=== PATIENT | female | born 1965 | race Caucasian/White ===

== ENCOUNTER → 2019-09-23 | Outpatient (CLI) | payer MEDICAID, SELFPAY | PROVIDERS: Family Provider Nurse Practitioner; Visit Provider Social Worker Clinical | DX: F43.12 Post-traumatic stress disorder, chronic (principal) | CPT/HCPCS: 90834 ==

== ENCOUNTER → 2019-10-16 10:06 | Outpatient (BNVA) | payer MEDICAID, SELFPAY | PROVIDERS: Family Provider Nurse Practitioner; PCP Nurse Practitioner; Visit Provider Social Worker Clinical | DX: F43.12 Post-traumatic stress disorder, chronic (principal); F25.9 Schizoaffective disorder, unspecified | CPT/HCPCS: 90834 ==

== ENCOUNTER → 2019-10-24 09:12 | Outpatient (BNVA) | payer MEDICAID, SELFPAY | PROVIDERS: Family Provider Nurse Practitioner; PCP Nurse Practitioner; Visit Provider Nurse Practitioner Psychiatric/Mental Health | DX: F25.1 Schizoaffective disorder, depressive type (principal); F43.12 Post-traumatic stress disorder, chronic; F41.1 Generalized anxiety disorder; F12.20 Cannabis dependence, uncomplicated; F17.210 Nicotine dependence, cigarettes, uncomplicated; F60.3 Borderline personality disorder | CPT/HCPCS: 99213 ==

== ENCOUNTER → 2019-10-30 10:23 | Outpatient (BNVA) | payer MEDICAID, SELFPAY | PROVIDERS: Family Provider Nurse Practitioner; PCP Nurse Practitioner; Visit Provider Social Worker Clinical | DX: F25.1 Schizoaffective disorder, depressive type (principal); F43.12 Post-traumatic stress disorder, chronic | CPT/HCPCS: 90834 ==

== ENCOUNTER → 2019-11-05 09:22 | Outpatient (BNVA) | payer MEDICAID, SELFPAY | PROVIDERS: Family Provider Nurse Practitioner; Visit Provider Social Worker Clinical | DX: F25.1 Schizoaffective disorder, depressive type (principal); F43.12 Post-traumatic stress disorder, chronic | CPT/HCPCS: 90834 ==

== ENCOUNTER → 2019-11-13 09:22 | Outpatient (BNVA) | payer MEDICAID, SELFPAY | PROVIDERS: Family Provider Nurse Practitioner; Visit Provider Social Worker Clinical | DX: F25.1 Schizoaffective disorder, depressive type (principal); F43.12 Post-traumatic stress disorder, chronic | CPT/HCPCS: 90834 ==

== ENCOUNTER 2019-11-18 12:45 | Outpatient (CLI) | payer MEDICAID, SELFPAY ==
--- NOTE | 2019-11-18 12:51 | XR_ITS ---
WS: [id number] Right foot, 3 views, 11/18/2019 Clinical Data: right heel pain Comparison: None. Findings: No fractures or dislocations are seen. No bone destruction or erosion is noted. The joint spaces and soft tissues are normal. There is a small plantar spur. XR/XR foot RT min 3V* [id number] Impression: Negative right foot.
--- NOTE | 2019-11-18 12:51 | XR_ITS ---
WS: [id number] Left foot, 3 views, 11/18/2019 Clinical Data: left heel pain Comparison: None. Findings: No fractures or dislocations are seen. No bone destruction or erosion is noted. The joint spaces and soft tissues are normal. There is a small plantar spur. XR/XR foot LT min 3V* [id number] Impression: Negative left foot.
== END 2019-11-18 12:46 | disposition home or self-care (01) ==
LOC: RAD 12:48
PROVIDERS: Family Provider Nurse Practitioner; PCP Family Medicine; Visit Provider Family Medicine
DX: M79.671 Pain in right foot (principal); M79.672 Pain in left foot; E55.9 Vitamin D deficiency, unspecified; E78.5 Hyperlipidemia, unspecified; E03.9 Hypothyroidism, unspecified
CPT/HCPCS: 73630; 80053; 80061; 82306; 84443

== ENCOUNTER → 2019-11-20 12:47 | Outpatient (BNVA) | payer MEDICAID, SELFPAY | PROVIDERS: Family Provider Nurse Practitioner; PCP Family Medicine; Visit Provider Nurse Practitioner Psychiatric/Mental Health | DX: F25.1 Schizoaffective disorder, depressive type (principal); F43.12 Post-traumatic stress disorder, chronic; F41.1 Generalized anxiety disorder; F12.20 Cannabis dependence, uncomplicated; F17.210 Nicotine dependence, cigarettes, uncomplicated; F60.3 Borderline personality disorder | CPT/HCPCS: 99214 ==

== ENCOUNTER → 2019-12-01 13:19 | Outpatient (BNVA) | payer MEDICAID, SELFPAY | PROVIDERS: Family Provider Nurse Practitioner; PCP Family Medicine; Visit Provider Social Worker Clinical | DX: F41.1 Generalized anxiety disorder (principal); F43.12 Post-traumatic stress disorder, chronic; F25.1 Schizoaffective disorder, depressive type; F60.3 Borderline personality disorder | CPT/HCPCS: 90834 ==

== ENCOUNTER → 2019-12-11 10:45 | Outpatient (BNVA) | payer MEDICAID, SELFPAY | PROVIDERS: Family Provider Nurse Practitioner; PCP Family Medicine; Visit Provider Social Worker Clinical | DX: F60.3 Borderline personality disorder (principal); F25.1 Schizoaffective disorder, depressive type; F43.12 Post-traumatic stress disorder, chronic; F41.1 Generalized anxiety disorder | CPT/HCPCS: 90834 ==

== ENCOUNTER → 2019-12-12 09:36 | Outpatient (BNVA) | payer MEDICAID, SELFPAY | PROVIDERS: Family Provider Nurse Practitioner; PCP Family Medicine; Visit Provider Otolaryngology | DX: J34.2 Deviated nasal septum (principal); J34.3 Hypertrophy of nasal turbinates; R09.82 Postnasal drip; J30.9 Allergic rhinitis, unspecified; J32.9 Chronic sinusitis, unspecified; H69.83 Other specified disorders of Eustachian tube, bilateral; F17.210 Nicotine dependence, cigarettes, uncomplicated | CPT/HCPCS: 99203; 99214 ==

== ENCOUNTER 2019-12-14 17:35 | Emergency (ER) | payer MEDICAID, SELFPAY ==
[2019-12-14 17:36] VITALS: BP 146/89; PULSE 93; RESP 16; TEMP 36.6; O2SAT 99; BMI 24.1
--- NOTE | 2019-12-14 17:50 | ED_ITS ---
HPI - Neck Pain/Injury General: Chief Complaint: Neck Pain/Injury Stated Complaint: NECK PAIN/POSSIBLE INFECTION Time Seen by Provider: 12/14/19 17:50 Source: patient Mode of arrival: ambulatory Limitations: no limitations History of Present Illness: HPI Narrative: Patient comes in for persistent pain and discomfort to the right paraspinal muscles of the cervical spine. Patient had nerve ablation done on the 12th of this month and is concerned there may be an infection. Patient denies any fever. Patient appears well. Patient has a history of chronic neck pain. MD complaint: neck pain Review of Systems General: Reports: 10 or more systems reviewed and unremarkable except in HPI and below Musc: Reports: neck pain PFSH ED PFSH: Medical History (Updated 12/14/19 @ 18:39 by TARAN Holly) Allergic rhinitis Borderline personality disorder Cannabis dependence, episodic use Chronic back pain Chronic eustachian tube dysfunction Chronic post-traumatic stress disorder Chronic sinusitis COPD (chronic obstructive pulmonary disease) Fatty liver Fibromyalgia Generalized anxiety disorder Hyperlipidemia Hypothyroid Nasal septal deformity Nasal turbinate hypertrophy Nicotine dependence, cigarettes, with unspecified nicotine-induced disorders Osteoporosis Postnasal drip Schizoaffective disorder, depressive type Severe sleep apnea Vitamin D deficiency Surgical History H/O section History of appendectomy History of cholecystectomy Status post gastric surgery Social History Smoking and tobacco status: current every day smoker cigarettes Alcohol intake: former Physical Exam Const: COMMON NORMALS: no apparent distress and oriented x3 GENERAL APPEARANCE: cooperative HENMT: COMMON NORMALS: normocephalic, external ears normal, EAC's normal, TM's normal bilaterally and external nose normal HEAD & SCALP: normal to inspection and normocephalic FACE & SINUS: normal facial exam NOSE: external nose normal GENERAL EAR: hearing not grossly impaired EXTERNAL EAR: Yes external ears normal EXTERNAL AUDITORY CANAL: EAC's normal T YMPANIC MEMBRANE: TM's normal bilaterally MOUTH: oral and palatal mucosa normal THROAT: posterior oropharynx normal Eye: COMMON NORMALS: PERRL and EOMs intact bilaterally PUPIL: Yes PERRL Neck/C-Spine: COMMON NORMALS: no lymphadenopathy CERVICAL SPINE: Yes cervical ROM abnormal rotation to the right decreased, Yes pain with cervical ROM, Yes paracervical muscle tenderness right and Yes paracervical muscle spasm right Lymph: LYMPHATIC: no lymphedema noted Chest: COMMONS NORMALS: inspection of chest normal and palpation of chest normal Resp: COMMON NORMALS: normal respiratory effort and clear to auscultation bilaterally AUSCULTATION: clear to auscultation bilaterally Cardio: COMMON NORMALS: regular rate and regular rhythm RATE: regular rate RHYTHM: regular rhythm GI: COMMON NORMALS: normal to inspection, nondistended, normoactive bowel sounds and non-tender : COMMON NORMALS: Yes no CVA tenderness BLADDER/KIDNEY EXAM: Yes no CVA tenderness Back/Pelvis: COMMON NORMALS: no CVA tenderness and thoracic and lumbar spine normal to inspection Extremity: COMMON NORMALS: normal to inspection GENERAL: No edema Neuro: COMMON NORMALS: oriented x3, moves all extremities and no focal motor deficits Psych: COMMON NORMALS: mental status grossly normal and cooperative Skin: COMMON NORMALS: no rashes or lesions noted GENERAL SKIN EXAM: no rashes or lesions noted Course Vital Signs: Vital signs: Vital Signs Temperature 97.8 F 12/14/19 17:36 Pulse Rate 93 12/14/19 17:36 Respiratory Rate 16 12/14/19 17:36 Blood Pressure 146/89 12/14/19 17:36 Pulse Oximetry 99 12/14/19 17:36 MDM - Neck Pain/Injury MDM Narrative: Medical decision making narrative: Patient comes in today with right-sided neck pain. On exam we note very tender paraspinous muscles of the right cervical area. Patient has guarded range of motion to the right. Good pulses and sensations distally to the upper extremities. Respirations are even lungs are clear to auscultation. Skin is pink warm and dry without any signs of redness or purulent drainage. Vital signs are normal. Differential diagnosis includes cervical radiculopathy, cellulitis, abscess, muscle spasm, cervical strain. CT scan was performed noting no sign of abscess or pathologic process that could be contributing to the pain. Patient does have some degenerative disc disease. Reviewed with patient reassured her that there is no sign of infection. Patient was given medication for her discomfort including 30 mg Toradol, 60 mg orphenadrine, morphine 4 mg and 4 mg of ondansetron for nausea. Patient should follow-up with primary care or specialist for further treatment. Patient reports understanding. Discharge Plan Discharge Patient Disposition: Home, Self-Care Clinical Impression: Cervical paraspinal muscle spasm Condition: Stable Prescriptions: No Action ergocalciferol (vitamin D2) 1,250 mcg (50,000 unit) capsule 1,250 mcg PO .COMPLEX RF: 0 levothyroxine 25 mcg capsule 25 mcg PO QDAY RF: 0 duloxetine [Cymbalta] 60 mg capsule,delayed release(DR/EC) 60 mg PO .morning Qty: 30 RF: 4 ziprasidone HCl [Geodon] 20 mg capsule 20 mg PO .evening Qty: 30 RF: 4 Chantix 1 mg tablet 1 mg PO BID Qty: 56 RF: 1 duloxetine [Cymbalta] 30 mg capsule,delayed release(DR/EC) 30 mg PO .morning Qty: 30 RF: 2 loperamide [Anti-Diarrheal (loperamide)] 2 mg tablet 2 mg PO DAILY PRNRF: 0 acetaminophen [Tylenol] 325 mg tablet 650 mg PO Q6H PRN (Reason: pain) Qty: 100 RF: 0 albuterol sulfate [ProAir HFA] 90 mcg/actuation HFA aerosol inhaler 2 puff INHALATION Q6H PRN (Reason: shortness of breath or wheezing) Qty: 18 RF: 0 baclofen 10 mg tablet 10 mg PO TID Qty: 90 RF: 0 cetirizine 10 mg tablet 10 mg PO DAILY Qty: 30 RF: 0 montelukast [Singulair] 10 mg tablet 10 mg PO QDAY Qty: 30 RF: 0 simvastatin 20 mg tablet 20 mg PO QDAY Qty: 30 RF: 0 zonisamide 100 mg capsule 100 mg PO BID Qty: 60 RF: 0 Spiriva with HandiHaler 18 mcg capsule, w/inhalation device 1 cap INHALATION QDAY Qty: 90 RF: 0 topiramate [Topamax] 100 mg tablet 100 mg PO BID Qty: 60 RF: 0 Discharge Orders: Discharge Order (Routine); Ordered 12/14/19 Ordered By: Umesh Contreras Referrals: Cira Galeano, [employer]ICIAN-C [Family Provider] - Mireille Villasenor DO [Primary Care Provider] - Discharge Diet: Usual diet Patient Instructions: Muscle Spasm (ED) Activity Restrictions/Additional Instructions: Activity as tolerated Gentle stretching and range of motion of the neck Ice or heat to the area Menthol muscle rub to the area Drink plenty of fluids Follow-up with primary care for further treatment. Coding Level of Care Code ED Community Midwife for Sariah Fwd Exam Comprehensive
--- NOTE | 2019-12-14 17:55 | CTR_ITS ---
PROCEDURE INFORMATION: Exam: CT Cervical Spine Without Contrast Exam date and time: 12/14/2019 6:08 PM Age: 53 years old Clinical indication: Neck pain; Prior surgery; Surgery date: <1 month; Surgery type: Nerve procedure done 12/04/19; Additional info: Pain, recent procedure TECHNIQUE: Imaging protocol: Computed tomography images of the cervical spine without contrast. Total DLP: 473.61 mGy-cm Radiation optimization: All CT scans at this facility use at least one of these dose optimization techniques: automated exposure control; mA and/or kV adjustment per patient size (includes targeted exams where dose is matched to clinical indication); or iterative reconstruction. COMPARISON: CT Cervical Spine wo* [id number] 07/08/2015 5:12 PM FINDINGS: Vertebrae: Mild straightening of the normal cervical lordosis most likely positional nature. No visible fracture, subluxation, or dislocation. Discs/Spinal canal/Neural foramina: No visible significant posterior disc bulge or herniated nucleus pulposis that would result in central canal stenosis. Soft tissues: Unremarkable. Trachea: Moderately advanced degenerative disease and degenerative disc disease C5/C6 with spondylosis deformans. Vacuum disc phenomenon. Bilateral neural foraminal narrowing C5/C6 secondary to posterior osteophytes and facet arthrosis. No central canal stenosis. Lungs: Lung apices clear. Mediastinum: Evidence of antecedent granulomatous disease. CT/CT cervical spin wo con* [id number] IMPRESSION: 1. No visible evidence of active or acute pathologic process. 2. Moderately advanced degenerative disease and degenerative disc disease C5/C6. 3. Bilateral neural foraminal narrowing C5/C6. 4. Evidence of antecedent granulomatous disease. Radiation Dose CTDIVOL = (mGy): DLP = 473.61 (mGy-cm)
[2019-12-14] MEDS: orphenadrine 30 mg/mL Inj 2 mL 60 MG IM (18:02)
[2019-12-14] MEDS: ketorolac 30 mg/mL INJ IM (18:02)
[2019-12-14] MEDS: ondansetron 4 MG Tablet PO (18:33)
[2019-12-14 18:42] VITALS: RESP 16; O2SAT 98
[2019-12-14] MEDS: morphine 4 mg/mL SDV 1 mL IM (18:42)
[2019-12-14 19:23] VITALS: BP 152/94; PULSE 89; RESP 16; TEMP 36.9; O2SAT 97
== END 2019-12-14 19:30 | disposition home or self-care (01) ==
PROVIDERS: Emergency Provider Nurse Practitioner Family; Family Provider Nurse Practitioner; PCP Family Medicine
DX: M62.838 Other muscle spasm (principal); J44.9 Chronic obstructive pulmonary disease, unspecified; E78.5 Hyperlipidemia, unspecified; E03.9 Hypothyroidism, unspecified; F17.210 Nicotine dependence, cigarettes, uncomplicated
CPT/HCPCS: 12345; 72125; 96372; 99281; 99283; J1885; J2270; J2360; Q0162

== ENCOUNTER → 2019-12-15 12:19 | Outpatient (BNVA) | payer MEDICAID, SELFPAY | PROVIDERS: Family Provider Nurse Practitioner; PCP Family Medicine; Visit Provider Nurse Practitioner Psychiatric/Mental Health | DX: F25.1 Schizoaffective disorder, depressive type (principal); F43.12 Post-traumatic stress disorder, chronic; F41.1 Generalized anxiety disorder; F12.20 Cannabis dependence, uncomplicated; F17.210 Nicotine dependence, cigarettes, uncomplicated; Z79.899 Other long term (current) drug therapy; F60.3 Borderline personality disorder | CPT/HCPCS: 99214 ==

== ENCOUNTER → 2019-12-18 11:40 | Outpatient (BNVA) | payer MEDICAID, SELFPAY | PROVIDERS: Family Provider Nurse Practitioner; PCP Family Medicine; Visit Provider Social Worker Clinical | DX: F60.3 Borderline personality disorder (principal); F41.1 Generalized anxiety disorder; F43.12 Post-traumatic stress disorder, chronic; F25.1 Schizoaffective disorder, depressive type | CPT/HCPCS: 90834 ==

== ENCOUNTER → 2019-12-25 10:04 | Outpatient (BNVA) | payer MEDICAID, SELFPAY | PROVIDERS: Family Provider Nurse Practitioner; PCP Family Medicine; Visit Provider Social Worker Clinical | DX: F25.1 Schizoaffective disorder, depressive type (principal); F41.1 Generalized anxiety disorder; F43.12 Post-traumatic stress disorder, chronic | CPT/HCPCS: 90834 ==

== ENCOUNTER 2019-12-26 10:22 | Outpatient (CLI) | payer MEDICAID, SELFPAY ==
--- NOTE | 2019-12-26 10:32 | CT_ITS ---
WS: [id number] CT SINUSES TECHNIQUE: Noncontrast CT of the paranasal sinuses with coronal and sagittal reformatted images. CLINICAL INFORMATION: Ear complaints COMPARISON: None. DLP: 392.[address] scans at [facility] use at least one of these dose optimization techniques: automat ed exposure control; mA and/or kV adjustment per patient size (includes targeted exams where dose is matched to clinical indication); or iterative reconstruction. FINDINGS: Mild left to right nasal septal deviation measuring 5 mm. Rightward directed spur. Mild narrowing of the ostiomeatal units bilaterally which remain patent. Frontal sinuses are well aerated. Mild mucosal thickening in the ethmoid air cells. Sphenoid sinuses are well aerated. Normal sphenoid sinus ostia. Maxillary sinuses are well aerated. Mastoid air cells are well aerated. Encephalomalacia partially visualized in the inferior frontal lob es bilaterally likely due to prior trauma. Normal parapharyngeal fat. Posterior nasopharynx appears n ormal. CT/CT sinus wo con* [id number] IMPRESSION: 1. Mild left to right nasal septal deviation measuring 5 mm. 2. Paranasal sinuses are well aerated. Mild narrowing of the ostiomeatal units which remain patent. 3. Mild mucosal thickening ethmoid air cells. 4. Mastoid air cells well aerated. Normal posterior nasopharynx.
== END 2019-12-26 10:23 | disposition home or self-care (01) ==
LOC: RADWPI 10:32
PROVIDERS: Family Provider Nurse Practitioner; PCP Family Medicine; Visit Provider Otolaryngology
DX: H93.90 Unspecified disorder of ear, unspecified ear (principal); J34.2 Deviated nasal septum
CPT/HCPCS: 70486

== ENCOUNTER → 2020-01-01 09:59 | Outpatient (BNVA) | payer MEDICAID, SELFPAY | PROVIDERS: Family Provider Nurse Practitioner; PCP Family Medicine; Visit Provider Social Worker Clinical | DX: F25.1 Schizoaffective disorder, depressive type (principal); F43.12 Post-traumatic stress disorder, chronic; F41.1 Generalized anxiety disorder; F60.3 Borderline personality disorder | CPT/HCPCS: 90834 ==

== ENCOUNTER → 2020-01-13 08:07 | Outpatient (BNVA) | payer MEDICAID, SELFPAY | PROVIDERS: Family Provider Nurse Practitioner; PCP Family Medicine; Visit Provider Nurse Practitioner Psychiatric/Mental Health | DX: F25.1 Schizoaffective disorder, depressive type (principal); F43.12 Post-traumatic stress disorder, chronic; F41.1 Generalized anxiety disorder; F12.20 Cannabis dependence, uncomplicated; F17.210 Nicotine dependence, cigarettes, uncomplicated; F60.3 Borderline personality disorder | CPT/HCPCS: 99214 ==

== ENCOUNTER → 2020-01-15 08:12 | Outpatient (BNVA) | payer MEDICAID, SELFPAY | PROVIDERS: Family Provider Nurse Practitioner; PCP Family Medicine; Visit Provider Social Worker Clinical | DX: F60.3 Borderline personality disorder (principal); F41.1 Generalized anxiety disorder; F43.12 Post-traumatic stress disorder, chronic; F25.1 Schizoaffective disorder, depressive type | CPT/HCPCS: 90834 ==

== ENCOUNTER → 2020-01-19 08:15 | Outpatient (BNVA) | payer MEDICAID, SELFPAY | PROVIDERS: Family Provider Nurse Practitioner; PCP Family Medicine; Visit Provider Social Worker Clinical | DX: F25.1 Schizoaffective disorder, depressive type (principal); F43.12 Post-traumatic stress disorder, chronic; F41.1 Generalized anxiety disorder; F60.3 Borderline personality disorder | CPT/HCPCS: 90834 ==

== ENCOUNTER → 2020-02-09 08:23 | Outpatient (BNVA) | payer MEDICAID, SELFPAY | PROVIDERS: Family Provider Nurse Practitioner; PCP Family Medicine; Visit Provider Social Worker Clinical | DX: F25.1 Schizoaffective disorder, depressive type (principal); F43.12 Post-traumatic stress disorder, chronic; F41.1 Generalized anxiety disorder; F60.3 Borderline personality disorder | CPT/HCPCS: 90832 ==

== ENCOUNTER → 2020-02-18 07:34 | Outpatient (BNVA) | payer MEDICAID, SELFPAY | PROVIDERS: Family Provider Nurse Practitioner; PCP Family Medicine; Visit Provider Nurse Practitioner Psychiatric/Mental Health | DX: F25.1 Schizoaffective disorder, depressive type (principal); F43.12 Post-traumatic stress disorder, chronic; F41.1 Generalized anxiety disorder; F17.210 Nicotine dependence, cigarettes, uncomplicated; F12.20 Cannabis dependence, uncomplicated; Z79.899 Other long term (current) drug therapy; F60.3 Borderline personality disorder | CPT/HCPCS: 80053; 83036; 85025; 99214 ==

== ENCOUNTER → 2020-02-25 08:58 | Outpatient (BNVA) | payer MEDICAID, SELFPAY | PROVIDERS: Family Provider Nurse Practitioner; PCP Family Medicine; Visit Provider Social Worker Clinical | DX: F25.1 Schizoaffective disorder, depressive type (principal) | CPT/HCPCS: 90834 ==

== ENCOUNTER → 2020-03-11 08:05 | Outpatient (BNVA) | payer MEDICAID, SELFPAY | PROVIDERS: Family Provider Nurse Practitioner; PCP Family Medicine; Visit Provider Social Worker Clinical | DX: F25.1 Schizoaffective disorder, depressive type (principal); F43.12 Post-traumatic stress disorder, chronic; F41.1 Generalized anxiety disorder; F60.3 Borderline personality disorder | CPT/HCPCS: 90834 ==

== ENCOUNTER → 2020-03-17 07:31 | Outpatient (BNVA) | payer MEDICAID, SELFPAY | PROVIDERS: Family Provider Nurse Practitioner; PCP Family Medicine; Visit Provider Nurse Practitioner Psychiatric/Mental Health | DX: F25.1 Schizoaffective disorder, depressive type (principal); F43.12 Post-traumatic stress disorder, chronic; F41.1 Generalized anxiety disorder; F12.20 Cannabis dependence, uncomplicated; F17.210 Nicotine dependence, cigarettes, uncomplicated; F60.3 Borderline personality disorder | CPT/HCPCS: 95909; 99214 ==

== ENCOUNTER → 2020-03-29 08:10 | Outpatient (BNVA) | payer MEDICAID, SELFPAY | PROVIDERS: Family Provider Nurse Practitioner; PCP Family Medicine; Visit Provider Social Worker Clinical | DX: F60.3 Borderline personality disorder (principal); F41.1 Generalized anxiety disorder; F25.1 Schizoaffective disorder, depressive type; F43.12 Post-traumatic stress disorder, chronic | CPT/HCPCS: 90832 ==

== ENCOUNTER → 2020-04-06 12:02 | Outpatient (BNVA) | payer OTHER, SELFPAY | PROVIDERS: Family Provider Nurse Practitioner; PCP Family Medicine; Visit Provider Psychiatry & Neurology Neurology | DX: Z79.899 Other long term (current) drug therapy (principal) | CPT/HCPCS: 80061 ==

== ENCOUNTER → 2020-04-14 07:36 | Outpatient (BNVA) | payer MEDICAID, SELFPAY ==
[2020-04-07 09:08] VITALS: BP 109/70; BMI 25.5
== END ==
PROVIDERS: Family Provider Nurse Practitioner; PCP Family Medicine; Visit Provider Nurse Practitioner Psychiatric/Mental Health
DX: F25.1 Schizoaffective disorder, depressive type (principal); F43.12 Post-traumatic stress disorder, chronic; F41.1 Generalized anxiety disorder; F12.20 Cannabis dependence, uncomplicated; F17.210 Nicotine dependence, cigarettes, uncomplicated; F60.3 Borderline personality disorder
CPT/HCPCS: 99214

== ENCOUNTER → 2020-04-15 07:50 | Outpatient (BNVA) | payer MEDICAID, SELFPAY ==
[2020-04-07 09:08] VITALS: BP 109/70; BMI 25.5
== END ==
PROVIDERS: Family Provider Nurse Practitioner; PCP Family Medicine; Visit Provider Social Worker Clinical
DX: F25.1 Schizoaffective disorder, depressive type (principal); F60.3 Borderline personality disorder; F41.1 Generalized anxiety disorder; F43.12 Post-traumatic stress disorder, chronic
CPT/HCPCS: 90834

== ENCOUNTER 2020-04-19 16:42 | Outpatient (CLI) | payer MEDICAID, SELFPAY ==
[2020-04-07 09:08] VITALS: BP 109/70; BMI 25.5
[2020-04-19 17:23] LABS: Alanine Aminotransferase 18 U/L (0-33); Albumin Level 4.7 g/dL (3.5-5.2); Alkaline Phosphatase 75 IU/L (35-105); Aspartate Amino Transferase 18 U/L (0-32); Blood Urea Nitrogen 13 mg/dL (6-20); Calcium 9.6 mg/dL (8.5-10.5); Carbon Dioxide 25 mmol/L (22-29); Chloride 103 mmol/L (98-107); Globulin 2.3 g/dL (1.3-4.6); Glomerular Filtration Rate 75.3 mL/min (90-130); Glucose 91 mg/dL (65-115); Osmolality Calculated 282 mOsm/kg (285-295); Sodium 138 mmol/L (136-145); Total Bilirubin 0.2 mg/dL (0.15-1.2)
[2020-04-19 17:39] LABS: Basophils # 0.1 10^3/uL (0.0-0.1); Basophils % 0.6 %; Eosinophils # 0.2 10^3/uL (0.0-0.8); Hematocrit 38.2 % (37.0-47.0); Hemoglobin 12.1 g/dL (11.5-15.3); Lymphocytes # 3.1 10^3/uL (0.8-4.8); Lymphocytes % 37.2 %; Mean Corpuscular HGB Conc 31.7 g/dL (30.0-36.0); Mean Corpuscular Hemoglobin 31.3 pg (28.0-34.0); Mean Corpuscular Volume 98.7 fL (81-99); Mean Platelet Volume 11.1 fL (7.4-10.4); Monocytes # 0.6 10^3/uL (0.2-0.9); Monocytes % 6.9 %; Neutrophils # 4.44 10^3/uL (1.8-7.7); Neutrophils % 53.1 %; Nucleated Red Blood Cells % 0 %; Platelet Count 264 10^3/cmm (130-400); Red Blood Count 3.87 10^6/uL (4.1-5.3); Red Cell Distribution Width 12.8 % (12.1-15.1); White Blood Count 8.4 10^3/uL (4.0-10.0)
== END 2020-04-19 16:43 | disposition home or self-care (01) ==
LOC: LAB 16:47
PROVIDERS: PCP Nurse Practitioner Family; Visit Provider Internal Medicine Pulmonary Disease
DX: F17.210 Nicotine dependence, cigarettes, uncomplicated (principal); J44.9 Chronic obstructive pulmonary disease, unspecified; R91.8 Other nonspecific abnormal finding of lung field
CPT/HCPCS: 80053; 85025

== ENCOUNTER 2020-05-03 11:34 | Outpatient (CLI) | payer MEDICAID, SELFPAY ==
[2020-04-07 09:08] VITALS: BP 109/70; BMI 25.5
--- NOTE | 2020-05-03 11:48 | ECG_ITS ---
[facility] Test Date: 2020-05-03 Pat Name: Ani Mejia Department: Room: Gender: Female [employer]: : 1965 Requested By: Salty Izquierdo Order Number: [id number] Annette MD: Rachel Locke M.D. Measurements Intervals [place] Rate: 76 P: 71 VA: 158 QRS: 60 QRSD: 83 T: 54 QT: 380 QTc: 428 Interpretive Statements SINUS RHYTHM Compared to ECG 07/31/2017 21:30:37 No significant changes Electronically Signed On 05-03-2020 15:45:57 CDT by Rachel Locke M.D. [email or web address]
[2020-05-03 12:14] LABS: Basophils # 0.1 10^3/uL (0.0-0.1); Eosinophils # 0.2 10^3/uL (0.0-0.8); Eosinophils % 2.9 %; Hematocrit 37.2 % (37.0-47.0); Hemoglobin 11.9 g/dL (11.5-15.3); Lymphocytes % 37.9 %; Mean Corpuscular Hemoglobin 32.1 pg (28.0-34.0); Mean Corpuscular Volume 100.3 fL (81-99); Mean Platelet Volume 10.9 fL (7.4-10.4); Monocytes # 0.5 10^3/uL (0.2-0.9); Monocytes % 9.2 %; Neutrophils # 2.54 10^3/uL (1.8-7.7); Neutrophils % 48.6 %; Nucleated Red Blood Cells % 0 %; Platelet Count 247 10^3/cmm (130-400); Red Blood Count 3.71 10^6/uL (4.1-5.3); Red Cell Distribution Width 12.9 % (12.1-15.1); White Blood Count 5.2 10^3/uL (4.0-10.0)
[2020-05-03 12:30] LABS: Anion Gap 11.6 (5-19); Blood Urea Nitrogen 12 mg/dL (6-20); Carbon Dioxide 25 mmol/L (22-29); Chloride 106 mmol/L (98-107); Glomerular Filtration Rate 75.3 mL/min (90-130); Glucose 101 mg/dL (65-115); Osmolality Calculated 282 mOsm/kg (285-295); Potassium 4.6 mmol/L (3.5-5.1); Sodium 138 mmol/L (136-145)
== END 2020-05-03 11:35 | disposition home or self-care (01) ==
LOC: RT 11:37
PROVIDERS: PCP Nurse Practitioner Family; Visit Provider Specialist
DX: Z01.810 Encounter for preprocedural cardiovascular examination (principal); R91.8 Other nonspecific abnormal finding of lung field; F17.210 Nicotine dependence, cigarettes, uncomplicated; J44.9 Chronic obstructive pulmonary disease, unspecified
CPT/HCPCS: 80048; 85025; 93005

== ENCOUNTER → 2020-05-04 09:33 | Outpatient (BNVA) | payer MEDICAID, SELFPAY ==
[2020-04-07 09:08] VITALS: BP 109/70; BMI 25.5
== END ==
PROVIDERS: Family Provider Nurse Practitioner; PCP Family Medicine; Visit Provider Social Worker Clinical
DX: F60.3 Borderline personality disorder (principal); F12.20 Cannabis dependence, uncomplicated; F41.1 Generalized anxiety disorder; F43.12 Post-traumatic stress disorder, chronic; F25.1 Schizoaffective disorder, depressive type
CPT/HCPCS: 90834

== ENCOUNTER 2020-05-17 13:30 | Outpatient (CLI) | payer MEDICAID, SELFPAY ==
[2020-04-07 09:08] VITALS: BP 109/70; BMI 25.5
--- NOTE | 2020-05-17 14:00 | CT_ITS ---
WS: [id number] CT CHEST WITHOUT INTRAVENOUS CONTRAST HISTORY: lung nodules TECHNIQUE: Contiguous 5 mm axial imaging performed on the thorax. Coronal and sagittal reformats are submitted. All CT scans at [facility] use at least one of these dose optimization techniq ues: automated exposure control; mA and/or kV adjustment per patient size (includes targeted exams wh ere dose is matched to clinical indication); or iterative reconstruction. CONTRAST: None DLP: 651.05 mGycm COMPARISON: 11/20/2018 and 02/11/2018 Lungs and central airway: Hyperexpanded lungs. Subpleural 3 mm nodule at the RIGHT apex. Again noted is a noncalcified 5 mm nodules in the RIGHT lower lobe which are unchanged. There is an additional ar ea of bronchiectasis with calcification and bronchial thickening in the RIGHT lower lobe. Very slight increase in size of the increased soft tissue adjacent to the calcification. No new nodules. Pleura: Normal. No pleural effusion. Heart and pericardium: Normal size heart. No pericardial effusion. Mediastinum and kimberly: Calcified mediastinal and hilar lymph nodes. No new lymph nodes appreciated on this unenhanced study. Vessels: Normal size aortic and pulmonary artery. No coronary artery calcifications. Chest wall and lower neck: No soft tissue masses. Upper abdomen: Prior cholecystectomy. No adrenal mass. Hepatic granulomata. Several splenic granuloma ta. Osseous structures: Mild thoracic spondylosis. CT/CT chest wo con [id number] IMPRESSION: 1. Long-term stability of 5 mm nodules in the RIGHT lower lobe. 2. Calcification associated bronchiectasis RIGHT lower lobe. Very slight incre ase in soft tissue component. Recommend one-year CT follow-up. 3. Chronic emphysema. 4. Prior cholecystectomy.
== END 2020-05-17 13:31 | disposition home or self-care (01) ==
LOC: RADWPI 13:33
PROVIDERS: Family Provider Nurse Practitioner Family; PCP Nurse Practitioner Family; Visit Provider Internal Medicine Pulmonary Disease
DX: F25.1 Schizoaffective disorder, depressive type (principal); F43.12 Post-traumatic stress disorder, chronic; F41.1 Generalized anxiety disorder; F60.3 Borderline personality disorder
CPT/HCPCS: 90834; 71250

== ENCOUNTER → 2020-05-18 09:33 | Outpatient (BNVA) | payer MEDICAID, SELFPAY ==
[2020-04-07 09:08] VITALS: BP 109/70; BMI 25.5
== END ==
PROVIDERS: Family Provider Nurse Practitioner Family; PCP Nurse Practitioner Family; Visit Provider Nurse Practitioner Psychiatric/Mental Health
DX: F25.1 Schizoaffective disorder, depressive type (principal); F43.12 Post-traumatic stress disorder, chronic; F41.1 Generalized anxiety disorder; F17.210 Nicotine dependence, cigarettes, uncomplicated; F12.20 Cannabis dependence, uncomplicated; F60.3 Borderline personality disorder
CPT/HCPCS: 99214

== ENCOUNTER → 2020-05-28 08:38 | Outpatient (BNVA) | payer MEDICAID, SELFPAY ==
[2020-04-07 09:08] VITALS: BP 109/70; BMI 25.5
== END ==
PROVIDERS: Family Provider Nurse Practitioner Family; PCP Nurse Practitioner Family; Visit Provider Internal Medicine
DX: Z11.59 Encounter for screening for other viral diseases (principal); J44.9 Chronic obstructive pulmonary disease, unspecified
CPT/HCPCS: 87635

== ENCOUNTER → 2020-06-03 08:22 | Outpatient (BNVA) | payer MEDICAID, SELFPAY ==
[2020-04-07 09:08] VITALS: BP 109/70; BMI 25.5
== END ==
PROVIDERS: Family Provider Nurse Practitioner; PCP Family Medicine; Visit Provider Social Worker Clinical
DX: F60.3 Borderline personality disorder (principal); F41.1 Generalized anxiety disorder; F43.12 Post-traumatic stress disorder, chronic; F25.1 Schizoaffective disorder, depressive type
CPT/HCPCS: 90834

== ENCOUNTER 2020-06-10 09:45 | Outpatient (CLI) | payer MEDICAID, SELFPAY ==
[2020-04-07 09:08] VITALS: BP 109/70; BMI 25.5
--- NOTE | 2020-06-10 14:12 | PFTS_ITS ---
Date of Study:06/10/20 Date of Dictation: MECHANICS: Forced vital capacity (FVC) is normal. Forced expiratory volume in one second (FEV1) is normal. FEV1/FVC is normal. FLOW VOLUME LOOP: Normal,. LUNG VOLUMES: Total lung capacity (TLC) is normal. Residual volume (RV) is normal. DIFFUSING CAPACITY FOR CARBON MONOXIDE: Normal. INTERPRETATION: The pulmonary function tests are normal. There is no significant postbronchodilator response. Lung volumes are normal. Gas exchange (DLCO) is normal. MTDD
== END 2020-06-10 09:46 | disposition home or self-care (01) ==
PROVIDERS: PCP Nurse Practitioner Family; Visit Provider Internal Medicine Pulmonary Disease
DX: R91.8 Other nonspecific abnormal finding of lung field (principal); F17.210 Nicotine dependence, cigarettes, uncomplicated; J44.9 Chronic obstructive pulmonary disease, unspecified
CPT/HCPCS: 94060; 94726; 94729; J7611

== ENCOUNTER → 2020-06-17 07:42 | Outpatient (BNVA) | payer MEDICAID, SELFPAY ==
[2020-04-07 09:08] VITALS: BP 109/70; BMI 25.5
== END ==
PROVIDERS: Family Provider Nurse Practitioner Family; PCP Nurse Practitioner Family; Visit Provider Nurse Practitioner Psychiatric/Mental Health
DX: F25.1 Schizoaffective disorder, depressive type (principal); F43.12 Post-traumatic stress disorder, chronic; F41.1 Generalized anxiety disorder; F17.210 Nicotine dependence, cigarettes, uncomplicated; F12.20 Cannabis dependence, uncomplicated; F60.3 Borderline personality disorder
CPT/HCPCS: 99214

== ENCOUNTER → 2020-06-21 08:26 | Outpatient (BNVA) | payer MEDICAID, SELFPAY ==
[2020-04-07 09:08] VITALS: BP 109/70; BMI 25.5
== END ==
PROVIDERS: Family Provider Nurse Practitioner; PCP Family Medicine; Visit Provider Social Worker Clinical
DX: F41.1 Generalized anxiety disorder (principal); F43.12 Post-traumatic stress disorder, chronic; F25.1 Schizoaffective disorder, depressive type; F60.3 Borderline personality disorder
CPT/HCPCS: 90832; 95910

== ENCOUNTER → 2020-07-01 07:46 | Outpatient (BNVA) | payer MEDICAID, SELFPAY ==
[2020-04-07 09:08] VITALS: BP 109/70; BMI 25.5
== END ==
PROVIDERS: Family Provider Nurse Practitioner; PCP Family Medicine; Visit Provider Social Worker Clinical
DX: F25.1 Schizoaffective disorder, depressive type (principal); F43.12 Post-traumatic stress disorder, chronic; F41.1 Generalized anxiety disorder; F60.3 Borderline personality disorder
CPT/HCPCS: 90834

== ENCOUNTER → 2020-07-15 08:16 | Outpatient (BNVA) | payer MEDICAID, SELFPAY ==
[2020-04-07 09:08] VITALS: BP 109/70; BMI 25.5
== END ==
PROVIDERS: Family Provider Nurse Practitioner; PCP Family Medicine; Visit Provider Social Worker Clinical
DX: F43.12 Post-traumatic stress disorder, chronic (principal); F25.1 Schizoaffective disorder, depressive type; F41.1 Generalized anxiety disorder; F60.3 Borderline personality disorder
CPT/HCPCS: 90832

== ENCOUNTER → 2020-07-22 08:06 | Outpatient (BNVA) | payer MEDICAID, SELFPAY ==
[2020-04-07 09:08] VITALS: BP 109/70; BMI 25.5
== END ==
PROVIDERS: Family Provider Nurse Practitioner Family; PCP Nurse Practitioner Family; Visit Provider Nurse Practitioner Psychiatric/Mental Health
DX: F25.1 Schizoaffective disorder, depressive type (principal); F43.12 Post-traumatic stress disorder, chronic; F41.1 Generalized anxiety disorder; F17.210 Nicotine dependence, cigarettes, uncomplicated; F12.20 Cannabis dependence, uncomplicated; F60.3 Borderline personality disorder
CPT/HCPCS: 99214

== ENCOUNTER → 2020-07-29 07:46 | Outpatient (BNVA) | payer MEDICAID, SELFPAY ==
[2020-04-07 09:08] VITALS: BP 109/70; BMI 25.5
== END ==
PROVIDERS: Family Provider Nurse Practitioner Family; PCP Nurse Practitioner Family; Visit Provider Social Worker Clinical
DX: F60.3 Borderline personality disorder (principal); F41.1 Generalized anxiety disorder; F43.12 Post-traumatic stress disorder, chronic; F25.1 Schizoaffective disorder, depressive type
CPT/HCPCS: 90834

== ENCOUNTER → 2020-08-10 08:36 | Outpatient (BNVA) | payer MEDICAID, SELFPAY ==
[2020-04-07 09:08] VITALS: BP 109/70; BMI 25.5
== END ==
PROVIDERS: Family Provider Nurse Practitioner Family; PCP Nurse Practitioner Family; Visit Provider Social Worker Clinical
DX: F60.3 Borderline personality disorder (principal); F41.1 Generalized anxiety disorder; F43.12 Post-traumatic stress disorder, chronic; F25.1 Schizoaffective disorder, depressive type
CPT/HCPCS: 90834

== ENCOUNTER → 2020-08-18 07:28 | Outpatient (BNVA) | payer MEDICAID, SELFPAY ==
[2020-04-07 09:08] VITALS: BP 109/70; BMI 25.5
== END ==
PROVIDERS: Family Provider Nurse Practitioner Family; PCP Nurse Practitioner Family; Visit Provider Nurse Practitioner Psychiatric/Mental Health
DX: F25.1 Schizoaffective disorder, depressive type (principal); F43.12 Post-traumatic stress disorder, chronic; F41.1 Generalized anxiety disorder; F17.210 Nicotine dependence, cigarettes, uncomplicated; F12.20 Cannabis dependence, uncomplicated
CPT/HCPCS: 99213

== ENCOUNTER → 2020-09-07 08:26 | Outpatient (BNVA) | payer MEDICAID, SELFPAY ==
[2020-04-07 09:08] VITALS: BP 109/70; BMI 25.5
== END ==
PROVIDERS: Family Provider Nurse Practitioner Family; PCP Nurse Practitioner Family; Visit Provider Social Worker Clinical
DX: F41.1 Generalized anxiety disorder (principal); F43.12 Post-traumatic stress disorder, chronic; F25.1 Schizoaffective disorder, depressive type; F60.3 Borderline personality disorder
CPT/HCPCS: 90834

== ENCOUNTER → 2020-09-13 08:19 | Outpatient (BNVA) | payer MEDICAID, SELFPAY ==
[2020-04-07 09:08] VITALS: BP 109/70; BMI 25.5
== END ==
PROVIDERS: Family Provider Nurse Practitioner Family; PCP Nurse Practitioner Family; Visit Provider Nurse Practitioner Psychiatric/Mental Health
DX: F25.1 Schizoaffective disorder, depressive type (principal); F43.12 Post-traumatic stress disorder, chronic; F41.1 Generalized anxiety disorder; F17.210 Nicotine dependence, cigarettes, uncomplicated; F12.20 Cannabis dependence, uncomplicated; F60.3 Borderline personality disorder
CPT/HCPCS: 99213

== ENCOUNTER → 2020-09-29 09:14 | Outpatient (BNVA) | payer MEDICAID, SELFPAY ==
[2020-04-07 09:08] VITALS: BP 109/70; BMI 25.5
== END ==
PROVIDERS: Family Provider Nurse Practitioner Family; PCP Nurse Practitioner Family; Visit Provider Social Worker Clinical
DX: F60.3 Borderline personality disorder (principal); F41.1 Generalized anxiety disorder; F43.12 Post-traumatic stress disorder, chronic; F25.1 Schizoaffective disorder, depressive type
CPT/HCPCS: 90834

== ENCOUNTER → 2020-10-14 09:54 | Outpatient (BNVA) | payer MEDICAID, SELFPAY ==
[2020-04-07 09:08] VITALS: BP 109/70; BMI 25.5
== END ==
PROVIDERS: Family Provider Nurse Practitioner Family; PCP Nurse Practitioner Family; Visit Provider Social Worker Clinical
DX: F60.3 Borderline personality disorder (principal); F41.1 Generalized anxiety disorder
CPT/HCPCS: 90834

== ENCOUNTER → 2020-10-25 08:48 | Outpatient (BNVA) | payer MEDICAID, SELFPAY ==
[2020-04-07 09:08] VITALS: BP 109/70; BMI 25.5
== END ==
PROVIDERS: Family Provider Nurse Practitioner Family; PCP Nurse Practitioner Family; Visit Provider Social Worker Clinical
DX: F25.1 Schizoaffective disorder, depressive type (principal); F43.12 Post-traumatic stress disorder, chronic; F41.1 Generalized anxiety disorder; F60.3 Borderline personality disorder
CPT/HCPCS: 90834

== ENCOUNTER → 2020-11-02 08:12 | Outpatient (BNVA) | payer MEDICAID, SELFPAY ==
[2020-04-07 09:08] VITALS: BP 109/70; BMI 25.5
== END ==
PROVIDERS: Family Provider Nurse Practitioner Family; PCP Nurse Practitioner Family; Visit Provider Nurse Practitioner Psychiatric/Mental Health
DX: F25.1 Schizoaffective disorder, depressive type (principal); F43.12 Post-traumatic stress disorder, chronic; F41.1 Generalized anxiety disorder; F17.210 Nicotine dependence, cigarettes, uncomplicated; F12.20 Cannabis dependence, uncomplicated; F60.3 Borderline personality disorder
CPT/HCPCS: 99214

== ENCOUNTER → 2020-11-10 08:53 | Outpatient (BNVA) | payer MEDICAID, SELFPAY ==
[2020-04-07 09:08] VITALS: BP 109/70; BMI 25.5
== END ==
PROVIDERS: Family Provider Nurse Practitioner Family; PCP Nurse Practitioner Family; Visit Provider Social Worker Clinical
DX: F60.3 Borderline personality disorder (principal); F41.1 Generalized anxiety disorder; F43.12 Post-traumatic stress disorder, chronic; F25.1 Schizoaffective disorder, depressive type
CPT/HCPCS: 90832

== ENCOUNTER → 2020-11-24 08:19 | Outpatient (BNVA) | payer MEDICAID, SELFPAY ==
[2020-04-07 09:08] VITALS: BP 109/70; BMI 25.5
== END ==
PROVIDERS: Family Provider Nurse Practitioner Family; PCP Nurse Practitioner Family; Visit Provider Social Worker Clinical
DX: F60.3 Borderline personality disorder (principal); F25.1 Schizoaffective disorder, depressive type
CPT/HCPCS: 90834

== ENCOUNTER → 2020-12-15 14:56 | Outpatient (BNVA) | payer MEDICAID, SELFPAY ==
[2020-04-07 09:08] VITALS: BP 109/70; BMI 25.5
== END ==
PROVIDERS: Family Provider Nurse Practitioner Family; PCP Nurse Practitioner Family; Visit Provider Social Worker Clinical
DX: F60.3 Borderline personality disorder (principal); F43.12 Post-traumatic stress disorder, chronic; F25.1 Schizoaffective disorder, depressive type; F41.1 Generalized anxiety disorder
CPT/HCPCS: 90834

== ENCOUNTER → 2020-12-23 08:26 | Outpatient (BNVA) | payer MEDICAID, SELFPAY ==
[2020-04-07 09:08] VITALS: BP 109/70; BMI 25.5
== END ==
PROVIDERS: Family Provider Nurse Practitioner Family; PCP Nurse Practitioner Family; Visit Provider Nurse Practitioner Psychiatric/Mental Health
DX: F25.1 Schizoaffective disorder, depressive type (principal); F43.12 Post-traumatic stress disorder, chronic; F41.1 Generalized anxiety disorder; F12.20 Cannabis dependence, uncomplicated; F17.210 Nicotine dependence, cigarettes, uncomplicated; F60.3 Borderline personality disorder
CPT/HCPCS: 99214

== ENCOUNTER 2021-01-07 15:43 | Emergency (ER) | payer MEDICAID, SELFPAY ==
[2020-04-07 09:08] VITALS: BP 109/70; BMI 25.5
[2021-01-07 15:53] VITALS: BP 128/84; PULSE 88; RESP 16; TEMP 36.6; O2SAT 99; BMI 25.4
--- NOTE | 2021-01-07 17:34 | CTR_ITS ---
PROCEDURE INFORMATION: Exam: CT Abdomen And Pelvis With Contrast Exam date and time: 01/07/2021 5:42 PM Age: 55 years old Clinical indication: Abdominal pain; Localized; Prior surgery; Surgery type: Appy, gb, gastric; Patient HX: Right side pain after leaning over a bin; Additional info: Fall. Right belly pain. TECHNIQUE: Imaging protocol: Computed tomography of the abdomen and pelvis with contrast. Total images: 215 Radiation optimization: All CT scans at this facility use at least one of these dose optimization techniques: automated exposure control; mA and/or kV adjustment per patient size (includes targeted exams where dose is matched to clinical indication); or iterative reconstruction. Contrast material: OMNI 300; Contrast volume: 95 ml; Contrast route: INTRAVENOUS (IV); COMPARISON: No relevant prior studies available. RADIATION DOSE METRICS: Total DLP (mGy-cm): 997.2 FINDINGS: Lungs: Limited assessment of the lung bases fails to reveal evidence for active cardiopulmonary process. Calcified granulomas of antecedent disease. Liver: No visible hepatic mass or cystic structure. Scattered hepatic calcifications of antecedent granulomatous disease. Gallbladder and bile ducts: Status post cholecystectomy. Pancreas: Pancreas unremarkable. No visible pancreatic ductal ectasia. Spleen: Splenic calcifications of antecedent granulomatous disease. Adrenal glands: Adrenal glands unremarkable. Kidneys and ureters: No hydronephrosis or perinephric fluid. No visible nephrolithiasis. Rare very tiny simple appearing renal cortical cysts. No follow-up recommended. Stomach and bowel: Mild diverticulosis coli without visible evidence for acute diverticulitis. Constipation. Nonobstructive bowel pattern. No visible significant adynamic or reactive ileus. Appendix: Status post appendectomy. Intraperitoneal space: No visible pneumoperitoneum or intraperitoneal ascites. Vasculature: Portal vein patent. The abdominal aorta is nonaneurysmal. Mild arteriosclerosis. Lymph nodes: Unremarkable. No enlarged lymph nodes. Urinary bladder: Urinary bladder unremarkable. Reproductive: Status post hysterectomy. Bones/joints: No visible active or acute osseous pathology. Soft tissues: No visible soft tissue contusion, hematoma, or seroma. CT/CT abdomen pelvis w con* [id number] IMPRESSION: Currently no visible evidence of acute abdominal or pelvic pathologic process. COMMENTS: Consistent with the [employer]'s Incidental Findings Committee white paper (J Am Christoph Radiol 2018): Any incidental renal lesion less than 1 cm or classified as too small to characterize, or any incidental cystic renal lesion characterized as simple-appearing, is likely benign. No follow-up imaging is recommended for these lesions per consensus recommendations based on imaging criteria. Radiation Dose CTDIVOL = (mGy): DLP = 997.2 (mGy-cm)
--- NOTE | 2021-01-07 17:34 | XRR_ITS ---
PROCEDURE INFORMATION: Exam: XR Right Ribs with PA Chest Exam date and time: 01/07/2021 6:12 PM Age: 55 years old Clinical indication: Pain and injury or trauma; Fall; Rib area; Blunt trauma (contusions or hematomas); Chest wall pain; Right; Injury date: 1 month ago; Additional info: Fall. Right rib pain TECHNIQUE: Imaging protocol: XR Right ribs with PA chest. Views: 3 views Total images: 4 COMPARISON: CT chest con [id number] 05/17/2020 1:50 PM FINDINGS: Lungs: No visible active interstitial or alveolar airspace disease. Calcified granulomas of antecedent disease. COPD/chronic bronchitis. Pleural spaces: Unremarkable. No pleural effusion. No pneumothorax. Heart/Mediastinum: Unremarkable. No cardiomegaly. Bones/joints: Unremarkable. No visible rib fracture. XR/XR ribs RT mn 3V w CXR1V [id number] IMPRESSION: Nonacute.
[2021-01-07 18:00] LABS: Add Urine Microscopic? NO; Charge for UA Resulting for Rev
[2021-01-07 18:01] LABS: Basophils # 0.1 10^3/uL (0.0-0.1); Basophils % 0.6 %; Eosinophils # 0.1 10^3/uL (0.0-0.8); Eosinophils % 1.2 %; Hematocrit 40.4 % (37.0-47.0); Hemoglobin 13.1 g/dL (11.5-15.3); Lymphocytes # 2.7 10^3/uL (0.8-4.8); Mean Corpuscular HGB Conc 32.4 g/dL (30.0-36.0); Mean Corpuscular Hemoglobin 31.9 pg (28.0-34.0); Mean Corpuscular Volume 98.3 fL (81-99); Mean Platelet Volume 10.9 fL (7.4-10.4); Monocytes # 0.4 10^3/uL (0.2-0.9); Monocytes % 4.8 %; Neutrophils # 4.75 10^3/uL (1.8-7.7); Neutrophils % 59.2 %; Nucleated Red Blood Cells % 0 %; Platelet Count 341 10^3/cmm (130-400); Red Blood Count 4.11 10^6/uL (4.1-5.3); Red Cell Distribution Width 12.5 % (12.1-15.1); White Blood Count 8.1 10^3/uL (4.0-10.0)
[2021-01-07 18:03] LABS: Bilirubin Urine Neg (Negative); Blood Urine Neg (Negative); Glucose Urine UA Norm (Normal); Ketones Urine Negative (Negative); Leukocyte Esterase Urine Negative (Negative); Nitrate Urine Negative (Negative); Protein Urine Neg (Negative); Specific Gravity, Urine 1.005 (1.005-1.030); Urine Appearance Clear (CLEAR); Urine Color Yellow (Yellow); Urobilinogen Urine Norm (Negative); pH Urine 7 (5-7)
[2021-01-07] MEDS: iohexol 300 mg/mL 100 mL Btl IV (18:09)
[2021-01-07 18:26] LABS: Alanine Aminotransferase 14 U/L (0-33); Albumin Level 5.1 g/dL (3.5-5.2); Alkaline Phosphatase 107 IU/L (35-105); Aspartate Amino Transferase 15 U/L (0-32); Blood Urea Nitrogen 5 mg/dL (6-20); Calcium 9.5 mg/dL (8.5-10.5); Carbon Dioxide 25 mmol/L (22-29); Chloride 102 mmol/L (98-107); Globulin 2.6 g/dL (1.3-4.6); Glomerular Filtration Rate 65.5 mL/min (90-130); Glucose 88 mg/dL (65-115); Lipase 51 U/L (13-60); Osmolality Calculated 285 mOsm/kg (285-295); Sodium 139 mmol/L (136-145); Total Bilirubin 0.2 mg/dL (0.15-1.2); Total Protein 7.7 g/dL (6.6-8.7)
[2021-01-07 18:28] LABS: Anion Gap 15.6 (5-19); Potassium 3.6 mmol/L (3.5-5.1)
[2021-01-07 18:33] VITALS: BP 148/74; PULSE 87; RESP 18; O2SAT 98
--- NOTE | 2021-01-07 18:47 | W.ED.GENADLT ---
HPI - General Adult General: Chief complaint: General Medical Stated complaint: SIDE/PAIN PAIN/INJURY Time Seen by Provider: 01/07/21 17:11 History of Present Illness: HPI narrative: Is a 55-year-old female who comes to the ER complaining of 1 week of right lower rib and right belly pain. She says she was bending over a large bin that impaled her in between her hip and her ribs and she heard cracking noises. She has continued to have pain at home in that area and it is worsened. It hurts with deep breaths and it hurts with any movement. She has no bruising to the area. She also says she has chronic mid to upper abdominal pain which her doctor was about to order a CT of her belly for. Onset (ago): day(s) (5) Location: chest and abdomen Severity: severe Quality: sharp Pain Consistency: constant Relieving factors: none Exacerbating factors: movement Associated symptoms: Reports no associated symptoms; Deny chest pain, confusion, dyspnea, headache(s), rash or palpitations Review of Systems General: Reports: 10 or more systems reviewed and unremarkable except in HPI and below Const: Denies: fatigue Eyes: Denies: change in vision, blurry vision or eye redness ENMT: Denies: throat pain, swelling of lips/tongue, ear or mastoid pain or nasal congestion Card: Denies: chest pain, palpitations, irregular heart rhythm, edema, dyspnea on exertion or orthopnea Resp: Denies: dyspnea, productive cough or non-productive cough GI: Reports: abdominal pain; Denies: diarrhea or GI cramping : Denies: flank pain, difficulty voiding, urinary frequency or urinary urgency Musc: Denies: neck pain, back pain, extremity pain, joint pain, joint redness, limited range of motion or muscle weakness Skin/Breast: Denies: rash, pruritus, erythema, skin pain or skin tenderness Neuro: Denies: headache(s), numbness in extremities, weakness in extremities, sensory changes, difficulty walking, dizziness, confusion or Slurred speech present Psych: Denies: anxiety or depression Endo: Denies: polyuria All/Imm: Denies: urticaria, throat swelling or tongue swelling PFS ED PFSH: Medical History (Updated 01/07/21 @ 19:49 by Gamal Pandya MD) Allergic rhinitis Borderline personality disorder Cannabis dependence, episodic use Daily use, has medical marijuana card. Chronic back pain Chronic eustachian tube dysfunction Chronic post-traumatic stress disorder Chronic sinusitis COPD (chronic obstructive pulmonary disease) Fatty liver Fibromyalgia Generalized anxiety disorder Hyperlipidemia Hypothyroid Migraine headache Nasal septal deformity Nasal turbinate hypertrophy Nicotine dependence, cigarettes, with unspecified nicotine-induced disorders Osteoporosis Postnasal drip Schizoaffective disorder, depressive type Severe sleep apnea Vitamin D deficiency Surgical History (Updated 01/06/21 @ 11:06 by Anastasia Shipley) H/O section History of appendectomy History of cholecystectomy Status post gastric surgery Family History Other Diabetes Glaucoma Hypertension Thyroid disorder Social History Smoking and tobacco status: former smoker Quit status (tobacco): has quit using tobacco Year quit tobacco: nov 2020 [id number] Second hand smoke exposure: Yes Smoking risk assessment/counseling performed?: Yes Alcohol intake: former Desire information about substance/drug rehabilitation?: No Adopted: No Caregiver/support person: No Lives independently: Yes Household members: other Details: [facility] Housing: Apartment Marital status: Life Partner Number of children: 4 Number of grandchildren: 2 Highest education level completed: GED or Equivalent service: No Current occupational status: unemployed Pets and animals: No History of recent travel: No Current gender identity: Female Esperanza/Quaker: Yazdanism Special esperanza needs: No Agree to transfusion: Yes Financial difficulty paying for basics: Somewhat Hard Female Reproductive History: Para: 4 Spontaneous abortions: No Physical Exam Const: COMMON NORMALS: no acute distress, average body habitus, patient oriented x3, no limitations, healthy appearing, alert and well nourished GENERAL APPEARANCE: cooperative, comfortable, well kempt and well developed ORIENTATION/CONSCIOUSNESS: Yes awake, Yes oriented to person, Yes oriented to place and Yes oriented to time HENMT: COMMON NORMALS: normocephalic, external ears normal and Normal external nose present HEAD & SCALP: normal to inspection and normocephalic NOSE: Normal external nose present EXTERNAL EAR: Yes external ears normal MOUTH: Normal oral and palatal mucosa present THROAT: posterior oropharynx normal Eye: COMMON NORMALS: Equal, round and reactive pupils present and EOMs intact bilaterally GENERAL EYE: appearance normal, both eyes and all related structures PUPIL: Yes Equal, round and reactive pupils present Neck/C-Spine: COMMON NORMALS: full ROM, no lymphadenopathy, no meningeal signs and no JVD GENERAL: Yes normal visual inspection Lymph: LYMPHATIC: no lymphadenopathy noted Chest: COMMONS NORMALS: normal inspection of the chest and normal palpation of entire chest wall Resp: COMMON NORMALS: normal respiratory effort, No retractions, No use of accessory muscles, clear to auscultation bilaterally and percussion normal EFFORT & INSPECTION: Yes able to speak in complete sentences AUSCULTATION: clear to auscultation bilaterally PERCUSSION: percussion normal Cardio: COMMON NORMALS: no JVD, regular rate, regular rhythm, S1 normal heart sound present, S2 normal heart sound present and Peripheral pulses 2+ throughout RATE: regular rate RHYTHM: regular rhythm HEART SOUNDS: S1 normal heart sound present and S2 normal heart sound present PERIPHERAL PULSES: Peripheral pulses 2+ throughout GI: COMMON NORMALS: Normal to inspection, nondistended, normoactive bowel sounds present, Soft to palpation and no masses INSPECTION: Yes normal to inspection PALPATION: Yes Soft to palpation GI image (female): 1. Tenderness to this area. No bruising. No rebound tenderness : COMMON NORMALS: Yes no CVA tenderness BLADDER/KIDNEY EXAM: Yes no CVA tenderness Back/Pelvis: COMMON NORMALS: no CVA tenderness, thoracic and lumbar spine normal to inspection, no thoracic nor lumbar tenderness and thoraco-lumbar ROM normal Extremity: COMMON NORMALS: normal to inspection, full ROM, capillary refill normal, no joint enlargement and no pedal edema GENERAL: Yes normal exam except as noted Neuro: COMMON NORMALS: patient oriented x3, CN's II-XII intact bilaterally, moves all extremities, no focal motor deficits, no sensory deficits noted and gait normal SENSORIUM/ORIENTATION: Yes alert, Yes oriented to person, Yes oriented to place and Yes oriented to time MENINGEAL SIGNS: Yes no meningeal signs Psych: COMMON NORMALS: mental status grossly normal, Normal thought process present, cooperative, normal affect and speech normal APPEARANCE: Yes well kempt ATTITUDE: Yes calm SPEECH: Yes normal speech THOUGHT PROCESS: Normal thought process present Skin: COMMON NORMALS: no rashes or lesions noted GENERAL SKIN EXAM: no rashes or lesions noted Course Vital Signs: Vital signs: Vital Signs Temperature 97.9 F 01/07/21 15:53 Pulse Rate 87 01/07/21 18:33 Respiratory Rate 18 01/07/21 18:33 Blood Pressure 148/74 01/07/21 18:33 Pulse Oximetry 98 01/07/21 18:33 MDM - General Adult MDM Narrative: Medical decision making narrative: The patient has had symptoms of right lower rib and right abdominal pain for the past week since bending over and hurting herself on a been. CT and x-rays are negative. Recommended following up with primary care physician physician in a couple days and returning to the ER with worsening symptoms. Lab Data: Labs: Lab Results 01/07/21 01/07/21 01/07/21 Range/Units 17:29 17:44 17:44 WBC 8.1 (4.0-10.0) 10^3/ uL RBC 4.11 (4.1-5.3) 10^6/u L Hgb 13.1 (11.5-15.3) g/dL Hct 40.4 (37.0-47.0) % MCV 98.3 (81-99) fL MCH 31.9 (28.0-34.0) pg MCHC 32.4 (30.0-36.0) g/dL RDW 12.5 (12.1-15.1) % Plt Count 341 (130-400) 10^3/c mm MPV 10.9 H (7.4-10.4) fL Neut % (Auto) 59.2 % Lymph % (Auto) 34.0 % [place] % (Auto) 4.8 % Eos % (Auto) 1.2 % Baso % (Auto) 0.6 % Neut # (Auto) 4.75 (1.8-7.7) 10^3/u L Lymph # (Auto) 2.7 (0.8-4.8) 10^3/u L [place] # (Auto) 0.4 (0.2-0.9) 10^3/u L Eos # (Auto) 0.1 (0.0-0.8) 10^3/u L Baso # (Auto) 0.1 (0.0-0.1) 10^3/u L Nucleated RBC % (a uto) 0 % Nucleated RBCs # 0.0 /100WBC Sodium 139 (136-145) mmol/L Potassium 3.6 (3.5-5.1) mmol/L Chloride 102 (98-107) mmol/L Carbon Dioxide 25 (22-29) mmol/L Anion Gap 15.6 (5-19) BUN 5 L (6-20) mg/dL Creatinine 0.9 (0.5-0.9) mg/dL GFR Calculation 65.5 L (90-130) mL/min Glucose 88 (65-115) mg/dL Calculated Osmolal ity 285 (285-295) mOsm/k g Calcium 9.5 (8.5-10.5) mg/dL Total Bilirubin 0.2 (0.15-1.2) mg/dL AST 15 (0-32) U/L ALT 14 (0-33) U/L Alkaline Phosphata se 107 H (35-105) IU/L Total Protein 7.7 (6.6-8.7) g/dL Albumin 5.1 (3.5-5.2) g/dL Globulin 2.6 (1.3-4.6) g/dL Lipase 51 (13-60) U/L Urine Color Yellow (Yellow) Urine Appearance Clear (CLEAR) Urine pH 7 (5-7) Ur Specific Gravit y 1.005 (1.005-1.030) Urine Protein Neg (Negative) Urine Glucose (UA) Norm (Normal) Urine Ketones Negative (Negative) Urine Blood Neg (Negative) Urine Nitrate Negative (Negative) Urine Bilirubin Neg (Negative) Urine Urobilinogen Norm (Negative) mg/dL Ur Leukocyte Geno ase Negative (Negative) Discharge Plan Discharge Patient Disposition: Home Clinical Impression: Contusion Condition: Stable Prescriptions: No Action diclofenac sodium [Voltaren] 1 % gel 2 g topical QID RF: 0 omeprazole 40 mg capsule,delayed release(DR/EC) 40 mg PO DAILY@1400 RF: 0 dicyclomine 20 mg tablet 20 mg PO QID@09,14,18,21 RF: 0 cholecalciferol (vitamin D3) 1,250 mcg (50,000 unit) capsule 1,250 mcg PO .once weekly Qty: 12 RF: 0 acetaminophen [Tylenol] 325 mg tablet 650 mg PO Q6H PRN (Reason: pain) Qty: 100 RF: 0 ondansetron HCl [Zofran] 4 mg tablet 4 mg PO TID@09,, RF: 0 polyethylene glycol 3350 [Miralax] 17 gram powder in packet 17 g PO DAILY PRN (Reason: constipation) RF: 0 albuterol sulfate [ProAir HFA] 90 mcg/actuation HFA aerosol inhaler 2 puff INHALATION Q6H PRN (Reason: shortness of breath or wheezing) Qty: 18 RF: 0 azelastine 137 mcg (0.1 %) aerosol,spray 2 spray INTRANASAL BID@00,2099 RF: 0 Flovent HFA 110 mcg/actuation HFA aerosol inhaler 2 puff INHALATION BID@899,2099 RF: 0 Zyprexa 5 mg tablet 5 mg PO BEDTIME@2099 RF: 0 baclofen 20 mg tablet 20 mg PO TID@0900,1400,2100 RF: 0 zonisamide 100 mg capsule 200 mg PO BID@0900,2100 RF: 0 simvastatin 20 mg tablet 20 mg PO DAILY@1800 RF: 0 trazodone 150 mg tablet 150 mg PO BEDTIME@2100 PRN (Reason: Insomnia) RF: 0 buspirone 10 mg tablet 20 mg PO BID@0900,2099 RF: 0 Singulair 10 mg tablet 10 mg PO DAILY@0900 RF: 0 Cymbalta 30 mg capsule,delayed release(DR/EC) 30 mg PO DAILY@0900 RF: 0 Cymbalta 60 mg capsule,delayed release(DR/EC) 60 mg PO DAILY@0900 RF: 0 Chantix 1 mg tablet 1 mg PO BID@0900,2100 RF: 0 levothyroxine 25 mcg capsule 25 mcg PO DAILY@0900 RF: 0 Stiolto Respimat 2.5-2.5 mcg/actuation mist 2 puff INHALATION DAILY@0900 RF: 0 Discharge Orders: Discharge ED (Routine); Ordered 01/07/21 Ordered By: Gamal Pandya Discharge Diet: Advance as tolerated Discharge Activity: Resume usual activity Patient Instructions: Contusion in Adults (ED), Opioid Safety Activity Restrictions/Additional Instructions: The CAT scan of your belly is normal and the x-ray of your right ribs are normal. Most likely you have a deep bruise called a contusion. Please follow-up with your primary care physician in a few days to monitor improvement of this and return to the ER with worsening symptoms. Coding Level of Care Code ED District Sales Representative for Chg Fwd Exam Comprehensive
[2021-01-07 20:03] VITALS: PULSE 102; O2SAT 98
[2021-01-07 20:05] VITALS: PULSE 100; O2SAT 98
== END 2021-01-07 20:06 | disposition home or self-care (01) ==
PROVIDERS: Emergency Provider Family Medicine
DX: S30.1XXA Contusion of abdominal wall, initial encounter (principal); W22.8XXA Striking against or struck by other objects, initial encounter; J44.9 Chronic obstructive pulmonary disease, unspecified; E78.5 Hyperlipidemia, unspecified; Z87.891 Personal history of nicotine dependence
CPT/HCPCS: 71100; 71101; 74177; 80053; 81003; 83690; 85025; 99283; Q9967

== ENCOUNTER → 2021-01-11 11:31 | Outpatient (BNVA) | payer MEDICAID, SELFPAY ==
[2020-04-07 09:08] VITALS: BP 109/70; BMI 25.5
== END ==
PROVIDERS: Visit Provider Social Worker Clinical
DX: F60.3 Borderline personality disorder (principal); F41.1 Generalized anxiety disorder; F43.12 Post-traumatic stress disorder, chronic; F25.1 Schizoaffective disorder, depressive type
CPT/HCPCS: 90834

== ENCOUNTER → 2021-01-25 13:58 | Outpatient (BNVA) | payer MEDICAID, SELFPAY ==
[2020-04-07 09:08] VITALS: BP 109/70; BMI 25.5
== END ==
PROVIDERS: Visit Provider Specialist
DX: G62.9 Polyneuropathy, unspecified (principal); G43.019 Migraine without aura, intractable, without status migrainosus; Z87.891 Personal history of nicotine dependence
CPT/HCPCS: 99204

== ENCOUNTER 2021-01-25 16:04 | Outpatient (CLI) | payer MEDICAID, SELFPAY ==
[2020-04-07 09:08] VITALS: BP 109/70; BMI 25.5
[2021-01-25 17:28] LABS: Erythrocyte Sedimentation Rate 12 mm/hr (0-15)
[2021-01-25 17:48] LABS: Thyroid Stimulating Hormone 0.93 uIU/mL (0.27-4.20); Vitamin B12 378 pg/mL (232-1245)
[2021-01-25 21:32] LABS: Estmated Average Glucose 100; Hemoglobin A1C 5.1 % (4.0-6.0)
[2021-01-27 13:47] LABS: Anti-Nuclear Antibody Screen NEGATIVE (NEGATIVE)
[2021-02-01 14:53] LABS: Methylmalonic Acid 237 nmol/L (87-318)
== END 2021-01-25 16:05 | disposition home or self-care (01) ==
LOC: LAB 16:12
PROVIDERS: Visit Provider Specialist
DX: R20.0 Anesthesia of skin (principal); R20.2 Paresthesia of skin; G62.9 Polyneuropathy, unspecified
CPT/HCPCS: 36415; 82607; 82746; 83036; 83520; 83921; 84260; 84443; 85651; 86038; 86140; 86431

== ENCOUNTER → 2021-01-27 08:12 | Outpatient (BNVA) | payer MEDICAID, SELFPAY ==
[2020-04-07 09:08] VITALS: BP 109/70; BMI 25.5
== END ==
PROVIDERS: Visit Provider Nurse Practitioner Psychiatric/Mental Health
DX: F25.1 Schizoaffective disorder, depressive type (principal); F43.12 Post-traumatic stress disorder, chronic; F41.1 Generalized anxiety disorder; F12.20 Cannabis dependence, uncomplicated; F17.210 Nicotine dependence, cigarettes, uncomplicated; F60.3 Borderline personality disorder
CPT/HCPCS: 99214

== ENCOUNTER 2021-02-10 16:11 | Outpatient (CLI) | payer MEDICAID, SELFPAY ==
[2020-04-07 09:08] VITALS: BP 109/70; BMI 25.5
--- NOTE | 2021-02-10 16:30 | USCV_ITS ---
Ani Mejia Age: 55 Gender: F : 1965 Exam Date: 02/10/2021 16:25 Ordering Phys: Casper Davis DPM Technologist: ISAAC Exam Location: [facility] [place] Indication: calf pain HISTORY: Left lower extremity pain. PROCEDURES: Comparison: none available. Venous duplex imaging was performed in only the left lower extremity. The following venous structures were evaluated: common femoral vein, profunda vein, proximal portion of the greater saphenous vein, superficial femoral vein, and the popliteal vein. In addition, the posterior tibial and peroneal trunk were evaluated. Serial compression, augmentation maneuvers, and spectral Doppler flow evaluation were performed. FINDINGS: No evidence of DVT seen in any vessel visualized at this time. CONCLUSIONS No evidence of left lower extremity DVT. Milton Wayne MD (Electronically Signed) Final Date: 10 Feb 2021 16:57 S
[2021-02-10 17:09] LABS: D Dimer <= 0.27 ug/mIFEU (0-0.59)
== END 2021-02-10 16:12 | disposition home or self-care (01) ==
LOC: RAD 16:14
PROVIDERS: PCP Nurse Practitioner Family; Visit Provider Podiatrist Foot & Ankle Surgery
DX: M79.662 Pain in left lower leg (principal)
CPT/HCPCS: 36415; 85378; 93971

== ENCOUNTER → 2021-02-14 09:50 | Outpatient (BNVA) | payer MEDICAID, SELFPAY ==
[2021-02-14 08:58] VITALS: BP 109/70; BMI 25.5
== END ==
PROVIDERS: PCP Nurse Practitioner Family; Visit Provider Surgery
DX: Z01.812 Encounter for preprocedural laboratory examination (principal); Z20.822 Contact with and (suspected) exposure to COVID-19
CPT/HCPCS: 87635

== ENCOUNTER 2021-02-16 07:14 | Day surgery (SDC) | payer MEDICAID, SELFPAY ==
[2020-04-07 09:08] VITALS: BP 109/70; BMI 25.5
[2021-02-14 08:58] VITALS: BP 109/70; BMI 25.5
[2021-02-14 13:34] VITALS: BMI 24.7
--- NOTE | 2021-02-16 07:48 | ANES.PREANE2 ---
Pre-Anesthetic Assessment Pre-Anesthetic Assessment: Height/Weight: Height 1.57 m Weight 61.235 kg Preop Diagnosis: abdominal pain Proposed Procedure: Operation Date: 02/16/21 08:15 Proposed Procedures p EGD/colon [id number] R10.9(Not Applicable) - Arnold Tucker MD s Colonoscopy(Not Applicable) - Arnold Tucker MD Familial anesthetic complications: None Was Beta Landon taken within 24 hours: N/A Was Clonidine taken within 24 hours: N/A Last intake: > 8 hrs Social: Social History: No alcohol and No tobacco Comment: Marijuana last night Exam: Pre-Anes Outpt Exam: alert, oriented x 3, clear to auscultation bilaterally and regular rate & rhythm Airway: Cervical ROM: WNL MP: 2 Dentition: Loose (2 bottom back teeth) and Other Pulmonary: Pulmonary: Asthma, COPD (chronic emphysema) and Sleep apnea Comments: former smoker Hepatic: Comments: fatty liver GI: GI: GERD (occassional) Metabolic: Metabolic: Thyroid Musc/skel: Musc/skel: Lower Back Pain Anesthetic Plan: ASA status: 3 Anesthesia: MAC Risk of > 500 ml blood loss (7ml/kg in children): No PFSH Anesthesia PFSH: Medical History Allergic rhinitis Borderline personality disorder Cannabis dependence, episodic use Daily use, has medical marijuana card. Chronic back pain Chronic eustachian tube dysfunction Chronic post-traumatic stress disorder Chronic sinusitis COPD (chronic obstructive pulmonary disease) Fatty liver Fibromyalgia Generalized anxiety disorder Hyperlipidemia Hypothyroid Migraine headache Nasal septal deformity Nasal turbinate hypertrophy Nicotine dependence, cigarettes, with unspecified nicotine-induced disorders Osteoporosis Postnasal drip Schizoaffective disorder, depressive type Severe sleep apnea Vitamin D deficiency Surgical History H/O section History of appendectomy History of cholecystectomy Status post gastric surgery Family History Other Diabetes Glaucoma Hypertension Thyroid disorder Social History Smoking and tobacco status: former smoker Quit status (tobacco): has quit using tobacco Year quit tobacco: nov 2020 [id number] Second hand smoke exposure: Yes Smoking risk assessment/counseling performed?: Yes Alcohol intake: former Desire information about substance/drug rehabilitation?: No Adopted: No Caregiver/support person: No Lives independently: Yes Household members: other Details: [facility] Housing: Apartment Marital status: Life Partner Number of children: 4 Number of grandchildren: 2 Highest education level completed: GED or Equivalent service: No Current occupational status: unemployed Pets and animals: No History of recent travel: No Current gender identity: Female Esperanza/Hinduism: Latter Day Special esperanza needs: No Agree to transfusion: Yes Financial difficulty paying for basics: Somewhat Hard Female Reproductive History: Para: 4 Spontaneous abortions: No Data Anesthesia Cardiac Studies: No Data to Display
[2021-02-16 08:15] VITALS: BP 130/88; PULSE 89; RESP 18; TEMP 36.7; O2SAT 98
--- NOTE | 2021-02-16 08:25 | PC.NURSE ---
\pt states she has chronic pain from neuropathy. states pain is all over and rates it at an 8. laying down is the only relief and brings it down to a 6.5
[2021-02-16] MEDS: sodium chloride 0.9% 1,000 ML 30 ML IV (08:30)
--- NOTE | 2021-02-16 08:50 | P.HP_ITS ---
Same Day Surgery H&P Indication for Procedure/HPI DATE OF PROCEDURE: February 16, 2021 CHIEF COMPLAINT/INDICATIONFOR SURGICAL PROCEDURE: Abdominal pain PREOP DIAGNOSIS: Abdominal pain PLANNED PROCEDRUE: Operation Date: 02/16/21 08:15 Proposed Procedures p EGD/colon [id number] R10.9(Not Applicable) - Arnold Tucker MD s Colonoscopy(Not Applicable) - Arnold Tucker MD This is a pleasant 35-year old female patient with history of worsening acid reflux in spite of PPI therapy that was started about 2 months or so. Patient reports sharp abdominal pain in the upper abdomen and being bloated most of the time. Patient is unaware of how she gets better but it is worsening with activities. Associated with nausea and vomiting but no bleeding per orifice ease and not being referred. She reports that she has been having this issues for the past 3 to 4 weeks. History of previous EGD many years ago but she does not remember the findings and she had a colonoscopy about 5 to 6 years ago and she was found to have diverticulosis per her description. Patient is doubling over and she is hurting and she said that this pain is not getting better yet there are no other specific constitutional symptoms in the form of fevers, chills or change in bowel habits. Interim History 02/16/2021 Patient comes today for diagnostic EGD and colonoscopy ROS All systems have been reviewed negative except as per the above or per problem list Medications/Allergies* Home Medications Medication Instructions Recorded Confirmed Type ondansetron HCl 4 mg tablet 4 mg PO TID@,, PRN 11/01/20 02/14/21 History polyethylene glycol 3350 17 gram 17 g PO DAILY PRN 11/24/20 02/16/21 History oral powder packet dicyclomine 20 mg tablet 20 mg PO QID@09,14,18,21 12/22/20 02/14/21 History omeprazole 40 mg capsule,delayed 40 mg PO DAILY@1400 12/22/20 02/14/21 History release baclofen 20 mg PO TID@0900,1400,209901/07/21 02/14/21 History fluticasone propionate [Flovent 2 puff INHALATION BID@0900,2100 01/07/21 02/14/21 History HFA] levothyroxine 25 mcg PO DAILY@0900 01/07/21 02/14/21 History montelukast [Singulair] 10 mg PO DAILY@0900 01/07/21 02/14/21 History simvastatin 20 mg PO DAILY@1800 01/07/21 02/14/21 History tiotropium-olodaterol [Stiolto 2 puff INHALATION DAILY@0900 01/07/21 02/14/21 History Respimat] acetaminophen 650 mg PO Q6H PRN 02/14/21 02/14/21 History albuterol sulfate 5 mg INHALATION Q6H PRN 02/14/21 02/14/21 History ipratropium bromide 2 spray INTRANASAL TID 02/14/21 02/14/21 History zonisamide 200 mg PO BID 02/14/21 02/14/21 History Allergies/Adverse Reactions Allergy/AdvReac Type Severity Reaction Status Date / Time budesonide [From Symbicort] Allergy Severe Swelling Verified 02/14/21 13:22 and nausea fluticasone [From Flonase] Allergy Severe ADR-Swelling Verified 02/14/21 13:22 of the Eye propranolol Allergy Severe ADR-Swelling Verified 02/14/21 13:22 of the Eye triamcinolone [From Nasacort] Allergy Severe Nausea Verified 02/14/21 13:22 naproxen Allergy Intermediate throw up Verified 02/14/21 13:22 topiramate [From Trokendi XR] Allergy Intermediate hands and Verified 02/14/21 13:22 face swell asenapine [From Saphris] Allergy Unknown Unknown Verified 02/14/21 13:22 aspirin Allergy Unknown Unknown Verified 02/14/21 13:22 codeine Allergy Unknown Unknown Verified 02/14/21 13:22 diphenhydramine Allergy Unknown Unknown Verified 02/14/21 13:22 [From Benadryl] ibuprofen Allergy Unknown Unknown Verified 02/14/21 13:22 lidocaine [From Lidoderm] Allergy Unknown Unknown Verified 02/14/21 13:22 meloxicam Allergy Unknown Unknown Verified 02/14/21 13:22 pregabalin [From Lyrica] Allergy Unknown Unknown Verified 02/14/21 13:22 Sulfa (Sulfonamide Allergy Unknown Unknown Verified 02/14/21 13:22 Antibiotics) tramadol [From Ultram] Allergy Unknown Unknown Verified 02/14/21 13:22 celecoxib [From Celebrex] Allergy Unknown Verified 02/14/21 13:22 chlorzoxazone Allergy unknown Verified 02/14/21 13:22 [From Parafon Forte] formoterol [From Symbicort] Allergy Unknown Verified 02/14/21 13:22 hydrocodone Allergy vomiting Verified 02/14/21 13:22 salmeterol Allergy ADR-Swelling Verified 02/14/21 13:22 [From Advair Diskus] of the Eye benztropine [From Cogentin] AdvReac Intermediate edema to Verified 02/14/21 13:22 face diazepam [From Valium] AdvReac Mild vomiting Verified 02/14/21 13:22 diclofenac [From Voltaren] AdvReac Mild vomiting Verified 02/14/21 13:22 ziprasidone [From Geodon] AdvReac Mild sores in Verified 02/14/21 13:22 mouth Current Medications: Generic Name Dose Route Start Last Admin Trade Name Freq PRN Reason Stop Dose Admin Sodium Chloride 1,000 mls @ 30 mls/hr 02/16/21 08:00 02/16/21 08:30 Sodium Chloride 0.9% IV 02/17/21 07:59 30 mls/hr .Q24H TANIYA Administration Pertinent History/Comorbid Conditions* Medical History (Updated 02/10/21 @ 16:06 by Casper Davis DPM) Allergic rhinitis Borderline personality disorder Cannabis dependence, episodic use Daily use, has medical marijuana card. Chronic back pain Chronic eustachian tube dysfunction Chronic post-traumatic stress disorder Chronic sinusitis COPD (chronic obstructive pulmonary disease) Fatty liver Fibromyalgia Generalized anxiety disorder Hyperlipidemia Hypothyroid Migraine headache Nasal septal deformity Nasal turbinate hypertrophy Nicotine dependence, cigarettes, with unspecified nicotine-induced disorders Osteoporosis Postnasal drip Schizoaffective disorder, depressive type Severe sleep apnea Vitamin D deficiency Surgical History (Updated 11/18/19 @ 10:49 by Mireille Villasenor DO) H/O section History of appendectomy History of cholecystectomy Status post gastric surgery Family History (Updated 04/06/20 @ 13:07 by Shakira Barajas RN) Diabetes Glaucoma Hypertension Thyroid disorder Social History Smoking and tobacco status: former smoker Quit status (tobacco): has quit using tobacco Year quit tobacco: nov 2020 [id number] Second hand smoke exposure: Yes Smoking risk assessment/counseling performed?: Yes Alcohol intake: former Desire information about substance/drug rehabilitation?: No Adopted: No Caregiver/support person: No Lives independently: Yes Household members: other Details: [facility] Housing: Apartment Marital status: Life Partner Number of children: 4 Number of grandchildren: 2 Highest education level completed: GED or Equivalent service: No Current occupational status: unemployed Pets and animals: No History of recent travel: No Current gender identity: Female Esperanza/Anabaptism: Mormonism Special esperanza needs: No Agree to transfusion: Yes Financial difficulty paying for basics: Somewhat Hard Pertinent Exam Findings alert, oriented x 3, clear to auscultation bilaterally, regular rate & rhythm and procedure specific exam findings (Abdominal examination mild tenderness soft otherwise no) Recommendations Surgery/Procedure today (EGD and colonoscopy) Other Plans: Plan of care; After thorough history and physical examination and reviewing the chart, plan to perform a diagnostic esophagogastroduodenoscopy and diagnostic colonoscopy with possible biopsy and possible polypectomy. I discussed with the patient in detail the risks,benefits,alternatives and indications.The risk of aspiration, bleeding, soft tissue injury, perforation of the stomach/esophagus/colon and other potential concomitant complications were explained to the patient in details also the potential need for Thoracotomy and or Laproscoy/Laparotomy to repair any related complications including but not limited to colectomy and or Closotomy. The patient understood this well and did agree to proceed. Rationale was carefully and clearly discussed with the patient.Appropriate informed consent have been reviewed and signed Verbal and written Instructions were given to the patient for colonoscopy prep Coding Level of Care Code Acute Security And Privacy Consultant for Sariah Fox
[2021-02-16 09:23] VITALS: BP 110/79; PULSE 91; RESP 16; TEMP 36.4; O2SAT 97
--- NOTE | 2021-02-16 09:25 | ANE.PACU2 ---
Inpatient post-anesthesia follow up: Airway intact: Yes Vital signs: Temperature 98.1 F Pulse Rate 89 Respiratory Rate 18 Blood Pressure 130/88 Pulse Oximetry 98 Oxygen Delivery Me thod Room Air Oxygen Flow Rate Fraction of Inspir ed Oxygen Hydration adequate: Yes Nausea and vomiting: No Pain level: 1 Mental status: Baseline
[2021-02-16 09:33] VITALS: BP 119/81; PULSE 89; RESP 18; O2SAT 97
[2021-02-17 06:31] LABS: H. Pylori / CLO Test Negative
== END 2021-02-16 09:59 | disposition home or self-care (01) ==
PROVIDERS: PCP Nurse Practitioner Family; Visit Provider Surgery
PROC: 0DJD8ZZ Inspection of Lower Intestinal Tract, Via Natural or Artificial Opening Endoscopic (ICD-10-PCS; CPT 45378; 2021-02-16 08:15)
PROC: 0DJ08ZZ Inspection of Upper Intestinal Tract, Via Natural or Artificial Opening Endoscopic (ICD-10-PCS; CPT 43235; 2021-02-16 08:15)
DX: R10.9 Unspecified abdominal pain (principal); K57.30 Diverticulosis of large intestine without perforation or abscess without bleeding; K21.00 Gastro-esophageal reflux disease with esophagitis, without bleeding; K31.89 Other diseases of stomach and duodenum; K29.70 Gastritis, unspecified, without bleeding; J44.9 Chronic obstructive pulmonary disease, unspecified; M79.7 Fibromyalgia; M81.0 Age-related osteoporosis without current pathological fracture; E78.5 Hyperlipidemia, unspecified; E03.9 Hypothyroidism, unspecified; G47.30 Sleep apnea, unspecified; E55.9 Vitamin D deficiency, unspecified; Z87.891 Personal history of nicotine dependence
CPT/HCPCS: 43239; 45378; 87077; 96360; J2704; J7030

== ENCOUNTER → 2021-02-24 08:14 | Outpatient (BNVA) | payer MEDICAID, SELFPAY ==
[2021-02-14 08:58] VITALS: BP 109/70; BMI 25.5
== END ==
PROVIDERS: PCP Nurse Practitioner Family; Visit Provider Social Worker Clinical
DX: F25.1 Schizoaffective disorder, depressive type (principal); F43.12 Post-traumatic stress disorder, chronic; F41.1 Generalized anxiety disorder; F60.3 Borderline personality disorder
CPT/HCPCS: 90834

== ENCOUNTER → 2021-03-02 07:35 | Outpatient (BNVA) | payer MEDICAID, SELFPAY ==
[2021-02-14 08:58] VITALS: BP 109/70; BMI 25.5
== END ==
PROVIDERS: PCP Nurse Practitioner Family; Visit Provider Nurse Practitioner Psychiatric/Mental Health
DX: F25.1 Schizoaffective disorder, depressive type (principal); F43.12 Post-traumatic stress disorder, chronic; F41.1 Generalized anxiety disorder; F12.20 Cannabis dependence, uncomplicated; F17.210 Nicotine dependence, cigarettes, uncomplicated; F60.3 Borderline personality disorder
CPT/HCPCS: 99214

== ENCOUNTER 2021-03-11 07:37 | Outpatient (CLI) | payer MEDICAID, SELFPAY ==
[2021-02-14 08:58] VITALS: BP 109/70; BMI 25.5
--- NOTE | 2021-03-11 08:00 | NM_ITS ---
WS: [id number] NUCLEAR MEDICINE GASTRIC STUDY CLINICAL INFORMATION: K29.70 - Gastritis, unspecified, without bleeding TECHNIQUE: Following oral ingestion of cooked egg mixed with 1.1 mCi technetium 99m sulfur colloid, a nterior images of the stomach were obtained over the course of 90 minutes. Activity curve was perform ed over the course of 90 minutes with linear regression analysis. COMPARISON: None. FINDINGS: Ingestion of cooked egg mixture labeled sulfur colloid. T1/2 241 minutes. 19% emptying at 62 minutes. [place] [id number] IMPRESSION: Delayed gastric emptying with T1/2 241 minutes *Normal median T1 half is 90 minutes for solid egg meal (45-110 minutes). Delayed gastric retention is defined as 90% retained at 1 hour, 60% at 2 hour s, 30% at 3 hours, and 10% at 4 hours (normal percent gastric retention is 37-9 0% at 1 hour, 30-60% at 2 hours, and 0-10% at 4 hours).
== END 2021-03-11 07:38 | disposition home or self-care (01) ==
LOC: RAD 07:42
PROVIDERS: PCP Nurse Practitioner Family; Visit Provider Surgery
DX: K29.70 Gastritis, unspecified, without bleeding (principal)
CPT/HCPCS: 78264; A9541

== ENCOUNTER → 2021-04-04 07:22 | Outpatient (BNVA) | payer MEDICAID, SELFPAY ==
[2021-02-14 08:58] VITALS: BP 109/70; BMI 25.5
== END ==
PROVIDERS: PCP Nurse Practitioner Family; Visit Provider Nurse Practitioner Psychiatric/Mental Health
DX: F25.1 Schizoaffective disorder, depressive type (principal); F43.12 Post-traumatic stress disorder, chronic; F41.1 Generalized anxiety disorder; F17.210 Nicotine dependence, cigarettes, uncomplicated; F12.20 Cannabis dependence, uncomplicated; F60.3 Borderline personality disorder
CPT/HCPCS: 99214

== ENCOUNTER → 2021-04-06 07:20 | Outpatient (BNVA) | payer MEDICAID, SELFPAY ==
[2021-02-14 08:58] VITALS: BP 109/70; BMI 25.5
== END ==
PROVIDERS: PCP Nurse Practitioner Family; Visit Provider Social Worker Clinical
DX: F25.1 Schizoaffective disorder, depressive type (principal); F43.12 Post-traumatic stress disorder, chronic; F41.1 Generalized anxiety disorder; F60.3 Borderline personality disorder
CPT/HCPCS: 90832

== ENCOUNTER 2021-04-17 16:03 | Emergency (ER) | payer MEDICAID, SELFPAY ==
[2021-02-14 08:58] VITALS: BP 109/70; BMI 25.5
[2021-04-17] VITALS (9 sets, daily range): BP systolic 111–126; BP diastolic 77–84; PULSE 77–99; RESP 16–18; TEMP 36.9; O2SAT 95–99; BMI 23.6
--- NOTE | 2021-04-17 16:42 | XRR_ITS ---
PROCEDURE INFORMATION: Exam: XR Chest Exam date and time: 04/17/2021 4:42 PM Age: 55 years old Clinical indication: Shortness of breath; Additional info: SOB TECHNIQUE: Imaging protocol: XR of the chest. Views: 1 view. COMPARISON: CR XR ribs RT mn 3V w CXR1V [id number] 01/07/2021 6:14 PM FINDINGS: Lungs: There are pulmonary parenchymal calcifications consistent with remote granulomatous organism exposure. There is scarring and/or atelectasis at the lung bases. Pleural spaces: Unremarkable. No pleural effusion. No pneumothorax. Heart/Mediastinum: Unremarkable. No cardiomegaly. Bones/joints: Unremarkable. XR/XR chest 1V portable [id number] IMPRESSION: No evidence for acute cardiopulmonary disease.
[2021-04-17 17:29] LABS: Basophils % 0.5 %; Eosinophils % 0.5 %; Hemoglobin 12.5 g/dL (11.5-15.3); Lymphocytes # 1.7 10^3/uL (0.8-4.8); Lymphocytes % 40.5 %; Mean Corpuscular HGB Conc 33.8 g/dL (30.0-36.0); Mean Corpuscular Hemoglobin 31.1 pg (28.0-34.0); Mean Platelet Volume 10.7 fL (7.4-10.4); Monocytes # 0.4 10^3/uL (0.2-0.9); Monocytes % 9.8 %; Neutrophils # 2.01 10^3/uL (1.8-7.7); Neutrophils % 48.2 %; Nucleated Red Blood Cells % 0 %; Platelet Count 275 10^3/cmm (130-400); Red Blood Count 4.02 10^6/uL (4.1-5.3); Red Cell Distribution Width 12.7 % (12.1-15.1); White Blood Count 4.2 10^3/uL (4.0-10.0)
--- NOTE | 2021-04-17 17:33 | ED_ITS ---
HPI - COVID General: Chief Complaint: COVID symptoms Stated Complaint: VERDUGO/ DIARRHEA/ NAUSEA/ BACK PAIN Time Seen by Provider: 04/17/21 16:06 Source: patient, RN notes reviewed and old records reviewed Mode of arrival: ambulatory Limitations: no limitations Triage information: Has fever, cough or shortness of breath . No known COVID + exposure last 14 days History of Present Illness: HPI Narrative: This is a 55 year old female who presents to the ED with a 10-day history of cough, myalgias, headache, diarrhea, generalized weakness. She has occasional fever. She is here to be evaluated. MD complaint: has COVID symptoms Prior covid testing: no COVID 19 common symptoms: positive fever(s), chills, cough, productive cough, dyspnea, fatigue, body aches, headache(s), throat pain, nasal congestion and nausea; negative loss of sense of smell and/or taste, vomiting or diarrhea COVID 19 other sytmptoms: positive lethargy; negative chest pressure, chest pain, pleuritic pain, requiring oxygen, requiring more oxygen, respiratory distress, cyanosis, confusion or new neurological complaints Onset (ago): day(s) (10) Severity: moderate Treatment prior to arrival: none COVID Results: SARS-CoV-2 Antigen (Rapid) Negative (Negative) 04/17/21 17:18 04/17/21 SARS-CoV-2 RNA (RT-PCR) Not detected (NOT DETECTED) 02/14/21 09:50 02/14/21 Nasal/Oral Coronavirus 2019 PCR Negative 05/28/20 08:38 05/28/20 Review of Systems General: Reports: 10 or more systems reviewed and unremarkable except in HPI and below Const: Reports: fever(s), chills, body aches and fatigue ENMT: Reports: throat pain and nasal congestion Card: Denies: chest pain Resp: Reports: dyspnea and productive cough GI: Reports: nausea; Denies: vomiting or diarrhea Neuro: Reports: headache(s); Denies: confusion PFSH ED PFSH: Medical History Allergic rhinitis Borderline personality disorder Cannabis dependence, episodic use Daily use, has medical marijuana card. Chronic back pain Chronic eustachian tube dysfunction Chronic post-traumatic stress disorder Chronic sinusitis COPD (chronic obstructive pulmonary disease) Diverticulosis Fatty liver Fibromyalgia Generalized anxiety disorder Hyperlipidemia Hypothyroid Migraine headache Nasal septal deformity Nasal turbinate hypertrophy Nicotine dependence, cigarettes, with unspecified nicotine-induced disorders Osteoporosis Postnasal drip Schizoaffective disorder, depressive type Severe sleep apnea Vitamin D deficiency Surgical History H/O section History of appendectomy History of cholecystectomy Status post gastric surgery Family History Other Diabetes Glaucoma Hypertension Thyroid disorder Social History Smoking and tobacco status: never smoked Quit status (tobacco): has quit using tobacco Year quit tobacco: nov 2020 [id number] Second hand smoke exposure: Yes Smoking risk assessment/counseling performed?: Yes Alcohol intake: former Desire information about substance/drug rehabilitation?: No Adopted: No Caregiver/support person: No Lives independently: Yes Household members: other Details: [facility] Housing: Apartment Marital status: Life Partner Number of children: 4 Number of grandchildren: 2 Highest education level completed: GED or Equivalent service: No Current occupational status: unemployed Pets and animals: No History of recent travel: No Current gender identity: Female Esperanza/Mandaen: [employer]ism Special esperanza needs: No Agree to transfusion: Yes Financial difficulty paying for basics: Somewhat Hard Female Reproductive History: Para: 4 Spontaneous abortions: No Physical Exam Const: COMMON NORMALS: no acute distress, average body habitus, patient oriented x3, no limitations, healthy appearing, alert and well nourished HENMT: COMMON NORMALS: normocephalic, atraumatic and moist oral mucous membranes HEAD & SCALP: normocephalic and atraumatic Eye: COMMON NORMALS: Equal, round and reactive pupils present, EOMs intact bilaterally, conjunctivae normal and no scleral icterus CONJUNCTIVA: Yes conjunctivae normal PUPIL: Yes Equal, round and reactive pupils present Neck/C-Spine: COMMON NORMALS: no meningeal signs and no JVD Resp: COMMON NORMALS: normal respiratory effort, No retractions, No use of acc essory muscles, clear to auscultation bilaterally and percussion normal AUSCULTATION: clear to auscultation bilaterally PERCUSSION: percussion normal Cardio: COMMON NORMALS: no JVD, regular rate, regular rhythm, S1 normal heart sound present, S2 normal heart sound present, No gallops present (Cardio), No clicks present (Cardio), No murmurs present (Cardio), No rub (Cardio) and Peripheral pulses 2+ throughout RATE: regular rate RHYTHM: regular rhythm HEART SOUNDS: S1 normal heart sound present and S2 normal heart sound present PERIPHERAL PULSES: Peripheral pulses 2+ throughout GI: COMMON NORMALS: Normal to inspection, nondistended, normoactive bowel sounds present, Soft to palpation, non-tender, No hepatosplenomegaly present, no masses and no bruits PALPATION: Yes Soft to palpation and Yes No hepatosplenomegaly present Extremity: COMMON NORMALS: normal to inspection, full ROM, capillary refill normal, no calf tenderness and no pedal edema Neuro: COMMON NORMALS: patient oriented x3 SENSORIUM/ORIENTATION: Yes alert MENINGEAL SIGNS: Yes no meningeal signs Skin: COMMON NORMALS: no rashes or lesions noted, no wounds, turgor normal, no jaundice, no petechiae and no mottling GENERAL SKIN EXAM: no rashes or lesions noted and turgor normal Course Reevaluation(s): Reevaluation #1: Discussed her lab and imaging findings with her. Negative for acute findings. We will discharge her home with no new orders. Covid PCR testing still pending. She voiced understanding and is in agreement with the plan. Time: 20:02 Vital Signs: Vital signs: Vital Signs Temperature 98.4 F 04/17/21 20:23 Pulse Rate 93 04/17/21 20:23 Respiratory Rate 16 04/17/21 20:23 Blood Pressure 123/77 04/17/21 20:23 Pulse Oximetry 96 04/17/21 20:23 MDM - COVID MDM Narrative: Medical decision making narrative: 55 year old female presents to the ED for nausea, diarrhea, generalized body pains. Evaluation in the ED is unremarkable she tested negative for COVID-19. She is discharged home with no new orders. COVID-19 PCR test is still pending. She will follow up with her primary care provider. Medical Records: Attestation: I reviewed the patient's medical records. Lab Data: Attestation: I reviewed the patient's lab results. Labs: Lab Results 04/17/21 04/17/21 04/17/21 Range/Units 17:08 17:18 17:18 WBC 4.2 (4.0-10.0) 10^3/ uL RBC 4.02 L (4.1-5.3) 10^6/u L Hgb 12.5 (11.5-15.3) g/dL Hct 37.0 (37.0-47.0) % MCV 92.0 (81-99) fL MCH 31.1 (28.0-34.0) pg MCHC 33.8 (30.0-36.0) g/dL RDW 12.7 (12.1-15.1) % Plt Count 275 (130-400) 10^3/c mm MPV 10.7 H (7.4-10.4) fL Neut % (Auto) 48.2 % Lymph % (Auto) 40.5 % Noble % (Auto) 9.8 % Eos % (Auto) 0.5 % Baso % (Auto) 0.5 % Neut # (Auto) 2.01 (1.8-7.7) 10^3/u L Lymph # (Auto) 1.7 (0.8-4.8) 10^3/u L Noble # (Auto) 0.4 (0.2-0.9) 10^3/u L Eos # (Auto) 0.0 (0.0-0.8) 10^3/u L Baso # (Auto) 0.0 (0.0-0.1) 10^3/u L Nucleated RBC % (a uto) 0 % Nucleated RBCs # 0.0 /100WBC Fibrinogen (174-498) mg/dL D-Dimer (0-0.59) ug/mIFE U Sodium 135 L (136-145) mmol/L Potassium 3.3 L (3.5-5.1) mmol/L Chloride 100 (98-107) mmol/L Carbon Dioxide 22 (22-29) mmol/L Anion Gap 16.3 (5-19) BUN 9 (6-20) mg/dL Creatinine 0.7 (0.5-0.9) mg/dL GFR Calculation 87.5 L (90-130) mL/min Glucose 84 (65-115) mg/dL Calculated Osmolal ity 278 L (285-295) mOsm/k g Lactic Acid 0.7 (0.5-2.2) mmol/L Calcium 9.0 (8.5-10.5) mg/dL Ferritin 174 H (15-150) ng/mL Total Bilirubin 0.2 (0.15-1.2) mg/dL AST 15 (0-32) U/L ALT 16 (0-33) U/L Alkaline Phosphata se 104 (35-105) IU/L Creatine Kinase 91 (26-192) U/L C-Reactive Protein 20.0 H (0.0-4.9) mg/L NT-Pro-B Natriuret Pep 16 (0-125) pg/mL Total Protein 7.0 (6.6-8.7) g/dL Albumin 4.3 (3.5-5.2) g/dL Globulin 2.7 (1.3-4.6) g/dL Procalcitonin 0.05 (0-0.5) ng/mL Urine Color (Yellow) Urine Appearance (CLEAR) Urine pH (5-7) Ur Specific Gravit y (1.005-1.030) Urine Protein (Negative) Urine Glucose (UA) (Normal) Urine Ketones (Negative) Urine Blood (Negative) Urine Nitrate (Negative) Urine Bilirubin (Negative) Urine Urobilinogen (Negative) mg/dL Ur Leukocyte Geno ase (Negative) SARS-CoV-2 Ag (Rap id) (Negative) 04/17/21 04/17/21 04/17/21 Range/Units 17:18 17:46 18:31 WBC (4.0-10.0) 10^3/ uL RBC (4.1-5.3) 10^6/u L Hgb (11.5-15.3) g/dL Hct (37.0-47.0) % MCV (81-99) fL MCH (28.0-34.0) pg MCHC (30.0-36.0) g/dL RDW (12.1-15.1) % Plt Count (130-400) 10^3/c mm MPV (7.4-10.4) fL Neut % (Auto) % Lymph % (Auto) % Noble % (Auto) % Eos % (Auto) % Baso % (Auto) % Neut # (Auto) (1.8-7.7) 10^3/u L Lymph # (Auto) (0.8-4.8) 10^3/u L Noble # (Auto) (0.2-0.9) 10^3/u L Eos # (Auto) (0.0-0.8) 10^3/u L Baso # (Auto) (0.0-0.1) 10^3/u L Nucleated RBC % (a uto) % Nucleated RBCs # /100WBC Fibrinogen 469 (174-498) mg/dL D-Dimer 0.36 (0-0.59) ug/mIFE U Sodium (136-145) mmol/L Potassium (3.5-5.1) mmol/L Chloride (98-107) mmol/L Carbon Dioxide (22-29) mmol/L Anion Gap (5-19) BUN (6-20) mg/dL Creatinine (0.5-0.9) mg/dL GFR Calculation (90-130) mL/min Glucose (65-115) mg/dL Calculated Osmolal ity (285-295) mOsm/k g Lactic Acid (0.5-2.2) mmol/L Calcium (8.5-10.5) mg/dL Ferritin (15-150) ng/mL Total Bilirubin (0.15-1.2) mg/dL AST (0-32) U/L ALT (0-33) U/L Alkaline Phosphata se (35-105) IU/L Creatine Kinase (26-192) U/L C-Reactive Protein (0.0-4.9) mg/L NT-Pro-B Natriuret Pep (0-125) pg/mL Total Protein (6.6-8.7) g/dL Albumin (3.5-5.2) g/dL Globulin (1.3-4.6) g/dL Procalcitonin (0-0.5) ng/mL Urine Color Yellow (Yellow) Urine Appearance Clear (CLEAR) Urine pH 6 (5-7) Ur Specific Gravit y 1.005 (1.005-1.030) Urine Protein Neg (Negative) Urine Glucose (UA) Norm (Normal) Urine Ketones Negative (Negative) Urine Blood Neg (Negative) Urine Nitrate Negative (Negative) Urine Bilirubin Neg (Negative) Urine Urobilinogen Norm (Negative) mg/dL Ur Leukocyte Geno ase Negative (Negative) SARS-CoV-2 Ag (Rap id) Negative (Negative) Imaging Data: CXR: Attestation: I personally reviewed and interpreted this imaging study as follows: Radiologist's impression: [address] [id number] ReportSigned Patient: Ani Mejia #: [id number]: 1965Acct#:[id number]/Sex: 55 / FADM Date: 04/17/21Loc: ERRoom/Bed:Attending Dr: Ordering Provider/Ordering MD: Luz Jaimes MD, [facility] [place] Date of Service: 04/17/21 Procedure(s): XR chest 1V portable [id number] Accession Number(s): [id number] Report Number: [id number] PROCEDURE INFORMATION: Exam: XR Chest Exam date and time: 04/17/2021 4:42 PM Age: 55 years old Clinical indication: Shortness of breath; Additional info: SOB TECHNIQUE: Imaging protocol: XR of the chest. Views: 1 view. COMPARISON: CR XR ribs RT mn 3V w CXR1V [id number] 01/07/2021 6:14 PM FINDINGS: Lungs: There are pulmonary parenchymal calcifications consistent with remote granulomatous organism exposure. There is scarring and/or atelectasis at the lung bases. Pleural spaces: Unremarkable. No pleural effusion. No pneumothorax. Heart/Mediastinum: Unremarkable. No cardiomegaly. Bones/joints: Unremarkable. XR/XR chest 1V portable [id number] IMPRESSION: No evidence for acute cardiopulmonary disease. Dictated By:Karina Erickson MDSigned By:Karina Erickson MDSigned Date/Time:04/17/215DD/ 33 COVID Results: SARS-CoV-2 Antigen (Rapid) Negative (Negative) 04/17/21 17:18 04/17/21 SARS-CoV-2 RNA (RT-PCR) Not detected (NOT DETECTED) 02/14/21 09:50 02/14/21 Nasal/Oral Coronavirus 2019 PCR Negative 05/28/20 08:38 05/28/20 Discharge Plan Discharge Patient Disposition: Home Clinical Impression: Acute viral syndrome Condition: Stable Prescriptions: Continued omeprazole 40 mg capsule,delayed release(DR/EC) 40 mg PO DAILY@1400 RF: 0 dicyclomine 20 mg tablet 20 mg PO QID@,14,18,21 RF: 0 buspirone 10 mg tablet 20 mg PO BID Qty: 120 RF: 3 ondansetron HCl [Zofran] 4 mg tablet 4 mg PO TID@,,21 PRN (Reason: Nausea) RF: 0 polyethylene glycol 3350 [Miralax] 17 gram powder in packet 17 g PO DAILY PRN (Reason: constipation) RF: 0 albuterol sulfate [ProAir HFA] 90 mcg/actuation HFA aerosol inhaler 2 puff INHALATION Q6H PRN (Reason: shortness of breath or wheezing) Qty: 18 RF: 3 acetaminophen 650 mg Tablet 650 mg PO Q6H PRN (Reason: Dyspnea) RF: 0 ipratropium bromide 42 mcg (0.06 %) [place],Non-Aerosol 2 spray INTRANASAL TID RF: 0 albuterol sulfate 5 mg/mL Solution For Nebulization 5 mg INHALATION Q6H PRN (Reason: Shortness Of Breath) RF: 0 zonisamide 100 mg capsule 200 mg PO BID RF: 0 Flovent HFA 110 mcg/actuation HFA aerosol inhaler 2 puff INHALATION BID@0900,2100 RF: 0 baclofen 20 mg tablet 20 mg PO TID@0900,1400,2100 RF: 0 simvastatin 20 mg tablet 20 mg PO DAILY@1800 RF: 0 montelukast [Singulair] 10 mg tablet 10 mg PO DAILY@0900 RF: 0 levothyroxine 25 mcg capsule 25 mcg PO DAILY@0900 RF: 0 Zyprexa 5 mg tablet 5 mg PO BEDTIME RF: 0 trazodone 150 mg tablet 150 mg PO BEDTIME PRN (Reason: insomnia) RF: 0 duloxetine [Cymbalta] 30 mg capsule,delayed release(DR/EC) 30 mg PO DAILY RF: 0 duloxetine [Cymbalta] 60 mg capsule,delayed release(DR/EC) 60 mg PO DAILY RF: 0 cholecalciferol (vitamin D3) 1,250 mcg (50,000 unit) capsule 1,250 mcg PO Q7D RF: 0 Stiolto Respimat 2.5-2.5 mcg/actuation mist 2 puff inhalation DAILY RF: 0 Discharge Orders: Discharge ED (Routine); Ordered 04/17/21 Ordered By: Luz Jaimes Referrals: Brandie Tyler FNP [Primary Care Provider] - 1-3 days Discharge Diet: Usual diet Discharge Activity: Increase activity as tolerated Patient Instructions: Viral Syndrome (ED) Activity Restrictions/Additional Instructions: Return for any new or worsening symptoms. Drink plenty of fluids to keep well-hydrated. Follow-up with your primary care provider within 3 days. Continue your home medications. Coding Level of Care Code ED [facility] Judge for Chg Fwd Exam Comprehensive
[2021-04-17 17:50] LABS: SARS Covid-2 Antigen Negative (Negative)
[2021-04-17 17:56] LABS: Lactic Sepsis W/Reflex 0.7 mmol/L (0.5-2.2)
[2021-04-17 18:09] LABS: NT Pro B Type Natriuretic Pept 16 pg/mL (0-125); Procalcitonin 0.05 ng/mL (0-0.5)
[2021-04-17 18:20] LABS: Alanine Aminotransferase 16 U/L (0-33); Albumin Level 4.3 g/dL (3.5-5.2); Alkaline Phosphatase 104 IU/L (35-105); Anion Gap 16.3 (5-19); Aspartate Amino Transferase 15 U/L (0-32); Blood Urea Nitrogen 9 mg/dL (6-20); Carbon Dioxide 22 mmol/L (22-29); Chloride 100 mmol/L (98-107); Creatine Phosphokinase 91 U/L (26-192); Globulin 2.7 g/dL (1.3-4.6); Glomerular Filtration Rate 87.5 mL/min (90-130); Glucose 84 mg/dL (65-115); Osmolality Calculated 278 mOsm/kg (285-295); Potassium 3.3 mmol/L (3.5-5.1); Sodium 135 mmol/L (136-145); Total Bilirubin 0.2 mg/dL (0.15-1.2)
[2021-04-17 18:28] LABS: Fibrinogen 469 mg/dL (174-498)
[2021-04-17 18:31] LABS: D Dimer 0.36 ug/mIFEU (0-0.59)
[2021-04-17 18:38] LABS: Ferritin 174 ng/mL (15-150)
[2021-04-17 18:47] LABS: Add Urine Microscopic? NO; Charge for UA Resulting for Rev
[2021-04-17 19:19] LABS: Bilirubin Urine Neg (Negative); Blood Urine Neg (Negative); Glucose Urine UA Norm (Normal); Ketones Urine Negative (Negative); Leukocyte Esterase Urine Negative (Negative); Nitrate Urine Negative (Negative); Protein Urine Neg (Negative); Specific Gravity, Urine 1.005 (1.005-1.030); Urine Appearance Clear (CLEAR); Urine Color Yellow (Yellow); Urobilinogen Urine Norm (Negative); pH Urine 6 (5-7)
[2021-04-17] MEDS: sodium chloride 0.9% 1,000 ML 999 ML IV (19:21)
[2021-04-18 14:01] LABS: Coronavirus Test Green County Detected
== END 2021-04-17 20:25 | disposition home or self-care (01) ==
PROVIDERS: Emergency Provider Family Medicine; PCP Nurse Practitioner Family
DX: B34.9 Viral infection, unspecified (principal); J44.9 Chronic obstructive pulmonary disease, unspecified; E78.5 Hyperlipidemia, unspecified; E03.9 Hypothyroidism, unspecified; Z87.891 Personal history of nicotine dependence
CPT/HCPCS: 71045; 80053; 81003; 82550; 82728; 83605; 83880; 84145; 85025; 85378; 85384; 86140; 87426; 87635; 96360; 99284; J7030

== ENCOUNTER → 2021-04-22 07:28 | Outpatient (BNVA) | payer MEDICAID, SELFPAY ==
[2021-02-14 08:58] VITALS: BP 109/70; BMI 25.5
== END ==
PROVIDERS: PCP Nurse Practitioner Family; Visit Provider Social Worker Clinical
DX: F25.1 Schizoaffective disorder, depressive type (principal); F43.12 Post-traumatic stress disorder, chronic; F41.1 Generalized anxiety disorder; F60.3 Borderline personality disorder
CPT/HCPCS: 90834; 90832

== ENCOUNTER → 2021-05-03 16:26 | Outpatient (BNVA) | payer MEDICAID, SELFPAY ==
[2021-02-14 08:58] VITALS: BP 109/70; BMI 25.5
== END ==
PROVIDERS: PCP Nurse Practitioner Family; Visit Provider Nurse Practitioner Family
DX: U07.1 COVID-19 (principal); J06.9 Acute upper respiratory infection, unspecified
CPT/HCPCS: 87635

== ENCOUNTER → 2021-05-09 07:50 | Outpatient (BNVA) | payer MEDICAID, SELFPAY ==
[2021-02-14 08:58] VITALS: BP 109/70; BMI 25.5
== END ==
PROVIDERS: PCP Nurse Practitioner Family; Visit Provider Nurse Practitioner Psychiatric/Mental Health
DX: F25.1 Schizoaffective disorder, depressive type (principal); F43.12 Post-traumatic stress disorder, chronic; F41.1 Generalized anxiety disorder; F12.20 Cannabis dependence, uncomplicated; F60.3 Borderline personality disorder
CPT/HCPCS: 99214

== ENCOUNTER → 2021-05-23 08:05 | Outpatient (BNVA) | payer MEDICAID, SELFPAY ==
[2021-02-14 08:58] VITALS: BP 109/70; BMI 25.5
== END ==
PROVIDERS: PCP Nurse Practitioner Family; Visit Provider Social Worker Clinical
DX: F60.3 Borderline personality disorder (principal); F43.12 Post-traumatic stress disorder, chronic; F25.1 Schizoaffective disorder, depressive type
CPT/HCPCS: 90791

== ENCOUNTER → 2021-06-08 10:30 | Outpatient (BNVA) | payer MEDICAID, SELFPAY ==
[2021-02-14 08:58] VITALS: BP 109/70; BMI 25.5
== END ==
PROVIDERS: PCP Nurse Practitioner Family; Visit Provider Social Worker Clinical
DX: F25.1 Schizoaffective disorder, depressive type (principal); F43.12 Post-traumatic stress disorder, chronic; F41.1 Generalized anxiety disorder; F60.3 Borderline personality disorder
CPT/HCPCS: 90834

== ENCOUNTER → 2021-06-21 07:15 | Outpatient (BNVA) | payer MEDICAID, SELFPAY ==
[2021-02-14 08:58] VITALS: BP 109/70; BMI 25.5
== END ==
PROVIDERS: PCP Nurse Practitioner Family; Visit Provider Nurse Practitioner Psychiatric/Mental Health
DX: F25.1 Schizoaffective disorder, depressive type (principal); F43.12 Post-traumatic stress disorder, chronic; F41.1 Generalized anxiety disorder; F17.219 Nicotine dependence, cigarettes, with unspecified nicotine-induced disorders; F12.20 Cannabis dependence, uncomplicated; F60.3 Borderline personality disorder
CPT/HCPCS: 99214

== ENCOUNTER → 2021-06-22 08:23 | Outpatient (BNVA) | payer MEDICAID, SELFPAY ==
[2021-02-14 08:58] VITALS: BP 109/70; BMI 25.5
== END ==
PROVIDERS: PCP Nurse Practitioner Family; Visit Provider Social Worker Clinical
DX: F25.1 Schizoaffective disorder, depressive type (principal); F43.12 Post-traumatic stress disorder, chronic; F41.1 Generalized anxiety disorder; F60.3 Borderline personality disorder
CPT/HCPCS: 90834

== ENCOUNTER → 2021-07-06 07:18 | Outpatient (BNVA) | payer MEDICAID, SELFPAY ==
[2021-07-05 10:35] VITALS: BP 109/70; BMI 25.5
== END ==
PROVIDERS: PCP Nurse Practitioner Family; Visit Provider Social Worker Clinical
DX: F25.1 Schizoaffective disorder, depressive type (principal); F43.12 Post-traumatic stress disorder, chronic
CPT/HCPCS: 90834

== ENCOUNTER 2021-07-19 07:05 | Outpatient (CLI) | payer MEDICAID, SELFPAY ==
[2021-07-13 10:40] VITALS: BP 109/70; BMI 25.5
--- NOTE | 2021-07-19 07:14 | NM_ITS ---
WS: [id number] NUCLEAR MEDICINE GASTRIC EMPTYING EXAMINATION HISTORY: Reflux, gastroesophageal; EPIGASTRIC PAIN, ABDOMINAL PAIN COMPARISON: 03/11/2021 TECHNIQUE: The patient ingested a meal containing 1.07 mCi of Tc 99m sulfur colloid mixed with eggs. The patient was placed in supine position and imaging over the abdomen was performed for a total of 9 0 minutes. Computer acquisition with the region of interest placed over the stomach to evaluate gastr ic emptying half-time. There is mild delayed gastric emptying. At 120 minutes only 43% is emptied from the stomach. This carroll s represent a slight improvement since the prior study. NM/[place] [id number] IMPRESSION: Persistent mild delay in gastric emptying but slightly improved since 03/11/2021 .
== END 2021-07-19 07:06 | disposition home or self-care (01) ==
PROVIDERS: PCP Nurse Practitioner Family; Visit Provider Nurse Practitioner Family
DX: K21.9 Gastro-esophageal reflux disease without esophagitis (principal); R10.13 Epigastric pain; R10.9 Unspecified abdominal pain
CPT/HCPCS: 78264; A9541

== ENCOUNTER → 2021-07-20 08:29 | Outpatient (BNVA) | payer MEDICAID, SELFPAY ==
[2021-07-13 10:40] VITALS: BP 109/70; BMI 25.5
== END ==
PROVIDERS: PCP Nurse Practitioner Family; Visit Provider Social Worker Clinical
DX: F25.1 Schizoaffective disorder, depressive type (principal); F43.12 Post-traumatic stress disorder, chronic; F41.1 Generalized anxiety disorder; F60.3 Borderline personality disorder
CPT/HCPCS: 90834

== ENCOUNTER → 2021-08-01 14:37 | Outpatient (BNVA) | payer MEDICAID, SELFPAY ==
[2021-07-13 10:40] VITALS: BP 109/70; BMI 25.5
== END ==
PROVIDERS: PCP Nurse Practitioner Family; Visit Provider Specialist
DX: G62.9 Polyneuropathy, unspecified (principal); G43.019 Migraine without aura, intractable, without status migrainosus
CPT/HCPCS: 99213

== ENCOUNTER → 2021-08-02 08:20 | Outpatient (BNVA) | payer MEDICAID, SELFPAY ==
[2021-07-13 10:40] VITALS: BP 109/70; BMI 25.5
== END ==
PROVIDERS: PCP Nurse Practitioner Family; Visit Provider Nurse Practitioner Psychiatric/Mental Health
DX: F25.1 Schizoaffective disorder, depressive type (principal); F43.12 Post-traumatic stress disorder, chronic; F41.1 Generalized anxiety disorder; F17.219 Nicotine dependence, cigarettes, with unspecified nicotine-induced disorders; F60.3 Borderline personality disorder; F12.20 Cannabis dependence, uncomplicated
CPT/HCPCS: 99214

== ENCOUNTER → 2021-08-03 07:55 | Outpatient (BNVA) | payer MEDICAID, SELFPAY ==
[2021-07-13 10:40] VITALS: BP 109/70; BMI 25.5
== END ==
PROVIDERS: PCP Nurse Practitioner Family; Visit Provider Social Worker Clinical
DX: F25.1 Schizoaffective disorder, depressive type (principal); F43.12 Post-traumatic stress disorder, chronic; F41.1 Generalized anxiety disorder; F60.3 Borderline personality disorder
CPT/HCPCS: 90834

== ENCOUNTER 2021-08-10 15:49 | Emergency (ER) | payer MEDICAID, SELFPAY ==
[2021-07-13 10:40] VITALS: BP 109/70; BMI 25.5
[2021-08-10 15:57] VITALS: BP 123/74; PULSE 86; RESP 18; TEMP 36.5; O2SAT 98; BMI 25.6
--- NOTE | 2021-08-10 16:18 | ED_ITS ---
Documented by User: VIK Walker 08/10/21 16:27 HPI - Back Pain/Injury General: Chief Complaint: Extremity Problem,Nontraumatic Stated Complaint: LEG PAIN Time Seen by Provider: 08/10/21 16:05 Source: patient Mode of arrival: ambulatory Limitations: no limitations History of Present Illness: HPI Narrative: Patient is a 55-year-old female who presents to ED today with a complaint of left-sided back pain with radiation down into her left buttock and down the posterior aspect of her leg. Patient states pain began this morning. She has not had any known injury or trauma. She does not have any color or temperature changes to her extremity. She does not complain of saddle anesthesia. She has no complaints of urinary retention or bowel incontinence. She is not complaining of pain in the hip joint. Patient has an extensive medical history. MD elicited complaint: back pain Onset (ago): hour(s) Timing: constant Severity: severe Similar Symptoms Previously: No Location: left lower back Radiation: left upper leg Exacerbating factors: movement, coughing/sneezing and lifting Relieving factors: none Associated symptoms: Reports no associated symptoms and difficulty walking (secondary to pain); Deny abdominal pain, chills, dysuria, fatigue, fever(s), nausea or vomiting Work related injury: No Review of Systems Const: Denies: fever(s), chills, body aches, fatigue or malaise Card: Denies: chest pain Resp: Denies: dyspnea GI: Denies: abdominal pain, nausea or vomiting : Denies: flank pain or dysuria Musc: Reports: back pain; Denies: neck pain, extremity swelling, joint pain, joint swelling, joint redness, joint warmth or limited range of motion Neuro: Reports: difficulty walking (secondary to pain); Denies: headache(s), numbness in extremities or sensory changes PFS ED PFSH: Medical History Allergic rhinitis Borderline personality disorder Cannabis dependence, episodic use Daily use, has medical marijuana card for chronic pain Chronic back pain Chronic eustachian tube dysfunction Chronic post-traumatic stress disorder Chronic sinusitis COPD (chronic obstructive pulmonary disease) Diverticulosis Fatty liver Fibromyalgia Generalized anxiety disorder Hyperlipidemia Hypothyroid Migraine headache Nasal septal deformity Nasal turbinate hypertrophy Nicotine dependence, cigarettes, with unspecified nicotine-induced disorders Osteoporosis Postnasal drip Psychiatric care Schizoaffective disorder, depressive type Severe sleep apnea Vitamin D deficiency Surgical History H/O section History of appendectomy History of cholecystectomy Status post gastric surgery Family History Other Diabetes Glaucoma Hypertension Thyroid disorder Social History Smoking and tobacco status: current every day smoker (half a pack a day no filter) cigarettes [ Other cigarette details: [id number] ] Quit status (tobacco): has quit using tobacco Second hand smoke exposure: Yes Smoking risk assessment/counseling performed?: Yes Alcohol intake: former Desire information about substance/drug rehabilitation?: No Adopted: No Caregiver/support person: No Lives independently: Yes Household members: other Details: [facility] Housing: Apartment Marital status: Life Partner Number of children: 4 Number of grandchildren: 2 Highest education level completed: GED or Equivalent service: No Current occupational status: unemployed Pets and animals: No History of recent travel: No Current gender identity: Female Esperanza/Scientology: Confucianist Special esperanza needs: No Agree to transfusion: Yes Financial difficulty paying for basics: Somewhat Hard Female Reproductive History: Para: 4 Spontaneous abortions: No Physical Exam Const: COMMON NORMALS: no acute distress, average body habitus, patient oriented x3, no limitations, healthy appearing, alert and well nourished Neck/C-Spine: COMMON NORMALS: full ROM, no lymphadenopathy and no meningeal signs Back/Pelvis: LUMBAR SPINE/LOWER BACK: No lumbar spinal tenderness and No paraspinal muscle spasm PELVIS: Yes buttock abnormal Buttock abnormal laterality: left Left buttock abnormal details: tenderness and Yes sciatic notch tenderness SACROILIAC JOINTS: Yes SI joint(s) abnormal (L) SI joint details: tender to palpation Extremity: COMMON NORMALS: normal to inspection, full ROM, capillary refill normal, no joint enlargement, no clubbing, cyanosis or edema, no calf tenderness and no pedal edema Neuro: COMMON NORMALS: patient oriented x3, moves all extremities, no focal motor deficits and no sensory deficits noted SENSORIUM/ORIENTATION: Yes alert MENINGEAL SIGNS: Yes no meningeal signs Skin: COMMON NORMALS: no rashes or lesions noted GENERAL SKIN EXAM: no rashes or lesions noted TRAUMA: no lacerations or abrasions Course Vital Signs: Vital signs: Vital Signs Temperature 97.7 F 08/10/21 15:57 Pulse Rate 87 08/10/21 17:56 Respiratory Rate 16 08/10/21 17:56 Blood Pressure 156/96 08/10/21 17:56 Pulse Oximetry 97 08/10/21 17:56 Discharge Plan Discharge Patient Disposition: Home Clinical Impression: Lumbar radiculopathy Condition: Stable Prescriptions: New prednisone 20 mg tablet 20 mg PO BID 7 Days Qty: 14 RF: 0 Tylenol 8 Hour 650 mg tablet extended release 650 mg PO Q8H PRN (Reason: pain) Qty: 30 RF: 0 No Action omeprazole 40 mg capsule,delayed release(DR/EC) 40 mg PO DAILY@1400 RF: 0 dicyclomine 20 mg tablet 20 mg PO QID@,,18,21 RF: 0 Zyprexa 5 mg tablet 5 mg PO BEDTIME Qty: 90 RF: 2 duloxetine [Cymbalta] 60 mg capsule,delayed release(DR/EC) 60 mg PO .morning Qty: 90 RF: 2 duloxetine [Cymbalta] 30 mg capsule,delayed release(DR/EC) 30 mg PO .morning Qty: 90 RF: 2 trazodone 150 mg tablet 150 mg PO BEDTIME PRN (Reason: insomnia) Qty: 90 RF: 2 buspirone 10 mg tablet 20 mg PO BID Qty: 120 RF: 3 ondansetron HCl [Zofran] 4 mg tablet 4 mg PO TID@,, PRN (Reason: Nausea) RF: 0 polyethylene glycol 3350 [Miralax] 17 gram powder in packet 17 g PO DAILY PRN (Reason: constipation) RF: 0 albuterol sulfate [ProAir HFA] 90 mcg/actuation HFA aerosol inhaler 2 puff INHALATION Q6H PRN (Reason: shortness of breath or wheezing) Qty: 18 RF: 3 montelukast [Singulair] 10 mg tablet 10 mg PO DAILY@0900 Qty: 30 RF: 3 Stiolto Respimat 2.5-2.5 mcg/actuation mist 2 puff inhalation DAILY Qty: 4 RF: 3 Flovent HFA 110 mcg/actuation HFA aerosol inhaler 2 puff inhalation BID Qty: 12 RF: 3 acetaminophen 650 mg Tablet 650 mg PO Q6H PRN (Reason: Dyspnea) RF: 0 ipratropium bromide 42 mcg (0.06 %) [place],Non-Aerosol 2 spray INTRANASAL TID RF: 0 albuterol sulfate 5 mg/mL Solution For Nebulization 5 mg INHALATION Q6H PRN (Reason: Shortness Of Breath) RF: 0 zonisamide 100 mg capsule 200 mg PO BID RF: 0 baclofen 20 mg tablet 20 mg PO TID@0900,1400,2100 RF: 0 simvastatin 20 mg tablet 20 mg PO DAILY@1800 RF: 0 levothyroxine 25 mcg capsule 25 mcg PO DAILY@0900 RF: 0 cholecalciferol (vitamin D3) 1,250 mcg (50,000 unit) capsule 1,250 mcg PO Q7D RF: 0 Discharge Orders: Discharge ED (Routine); Ordered 08/10/21 Ordered By: Sabino Aranda Referrals: Brandie Tyler FNP [Primary Care Provider] - Discharge Diet: Regular Discharge Activity: Increase activity as tolerated Patient Instructions: Lumbar Radiculopathy (ED) Activity Restrictions/Additional Instructions: Follow-up with medical provider as directed in 7 to 10 days for reevaluation. Apply cold pack or heat on lower back to help with symptoms. Perform lower back stretches daily. Take medications as prescribed. Return to the ER or your medical provider if condition worsens. Please read and understand discharge instructions. Thank you for choosing [facility] for your healthcare needs today. Please realize this is an emergency room and that we are providing you with a medical screening exam and this may not be complete and all inclusive of all the testing and or work up that you may need to determine your ailment or severity of your illness. It is very important that you follow up as instructed or that you return to the Emergency Department should you have concerns or if your condition changes or worsens in any way. Sign Out Sign Out Data: Patient Sign Out occurred on 08/10/21 at 17:08. Patient's care was discussed, and care was transferred from to VIK Wilkes. Coding Level of Care Code ED Church Supervisor for Chg Fwd Exam Detailed Documented by User: VIK Wilkes 08/11/21 01:36 HPI - Back Pain/Injury General: Chief Complaint: Extremity Problem,Nontraumatic Stated Complaint: LEG PAIN Time Seen by Provider: 08/10/21 16:05 PFSH ED PFSH: Medical History Allergic rhinitis Borderline personality disorder Cannabis dependence, episodic use Daily use, has medical marijuana card for chronic pain Chronic back pain Chronic eustachian tube dysfunction Chronic post-traumatic stress disorder Chronic sinusitis COPD (chronic obstructive pulmonary disease) Diverticulosis Fatty liver Fibromyalgia Generalized anxiety disorder Hyperlipidemia Hypothyroid Migraine headache Nasal septal deformity Nasal turbinate hypertrophy Nicotine dependence, cigarettes, with unspecified nicotine-induced disorders Osteoporosis Postnasal drip Psychiatric care Schizoaffective disorder, depressive type Severe sleep apnea Vitamin D deficiency Surgical History H/O section History of appendectomy History of cholecystectomy Status post gastric surgery Family History Other Diabetes Glaucoma Hypertension Thyroid disorder Social History Smoking and tobacco status: current every day smoker (half a pack a day no filter) cigarettes [ Other cigarette details: [id number] ] Quit status (tobacco): has quit using tobacco Second hand smoke exposure: Yes Smoking risk assessment/counseling performed?: Yes Alcohol intake: former Desire information about substance/drug rehabilitation?: No Adopted: No Caregiver/support person: No Lives independently: Yes Household members: other Details: [facility] Housing: Apartment Marital status: Life Partner Number of children: 4 Number of grandchildren: 2 Highest education level completed: GED or Equivalent service: No Current occupational status: unemployed Pets and animals: No History of recent travel: No Current gender identity: Female Esperanza/Scientology: Confucianist Special esperanza needs: No Agree to transfusion: Yes Financial difficulty paying for basics: Somewhat Hard Course Vital Signs: Vital signs: Vital Signs Temperature 97.7 F 08/10/21 15:57 Pulse Rate 87 08/10/21 17:56 Respiratory Rate 16 08/10/21 17:56 Blood Pressure 156/96 08/10/21 17:56 Pulse Oximetry 97 08/10/21 17:56 MDM - Back Pain/Injury MDM Narrative: Medical decision making narrative: Patient is a 55-year-old female comes to the ED with pain that starts in her left lower back and radiates down into her left leg. Denies any injury or trauma to cause pain. Denies any cauda equina symptoms. Vitals stable. Exam of patient shows some left buttock tenderness and sciatic notch tenderness. Patient was given dose of Norflex, Decadron and morphine and her pain is mildly improved. She was then given a dose of subcutaneous Dilaudid and her pain improved greatly. Patient was discharged home with a prescription for prednisone and Tylenol. She has a prescription for baclofen as a muscle relaxer I told her to take that as well to help with symptoms. Follow-up with PCP in 5 to 7 days for reevaluation. Return to ED precautions given. Patient understood and agree with plan. Discharge Plan Discharge Patient Disposition: Home Clinical Impression: Lumbar radiculopathy Condition: Stable Prescriptions: New prednisone 20 mg tablet 20 mg PO BID 7 Days Qty: 14 RF: 0 Tylenol 8 Hour 650 mg tablet extended release 650 mg PO Q8H PRN (Reason: pain) Qty: 30 RF: 0 No Action omeprazole 40 mg capsule,delayed release(DR/EC) 40 mg PO DAILY@1400 RF: 0 dicyclomine 20 mg tablet 20 mg PO QID@,,18,21 RF: 0 Zyprexa 5 mg tablet 5 mg PO BEDTIME Qty: 90 RF: 2 duloxetine [Cymbalta] 60 mg capsule,delayed release(DR/EC) 60 mg PO .morning Qty: 90 RF: 2 duloxetine [Cymbalta] 30 mg capsule,delayed release(DR/EC) 30 mg PO .morning Qty: 90 RF: 2 trazodone 150 mg tablet 150 mg PO BEDTIME PRN (Reason: insomnia) Qty: 90 RF: 2 buspirone 10 mg tablet 20 mg PO BID Qty: 120 RF: 3 ondansetron HCl [Zofran] 4 mg tablet 4 mg PO TID@,14,21 PRN (Reason: Nausea) RF: 0 polyethylene glycol 3350 [Miralax] 17 gram powder in packet 17 g PO DAILY PRN (Reason: constipation) RF: 0 albuterol sulfate [ProAir HFA] 90 mcg/actuation HFA aerosol inhaler 2 puff INHALATION Q6H PRN (Reason: shortness of breath or wheezing) Qty: 18 RF: 3 montelukast [Singulair] 10 mg tablet 10 mg PO DAILY@0900 Qty: 30 RF: 3 Stiolto Respimat 2.5-2.5 mcg/actuation mist 2 puff inhalation DAILY Qty: 4 RF: 3 Flovent HFA 110 mcg/actuation HFA aerosol inhaler 2 puff inhalation BID Qty: 12 RF: 3 acetaminophen 650 mg Tablet 650 mg PO Q6H PRN (Reason: Dyspnea) RF: 0 ipratropium bromide 42 mcg (0.06 %) [place],Non-Aerosol 2 spray INTRANASAL TID RF: 0 albuterol sulfate 5 mg/mL Solution For Nebulization 5 mg INHALATION Q6H PRN (Reason: Shortness Of Breath) RF: 0 zonisamide 100 mg capsule 200 mg PO BID RF: 0 baclofen 20 mg tablet 20 mg PO TID@0900,1400,2100 RF: 0 simvastatin 20 mg tablet 20 mg PO DAILY@1800 RF: 0 levothyroxine 25 mcg capsule 25 mcg PO DAILY@0900 RF: 0 cholecalciferol (vitamin D3) 1,250 mcg (50,000 unit) capsule 1,250 mcg PO Q7D RF: 0 Discharge Orders: Discharge ED (Routine); Ordered 08/10/21 Ordered By: Sabino Aranda Referrals: Brandie Tyler FNP [Primary Care Provider] - Discharge Diet: Regular Discharge Activity: Increase activity as tolerated Patient Instructions: Lumbar Radiculopathy (ED) Activity Restrictions/Additional Instructions: Follow-up with medical provider as directed in 7 to 10 days for reevaluation. Apply cold pack or heat on lower back to help with symptoms. Perform lower back stretches daily. Take medications as prescribed. Return to the ER or your medical provider if condition worsens. Please read and understand discharge instructions. Thank you for choosing [facility] for your healthcare needs today. Please realize this is an emergency room and that we are providing you with a medical screening exam and this may not be complete and all inclusive of all the testing and or work up that you may need to determine your ailment or severity of your illness. It is very important that you follow up as instructed or that you return to the Emergency Department should you have concerns or if your condition changes or worsens in any way. Sign Out Sign Out Data: Patient Sign Out occurred on 08/10/21 at 17:08. Patient's care was discussed, and care was transferred from to VIK Wilkes. Coding Level of Care Code ED Church Supervisor for Sariah Fwmadelyn Exam Detailed
[2021-08-10 16:28] VITALS: RESP 18
[2021-08-10] MEDS: morphine 4 mg/mL SDV 1 mL IM (16:28)
[2021-08-10] MEDS: dexamethasone 10 mg/mL INJ 8 MG IM (16:28)
[2021-08-10] MEDS: orphenadrine 30 mg/mL Inj 2 mL 60 MG IM (16:29)
[2021-08-10 16:30] VITALS: PULSE 88
[2021-08-10 17:01] VITALS: BP 161/85; PULSE 89; RESP 20; O2SAT 97
[2021-08-10 17:30] VITALS: RESP 18; O2SAT 98
[2021-08-10] MEDS: HYDROmorphone 1 mg/mL INJ 1 mL 0.5 MG SUBCUT (17:30)
[2021-08-10 17:56] VITALS: BP 156/96; PULSE 87; RESP 16; O2SAT 97
== END 2021-08-10 17:57 | disposition home or self-care (01) ==
PROVIDERS: Emergency Provider Physician Assistant; PCP Nurse Practitioner Family
DX: M54.16 Radiculopathy, lumbar region (principal); J44.9 Chronic obstructive pulmonary disease, unspecified; E78.5 Hyperlipidemia, unspecified; F17.210 Nicotine dependence, cigarettes, uncomplicated
CPT/HCPCS: 96372; 99283; J1100; J1170; J2270; J2360

== ENCOUNTER 2021-08-17 12:47 | Outpatient (CLI) | payer MEDICAID, SELFPAY ==
[2021-07-13 10:40] VITALS: BP 109/70; BMI 25.5
--- NOTE | 2021-08-17 13:01 | MM_ITS ---
WS: [id number] BILATERAL SCREENING DIGITAL MAMMOGRAM WITH CAD HISTORY: SCREENING COMPARISON: 10/10/2017 and 01/04/2012 Bilateral CC and MLO views submitted. Computer aided detection analyzed. Breast composition: There are scattered areas of fibroglandular density. No suspicious masses, microc alcifications or architectural distortion. MM/[place] [id number] IMPRESSION: BI-RADS: 1-Negative FOLLOW UP: 1 Year Follow-up
== END 2021-08-17 12:48 | disposition home or self-care (01) ==
LOC: RADSHAW 12:50
PROVIDERS: PCP Nurse Practitioner Family; Visit Provider Nurse Practitioner Family
DX: Z12.31 Encounter for screening mammogram for malignant neoplasm of breast (principal)
CPT/HCPCS: 77067; 90834

== ENCOUNTER 2021-08-22 22:31 | Emergency (ER) | payer MEDICAID, SELFPAY ==
[2021-07-13 10:40] VITALS: BP 109/70; BMI 25.5
[2021-08-22 22:35] VITALS: BP 114/78; PULSE 98; RESP 18; TEMP 36.6; O2SAT 95; BMI 25.6
--- NOTE | 2021-08-22 22:38 | ED_ITS ---
HPI - Dental/Oral General: Chief complaint: Dental/Oral Stated complaint: toothache Time Seen by Provider: 08/22/21 22:38 History of Present Illness: HPI Narrative: 55-year-old female comes in today with complaints of left lower jaw pain with some surrounding tissue swelling. Patient reports for the last 4 days she has had increasing pain and discomfort to the tooth. Patient reports that the molar is loose but she is concerned due to increased pain and swelling. Patient is able to swallow and manage secretions well. Patient denies any high fever. Patient looks well. Patient looks in moderate pain. Review of Systems General: Reports: 10 or more systems reviewed and unremarkable except in HPI and below ENMT: Reports: dental pain PFSH ED PFSH: Medical History Allergic rhinitis Borderline personality disorder Cannabis dependence, episodic use Daily use, has medical marijuana card for chronic pain Chronic back pain Chronic eustachian tube dysfunction Chronic post-traumatic stress disorder Chronic sinusitis COPD (chronic obstructive pulmonary disease) Diverticulosis Fatty liver Fibromyalgia Generalized anxiety disorder Hyperlipidemia Hypothyroid Migraine headache Nasal septal deformity Nasal turbinate hypertrophy Nicotine dependence, cigarettes, with unspecified nicotine-induced disorders Osteoporosis Postnasal drip Psychiatric care Schizoaffective disorder, depressive type Severe sleep apnea Vitamin D deficiency Surgical History H/O section History of appendectomy History of cholecystectomy Status post gastric surgery Family History Other Diabetes Glaucoma Hypertension Thyroid disorder Social History Smoking and tobacco status: current every day smoker (half a pack a day no filter) cigarettes [ Other cigarette details: [id number] ] Quit status (tobacco): has quit using tobacco Second hand smoke exposure: Yes Smoking risk assessment/counseling performed?: Yes Alcohol intake: former Desire information about substance/drug rehabilitation?: No Adopted: No Caregiver/support person: No Lives independently: Yes Household members: other Details: [facility] Housing: Apartment Marital status: Life Partner Number of children: 4 Number of grandchildren: 2 Highest education level completed: GED or Equivalent service: No Current occupational status: unemployed Pets and animals: No History of recent travel: No Current gender identity: Female Esperanza/Taoism: Restoration Special esperanza needs: No Agree to transfusion: Yes Financial difficulty paying for basics: Somewhat Hard Female Reproductive History: Para: 4 Spontaneous abortions: No Physical Exam Const: COMMON NORMALS: no acute distress and patient oriented x3 GENERAL APPEARANCE: cooperative HENMT: COMMON NORMALS: TM's normal bilaterally and Normal external nose present HEAD & SCALP: normal to inspection NOSE: Normal external nose present TYMPANIC MEMBRANE: TM's normal bilaterally MOUTH: other (#31 tooth is loose, surrounding tissue swelling and redness.) THROAT: posterior oropharynx normal Eye: GENERAL EYE: appearance normal, both eyes and all related structures Neck/C-Spine: COMMON NORMALS: full ROM Chest: COMMONS NORMALS: normal inspection of the chest Resp: COMMON NORMALS: normal respiratory effort EFFORT & INSPECTION: Yes able to speak in complete sentences Cardio: COMMON NORMALS: regular rate and regular rhythm RATE: regular rate RHYTHM: regular rhythm GI: COMMON NORMALS: non-tender Extremity: COMMON NORMALS: normal to inspection Neuro: COMMON NORMALS: patient oriented x3 and moves all extremities Psych: COMMON NORMALS: mental status grossly normal and cooperative Skin: COMMON NORMALS: no rashes or lesions noted GENERAL SKIN EXAM: no rashes or lesions noted Course Vital Signs: Vital signs: Vital Signs Temperature 97.9 F 08/22/21 22:35 Pulse Rate 98 08/22/21 22:35 Respiratory Rate 18 08/22/21 22:35 Blood Pressure 114/78 08/22/21 22:35 Pulse Oximetry 95 08/22/21 22:35 MDM - Dental/Oral MDM Narrative: Medical decision making narrative: Patient comes in for evaluation of dental pain. On exam we note a loose rear molar on the right lower side. Posterior pharynx is pink and moist and symmetrical without any significant swelling. Patient does have some submandibular swelling in the right lower jaw. Respirations are even lungs are clear to auscultation. Patient manages secretions well. Vital signs are normal. Differential diagnosis includes periapical abscess, dental pain, lymphadenitis. We will treat patient with Augmentin 875 twice a day for 7 days. Patient was given a short course of hydrocodone No. 7 tablets for her pain. Patient is able to take the hydrocodone although she does get nauseous with it patient has Zofran which she can use for it. No prior or recent narcotic prescriptions were noted in the record. Patient reports understanding of care plan and need for follow-up with dentist for definitive care. Discharge Plan Discharge Patient Disposition: Home Clinical Impression: Odontalgia Condition: Stable Prescriptions: New hydrocodone-acetaminophen 5-325 mg tablet 1 tab PO TID PRN (Reason: pain) Qty: 7 RF: 0 Augmentin 875-125 mg tablet 1 tab PO BID Qty: 14 RF: 0 No Action omeprazole 40 mg capsule,delayed release(DR/EC) 40 mg PO DAILY@1400 RF: 0 dicyclomine 20 mg tablet 20 mg PO QID@09,14,18,21 RF: 0 Zyprexa 5 mg tablet 5 mg PO BEDTIME Qty: 90 RF: 2 duloxetine [Cymbalta] 60 mg capsule,delayed release(DR/EC) 60 mg PO .morning Qty: 90 RF: 2 duloxetine [Cymbalta] 30 mg capsule,delayed release(DR/EC) 30 mg PO .morning Qty: 90 RF: 2 trazodone 150 mg tablet 150 mg PO BEDTIME PRN (Reason: insomnia) Qty: 90 RF: 2 buspirone 10 mg tablet 20 mg PO BID Qty: 120 RF: 3 ondansetron HCl [Zofran] 4 mg tablet 4 mg PO TID@09,14,21 PRN (Reason: Nausea) RF: 0 polyethylene glycol 3350 [Miralax] 17 gram powder in packet 17 g PO DAILY PRN (Reason: constipation) RF: 0 albuterol sulfate [ProAir HFA] 90 mcg/actuation HFA aerosol inhaler 2 puff INHALATION Q6H PRN (Reason: shortness of breath or wheezing) Qty: 18 RF: 3 montelukast [Singulair] 10 mg tablet 10 mg PO DAILY@0900 Qty: 30 RF: 3 Stiolto Respimat 2.5-2.5 mcg/actuation mist 2 puff inhalation DAILY Qty: 4 RF: 3 Flovent HFA 110 mcg/actuation HFA aerosol inhaler 2 puff inhalation BID Qty: 12 RF: 3 acetaminophen 650 mg Tablet 650 mg PO Q6H PRN (Reason: Dyspnea) RF: 0 ipratropium bromide 42 mcg (0.06 %) [place],Non-Aerosol 2 spray INTRANASAL TID RF: 0 albuterol sulfate 5 mg/mL Solution For Nebulization 5 mg INHALATION Q6H PRN (Reason: Shortness Of Breath) RF: 0 zonisamide 100 mg capsule 200 mg PO BID RF: 0 baclofen 20 mg tablet 20 mg PO TID@0900,1400,2100 RF: 0 simvastatin 20 mg tablet 20 mg PO DAILY@1800 RF: 0 levothyroxine 25 mcg capsule 25 mcg PO DAILY@0900 RF: 0 cholecalciferol (vitamin D3) 1,250 mcg (50,000 unit) capsule 1,250 mcg PO Q7D RF: 0 Tylenol 8 Hour 650 mg tablet extended release 650 mg PO Q8H PRN (Reason: pain) Qty: 30 RF: 0 Discharge Orders: Discharge ED (Routine); Ordered 08/22/21 Ordered By: Umesh Contreras Referrals: Brandie Tyler FNP [Primary Care Provider] - Discharge Diet: Usual diet Discharge Activity: Increase activity as tolerated Patient Instructions: Toothache (ED), Opioid Safety Activity Restrictions/Additional Instructions: Use medication as directed. Take antibiotics twice a day for the next 7 days. Follow-up with dentist for definitive care. Return to the ER for new concerns. Coding Level of Care Code ED Edger Technician for Sariah Fox
[2021-08-22] MEDS: amoxicillin-clav 875-125 mg Tablet 1 TAB PO (23:07)
[2021-08-22] MEDS: HYDROcodone-acetaminophen 5-325 mg Tablet 1 TAB PO (23:07)
[2021-08-22] MEDS: ondansetron 4 MG Tablet PO (23:08)
== END 2021-08-22 23:10 | disposition home or self-care (01) ==
PROVIDERS: Emergency Provider Nurse Practitioner Family; PCP Nurse Practitioner Family
DX: K08.89 Other specified disorders of teeth and supporting structures (principal); F17.210 Nicotine dependence, cigarettes, uncomplicated; F41.1 Generalized anxiety disorder
CPT/HCPCS: 99283; Q0162

== ENCOUNTER 2021-08-29 07:48 | Outpatient (CLI) | payer MEDICAID, SELFPAY ==
[2021-07-13 10:40] VITALS: BP 109/70; BMI 25.5
--- NOTE | 2021-08-29 07:56 | NM_ITS ---
WS: [id number] NUCLEAR MEDICINE GASTRIC EMPTYING EXAMINATION HISTORY: GASTROESOPHAGEAL REFLUX/EPIGASTRIC PAIN COMPARISON: 07/19/2021 TECHNIQUE: The patient ingested a meal containing 1.07 mCi of Tc 99m sulfur colloid mixed with eggs. The patient was placed in supine position and imaging over the abdomen was performed for a total of 2 40 minutes. Computer acquisition with the region of interest placed over the stomach to evaluate chanelle pam emptying half-time. Half-time to emptying is greater than 240 minutes. At 240 minutes only 36% has emptied from the stoma ch. Gastroparesis does appear to progress since the prior examination. NM/[place] [id number] IMPRESSION: Significant gastroparesis with marked delayed emptying from the stomach.
== END 2021-08-29 07:49 | disposition home or self-care (01) ==
LOC: NM 07:49
PROVIDERS: PCP Nurse Practitioner Family; Visit Provider Nurse Practitioner Family
DX: K21.9 Gastro-esophageal reflux disease without esophagitis (principal); R10.13 Epigastric pain; K31.84 Gastroparesis
CPT/HCPCS: 78264; A9541

== ENCOUNTER → 2021-08-30 08:21 | Outpatient (BNVA) | payer MEDICAID, SELFPAY ==
[2021-07-13 10:40] VITALS: BP 109/70; BMI 25.5
== END ==
PROVIDERS: PCP Nurse Practitioner Family; Visit Provider Nurse Practitioner Psychiatric/Mental Health
DX: F25.1 Schizoaffective disorder, depressive type (principal); F43.12 Post-traumatic stress disorder, chronic; F17.219 Nicotine dependence, cigarettes, with unspecified nicotine-induced disorders; F41.1 Generalized anxiety disorder; F12.20 Cannabis dependence, uncomplicated; F60.3 Borderline personality disorder
CPT/HCPCS: 99214

== ENCOUNTER → 2021-09-01 10:20 | Outpatient (BNVA) | payer MEDICAID, SELFPAY ==
[2021-07-13 10:40] VITALS: BP 109/70; BMI 25.5
== END ==
PROVIDERS: PCP Nurse Practitioner Family; Visit Provider Social Worker Clinical
DX: F25.1 Schizoaffective disorder, depressive type (principal); F43.12 Post-traumatic stress disorder, chronic; F41.1 Generalized anxiety disorder; F60.3 Borderline personality disorder
CPT/HCPCS: 90832

== ENCOUNTER → 2021-09-02 12:44 | Outpatient (BNVA) | payer MEDICAID, SELFPAY ==
[2021-07-13 10:40] VITALS: BP 109/70; BMI 25.5
== END ==
PROVIDERS: PCP Nurse Practitioner Family; Visit Provider Internal Medicine Pulmonary Disease
DX: Z01.812 Encounter for preprocedural laboratory examination (principal); Z20.822 Contact with and (suspected) exposure to COVID-19
CPT/HCPCS: 87635

== ENCOUNTER 2021-09-07 08:10 | Outpatient (CLI) | payer MEDICAID, SELFPAY ==
[2021-07-13 10:40] VITALS: BP 109/70; BMI 25.5
--- NOTE | 2021-09-07 12:11 | PFTS_ITS ---
Date of Study:09/07/21 Date of Dictation: 09/09/21 MECHANICS: Pre-bronchodilator forced vital capacity (FVC) is normal. Pre-bronchodilator forced expiratory volume in one second (FEV1) is normal. FEV1/FVC is normal. There is no postbronchodilator study. FLOW VOLUME LOOP: Normal. LUNG VOLUMES: Total lung capacity (TLC) is normal. Residual volume (RV) is normal. DIFFUSING CAPACITY FOR CARBON MONOXIDE: Normal . INTERPRETATION: The PFTs are normal. MTDD
== END 2021-09-07 08:11 | disposition home or self-care (01) ==
LOC: RT 08:11
PROVIDERS: PCP Nurse Practitioner Family; Visit Provider Internal Medicine Pulmonary Disease
DX: R06.02 Shortness of breath (principal)
CPT/HCPCS: 94010; 94618; 94726; 94729

== ENCOUNTER → 2021-10-03 07:51 | Outpatient (BNVA) | payer MEDICAID, SELFPAY ==
[2021-07-13 10:40] VITALS: BP 109/70; BMI 25.5
== END ==
PROVIDERS: PCP Nurse Practitioner Family; Visit Provider Social Worker Clinical
DX: F25.1 Schizoaffective disorder, depressive type (principal); F43.12 Post-traumatic stress disorder, chronic; F41.1 Generalized anxiety disorder; F60.3 Borderline personality disorder
CPT/HCPCS: 90834

== ENCOUNTER → 2021-10-11 07:36 | Outpatient (BNVA) | payer MEDICAID, SELFPAY ==
[2021-07-13 10:40] VITALS: BP 109/70; BMI 25.5
== END ==
PROVIDERS: PCP Nurse Practitioner Family; Visit Provider Nurse Practitioner Psychiatric/Mental Health
DX: F25.1 Schizoaffective disorder, depressive type (principal); F43.12 Post-traumatic stress disorder, chronic; F60.3 Borderline personality disorder; F17.210 Nicotine dependence, cigarettes, uncomplicated; F41.1 Generalized anxiety disorder; F12.20 Cannabis dependence, uncomplicated
CPT/HCPCS: 99214

== ENCOUNTER → 2021-10-17 10:50 | Outpatient (BNVA) | payer MEDICAID, SELFPAY ==
[2021-07-13 10:40] VITALS: BP 109/70; BMI 25.5
== END ==
PROVIDERS: PCP Nurse Practitioner Family; Visit Provider Social Worker Clinical
DX: F25.1 Schizoaffective disorder, depressive type (principal); F43.12 Post-traumatic stress disorder, chronic; F41.1 Generalized anxiety disorder; F60.3 Borderline personality disorder
CPT/HCPCS: 90834

== ENCOUNTER → 2021-10-31 07:38 | Outpatient (BNVA) | payer MEDICAID, SELFPAY ==
[2021-07-13 10:40] VITALS: BP 109/70; BMI 25.5
== END ==
PROVIDERS: PCP Nurse Practitioner Family; Visit Provider Social Worker Clinical
DX: F25.1 Schizoaffective disorder, depressive type (principal); F43.12 Post-traumatic stress disorder, chronic; F41.1 Generalized anxiety disorder; F60.3 Borderline personality disorder
CPT/HCPCS: 90832

== ENCOUNTER → 2021-11-23 07:46 | Outpatient (BNVA) | payer MEDICAID, SELFPAY ==
[2021-07-13 10:40] VITALS: BP 109/70; BMI 25.5
== END ==
PROVIDERS: PCP Nurse Practitioner Family; Visit Provider Social Worker Clinical
DX: F25.1 Schizoaffective disorder, depressive type (principal); F43.12 Post-traumatic stress disorder, chronic; F41.1 Generalized anxiety disorder; F60.3 Borderline personality disorder
CPT/HCPCS: 90834

== ENCOUNTER → 2021-11-29 07:35 | Outpatient (BNVA) | payer MEDICAID, SELFPAY ==
[2021-07-13 10:40] VITALS: BP 109/70; BMI 25.5
== END ==
PROVIDERS: PCP Nurse Practitioner Family; Visit Provider Nurse Practitioner Psychiatric/Mental Health
DX: F25.1 Schizoaffective disorder, depressive type (principal); F43.12 Post-traumatic stress disorder, chronic; F41.1 Generalized anxiety disorder; F60.3 Borderline personality disorder; F12.20 Cannabis dependence, uncomplicated; F17.219 Nicotine dependence, cigarettes, with unspecified nicotine-induced disorders
CPT/HCPCS: 99214

== ENCOUNTER → 2021-12-06 10:33 | Outpatient (BNVA) | payer MEDICAID, SELFPAY ==
[2021-07-13 10:40] VITALS: BP 109/70; BMI 25.5
== END ==
PROVIDERS: PCP Nurse Practitioner Family; Visit Provider Nurse Practitioner Psychiatric/Mental Health
DX: F25.1 Schizoaffective disorder, depressive type (principal); F43.12 Post-traumatic stress disorder, chronic; F41.1 Generalized anxiety disorder; F60.3 Borderline personality disorder
CPT/HCPCS: 90834; 80053; 80061; 82306; 82607; 83036; 83735

== ENCOUNTER → 2021-12-27 07:48 | Outpatient (BNVA) | payer MEDICAID, SELFPAY ==
[2021-07-13 10:40] VITALS: BP 109/70; BMI 25.5
== END ==
PROVIDERS: PCP Nurse Practitioner Family; Visit Provider Nurse Practitioner Psychiatric/Mental Health
DX: F25.1 Schizoaffective disorder, depressive type (principal); F41.1 Generalized anxiety disorder; F43.12 Post-traumatic stress disorder, chronic; F17.219 Nicotine dependence, cigarettes, with unspecified nicotine-induced disorders; F60.3 Borderline personality disorder; F12.20 Cannabis dependence, uncomplicated; Z79.899 Other long term (current) drug therapy; Z03.89 Encounter for observation for other suspected diseases and conditions ruled out
CPT/HCPCS: 99214

== ENCOUNTER → 2022-01-04 12:42 | Outpatient (BNVA) | payer MEDICAID, SELFPAY ==
[2021-07-13 10:40] VITALS: BP 109/70; BMI 25.5
== END ==
PROVIDERS: PCP Nurse Practitioner Family; Visit Provider Social Worker Clinical
DX: F25.1 Schizoaffective disorder, depressive type (principal); F43.12 Post-traumatic stress disorder, chronic; F41.1 Generalized anxiety disorder; F60.3 Borderline personality disorder
CPT/HCPCS: 90834

== ENCOUNTER → 2022-01-24 11:56 | Outpatient (BNVA) | payer MEDICAID, SELFPAY ==
[2021-07-13 10:40] VITALS: BP 109/70; BMI 25.5
== END ==
PROVIDERS: PCP Nurse Practitioner Family; Visit Provider Social Worker Clinical
DX: F25.1 Schizoaffective disorder, depressive type (principal); F43.12 Post-traumatic stress disorder, chronic; F41.1 Generalized anxiety disorder; F60.3 Borderline personality disorder
CPT/HCPCS: 90834

== ENCOUNTER → 2022-02-08 10:49 | Outpatient (BNVA) | payer MEDICAID, SELFPAY ==
[2021-07-13 10:40] VITALS: BP 109/70; BMI 25.5
== END ==
PROVIDERS: PCP Nurse Practitioner Family; Visit Provider Nurse Practitioner Psychiatric/Mental Health
DX: F43.12 Post-traumatic stress disorder, chronic (principal); F60.3 Borderline personality disorder; F25.1 Schizoaffective disorder, depressive type; F17.219 Nicotine dependence, cigarettes, with unspecified nicotine-induced disorders; F41.1 Generalized anxiety disorder; F12.20 Cannabis dependence, uncomplicated; Z03.89 Encounter for observation for other suspected diseases and conditions ruled out
CPT/HCPCS: 99214

== ENCOUNTER → 2022-02-15 11:41 | Outpatient (BNVA) | payer MEDICAID, SELFPAY ==
[2021-07-13 10:40] VITALS: BP 109/70; BMI 25.5
== END ==
PROVIDERS: PCP Nurse Practitioner Family; Visit Provider Social Worker Clinical
DX: F25.1 Schizoaffective disorder, depressive type (principal); F43.12 Post-traumatic stress disorder, chronic; F41.1 Generalized anxiety disorder; F60.3 Borderline personality disorder
CPT/HCPCS: 90832

== ENCOUNTER → 2022-03-06 10:38 | Outpatient (BNVA) | payer MEDICAID, SELFPAY ==
[2021-07-13 10:40] VITALS: BP 109/70; BMI 25.5
== END ==
PROVIDERS: PCP Nurse Practitioner Family; Visit Provider Social Worker Clinical
DX: F25.1 Schizoaffective disorder, depressive type (principal); F43.12 Post-traumatic stress disorder, chronic; F41.1 Generalized anxiety disorder; F60.3 Borderline personality disorder
CPT/HCPCS: 90834

== ENCOUNTER → 2022-03-20 13:58 | Outpatient (BNVA) | payer MEDICAID, SELFPAY ==
[2021-07-13 10:40] VITALS: BP 109/70; BMI 25.5
== END ==
PROVIDERS: PCP Nurse Practitioner Family; Visit Provider Social Worker Clinical
DX: F25.1 Schizoaffective disorder, depressive type (principal); F43.12 Post-traumatic stress disorder, chronic; F41.1 Generalized anxiety disorder; F60.3 Borderline personality disorder
CPT/HCPCS: 90834

== ENCOUNTER → 2022-04-04 13:08 | Outpatient (BNVA) | payer MEDICAID, SELFPAY ==
[2021-07-13 10:40] VITALS: BP 109/70; BMI 25.5
== END ==
PROVIDERS: PCP Nurse Practitioner Family; Visit Provider Internal Medicine Pulmonary Disease
DX: J42 Unspecified chronic bronchitis (principal); F12.90 Cannabis use, unspecified, uncomplicated; F17.210 Nicotine dependence, cigarettes, uncomplicated; M79.89 Other specified soft tissue disorders; R06.00 Dyspnea, unspecified
CPT/HCPCS: 99214

== ENCOUNTER 2022-05-01 14:23 | Outpatient (CLI) | payer MEDICAID, SELFPAY ==
[2021-07-13 10:40] VITALS: BP 109/70; BMI 25.5
--- NOTE | 2022-05-01 14:28 | CT_ITS ---
WS: [id number] LDCT LUNG CANCER SCREENING HISTORY: lung screening TECHNIQUE: Axial imaging performed from the apices to 1 cm below the costophrenic angles. Coronal and sagittal reformats are submitted with axial MIP series. All CT scans at [facility] use at least one of these dose optimization techniques: automated exposure control; mA and/or kV adjustment per patient size (includes targeted exams where dose is matched to clinical indication); or iterativ e reconstruction. DLP: 76.89 mGy.cm DIvol: Mean CTDIvol: 1.60 (mGy) COMPARISON: 05/17/2020 Diagnostic quality: Satisfactory Lung Nodules: 2 noncalcified nodules at the RIGHT apex. Stable since at least 11/20/2018. New 4 mm nod ule at the RIGHT apex, image 42 series 5. Additional RIGHT calcified LEFT noncalcified upper lobe nod ules anteriorly. Partially calcified 6 mm nodule RIGHT lower lobe. Pleural-based 6 mm nodule LEFT low er lobe, image 146 of series 5. Additional 7 mm pleural-based nodule RIGHT lower lobe, image 155 of s eries 5. Calcifications in the RIGHT lower lobe with increasing associated soft tissue mass. The enti re complex measures 18 x 8 mm. The soft tissue component measures 12 x 5 mm. Soft tissue extends in a tubular manner and this may be an intrabronchial lesion. Additional scarring at the lung bases. Heart: Normal size heart. Small amount of pericardial thickening anteriorly. Other findings: Coarse echotexture throughout the liver with granulomatous. Prior cholecystectomy. Mi ld LEFT adrenal hyperplasia. CT/CT lung screening [id number] IMPRESSION: LUNG-RADS: 4A-Probably Suspicious FOLLOW UP: See Report OTHER FINDINGS (S MODIFIER): None. Recommend follow-up low-dose chest CT in 3 months versus a PET/CT at this time to evaluate the solid component of the RIGHT lower lobe mass which also contain s calcification.
== END 2022-05-01 14:24 | disposition home or self-care (01) ==
LOC: RAD 14:24
PROVIDERS: PCP Nurse Practitioner Family; Visit Provider Internal Medicine Pulmonary Disease
DX: Z12.2 Encounter for screening for malignant neoplasm of respiratory organs (principal); Z87.891 Personal history of nicotine dependence
CPT/HCPCS: 71271

== ENCOUNTER 2022-05-09 07:02 | Outpatient (CLI) | payer MEDICAID, SELFPAY ==
[2021-07-13 10:40] VITALS: BP 109/70; BMI 25.5
--- NOTE | 2022-05-09 | ECG_ITS ---
[facility] Test Date: 2022-05-09 Pat Name: Ani Mejia Department: Room: Gender: Female Academic Advisor: Rabia Villarreal : 1965 Requested By: Eduar Traylorr Ralph Order Number: [id number] Annette MD: Julio Neil M.D. Interpretive Statements NAME OF STUDY: LEXISCAN SESTAMIBI STRESS TEST INDICATION: [Shortness of Breath] Procedure: At the baseline, the blood pressure was 112/67 mmHg with a heart rate of 66 bpm. The electrocardiogram showed normal sinus rhythm, leftl axis deviation with normal ST and T's. The Lexiscan was infused over a period of 20 seconds. A total of 0.4 mg of Lexiscan was infused. The stress phase was continued for a total of 5 minutes. Heart rate was at the end of stress phase was 109 bpm and a blood pressure of 144/88 mmHg. The EKG at the peak infusion revealed since normal sinus rhythm with no significant ST-T wave changes. Sestamibi was injected 20 seconds after the Lexiscan infusion. Blood pressure at the end of recovery phase was 94/58mmHg with a heart rate of 89 bpm. Conclusion: 1. Normal EKG response to Lexiscan infusion 2. No Lexiscan induced chest pain or cardiac arrhythmia. 3. Normal blood pressure and heart rate response. 4. Sestamibi/sestamibi perfusion scan pending; see separate report. Electronically Signed On 05-15-2022 0:16:02 CDT by Julio Neil M.D. [email or web address]
[2022-05-09 07:30] VITALS: BMI 24.1
--- NOTE | 2022-05-09 07:36 | NMCV_ITS ---
NM aylin perf SPECT r/s* [id number] Ani Mejia Age: 56 Gender: F : 1965 Exam Date: 05/09/2022 08:28 Ordering Phys: Eduar Murray MD Technologist: RODERICK Crain Exam Location: [facility] Indications: CHEST PAIN STRESS TEST [facility] IMAGE PROTOCOL Rest/Stress 1 Lexiscan Day Radiopharmaceutical Dose (mCi) Administration Site Administered by Rest: Tc-99m 10.9 IV RODERICK Tariq Sestamibi Stress:Tc-99m 32.4 IV RODERICK Tariq Sestamibi Rest: 09-May-2022 60 Discovery 630 Stress: 09-May-2022 30 Discovery 630 0.4mg Lexiscan. Images obtained in supine and prone position. SPECT RESULTS Technical Quality: Excellent Raw Data Analysis: Normal Image Corrections: No attenuation or motion correction applied Summed Stress Score: 1 Summed Rest Score: 9 Summed Difference Score: 0 PERFUSION FINDINGS There is reduced radiotracer uptake in the inferior wall that improves on stress images. This is consistent with attenuation artifact. No evidence of ischemia. FUNCTIONAL RESULTS (calculated via Gated SPECT) Stress Image LV EF (%): 78 Stress EDV (mL):67 TID: 0.66 Stress ESV (mL):15 FUNCTIONAL FINDINGS: There is normal left ventricular systolic function. IMPRESSIONS 1. Normal myocardial perfusion imaging with no evidence of ischemia. 2. LV systolic function is normal. Julio Neil MD (Electronically Signed) Final Date: 09 May 2022 12:12 S
[2022-05-09] MEDS: regadenoson 0.4 Mg/5 ml Syringe IVP (09:10)
[2022-05-09] MEDS: ondansetron 2 mg/ML SDV 2 mL 4 MG IVP (09:19)
[2022-05-09 09:23] VITALS: BP 94/58; PULSE 81
== END 2022-05-09 07:03 | disposition home or self-care (01) ==
LOC: CDL 07:03
PROVIDERS: PCP Nurse Practitioner Family; Visit Provider Internal Medicine Pulmonary Disease
DX: R06.09 Other forms of dyspnea (principal); F17.210 Nicotine dependence, cigarettes, uncomplicated; R07.9 Chest pain, unspecified; R06.02 Shortness of breath
CPT/HCPCS: 78452; 93017; A9500; J2405; J2785

== ENCOUNTER → 2022-05-17 08:43 | Outpatient (BNVA) | payer MEDICAID, SELFPAY ==
[2021-07-13 10:40] VITALS: BP 109/70; BMI 25.5
== END ==
PROVIDERS: PCP Nurse Practitioner Family; Visit Provider Internal Medicine Pulmonary Disease
DX: R06.02 Shortness of breath (principal); F17.210 Nicotine dependence, cigarettes, uncomplicated; F12.90 Cannabis use, unspecified, uncomplicated; R91.8 Other nonspecific abnormal finding of lung field; J43.8 Other emphysema
CPT/HCPCS: 99214

== ENCOUNTER 2022-06-20 12:19 | Outpatient (CLI) | payer MEDICAID, SELFPAY ==
[2022-06-05 07:32] VITALS: BP 109/70; BMI 25.5
--- NOTE | 2022-06-20 12:34 | CT_ITS ---
WS: [id number] CT ABDOMEN AND PELVIS NONCONTRAST HISTORY: PELVIC PAIN/ RLQ ABDOMINAL PAIN TECHNIQUE: Imaging performed through the abdomen and pelvis. Coronal and sagittal reformats are submi tted. All CT scans at [facility] use at least one of these dose optimization techniques: auto mated exposure control; mA and/or kV adjustment per patient size (includes targeted exams where dose is matched to clinical indication); or iterative reconstruction. DLP: 841.89 mGy.cm COMPARISON: 06/03/2022, 01/07/2021 Lower thorax: Focal scar and granuloma RIGHT lung base. Normal size heart. Small hiatal hernia. Liver: Numerous granulomata. Gallbladder: Prior cholecystectomy. No bile duct dilatation. Pancreas: Normal size and attenuation. Normal pancreatic duct. No pancreatitis or mass. Spleen: Granulomata. Normal size. Adrenal glands: Normal. No mass. Right kidney: Exophytic 9 mm cyst from the mid kidney unchanged. No hydronephrosis. Left kidney: Normal size kidney with no mass or hydronephrosis. Aorta: Mild atherosclerosis abdominal aorta with no aneurysm. No free fluid, intraperitoneal air or significant lymphadenopathy. GI tract: Normally distended stomach. There is mild antrum and duodenal wall thickening. No obstructi on. Small bowel loops are mildly prominent. Mild diffuse constipation. Abdominal wall: There is enlargement and heterogeneity within the inferior RIGHT rectus abdominal mus marissa. Heterogeneity contiguous through the posterior aspect of the rectus sheath muscle with developme nt of a large soft tissue mass in the RIGHT pelvis displacing the urinary bladder. This mass measures 10.7 x 8.4 cm and extends over length of 9.9 cm. There is increased density within this mass and the mass extends into the RIGHT adnexa. This was also present on the prior PET/CT from 06/03/2022 but is not improving in size. Pelvis: RIGHT adnexal mildly heterogeneous hyperdense mass was described in the above . Urinary bladder is being displaced to the LEFT by this mass. No definite free fluid. Osseous structures: Unremarkable. CT/CT abdomen pelvis wo con [id number] IMPRESSION: 1. Large heterogeneous mass of increased density measuring 10.7 x 8.4 cm exten ding over a length of 9.9 cm in the RIGHT pelvis and adnexa. This mass is adam guous anteriorly with a RIGHT rectus muscle sheath hematoma. Rectus sheath velasquez rashad is contiguous with the subcutaneous soft tissue tract which may be related to a recent laparoscopic surgery. 2. Hepatic and splenic granulomata. Notified TARAN Macdonald at 06/20/2022 3:49 PM.
[2022-06-20] MEDS: iohexol 350 mg/mL 100 mL Btl PO (13:31)
== END 2022-06-20 12:20 | disposition home or self-care (01) ==
LOC: RAD 12:22
PROVIDERS: PCP Nurse Practitioner Family; Visit Provider Nurse Practitioner Family
DX: R10.2 Pelvic and perineal pain (principal); R10.31 Right lower quadrant pain; K75.3 Granulomatous hepatitis, not elsewhere classified
CPT/HCPCS: 74176

== ENCOUNTER 2022-07-10 06:52 | Outpatient (CLI) | payer MEDICAID, SELFPAY ==
[2022-06-05 07:32] VITALS: BP 109/70; BMI 25.5
--- NOTE | 2022-07-10 07:22 | MR_ITS ---
WS: [id number] MRI PELVIS with and without CONTRAST. COMPARISON: Prior CT 01/07/2021, 06/20/2022, PET/CT 06/03/2022 Multiplanar, multisequence imaging is performed with and without contrast. Large RIGHT adnexal mass with variable signal is identified measuring 8.6 x 7.4 cm. Moderate increase d signal on all sequences. No significant loss of signal on the T2 fat-saturated sequences. There is still mass effect upon the urinary bladder. There is a tract extending from this RIGHT adnexal mass i nto the inferior RIGHT rectus muscle. The rectus muscle measures 1.1 cm in diameter. This represents an improvement since the CT of 06/20/2022. There is only been a slight decrease in size of the mass. N o enhancement. Patient is status post hysterectomy. The uterus is not identified. Neither ovary is identified with c ertainty. No free fluid. Inguinal or pelvic adenopathy. Urinary bladder is being compressed to the LE FT but heterogeneous mass in the RIGHT adnexa. There is mild mass effect upon the adjacent small blanca l loops.. MR/MR pelvis wo/w con [id number] IMPRESSION: 1. Nonenhancing heterogeneous mass in the RIGHT adnexa measures 8.6 x 7.4 cm. This mass was described on 06/20/[address] Mass has decreased in size very sli ghtly since the CT, measured 10.7 x 8.4 cm on the prior study. Again noted is a tract extending from the adnexal mass into the RIGHT rectus muscle. 2. Soft tissue thickening and hematoma in the RIGHT rectus muscle has improved but not resolved. 3. Favor hematoma as the most likely etiology. Ovarian serous cystadenoma may appear similar but this mass contains hemorrhage and extends into the abdominal wall musculature. Prior hysterectomy. Ovaries may have been removed. Favor thi s is a hematoma related to the prior surgery. Correlate with prior history of e ndometriosis. Please note PET/CT was negative on 06/03/2022 concerning this mass .
== END 2022-07-10 06:53 | disposition home or self-care (01) ==
LOC: RAD 06:53
PROVIDERS: PCP Nurse Practitioner Family; Visit Provider Nurse Practitioner Family
DX: R19.09 Other intra-abdominal and pelvic swelling, mass and lump (principal)
CPT/HCPCS: 72197; 76830; 76857; A9577

== ENCOUNTER → 2022-07-25 13:40 | Outpatient (BNVA) | payer OTHER, SELFPAY ==
[2022-06-05 07:32] VITALS: BP 109/70; BMI 25.5
== END ==
PROVIDERS: PCP Nurse Practitioner Family; Visit Provider Nurse Practitioner Psychiatric/Mental Health
DX: F60.3 Borderline personality disorder (principal); Z79.899 Other long term (current) drug therapy
CPT/HCPCS: 80061; 83036

== ENCOUNTER 2022-07-28 08:37 | Outpatient (CLI) | payer MEDICAID, SELFPAY ==
[2022-06-05 07:32] VITALS: BP 109/70; BMI 25.5
--- NOTE | 2022-07-28 09:00 | CT_ITS ---
WS: [email or web address] Exam: CT chest wo con [id number] Date/Time of Exam: 07/28/2022 9:20 AM Reason For Exam: 3 month f/u lung nodules DLP: 545.[address] scans at [facility] use at least one of these dose optimization techniques: automated e xposure control; mA and/or kV adjustment per patient size (includes targeted exams where dose is matc hed to clinical indication); or iterative reconstruction. Compared to lung screening exam performed 05/01/[address] scan of the chest performed 04/25. The chest is evaluated in the axial plane with coronal and sagittal reformatted images. There are stable appearing subcentimeter nodular densities in the right lung. There is also a stable lesion with coarse calcification in the right lower lobe. There are no discrete suspicious nodules in the left lung. There are no infiltrates. The lungs are fully expanded. The airway is patent. No sign ificant mediastinal or hilar lymphadenopathy. The thoracic aorta is normal in caliber. No pericardial or pleural effusion. No destructive bone lesions seen. CT images of the upper abdomen demonstrate a 7.8 mm nodule in the right adrenal gland most likely a small adenoma. CT/CT chest wo con [id number] IMPRESSION: 1. Stable appearing subcentimeter nodules in the right lung. Stable appearing l esion in the right lower lobe with coarse calcification. 2. No significant lymphadenopathy in the chest. 3. Emphysematous change as previously noted
== END 2022-07-28 08:38 | disposition home or self-care (01) ==
LOC: RAD 08:38
PROVIDERS: PCP Nurse Practitioner Family; Visit Provider Internal Medicine Pulmonary Disease
DX: R91.8 Other nonspecific abnormal finding of lung field (principal)
CPT/HCPCS: 71250

== ENCOUNTER 2022-07-31 07:00 | Outpatient (CLI) | payer MEDICAID, SELFPAY ==
[2022-06-05 07:32] VITALS: BP 109/70; BMI 25.5
--- NOTE | 2022-07-31 07:23 | US_ITS ---
WS: [email or web address] ULTRASOUND ABDOMEN CLINICAL INFORMATION: PELVIC PAIN/RLQ ABD PAIN COMPARISON: CT June 20, 2022 FINDINGS: Liver Size: Normal. Craniocaudal length: 14.6 cm. Echogenicity: Normal. Surface nodularity: None. Mass (size and location): None. Bile ducts Intrahepatic ducts: Normal. Common bile duct diameter: 0.3 cm. Gallbladder Removed. Pancreas Normal as visualized. Spleen Tiny incidental cyst. Splenomegaly: None. Craniocaudal length: 9.6 cm. Right kidney: Normal. Hydronephrosis: None. Size: 10.7 cm x 4.9 cm x 4.4 cm Left kidney: Normal. Hydronephrosis: None. Size: 10.5 cm x 5.1 cm x 5.7 cm. Abdominal aorta and IVC Visualized portions are normal. Ascites: None. US/US abdomen complete* [id number] IMPRESSION: 1. Cholecystectomy. Normal common bile duct. 2. Normal liver. 3. No hydronephrosis in either kidney. 4. Normal spleen. 5. No abnormalities today in the abdominal wall area of pain
== END 2022-07-31 07:01 | disposition home or self-care (01) ==
LOC: RAD 07:01
PROVIDERS: PCP Nurse Practitioner Family; Visit Provider Nurse Practitioner Family
DX: R10.2 Pelvic and perineal pain (principal); R10.31 Right lower quadrant pain; Z90.49 Acquired absence of other specified parts of digestive tract; G62.9 Polyneuropathy, unspecified; G43.709 Chronic migraine without aura, not intractable, without status migrainosus; F17.200 Nicotine dependence, unspecified, uncomplicated
CPT/HCPCS: 76700; 99213

== ENCOUNTER → 2022-08-03 11:15 | Outpatient (BNVA) | payer MEDICAID, SELFPAY ==
[2022-08-01 13:30] VITALS: BP 129/80; BMI 23.0
== END ==
PROVIDERS: PCP Nurse Practitioner Family; Visit Provider Internal Medicine Pulmonary Disease
DX: J42 Unspecified chronic bronchitis (principal); F17.210 Nicotine dependence, cigarettes, uncomplicated; R06.02 Shortness of breath; F12.90 Cannabis use, unspecified, uncomplicated; R91.8 Other nonspecific abnormal finding of lung field; M79.89 Other specified soft tissue disorders; J43.9 Emphysema, unspecified; J45.909 Unspecified asthma, uncomplicated; F41.9 Anxiety disorder, unspecified; F32.A Depression, unspecified
CPT/HCPCS: 99214

== ENCOUNTER 2022-10-16 07:34 | Outpatient (CLI) | payer MEDICAID, SELFPAY ==
[2022-08-01 13:30] VITALS: BP 129/80; BMI 23.0
--- NOTE | 2022-10-16 08:00 | CT_ITS ---
WS: [email or web address] CT CHEST WITHOUT INTRAVENOUS CONTRAST HISTORY: 6 month f/u TECHNIQUE: Contiguous 5 mm axial imaging performed on the thorax. Coronal and sagittal reformats are submitted. All CT scans at [facility] use at least one of these dose optimization techniques: automated exposure control; mA and/or kV adjustment per patient size (includes targeted exams where dose is matched to clinical indication); or iterative reconstruction. CONTRAST: None DLP: 292.71 mGy.cm COMPARISON: 07/28/2022, 05/01/2022 and 05/17/2020 Lungs and central airway: Mild pulmonary hyperinflation. There are multiple subcentimeter nodules whi ch are noncalcified in the RIGHT lung. These are not increasing in size over multiple prior years. Tu bular soft tissue in the RIGHT lower lobe with the proximal calcification. Due to the tubular structu re this is probably a broncholith with post obstruction bronchus and mucous retention. Very similar t o prior studies. No new mass. LEFT lung is clear. Pleura: Normal. No pleural effusion. Heart and pericardium: Normal size heart with no pericardial effusion. Mediastinum and kimberly: No mediastinum or hilar adenopathy. Vessels: Normal size aortic and pulmonary artery. No coronary artery calcifications. Chest wall and lower neck: No soft tissue masses. Upper abdomen: Hepatic granulomata. Splenic granulomata. Prior cholecystectomy. No adrenal mass. Osseous structures: No destructive process. CT/CT chest wo con [id number] IMPRESSION: 1. No significant change in the noncalcified pulmonary nodules. No new or susp icious nodules. 2. Tubular soft tissue RIGHT lower lobe is probably a bronchus filled with sec retions and obstructed by a broncholith. No interval change. Similar since 04/15
== END 2022-10-16 07:35 | disposition home or self-care (01) ==
LOC: RAD 07:39
PROVIDERS: PCP Nurse Practitioner Family; Visit Provider Internal Medicine Pulmonary Disease
DX: R91.8 Other nonspecific abnormal finding of lung field (principal)
CPT/HCPCS: 71250

== ENCOUNTER 2022-11-03 10:16 | Outpatient (CLI) | payer MEDICAID, SELFPAY ==
[2022-10-27 07:55] VITALS: BP 129/80; BMI 23.0
--- NOTE | 2022-11-03 10:33 | MM_ITS ---
WS: [email or web address] SCREENING DIGITAL TOMOSYNTHESIS MAMMOGRAM WITH CAD HISTORY: SCREENING COMPARISON: 08/17/2021 and 10/10/2017 Bilateral CC and MLO with tomosynthesis views submitted. Synthetic mammography reviewed. Computer aid ed detection analyzed. Breast composition: There are scattered areas of fibroglandular density. No suspicious masses, microc alcifications or architectural distortion. MM/[place] [id number] IMPRESSION: BI-RADS: 1-Negative FOLLOW UP: 1 Year Follow-up
== END 2022-11-03 10:17 | disposition home or self-care (01) ==
LOC: RAD 10:17
PROVIDERS: PCP Nurse Practitioner Family; Visit Provider Nurse Practitioner Family
DX: Z12.31 Encounter for screening mammogram for malignant neoplasm of breast (principal)
CPT/HCPCS: 77063; 77067

== ENCOUNTER 2022-11-24 14:13 | Outpatient (CLI) | payer MEDICAID, SELFPAY ==
[2022-10-27 07:55] VITALS: BP 129/80; BMI 23.0
--- NOTE | 2022-11-24 14:35 | XR_ITS ---
WS: [email or web address] XR thoracic spine 2V [id number] REASON FOR EXAM: LOW BACK PAIN, THORACIC BACK PAIN FINDINGS: Mild scoliosis of the thoracic spine convex right. No significant vertebral body abnormality. Mild narrowing of the disc spaces with small anterior osteophytes in the mid and lower thoracic spine . XR/XR thoracic spine 2V [id number] IMPRESSION: Mild to moderate degenerative spondylosis.
--- NOTE | 2022-11-24 14:35 | XR_ITS ---
WS: [email or web address] XR lumbar spine f/e only [id number] REASON FOR EXAM: LOW BACK PAIN, THORACIC BACK PAIN FINDINGS: Normal lordosis of the lumbar spine. No significant lumbar vertebral body abnormality. Minimal anterior osteophyte formation L2-L5. Intervertebral disc spaces are relatively well-preserved. No significant neutral listhesis. No instability demonstrated with flexion and extension. XR/XR lumbar spine f/e only [id number] IMPRESSION: Minimal change of degenerative spondylosis as above.
== END 2022-11-24 14:14 | disposition home or self-care (01) ==
LOC: RAD 14:15
PROVIDERS: PCP Nurse Practitioner Family; Visit Provider Nurse Practitioner Family
DX: M47.896 Other spondylosis, lumbar region (principal); M47.894 Other spondylosis, thoracic region
CPT/HCPCS: 72070; 72120

== ENCOUNTER 2022-12-01 12:21 | Outpatient (CLI) | payer MEDICAID, SELFPAY ==
[2022-10-27 07:55] VITALS: BP 129/80; BMI 23.0
--- NOTE | 2022-12-01 12:35 | XR_ITS ---
WS: [email or web address] Cervical spine, AP, odontoid, lateral views in flexion, extension and neutral position, 12/01/2022 Clinical Data: CHRONIC NECK PAIN Comparison: Cervical spine, 10/07/2025 Findings: No compression fractures are seen. There is disc space narrowing at C5-C6 with osteophyte f ormation. There is no prevertebral soft tissue swelling. The odontoid is unremarkable. The soft tissu es of the neck and the lung apices are normal. On flexion and extension there is no limitation of mot ion or subluxation. XR/XR cervical spine 4-5V [id number] Impression: 1. Degenerative disc narrowing at C5-C6 with osteophytes. 2. On flexion and extension there is no limitation of motion or subluxation.
== END 2022-12-01 12:22 | disposition home or self-care (01) ==
LOC: RAD 12:27
PROVIDERS: PCP Nurse Practitioner Family; Visit Provider Family Medicine
DX: G89.29 Other chronic pain; M48.02 Spinal stenosis, cervical region; M25.78 Osteophyte, vertebrae
CPT/HCPCS: 72050

== ENCOUNTER → 2023-02-01 10:21 | Outpatient (BNVA) | payer MEDICAID, SELFPAY ==
[2022-10-27 07:55] VITALS: BP 129/80; BMI 23.0
== END ==
PROVIDERS: PCP Nurse Practitioner Family; Visit Provider Internal Medicine Pulmonary Disease
DX: J42 Unspecified chronic bronchitis (principal); F17.210 Nicotine dependence, cigarettes, uncomplicated; F12.90 Cannabis use, unspecified, uncomplicated; R91.8 Other nonspecific abnormal finding of lung field; J43.9 Emphysema, unspecified; J45.909 Unspecified asthma, uncomplicated; F41.9 Anxiety disorder, unspecified; F32.A Depression, unspecified; Z79.899 Other long term (current) drug therapy
CPT/HCPCS: 99214

== ENCOUNTER → 2023-02-20 09:29 | Outpatient (BNVA) | payer MEDICAID, SELFPAY ==
[2022-10-27 07:55] VITALS: BP 129/80; BMI 23.0
== END ==
PROVIDERS: PCP Nurse Practitioner Family; Referring Provider Family Medicine; Visit Provider Physician Assistant
DX: R20.0 Anesthesia of skin (principal); M54.2 Cervicalgia; R20.2 Paresthesia of skin; G89.29 Other chronic pain
CPT/HCPCS: 72050; 99203

== ENCOUNTER 2023-03-29 18:01 | Emergency (ER) | payer MEDICAID, SELFPAY ==
[2022-10-27 07:55] VITALS: BP 129/80; BMI 23.0
[2023-03-29 19:01] VITALS: BP 151/92; PULSE 87; RESP 14; TEMP 36.6; O2SAT 97
--- NOTE | 2023-03-29 19:33 | W.ED.EXTPRO ---
HPI - Extremity Problem General: Chief complaint: Extremity Injury, Lower Stated complaint: left foot pain Time Seen by Provider: 03/29/23 19:32 History of Present Illness: 57-year-old female comes in today for complaints of injury to the left foot. Patient reports injury occurred on 27 March. Patient was walking approximately uneven ground and twisted her foot. Patient reports some bruising and swelling to the dorsal left foot. No obvious deformity is noted. Minimal bruising or swelling is noted. Pulses are intact. Associated symptoms: Deny chest pain, fever(s) or rash Review of Systems General: Reports: 10 or more systems reviewed and unremarkable except in HPI and below Const: Denies: fever(s) Card: Denies: chest pain Resp: Denies: dyspnea Musc: Reports: extremity pain Skin/Breast: Denies: rash PFSH ED PFSH: Medical History Allergic rhinitis Borderline personality disorder Cannabis dependence, episodic use medical marijuana card for chronic pain, fibromyalgia Chronic back pain Chronic eustachian tube dysfunction Chronic post-traumatic stress disorder Chronic sinusitis COPD (chronic obstructive pulmonary disease) Diverticulosis Fatty liver Fibromyalgia Generalized anxiety disorder Hyperlipidemia Hypothyroid Migraine headache Nasal septal deformity Nasal turbinate hypertrophy Nicotine dependence, cigarettes, with unspecified nicotine-induced disorders Osteoporosis Postnasal drip Psychiatric care Schizoaffective disorder, depressive type Severe sleep apnea Vitamin D deficiency Surgical History H/O section History of appendectomy History of cholecystectomy Status post gastric surgery Family History Other Diabetes Glaucoma Hypertension Thyroid disorder Denies family history of Colon cancer Pancreatic cancer Ovarian cancer Thyroid cancer Heart disease Prostate cancer genetic susceptibility Uterine cancer Social History Smoking and tobacco status: current every day smoker cigarettes Packs smoked per day: 0.5 Years cigarettes smoked: 40 [ Other cigarette details: Started at age 16] Quit status (tobacco): considering quitting Second hand smoke exposure: Yes Smoking risk assessment/counseling performed?: Yes Alcohol intake: current Alcohol intake frequency: holidays/special occasions only Alcohol type: hard liquor Desire information about alcohol rehabilitation?: No Substance/Drug Use: current Substance/Drug use frequency: daily Other substance/drug use details: Medical card Desire information about substance/drug rehabilitation?: No Adopted: No Caregiver/support person: No Lives independently: Yes Household members: family and other Housing: Manufactured/Mobile home Marital status: Legally Marital status details: hasn't seen her for 7-8 years Number of children: 4 Number of grandchildren: 2 Highest education level completed: GED or Equivalent service: No Current occupational status: disabled Pets and animals: No Leisure activites: other Leisure activities details: watch movies Sexually active: No Do you think of yourself as: Straight/Heterosexual Current gender identity: Female Esperanza/Hindu: Episcopalian Special esperanza needs: No Agree to transfusion: Yes Financial difficulty paying for basics: Somewhat Hard Female Reproductive History: Para: 4 Spontaneous abortions: No Physical Exam Const: COMMON NORMALS: alert HENMT: COMMON NORMALS: normocephalic and atraumatic HEAD & SCALP: normocephalic and atraumatic Neck/C-Spine: COMMON NORMALS: full ROM Resp: COMMON NORMALS: normal respiratory effort Cardio: COMMON NORMALS: regular rate RATE: regular rate Back/Pelvis: COMMON NORMALS: thoracic and lumbar spine normal to inspection Extremity: LEFT LOWER EXTREMITY: Yes foot & digits (Mild swelling to the dorsal left foot with minimal ecchymosis. Pulses inta) Left foot and digits: Yes inspection, Yes palpation, Yes ROM and Yes neurovascular exam Neuro: SENSORIUM/ORIENTATION: Yes alert Skin: COMMON NORMALS: turgor normal GENERAL SKIN EXAM: turgor normal Course Vital Signs: Vital signs: Vital Signs Temperature 98.7 F 03/29/23 19:35 Pulse Rate 75 03/29/23 19:35 Respiratory Rate 16 03/29/23 19:35 Blood Pressure 146/91 03/29/23 19:35 Pulse Oximetry 99 03/29/23 19:35 Oxygen Delivery Me thod Room Air 03/29/23 19:35 MDM - Extremity (Nontraumatic) Medical Decision Making 57-year-old female comes in today for complaints of injury to the left foot. Patient reports that on the fourth she twisted her foot while walking across the grass. On exam patient has some dorsal swelling and bruising. Cap refill and sensation is intact. Pulses are intact. Differential diagnosis includes fracture, sprain, contusion. X-ray of the foot noted no signs of fracture or dislocation. Reviewed exam with patient with recommendations for treatment and follow-up. Patient reported understanding and agreed to plan. Discharge Plan Discharge Patient Disposition: Home Clinical Impression: Foot sprain Qualifiers: Encounter type: initial encounter Laterality: left Qualified Code(s): S93.602A - Unspecified sprain of left foot, initial encounter Condition: Stable Prescriptions: No Action omeprazole 40 mg capsule,delayed release(DR/EC) 40 mg PO DAILY@1400 dicyclomine 20 mg tablet 20 mg PO QID@09,14,18,21 ondansetron HCl [Zofran] 4 mg tablet 4 mg PO TID@,14,21 PRN (Reason: Nausea) polyethylene glycol 3350 [Miralax] 17 gram powder in packet 17 g PO DAILY PRN (Reason: constipation) prednisone 20 mg tablet 20 mg PO DAILY Qty: 15 0RF Rx Instructions: Take 60 mg daily for days 1, 2, 3 Take 40 mg daily for days 4, 5 Take 20 mg daily for days 6, 7 cholecalciferol (vitamin D3) 1,250 mcg (50,000 unit) capsule 1,250 mcg PO .weekly duloxetine [Cymbalta] 30 mg capsule,delayed release(DR/EC) 30 mg PO .morning Qty: 90 2RF Rx Instructions: TAKE WITH 60 MG TAB DAILY TO MAKE 90 MG DAILY duloxetine [Cymbalta] 60 mg capsule,delayed release(DR/EC) 60 mg PO .morning Qty: 90 2RF Rx Instructions: TAKE WITH 30 MG DAILY TO MAKE 90 MG DAILY buspirone 10 mg tablet 20 mg PO BID Qty: 360 2RF Rx Instructions: Take two tablets twice per day olanzapine [Zyprexa Zydis] 5 mg tablet,disintegrating 5 mg PO DAILY PRN (Reason: severe anxiety/agitation) Qty: 90 2RF Rx Instructions: May take one tab daily as needed for severe anxiety/agitation olanzapine [Zyprexa] 5 mg tablet 5 mg PO BEDTIME Qty: 90 2RF Rx Instructions: Take one tablet at bedtime trazodone 150 mg tablet 150 mg PO BEDTIME PRN (Reason: insomnia) Qty: 90 2RF Rx Instructions: Take one tablet at bedtime as needed for sleep montelukast [Singulair] 10 mg tablet 10 mg PO DAILY@0900 Qty: 30 3RF albuterol sulfate [ProAir HFA] 90 mcg/actuation HFA aerosol inhaler 2 puff INHALATION Q6H PRN (Reason: shortness of breath or wheezing) Qty: 18 5RF fluticasone propionate [Flovent HFA] 110 mcg/actuation HFA aerosol inhaler 2 puff inhalation BID Qty: 12 5RF Rx Instructions: has tried previously with no reactions noted zonisamide 100 mg capsule See Rx Instructions .ROUTE .COMPLEX Qty: 60 3RF Dose Instruction: TAKE 1 CAPSULE BY MOUTH TWICE A DAY Rx Instructions: TAKE 1 CAPSULE BY MOUTH TWICE A DAY Stiolto Respimat 2.5-2.5 mcg/actuation mist 2 puff inhalation DAILY Qty: 4 5RF Rx Instructions: has tried previously with no reactions noted ipratropium bromide 42 mcg (0.06 %) [place],Non-Aerosol 2 spray INTRANASAL TID baclofen 20 mg tablet 20 mg PO TID@0900,1400,2100 Rx Instructions: Must last 30 days simvastatin 20 mg tablet 20 mg PO DAILY@1800 levothyroxine 25 mcg capsule 25 mcg PO DAILY@0900 Tylenol 8 Hour 650 mg tablet extended release 650 mg PO Q8H PRN (Reason: pain) Qty: 30 0RF Discharge Orders: Discharge ED (Routine); Ordered 03/29/23 Ordered By: Umesh Contreras Referrals: Brandie Tyler FNP [Primary Care Provider] - Discharge Diet: Usual diet Discharge Activity: Increase activity as tolerated Patient Instructions: Foot Sprain (ED) Activity Restrictions/Additional Instructions: Activity as tolerated. Use acetaminophen or ibuprofen as needed for pain. Use ice packs for further pain relief. Wear an elastic bandage for comfort. Use crutches until he can bear weight comfortably. Follow-up with primary care for further instructions. Return to ED for new concerns. Coding Level of Care Code ED Peer Financial Counselor for Sariah Fox
[2023-03-29 19:35] VITALS: BP 146/91; PULSE 75; RESP 16; TEMP 37.1; O2SAT 99
--- NOTE | 2023-03-29 19:35 | XRR_ITS ---
PROCEDURE INFORMATION: Exam: XR Left Foot Exam date and time: 03/29/2023 8:33 PM Age: 57 years old Clinical indication: Pain; Foot; Left; Additional info: Injury, pain TECHNIQUE: Imaging protocol: Radiologic exam of the left foot. Views: 3 or more views. COMPARISON: CR (LOW EXM, ) 03/29/2023 8:31 PM FINDINGS: Bones/joints: Tiny calcaneal spur. Soft tissues: Normal. XR/XR foot LT min 3V* [id number] IMPRESSION: No acute findings.
--- NOTE | 2023-03-29 19:35 | XRR_ITS ---
PROCEDURE INFORMATION: Exam: XR Left Ankle Exam date and time: 03/29/2023 8:31 PM Age: 57 years old Clinical indication: Pain; Ankle; Left; Additional info: Injury, fall TECHNIQUE: Imaging protocol: Radiologic exam of the left ankle. Views: 3 or more views. COMPARISON: No relevant prior studies available. FINDINGS: Bones/joints: Normal. Soft tissues: Normal. XR/XR ankle LT min 3V* [id number] IMPRESSION: No acute findings.
[2023-03-29] MEDS: oxyCODONE-APAP 5-325 mg Tablet 1 TAB PO (20:43)
[2023-03-29 21:08] VITALS: BP 146/91; PULSE 75; RESP 16; TEMP 37.1; O2SAT 99
== END 2023-03-29 21:09 | disposition home or self-care (01) ==
PROVIDERS: Emergency Provider Nurse Practitioner Family; PCP Nurse Practitioner Family
DX: S93.602A Unspecified sprain of left foot, initial encounter (principal); F17.210 Nicotine dependence, cigarettes, uncomplicated; J44.9 Chronic obstructive pulmonary disease, unspecified; E78.5 Hyperlipidemia, unspecified; X50.1XXA Overexertion from prolonged static or awkward postures, initial encounter
CPT/HCPCS: 73610; 73630; 99283

== ENCOUNTER → 2023-04-03 08:39 | Outpatient (BNVA) | payer MEDICAID, SELFPAY ==
[2022-10-27 07:55] VITALS: BP 129/80; BMI 23.0
== END ==
PROVIDERS: PCP Nurse Practitioner Family; Visit Provider Physician Assistant
DX: M50.30 Other cervical disc degeneration, unspecified cervical region (principal); M47.22 Other spondylosis with radiculopathy, cervical region
CPT/HCPCS: 99213

== ENCOUNTER 2023-04-18 10:28 | Outpatient (CLI) | payer MEDICAID, SELFPAY ==
[2023-04-03 11:40] VITALS: BP 129/80; BMI 23.0
--- NOTE | 2023-04-18 11:00 | MR_ITS ---
WS: [id number] MRI CERVICAL SPINE NONCONTRAST HISTORY: neck pain COMPARISON: None available. Technique: Multiplanar, multisequence noncontrast imaging of the cervical spine. Mild curvature cervical spine. Moderate disc space narrowing and desiccation with osteophytosis at C5 -6. Signal within the cervical cord is normal. Visualized posterior fossa is unremarkable. Craniocervical junction, C1 and C2 relationship, odontoid process and soft tissues are normal. C2-C3: Normal. C3-C4: Very minimal disc bulging and tiny central protrusion. No stenosis. C4-C5: Very mild osteophytic ridging. No stenosis. C5-C6: Mild diffuse annular disc bulging with moderate osteophytic ridging. Osteophytes and disc encr oachment upon the ventral thecal sac. Osteophytosis extends into the foramina. Mild central with mode rate bilateral foraminal stenosis. Stenosis has progressed since the prior study. Greater contact on the ventral thecal sac. C6-C7: Mild asymmetric annular disc bulging and mild osteophytic ridging. Mild central and bilateral foraminal stenosis. C7-T1: Negative. Paraspinal soft tissue are normal. MR/MR cervical spin wo con* [id number] IMPRESSION: 1. Moderate degenerative changes at the C5-6 level. 2. Mild central with moderate bilateral foraminal stenosis at C5-6. Progressio n of stenosis since 2015. 3. Mild central and bilateral foraminal stenosis at C6-7.
== END 2023-04-18 10:29 | disposition home or self-care (01) ==
PROVIDERS: PCP Family Medicine; Visit Provider Physician Assistant
DX: M48.02 Spinal stenosis, cervical region (principal)
CPT/HCPCS: 72141

== ENCOUNTER 2023-04-27 14:25 | Outpatient (CLI) | payer MEDICAID, SELFPAY ==
[2023-04-03 11:40] VITALS: BP 129/80; BMI 23.0
--- NOTE | 2023-04-27 14:45 | CT_ITS ---
WS: [id number] LDCT LUNG CANCER SCREENING HISTORY: lung screening TECHNIQUE: Axial imaging performed from the apices to 1 cm below the costophrenic angles. Coronal and sagittal reformats are submitted with axial MIP series. All CT scans at [facility] use at least one of these dose optimization techniques: automated exposure control; mA and/or kV adjustment per patient size (includes targeted exams where dose is matched to clinical indication); or iterativ e reconstruction. DLP: 53.79 mGy.cm DIvol: Mean CTDIvol: 1.00 (mGy) COMPARISON: 10/16/2022 Diagnostic quality: Satisfactory Lungs: Mild pulmonary hyperinflation. There are several scattered subcentimeter pulmonary nodules whi ch are stable over multiple prior years. There is a larger mixed nodule with calcification and soft t issue in the RIGHT lower lobe which is probably a mucous filled bronchus. This is also stable. No new mass or nodule. No pneumonia. No endobronchial lesions. Heart: Normal size heart with no pericardial effusion.. Other findings: Benign calcified RIGHT hilar and subcarinal lymph nodes. No adenopathy. Hepatic and s plenic granulomata. Prior cholecystectomy. No adrenal mass. Mild central thoracic spondylosis. CT/CT lung screening [id number] IMPRESSION: LUNG-RADS: 2-Benign Appearance or Behavior FOLLOW UP: 12 Month: Continue annual screening with LDCT OTHER FINDINGS (S MODIFIER): None.
== END 2023-04-27 14:26 | disposition home or self-care (01) ==
PROVIDERS: PCP Family Medicine; Visit Provider Internal Medicine Pulmonary Disease
DX: F17.210 Nicotine dependence, cigarettes, uncomplicated (principal); Z12.2 Encounter for screening for malignant neoplasm of respiratory organs
CPT/HCPCS: 71271

== ENCOUNTER → 2023-05-03 10:13 | Outpatient (BNVA) | payer MEDICAID, SELFPAY ==
[2023-04-03 11:40] VITALS: BP 129/80; BMI 23.0
== END ==
PROVIDERS: PCP Family Medicine; Visit Provider Physician Assistant
DX: M50.323 Other cervical disc degeneration at C6-C7 level (principal); M48.02 Spinal stenosis, cervical region
CPT/HCPCS: 99213

== ENCOUNTER → 2023-05-31 09:17 | Outpatient (BNVA) | payer MEDICAID, SELFPAY ==
[2023-04-03 11:40] VITALS: BP 129/80; BMI 23.0
== END ==
PROVIDERS: PCP Family Medicine; Visit Provider Physician Assistant
DX: M47.816 Spondylosis without myelopathy or radiculopathy, lumbar region (principal); M47.818 Spondylosis without myelopathy or radiculopathy, sacral and sacrococcygeal region; M54.6 Pain in thoracic spine
CPT/HCPCS: 72070; 72110; 99203

== ENCOUNTER 2023-07-15 14:52 | Emergency (ER) | payer MEDICAID, SELFPAY ==
[2023-04-03 11:40] VITALS: BP 129/80; BMI 23.0
[2023-07-15 15:11] VITALS: BP 114/79; PULSE 107; RESP 16; TEMP 36.8; O2SAT 96; BMI 26.5
--- NOTE | 2023-07-15 18:12 | ED_ITS ---
HPI - Back Pain/Injury General: Chief Complaint: Back Pain/Injury Stated Complaint: lower back pain Time Seen by Provider: 07/15/23 17:54 History of Present Illness: Patient presents ER with complaints of aggravation of her low back pain. Patient is currently seeing the pain clinic and the Ortho doc. Patient has an appointment on July 19 to see the Ortho doc and probably get an MRI. Patient has no new injury to her back. Patient has known arthritis. Patient is allergic to multiple medications. Patient is currently on baclofen Prilosec and dicyclomine which she is taken all and she said that the going for her no relief. Patient's also took [id number] Tylenol duloxetine with no relief. Review of Systems General: Reports: 10 or more systems reviewed and unremarkable except in HPI and below PFSH ED PFSH: Medical History Allergic rhinitis Borderline personality disorder Cannabis dependence, episodic use medical marijuana card for chronic pain, fibromyalgia Chronic back pain Chronic eustachian tube dysfunction Chronic post-traumatic stress disorder Chronic sinusitis COPD (chronic obstructive pulmonary disease) Diverticulosis Fatty liver Fibromyalgia Generalized anxiety disorder Hyperlipidemia Hypothyroid Migraine headache Nasal septal deformity Nasal turbinate hypertrophy Nicotine dependence, cigarettes, with unspecified nicotine-induced disorders Osteoporosis Postnasal drip Psychiatric care Schizoaffective disorder, depressive type Severe sleep apnea Vitamin D deficiency Surgical History H/O section History of appendectomy History of cholecystectomy Status post gastric surgery Family History Other Diabetes Glaucoma Hypertension Thyroid disease Denies family history of Colon cancer Pancreatic cancer Ovarian cancer Thyroid cancer Heart disease Prostate cancer genetic susceptibility Uterine cancer Social History Smoking and tobacco/nicotine status: current every day tobacco/nicotine user cigarettes Packs smoked per day: 0.5 Years cigarettes smoked: 40 [ Other cigarette details: Started at age 16] Quit status (tobacco/nicotine): considering quitting Second hand smoke exposure: Yes Alcohol intake: current Alcohol intake frequency: holidays/special occasions only Alcohol type: hard liquor Substance/Drug Use: current Substance/Drug use frequency: daily Other substance/drug use details: Medical card Adopted: No Caregiver/support person: No Lives independently: Yes Household members: family and other Housing: Manufactured/Mobile home Marital status: Legally Marital status details: hasn't seen her for 7-8 years Number of children: 4 Number of grandchildren: 2 Highest education level completed: GED or Equivalent service: No Current occupational status: disabled Pets and animals: No Leisure activites: other Leisure activities details: watch movies Sexually active: No Do you think of yourself as: Straight/Heterosexual Current gender identity: Female Esperanza/Advent: Rastafarian Special esperanza needs: No Agree to transfusion: Yes Female Reproductive History: Para: 4 Spontaneous abortions: No Physical Exam Const: COMMON NORMALS: no acute distress, average body habitus, patient oriented x3, no limitations, healthy appearing, alert and well nourished HENMT: COMMON NORMALS: normocephalic, hearing grossly normal bilaterally, external ears normal, Normal external nose present, moist oral mucous membranes and oropharynx normal HEAD & SCALP: normocephalic NOSE: Normal external nose present EXTERNAL EAR: Yes external ears normal Neck/C-Spine: COMMON NORMALS: full ROM, no lymphadenopathy, supple, no meningeal signs, no JVD and Thyroid normal THYROID: Thyroid normal Chest: COMMONS NORMALS: normal inspection of the chest and normal palpation of entire chest wall Resp: COMMON NORMALS: normal respiratory effort, No retractions, No use of accessory muscles and clear to auscultation bilaterally AUSCULTATION: clear to auscultation bilaterally Cardio: COMMON NORMALS: no JVD, regular rate, regular rhythm, S1 normal heart sound present, S2 normal heart sound present, No gallops present (Cardio), No clicks present (Cardio), No murmurs present (Cardio) and No rub (Cardio) RATE: regular rate RHYTHM: regular rhythm HEART SOUNDS: S1 normal heart sound present and S2 normal heart sound present GI: COMMON NORMALS: Normal to inspection, nondistended, normoactive bowel sounds present, Soft to palpation, non-tender, No hepatosplenomegaly present and no masses PALPATION: Yes Soft to palpation and Yes No hepatosplenomegaly present : COMMON NORMALS: Yes no CVA tenderness BLADDER/KIDNEY EXAM: Yes no CVA tenderness Back/Pelvis: COMMON NORMALS: no CVA tenderness OTHER: Mild tenderness to palpation over right lower lumbar paraspinal musculature and right pelvis region. Neuro: COMMON NORMALS: patient oriented x3 SENSORIUM/ORIENTATION: Yes alert MENINGEAL SIGNS: Yes no meningeal signs Course Vital Signs: Vital signs: Vital Signs Temperature 98.2 F 07/15/23 15:11 Pulse Rate 107 H 07/15/23 15:11 Respiratory Rate 16 07/15/23 15:11 Blood Pressure 114/79 07/15/23 15:11 Pulse Oximetry 96 07/15/23 15:11 Oxygen Delivery Me thod Room Air 07/15/23 15:11 MDM - Back Pain/Injury Medical Decision Making Patient presents to the ER with a history of low back pain and has an acute on chronic flareup of her low back pain. Patient already sees a spine doctor and the pain clinic doctor. Patient has tried all her medicine she has at home now to no avail. Patient does not think she can make it till her appointment on July 19. Patient will be given 1 dose of oxycodone here and be sent home with a small prescription for them to make it to her appointment. Differential Diagnosis Unlikely lumbar radiculopathy, strain of lumbar region, renal colic, pyelonephritis, thoracic back pain, AAA or discitis Medical Records I reviewed the patient's medical records. Labs I reviewed the patient's lab results. No radiology studies performed this visit Discharge Plan Discharge Patient Disposition: Home Clinical Impression: Acute exacerbation of chronic low back pain Condition: Stable Prescriptions: New Percocet 5-325 mg tablet 1 tab PO Q8H PRN (Reason: pain, severe) Qty: 7 0RF No Action omeprazole 40 mg capsule,delayed release(DR/EC) 40 mg PO DAILY@1400 dicyclomine 20 mg tablet 20 mg PO QID@09,14,18,21 ondansetron HCl [Zofran] 4 mg tablet 4 mg PO TID@09,14,21 PRN (Reason: Nausea) polyethylene glycol 3350 [Miralax] 17 gram powder in packet 17 g PO DAILY PRN (Reason: constipation) prednisone 20 mg tablet 20 mg PO DAILY Qty: 15 0RF Rx Instructions: Take 60 mg daily for days 1, 2, 3 Take 40 mg daily for days 4, 5 Take 20 mg daily for days 6, 7 buspirone 10 mg tablet 20 mg PO BID Qty: 360 2RF Rx Instructions: Take two tablets twice per day duloxetine [Cymbalta] 30 mg capsule,delayed release(DR/EC) 30 mg PO .morning Qty: 90 2RF Rx Instructions: TAKE WITH 60 MG TAB DAILY TO MAKE 90 MG DAILY duloxetine [Cymbalta] 60 mg capsule,delayed release(DR/EC) 60 mg PO .morning Qty: 90 2RF Rx Instructions: TAKE WITH 30 MG DAILY TO MAKE 90 MG DAILY olanzapine [Zyprexa] 5 mg tablet 5 mg PO BEDTIME Qty: 90 2RF Rx Instructions: Take one tablet at bedtime trazodone 150 mg tablet 150 mg PO BEDTIME PRN (Reason: insomnia) Qty: 90 2RF Rx Instructions: Take one tablet at bedtime as needed for sleep cholecalciferol (vitamin D3) 1,250 mcg (50,000 unit) capsule 1,250 mcg PO .weekly olanzapine [Zyprexa Zydis] 5 mg tablet,disintegrating 5 mg PO DAILY PRN (Reason: severe anxiety/agitation) Qty: 90 2RF Rx Instructions: May take one tab daily as needed for severe anxiety/agitation montelukast [Singulair] 10 mg tablet 10 mg PO DAILY@0900 Qty: 30 3RF albuterol sulfate [ProAir HFA] 90 mcg/actuation HFA aerosol inhaler 2 puff INHALATION Q6H PRN (Reason: shortness of breath or wheezing) Qty: 18 5RF Stiolto Respimat 2.5-2.5 mcg/actuation mist 2 puff inhalation DAILY Qty: 4 5RF Rx Instructions: has tried previously with no reactions noted prednisone 20 mg tablet 20 mg PO DAILY Qty: 15 0RF Rx Instructions: 60mg X3 days 40mg X2 days 20mg X 2days zonisamide 100 mg capsule 100 mg PO BID 90 Days Qty: 180 0RF fluticasone propionate [Flovent HFA] 110 mcg/actuation HFA aerosol inhaler 2 puff inhalation BID Qty: 12 6RF Rx Instructions: has tried previously with no reactions noted ipratropium bromide 42 mcg (0.06 %) [place],Non-Aerosol 2 spray INTRANASAL TID baclofen 20 mg tablet 20 mg PO TID@0900,1400,2100 Rx Instructions: Must last 30 days simvastatin 20 mg tablet 20 mg PO DAILY@1800 levothyroxine 25 mcg capsule 25 mcg PO DAILY@0900 Tylenol 8 Hour 650 mg tablet extended release 650 mg PO Q8H PRN (Reason: pain) Qty: 30 0RF Discharge Orders: Discharge ED (Routine); Ordered 07/15/23 Ordered By: Jason Odom Referrals: Aliyah Benito DO [Primary Care Provider] - Patient Instructions: Opioid Safety, Pain Management Activity Restrictions/Additional Instructions: Please use this prescription of pain medicine for severe pain as directed. Please follow-up with your spine doctor and pain management doctor as previously set. Coding Level of Care Code ED Medical Lab Tech Instructor for Sariah Fox
[2023-07-15] MEDS: oxyCODONE-APAP 5-325 mg Tablet 1 TAB PO (18:28)
== END 2023-07-15 18:39 | disposition home or self-care (01) ==
PROVIDERS: Emergency Provider Emergency Medicine; PCP Family Medicine
DX: G89.29 Other chronic pain (principal); M54.50 Low back pain, unspecified; F17.210 Nicotine dependence, cigarettes, uncomplicated; E78.5 Hyperlipidemia, unspecified
CPT/HCPCS: 99283

== ENCOUNTER → 2023-07-19 08:57 | Outpatient (BNVA) | payer MEDICAID, SELFPAY ==
[2023-07-16 07:43] VITALS: BP 129/80; BMI 23.0
== END ==
PROVIDERS: PCP Family Medicine; Visit Provider Physician Assistant
DX: M47.818 Spondylosis without myelopathy or radiculopathy, sacral and sacrococcygeal region; M47.816 Spondylosis without myelopathy or radiculopathy, lumbar region
CPT/HCPCS: 99213

== ENCOUNTER → 2023-07-31 12:26 | Outpatient (BNVA) | payer MEDICAID, SELFPAY ==
[2023-07-16 07:43] VITALS: BP 129/80; BMI 23.0
== END ==
PROVIDERS: PCP Family Medicine; Visit Provider Specialist
DX: G62.9 Polyneuropathy, unspecified (principal); R20.0 Anesthesia of skin; R20.2 Paresthesia of skin; G43.009 Migraine without aura, not intractable, without status migrainosus; M54.2 Cervicalgia; G47.33 Obstructive sleep apnea (adult) (pediatric)
CPT/HCPCS: 99214

== ENCOUNTER → 2023-08-07 13:24 | Outpatient (BNVA) | payer OTHER, SELFPAY ==
[2023-07-16 07:43] VITALS: BP 129/80; BMI 23.0
== END ==
PROVIDERS: PCP Family Medicine; Visit Provider Psychiatry & Neurology Neurology
DX: F41.1 Generalized anxiety disorder (principal); Z79.899 Other long term (current) drug therapy; F33.42 Major depressive disorder, recurrent, in full remission
CPT/HCPCS: 80061; 83036

== ENCOUNTER → 2023-08-08 09:37 | Outpatient (BNVA) | payer MEDICAID, SELFPAY ==
[2023-07-16 07:43] VITALS: BP 129/80; BMI 23.0
== END ==
PROVIDERS: PCP Family Medicine; Visit Provider Anesthesiology Pain Medicine
DX: G89.29 Other chronic pain; M47.22 Other spondylosis with radiculopathy, cervical region; M50.30 Other cervical disc degeneration, unspecified cervical region; M48.02 Spinal stenosis, cervical region
CPT/HCPCS: 99204

== ENCOUNTER 2023-08-22 10:28 | Outpatient (CLI) | payer MEDICAID, SELFPAY ==
[2023-07-16 07:43] VITALS: BP 129/80; BMI 23.0
[2023-08-22 09:26] VITALS: BP 130/82; BMI 27.0
--- NOTE | 2023-08-22 11:00 | MR_ITS ---
WS: [id number] MRI LUMBAR SPINE NONCONTRAST HISTORY: back pain, pain radiating down RIGHT leg. COMPARISON: None available. TECHNIQUE: Sagittal and axial multisequence imaging is submitted. Very slight increase in the lumbar lordosis in the lower spine. Disc spaces and vertebral body heights are well-preserved. Conus terminates normally at L1-2 disc level. L1-L2: Normal. L2-L3: Mild ligamentum flavum hypertrophy and facet arthritis. Small amount of fluid in the facet aure nts. L3-L4: Asymmetric disc bulging to the LEFT. Very slight encroachment upon the LEFT lateral thecal sac . No high-grade stenosis. Mild LEFT foraminal stenosis. L4-L5: Annular disc bulging with a small central disc protrusion. Disc protrusion is contacting the t raversing L5 nerve roots, slightly greater on the LEFT than the RIGHT. Moderate ligamentum flavum and facet arthritis. Mild central, bilateral subarticular recess and foraminal stenosis. L5-S1: Mild disc bulging with no significant stenosis. Bilateral facet joint arthritis. Paravertebral soft tissues are negative. IMPRESSION: 1. No high-grade central or foraminal stenosis. 2. L3-4: Mild asymmetric disc bulging to the LEFT with mild LEFT foraminal stenosis. 3. L4-5: Shallow central disc protrusion contacts the traversing L5 nerve roots, slightly greater on the LEFT than the RIGHT. Mild central, bilateral subarticular recess and foraminal stenosis. 4. L5-S1: Mild facet joint arthritis
== END 2023-08-22 10:29 | disposition home or self-care (01) ==
LOC: RAD 10:29
PROVIDERS: PCP Family Medicine; Visit Provider Physician Assistant
DX: M51.26 Other intervertebral disc displacement, lumbar region (principal); G89.29 Other chronic pain; M79.604 Pain in right leg; M51.36 Other intervertebral disc degeneration, lumbar region; M48.061 Spinal stenosis, lumbar region without neurogenic claudication; M47.817 Spondylosis without myelopathy or radiculopathy, lumbosacral region
CPT/HCPCS: 72148

== ENCOUNTER → 2023-09-05 09:03 | Outpatient (BNVA) | payer MEDICAID, SELFPAY ==
[2023-08-22 09:26] VITALS: BP 130/82; BMI 27.0
== END ==
PROVIDERS: PCP Family Medicine; Visit Provider Physician Assistant
DX: M47.818 Spondylosis without myelopathy or radiculopathy, sacral and sacrococcygeal region (principal); M47.816 Spondylosis without myelopathy or radiculopathy, lumbar region; G89.29 Other chronic pain
CPT/HCPCS: 73502; 99214

== ENCOUNTER 2023-09-29 11:27 | Emergency (ER) | payer MEDICAID, SELFPAY ==
[2023-09-29 11:30] VITALS: BP 136/87; PULSE 89; RESP 12; TEMP 36.5; O2SAT 99; BMI 26.5
--- NOTE | 2023-09-29 12:26 | XRR_ITS ---
PROCEDURE INFORMATION: Exam: XR Left Shoulder Exam date and time: 09/29/2023 12:56 PM Age: 57 years old Clinical indication: Left; Patient HX: Intermittent/radiating lt shoulder pain; Numbness/tingling to lt fingers; No known injury TECHNIQUE: Imaging protocol: Radiologic exam of the left shoulder. Views: 2 or more views. COMPARISON: CT lung screening [id number] 04/27/2023 2:35 PM FINDINGS: Bones/joints: Unremarkable bones and joint spaces for age. No fracture or dislocation. Soft tissues: Normal. XR/XR shoulder LT min 2V* [id number] IMPRESSION: No significant pathology.
--- NOTE | 2023-09-29 12:45 | USR_ITS ---
PROCEDURE INFORMATION: Exam: US Duplex Left Upper Extremity Veins, Limited Exam date and time: 09/29/2023 1:26 PM Age: 57 years old Clinical indication: Pain; Arm, upper; Bilateral; Additional info: Arm pain TECHNIQUE: Imaging protocol: Real-time duplex ultrasound of the left extremity with 2-D dominguez scale, color Doppler flow and spectral waveform analysis including responses to compression and other maneuvers (when performed) with image documentation. Limited exam focused on the left upper extremity veins. COMPARISON: CR (CHEST, ) 09/29/2023 12:56 PM FINDINGS: Left deep veins: Unremarkable. Axillary and brachial veins are patent throughout without thrombus. Normal Doppler waveforms. Normal compressibility and/or augmentation response. Visualized internal jugular and subclavian veins are patent. Superficial veins: Unremarkable. Visualized cephalic and basilic veins are patent without thrombus. Left cephalic vein is small in size and difficult to image. Soft tissues: Unremarkable. US/[place] [id number] IMPRESSION: No evidence of deep vein thrombosis.
--- NOTE | 2023-09-29 12:56 | W.ED.EXTPRO ---
HPI - Extremity Problem General: Chief complaint: Extremity Injury, Upper Stated complaint: SHOULDER PAIN Time Seen by Provider: 09/29/23 12:36 Source: patient Mode of arrival: ambulatory Limitations: no limitations History of Present Illness: 57-year-old female states she been having left-sided shoulder and arm pain it has been going on for roughly 3 months. States she is seen pain clinic she is post to have an outpatient nerve conduction study but has not had it scheduled yet. States she has had some worsening pain going up her arm but states she has electrical shooting type pains that goes down her arm denies any neck pain states he had some numbness over her left pinky and ring finger. PFSH ED PFSH: Medical History Psychiatric care Diverticulosis Migraine headache Chronic sinusitis Chronic eustachian tube dysfunction Allergic rhinitis Postnasal drip Nasal turbinate hypertrophy Nasal septal deformity Nicotine dependence, cigarettes, with unspecified nicotine-induced disorders Vitamin D deficiency Hyperlipidemia Chronic back pain COPD (chronic obstructive pulmonary disease) Fibromyalgia Osteoporosis Fatty liver Severe sleep apnea Hypothyroid Borderline personality disorder Cannabis dependence, episodic use medical marijuana card for chronic pain, fibromyalgia Generalized anxiety disorder Chronic post-traumatic stress disorder Schizoaffective disorder, depressive type Surgical History History of appendectomy H/O section Status post gastric surgery History of cholecystectomy Family History Other Diabetes Glaucoma Hypertension Thyroid disease Denies family history of Colon cancer Pancreatic cancer Ovarian cancer Thyroid cancer Heart disease Prostate cancer genetic susceptibility Uterine cancer Social History Smoking and tobacco/nicotine status: current every day tobacco/nicotine user cigarettes Packs smoked per day: 0.5 Years cigarettes smoked: 41 [ Other cigarette details: Started at age 16] Quit status (tobacco/nicotine): considering quitting Second hand smoke exposure: Yes Alcohol intake: current Alcohol intake frequency: holidays/special occasions only Alcohol type: hard liquor Substance/Drug Use: current Substance/Drug use frequency: daily Adopted: No Caregiver/support person: No Lives independently: Yes Household members: family Housing: Manufactured/Mobile home Marital status: Legally Marital status details: hasn't seen her for 7-8 years Number of children: 4 Number of grandchildren: 2 Highest education level completed: GED or Equivalent service: No Current occupational status: disabled Pets and animals: Yes Pets & animals: cat(s) Pets & animal details: outside cats Leisure activites: other Leisure activities details: watch movies, rock kruse Sexually active: No Do you think of yourself as: Straight/Heterosexual Current gender identity: Female Esperanza/Mandaeism: Voodoo Special esperanza needs: No Agree to transfusion: Yes Female Reproductive History: Para: 4 Spontaneous abortions: No Physical Exam Const: COMMON NORMALS: no acute distress, patient oriented x3 and healthy appearing HENMT: COMMON NORMALS: normocephalic and atraumatic HEAD & SCALP: normocephalic and atraumatic Neck/C-Spine: COMMON NORMALS: full ROM and supple Chest: COMMONS NORMALS: normal inspection of the chest Resp: COMMON NORMALS: normal respiratory effort Cardio: COMMON NORMALS: regular rate, regular rhythm and No murmurs present (Cardio) RATE: regular rate RHYTHM: regular rhythm GI: COMMON NORMALS: Normal to inspection, nondistended, normoactive bowel sounds present, Soft to palpation, non-tender and no masses PALPATION: Yes Soft to palpation Extremity: COMMON NORMALS: normal to inspection and full ROM Neuro: COMMON NORMALS: patient oriented x3, moves all extremities and no focal motor deficits Psych: COMMON NORMALS: mental status grossly normal, Normal thought process present and cooperative THOUGHT PROCESS: Normal thought process present Skin: COMMON NORMALS: no rashes or lesions noted and no wounds GENERAL SKIN EXAM: no rashes or lesions noted Course Vital Signs: Vital signs: Vital Signs Temperature 97.7 F 09/29/23 11:30 Pulse Rate 74 09/29/23 13:30 Respiratory Rate 12 09/29/23 11:30 Blood Pressure 144/90 09/29/23 13:30 Pulse Oximetry 95 09/29/23 13:30 Oxygen Delivery Me thod Room Air 09/29/23 13:30 MDM - Extremity (Nontraumatic) Medical Decision Making Patient presents here with pain left shoulder going down arms been going on for months she is well-appearing here she has no signs of DVT she is to follow-up with her PCP she is to get the nerve conduction study as scheduled return if worsening she understands agrees to plan. Medical Records I reviewed the patient's medical records. XR interpretation done by ED provider, pending radiology final review Discharge Plan Discharge Patient Disposition: Home Clinical Impression: Arm pain, left Condition: Stable Prescriptions: No Action omeprazole 40 mg capsule,delayed release(DR/EC) 40 mg PO DAILY@1400 dicyclomine 20 mg tablet 20 mg PO QID@09,14,18,21 ondansetron HCl [Zofran] 4 mg tablet 4 mg PO TID@09,14,21 PRN (Reason: Nausea) polyethylene glycol 3350 [Miralax] 17 gram powder in packet 17 g PO DAILY PRN (Reason: constipation) buspirone 10 mg tablet 20 mg PO BID Qty: 360 2RF Rx Instructions: Take two tablets twice per day duloxetine [Cymbalta] 30 mg capsule,delayed release(DR/EC) 30 mg PO .morning Qty: 90 2RF Rx Instructions: TAKE WITH 60 MG TAB DAILY TO MAKE 90 MG DAILY duloxetine [Cymbalta] 60 mg capsule,delayed release(DR/EC) 60 mg PO .morning Qty: 90 2RF Rx Instructions: TAKE WITH 30 MG DAILY TO MAKE 90 MG DAILY olanzapine [Zyprexa] 5 mg tablet 5 mg PO BEDTIME Qty: 90 2RF Rx Instructions: Take one tablet at bedtime trazodone 150 mg tablet 150 mg PO BEDTIME PRN (Reason: insomnia) Qty: 90 2RF Rx Instructions: Take one tablet at bedtime as needed for sleep cholecalciferol (vitamin D3) 1,250 mcg (50,000 unit) capsule 1,250 mcg PO .weekly zonisamide 100 mg capsule 100 mg PO Q8H 30 Days Qty: 90 11RF olanzapine [Zyprexa Zydis] 5 mg tablet,disintegrating 5 mg PO DAILY PRN (Reason: severe anxiety/agitation) Qty: 90 2RF Rx Instructions: May take one tab daily as needed for severe anxiety/agitation acetaminophen [Tylenol 8 Hour] 650 mg tablet extended release 650 mg PO Q8H montelukast [Singulair] 10 mg tablet 10 mg PO DAILY@0900 Qty: 30 3RF albuterol sulfate [ProAir HFA] 90 mcg/actuation HFA aerosol inhaler 2 puff INHALATION Q6H PRN (Reason: shortness of breath or wheezing) Qty: 18 5RF Stiolto Respimat 2.5-2.5 mcg/actuation mist 2 puff inhalation DAILY Qty: 4 5RF Rx Instructions: has tried previously with no reactions noted fluticasone propionate [Flovent HFA] 110 mcg/actuation HFA aerosol inhaler 2 puff inhalation BID Qty: 12 6RF Rx Instructions: has tried previously with no reactions noted ipratropium bromide 42 mcg (0.06 %) [place],Non-Aerosol 2 spray INTRANASAL TID baclofen 20 mg tablet 20 mg PO TID@0900,1400,2100 Rx Instructions: Must last 30 days simvastatin 20 mg tablet 20 mg PO DAILY@1800 levothyroxine 25 mcg capsule 25 mcg PO DAILY@0900 Tylenol 8 Hour 650 mg tablet extended release 650 mg PO Q8H PRN (Reason: pain) Qty: 30 0RF Discharge Orders: Discharge ED (Routine); Ordered 09/29/23 Ordered By: Jerson Juárez Referrals: Aliyah Benito DO [Primary Care Provider] - Discharge Diet: Advance as tolerated Discharge Activity: Resume usual activity Patient Instructions: Arm Pain (ED) Coding Level of Care Code ED Master Chef for Sariah Fox
[2023-09-29 13:30] VITALS: BP 144/90; PULSE 74; O2SAT 95
[2023-09-29 13:58] VITALS: BP 139/93; PULSE 81; O2SAT 95
== END 2023-09-29 14:00 | disposition home or self-care (01) ==
PROVIDERS: Emergency Provider Emergency Medicine; PCP Family Medicine
DX: M79.602 Pain in left arm (principal); F17.210 Nicotine dependence, cigarettes, uncomplicated; E78.5 Hyperlipidemia, unspecified; J44.9 Chronic obstructive pulmonary disease, unspecified
CPT/HCPCS: 73030; 93971; 99284

== ENCOUNTER → 2023-11-02 14:11 | Outpatient (BNVA) | payer MEDICAID, SELFPAY | PROVIDERS: PCP Family Medicine; Visit Provider Specialist | DX: M47.22 Other spondylosis with radiculopathy, cervical region (principal); R20.0 Anesthesia of skin; R20.2 Paresthesia of skin; M79.602 Pain in left arm; M79.642 Pain in left hand | CPT/HCPCS: 95886; 95910; 95913 ==

== ENCOUNTER 2023-11-04 11:33 | Emergency (ER) | payer MEDICAID, SELFPAY ==
[2023-11-04 11:36] VITALS: BMI 26.5
[2023-11-04 11:44] VITALS: BP 141/85; PULSE 80; RESP 12; TEMP 36.6; O2SAT 98
--- NOTE | 2023-11-04 13:14 | ED_ITS ---
HPI - Fall General: Chief Complaint: Fall Stated Complaint: BACK PAIN S/P FALL Time Seen by Provider: 11/04/23 13:13 History of Present Illness: 57-year-old female comes in today with m id back pain. Patient reports tripping and falling 2 days ago. Patient believes she might of landed on a stone which struck her in the mid of her thoracic spine. Patient appears nontoxic. Patient is ambulatory. Patient is in no acute distress. Review of Systems General: Reports: 10 or more systems reviewed and unremarkable except in HPI and below Musc: Reports: back pain PFSH ED PFSH: Medical History Psychiatric care Diverticulosis Migraine headache Chronic sinusitis Chronic eustachian tube dysfunction Allergic rhinitis Postnasal drip Nasal turbinate hypertrophy Nasal septal deformity Nicotine dependence, cigarettes, with unspecified nicotine-induced disorders Vitamin D deficiency Hyperlipidemia Chronic back pain COPD (chronic obstructive pulmonary disease) Fibromyalgia Osteoporosis Fatty liver Severe sleep apnea Hypothyroid Borderline personality disorder Cannabis dependence, episodic use medical marijuana card for chronic pain, fibromyalgia Generalized anxiety disorder Chronic post-traumatic stress disorder Schizoaffective disorder, depressive type Surgical History History of appendectomy H/O section Status post gastric surgery History of cholecystectomy Family History Other Diabetes Glaucoma Hypertension Thyroid disease Denies family history of Colon cancer Pancreatic cancer Ovarian cancer Thyroid cancer Heart disease Prostate cancer genetic susceptibility Uterine cancer Social History Smoking and tobacco/nicotine status: current every day tobacco/nicotine user cigarettes Packs smoked per day: 0.5 Years cigarettes smoked: 41 [ Other cigarette details: Started at age 16] Quit status (tobacco/nicotine): considering quitting Second hand smoke exposure: Yes Alcohol intake: current Alcohol intake frequency: holidays/special occasions only Alcohol type: hard liquor Substance/Drug Use: current Substance/Drug use frequency: daily Adopted: No Caregiver/support person: No Lives independently: Yes Household members: family Housing: Manufactured/Mobile home Marital status: Legally Marital status details: hasn't seen her for 7-8 years Number of children: 4 Number of grandchildren: 2 Highest education level completed: GED or Equivalent service: No Current occupational status: disabled Pets and animals: Yes Pets & animals: cat(s) Pets & animal details: outside cats Leisure activites: other Leisure activities details: watch movies, rock kruse Sexually active: No Do you think of yourself as: Straight/Heterosexual Current gender identity: Female Esperanza/Baptist: Spiritism Special esperanza needs: No Agree to transfusion: Yes Female Reproductive History: Para: 4 Spontaneous abortions: No Physical Exam Const: COMMON NORMALS: alert HENMT: COMMON NORMALS: normocephalic HEAD & SCALP: normocephalic Neck/C-Spine: COMMON NORMALS: full ROM Chest: COMMONS NORMALS: normal palpation of entire chest wall Resp: COMMON NORMALS: normal respiratory effort Cardio: COMMON NORMALS: regular rate and regular rhythm RATE: regular rate RHYTHM: regular rhythm GI: COMMON NORMALS: non-tender Back/Pelvis: THORACIC SPINE/UPPER BACK: Yes thoracic spinal tenderness T-spine tenderness location: T8 and Yes paraspinal muscle tenderness Extremity: COMMON NORMALS: full ROM Neuro: SENSORIUM/ORIENTATION: Yes alert Skin: COMMON NORMALS: turgor normal GENERAL SKIN EXAM: turgor normal Course Vital Signs: Vital signs: Vital Signs Temperature 97.9 F 11/04/23 11:44 Pulse Rate 80 11/04/23 11:44 Respiratory Rate 16 11/04/23 13:26 Blood Pressure 141/85 11/04/23 11:44 Pulse Oximetry 98 11/04/23 11:44 Oxygen Delivery Me thod Room Air 11/04/23 11:44 MDM - Fall Medical Decision Making Patient comes in today with evaluation for injury to the back. Patient fell 2 days ago and complains of mid thoracic spine. Patient appears nontoxic. No significant bruising or injury pattern is noted to the mid back skin. Tenderness is noted to the mid thoracic. Patient is ambulatory. Patient appears nontoxic. Differential diagnosis includes not limited to contusion, fracture, malingering, intervertebral disc disease, facet arthropathy. Lab Data Radiology Impressions Thoracic Spine X-Ray 11/04/23 13:18 IMPRESSION: No acute findings. All radiology interpretation(s) finalized by discharge Discharge Plan Discharge Patient Disposition: Home Clinical Impression: Fall Qualifiers: Encounter type: initial encounter Qualified Code(s): W19.XXXA - Unspecified fall, initial encounter Back pain, thoracic Qualifiers: Chronicity: acute Back pain laterality: midline Qualified Code(s): M54.6 - Pain in thoracic spine Contusion Qualifiers: Encounter type: initial encounter Contusion area: thoracic wall Front or back of thoracic wall: back Thoracic wall location detail: middle Qualified Code(s): S20.224A - Contusion of middle back wall of thorax, initial encounter Condition: Stable Prescriptions: No Action omeprazole 40 mg capsule,delayed release(DR/EC) 40 mg PO DAILY@1400 dicyclomine 20 mg tablet 20 mg PO QID@09,14,18,21 ondansetron HCl [Zofran] 4 mg tablet 4 mg PO TID@09,14,21 PRN (Reason: Nausea) polyethylene glycol 3350 [Miralax] 17 gram powder in packet 17 g PO DAILY PRN (Reason: constipation) buspirone 10 mg tablet 20 mg PO BID Qty: 360 2RF Rx Instructions: Take two tablets twice per day duloxetine [Cymbalta] 30 mg capsule,delayed release(DR/EC) 30 mg PO .morning Qty: 90 2RF Rx Instructions: TAKE WITH 60 MG TAB DAILY TO MAKE 90 MG DAILY duloxetine [Cymbalta] 60 mg capsule,delayed release(DR/EC) 60 mg PO .morning Qty: 90 2RF Rx Instructions: TAKE WITH 30 MG DAILY TO MAKE 90 MG DAILY olanzapine [Zyprexa] 5 mg tablet 5 mg PO BEDTIME Qty: 90 2RF Rx Instructions: Take one tablet at bedtime trazodone 150 mg tablet 150 mg PO BEDTIME PRN (Reason: insomnia) Qty: 90 2RF Rx Instructions: Take one tablet at bedtime as needed for sleep cholecalciferol (vitamin D3) 1,250 mcg (50,000 unit) capsule 1,250 mcg PO .weekly zonisamide 100 mg capsule 100 mg PO Q8H 30 Days Qty: 90 11RF olanzapine [Zyprexa Zydis] 5 mg tablet,disintegrating 5 mg PO DAILY PRN (Reason: severe anxiety/agitation) Qty: 90 2RF Rx Instructions: May take one tab daily as needed for severe anxiety/agitation acetaminophen [Tylenol 8 Hour] 650 mg tablet extended release 650 mg PO Q8H montelukast [Singulair] 10 mg tablet 10 mg PO DAILY@0900 Qty: 30 3RF albuterol sulfate [ProAir HFA] 90 mcg/actuation HFA aerosol inhaler 2 puff INHALATION Q6H PRN (Reason: shortness of breath or wheezing) Qty: 18 5RF fluticasone propionate [Flovent HFA] 110 mcg/actuation HFA aerosol inhaler 2 puff inhalation BID Qty: 12 6RF Rx Instructions: has tried previously with no reactions noted Stiolto Respimat 2.5-2.5 mcg/actuation mist 2 puff inhalation DAILY Qty: 4 5RF Rx Instructions: has tried previously with no reactions noted ipratropium bromide 42 mcg (0.06 %) [place],Non-Aerosol 2 spray INTRANASAL TID baclofen 20 mg tablet 20 mg PO TID@0900,1400,2100 Rx Instructions: Must last 30 days simvastatin 20 mg tablet 20 mg PO DAILY@1800 levothyroxine 25 mcg capsule 25 mcg PO DAILY@0900 Tylenol 8 Hour 650 mg tablet extended release 650 mg PO Q8H PRN (Reason: pain) Qty: 30 0RF Discharge Orders: Discharge ED (Routine); Ordered 11/04/23 Ordered By: Umesh Contreras Referrals: Aliyah Benito DO [Primary Care Provider] - Discharge Diet: Usual diet Discharge Activity: Increase activity as tolerated Patient Instructions: Back Pain (ED) Activity Restrictions/Additional Instructions: Continue with Tylenol as needed for pain. Use ice packs or heat packs for further pain and discomfort. Drink plenty of water and fluids. Follow-up with primary care for further instructions. Return to ED for new concerns. Coding Level of Care Code ED Newspaper Copy Editor for Sariah Fox
--- NOTE | 2023-11-04 13:18 | XRR_ITS ---
PROCEDURE INFORMATION: Exam: XR Thoracic Spine Exam date and time: 11/04/2023 1:33 PM Age: 57 years old Clinical indication: Injury or trauma; Fall; Blunt trauma (contusions or hematomas); Additional info: Fall injury TECHNIQUE: Imaging protocol: Radiologic exam of the thoracic spine. Views: 3 views. COMPARISON: CT lung screening [id number] 04/27/2023 2:35 PM FINDINGS: Bones/joints: Normal. No acute fracture. Normal alignment. Soft tissues: Unremarkable. XR/XR thoracic spine 3V* [id number] IMPRESSION: No acute findings.
[2023-11-04 13:26] VITALS: RESP 16
[2023-11-04] MEDS: oxyCODONE 5 mg IR Tab/Cap PO (13:26)
[2023-11-04 14:17] VITALS: BP 141/85; PULSE 80; RESP 16; TEMP 36.6; O2SAT 98
== END 2023-11-04 14:18 | disposition home or self-care (01) ==
PROVIDERS: Emergency Provider Nurse Practitioner Family; PCP Family Medicine
DX: M54.6 Pain in thoracic spine (principal); S20.224A Contusion of middle back wall of thorax, initial encounter; F17.210 Nicotine dependence, cigarettes, uncomplicated; E78.5 Hyperlipidemia, unspecified; J44.9 Chronic obstructive pulmonary disease, unspecified; W01.0XXA Fall on same level from slipping, tripping and stumbling without subsequent striking against object, initial encounter
CPT/HCPCS: 72072; 99283

== ENCOUNTER 2023-11-06 08:36 | Outpatient (CLI) | payer MEDICAID, SELFPAY ==
--- NOTE | 2023-11-06 09:38 | MM_ITS ---
WS: [id number] BILATERAL 3D TOMOSYNTHESIS DIGITAL SCREENING MAMMOGRAPHY WITH CAD CLINICAL INFORMATION: SCREEN HISTORY: Screening mammogram. No current complaints. COMPARISON: 2022 TECHNIQUE: Bilateral CC and MLO views. FINDINGS: Scattered fibroglandular densities bilaterally. No suspicious focal mass, asymmetry, calcifications, or architectural distortion. No evidence of malignancy. IMPRESSION: MM/[place] [id number] BI-RADS: 1-Negative FOLLOW UP: 1 Year Follow-up Recommend return to annual screening mammography.
== END 2023-11-06 08:37 | disposition home or self-care (01) ==
LOC: RAD 08:37
PROVIDERS: PCP Family Medicine; Visit Provider Family Medicine
DX: Z12.31 Encounter for screening mammogram for malignant neoplasm of breast (principal); R92.323 Mammographic fibroglandular density, bilateral breasts; G89.29 Other chronic pain; G56.20 Lesion of ulnar nerve, unspecified upper limb; M47.22 Other spondylosis with radiculopathy, cervical region; M48.02 Spinal stenosis, cervical region; M50.322 Other cervical disc degeneration at C5-C6 level
CPT/HCPCS: 77063; 77067; 99215

== ENCOUNTER → 2023-11-15 14:56 | Outpatient (BNVA) | payer MEDICAID, SELFPAY | PROVIDERS: PCP Family Medicine; Referring Provider Anesthesiology Pain Medicine; Visit Provider Student in an Organized Health Care Education/Training Program | DX: G56.02 Carpal tunnel syndrome, left upper limb (principal); G56.22 Lesion of ulnar nerve, left upper limb | CPT/HCPCS: 99204; J3301; J3490 ==

== ENCOUNTER → 2023-11-20 09:39 | Outpatient (BNVA) | payer MEDICAID, SELFPAY | PROVIDERS: PCP Family Medicine; Visit Provider Anesthesiology Pain Medicine | DX: G89.29 Other chronic pain; M47.22 Other spondylosis with radiculopathy, cervical region; M50.30 Other cervical disc degeneration, unspecified cervical region; M54.50 Low back pain, unspecified | CPT/HCPCS: 99214 ==

== ENCOUNTER → 2023-11-28 12:49 | Outpatient (BNVA) | payer MEDICAID, SELFPAY | PROVIDERS: PCP Family Medicine; Visit Provider Anesthesiology Pain Medicine | DX: M54.16 Radiculopathy, lumbar region (principal); G89.29 Other chronic pain | CPT/HCPCS: 64483; 64484; J1100; J3490 ==

== ENCOUNTER 2023-12-11 10:39 | Outpatient (CLI) | payer MEDICAID, SELFPAY ==
--- NOTE | 2023-12-11 11:00 | MR_ITS ---
WS: [id number] MRI THORACIC SPINE noncontrast HISTORY: M54.14 - Radiculopathy, thoracic region COMPARISON: Radiograph 11/04/2023 TECHNIQUE: Multiplanar sequences are performed in sagittal and axial planes. Localizer demonstrates bilateral foraminal osteophytes at C5-6. Normal thoracic alignment. There is very mild disc space narrowing with anterior bridging osteophytes at T7, T8 and T9. Increased T2 signal within the vertebral bodies on the STIR sequences of T7, T8 an d T9. There is no fluid in the disc space. Beginning anterior syndesmotic osteophytes from T7-T11. No significant disc protrusions or contact on the thoracic cord. Mild facet arthritis in the mid to l ower thoracic spine. Signal within the cord is normal. IMPRESSION: 1. Marrow edema in portions of the T7, T8 and T9 vertebral bodies with associated syndesmotic, clot- like osteophytes anteriorly in the midthoracic spine. This pattern is often seen with diffuse idiopat hic skeletal hyperostosis and degenerative spine disease. 2. No fractures.
== END 2023-12-11 10:40 | disposition home or self-care (01) ==
PROVIDERS: PCP Family Medicine; Visit Provider Anesthesiology Pain Medicine
DX: M54.14 Radiculopathy, thoracic region (principal); M25.78 Osteophyte, vertebrae; R93.7 Abnormal findings on diagnostic imaging of other parts of musculoskeletal system
CPT/HCPCS: 72146

== ENCOUNTER → 2023-12-12 12:46 | Outpatient (BNVA) | payer MEDICAID, SELFPAY | PROVIDERS: PCP Family Medicine; Visit Provider Anesthesiology Pain Medicine | DX: M54.16 Radiculopathy, lumbar region (principal); G89.29 Other chronic pain | CPT/HCPCS: 64483; 64484; J1100; J3490 ==

== ENCOUNTER 2023-12-20 06:48 | Day surgery (SDC) | payer MEDICAID, SELFPAY ==
[2023-12-20] VITALS (11 sets, daily range): BP systolic 115–158; BP diastolic 73–111; PULSE 73–89; RESP 14–18; TEMP 36.1–36.2; O2SAT 93–97; BMI 26.5
[2023-12-20] MEDS: acetaminophen 1,000 MG/100 ML PIGGYBACK 400 MG IV (07:52)
[2023-12-20] MEDS: sodium chloride 0.9% 1,000 ML 30 ML IV (07:52)
[2023-12-20] MEDS: scopolamine 1.5 Patch 1 PATCH TRANSDERMA (07:53)
--- NOTE | 2023-12-20 08:31 | W.PM.OPSFHP ---
Same Day Surgery H&P Indication for Procedure/HPI DATE OF PROCEDURE: December 20, 2023 CHIEF COMPLAINT/INDICATIONFOR SURGICAL PROCEDURE: Left carpal tunnel syndrome, left cubital tunnel syndrome PREOP DIAGNOSIS: Left carpal tunnel syndrome, left cubital tunnel syndrome PLANNED PROCEDURE: Operation Date: 12/20/23 09:00 Proposed Procedures p Carpal Tunnel Release(Left) - Shahid Rosi, DO s Cubital Tunnel Release(Left) - Shahid Rosi, DO s Ulnar Nerve Transposition/possible(Left) - Shahid Dukes, DO Medications/Allergies* Home Medications Medication Instructions Recorded Confirmed Type ondansetron HCl 4 mg tablet 4 mg PO TID@,, PRN Nausea 11/01/20 12/19/23 History (Zofran) dicyclomine 20 mg tablet 20 mg PO QID@,,,12/22/20 12/19/23 History omeprazole 40 mg capsule,delayed 40 mg PO DAILY@1400 12/22/20 12/19/23 History release baclofen 20 mg tablet 20 mg PO TID@0900,1400,2100 01/07/21 12/19/23 History levothyroxine 25 mcg capsule 25 mcg PO DAILY@0900 01/07/21 12/19/23 History simvastatin 20 mg tablet 20 mg PO DAILY@1800 01/07/21 12/19/23 History cholecalciferol (vitamin D3) 1,250 1,250 mcg PO .weekly 05/17/22 12/19/23 History mcg (50,000 unit) capsule acetaminophen 650 mg 650 mg PO Q8H pain 08/08/23 12/19/23 History tablet,extended release (Tylenol 8 Hour) azelastine 137 mcg (0.1 %) nasal 2 spray intranasal BID 11/13/23 12/19/23 History spray aerosol polyethylene glycol 3350 17 gram 17 g PO DAILY PRN Constipation 11/15/23 12/19/23 History oral powder packet (Miralax) Allergies/Adverse Reactions Allergy/AdvReac Type Severity Reaction Status Date / Time budesonide [From Symbicort] Allergy Severe Swelling Verified 12/20/23 07:34 and nausea fluticasone [From Flonase] Allergy Severe ADR-Swelling Verified 11/20/23 10:20 of the Eye propranolol Allergy Severe ADR-Swelling Verified 11/20/23 10:20 of the Eye triamcinolone [From Nasacort] Allergy Severe Nausea Verified 11/20/23 10:20 naproxen Allergy Intermediate throw up Verified 11/20/23 10:20 topiramate [From Trokendi XR] Allergy Intermediate hands and Verified 11/20/23 10:20 face swell asenapine [From Saphris] Allergy Unknown Unknown Verified 11/20/23 10:20 aspirin Allergy Unknown Unknown Verified 11/20/23 10:20 benztropine Allergy Unknown Unknown Verified 11/20/23 10:20 codeine Allergy Unknown Unknown Verified 11/20/23 10:20 diphenhydramine Allergy Unknown Unknown Verified 11/20/23 10:20 [From Benadryl] ibuprofen Allergy Unknown Unknown Verified 11/20/23 10:20 lidocaine [From Lidoderm] Allergy Unknown Unknown Verified 11/20/23 10:20 meloxicam Allergy Unknown Unknown Verified 11/20/23 10:20 pregabalin [From Lyrica] Allergy Unknown Unknown Verified 11/20/23 10:20 Sulfa (Sulfonamide Allergy Unknown Unknown Verified 11/20/23 10:20 Antibiotics) tramadol [From Ultram] Allergy Unknown Unknown Verified 11/20/23 10:20 celecoxib [From Celebrex] Allergy Unknown Verified 11/20/23 10:20 chlorzoxazone Allergy unknown Verified 11/20/23 10:20 [From Parafon Forte] formoterol [From Symbicort] Allergy Unknown Verified 11/20/23 10:20 hydrocodone Allergy vomiting Verified 11/20/23 10:20 salmeterol Allergy ADR-Swelling Verified 11/20/23 10:20 [From Advair Diskus] of the Eye diazepam [From Valium] AdvReac Mild vomiting Verified 11/20/23 10:20 diclofenac [From Voltaren] AdvReac Mild vomiting Verified 11/20/23 10:20 ziprasidone [From Geodon] AdvReac Mild sores in Verified 11/20/23 10:20 mouth Current Medications: Generic Name Dose Route Start Last Admin Trade Name Freq PRN Reason Stop Dose Admin Sodium Chloride 1,000 mls @ 30 mls/hr 12/20/23 07:15 12/20/23 07:52 Sodium Chloride 0.9% IV 12/21/23 07:14 30 mls/hr .Q24H TANIYA Administration Pertinent History/Comorbid Conditions* Medical History (Updated 11/19/23 @ 23:02 by Shahid rAanda DO) Psychiatric care Diverticulosis Migraine headache Chronic sinusitis Chronic eustachian tube dysfunction Allergic rhinitis Postnasal drip Nasal turbinate hypertrophy Nasal septal deformity Nicotine dependence, cigarettes, with unspecified nicotine-induced disorders Vitamin D deficiency Hyperlipidemia Chronic back pain COPD (chronic obstructive pulmonary disease) Fibromyalgia Osteoporosis Fatty liver Severe sleep apnea Hypothyroid Borderline personality disorder Cannabis dependence, episodic use Medical marijuana card Generalized anxiety disorder Chronic post-traumatic stress disorder Schizoaffective disorder, depressive type Surgical History (Updated 11/18/19 @ 10:49 by Mireille Villasenor DO) History of appendectomy H/O section Status post gastric surgery History of cholecystectomy Family History (Updated 07/04/22 @ 10:29 by Mily Burgess LPN) Diabetes Glaucoma Hypertension Thyroid disease Denies family history of Colon cancer Pancreatic cancer Ovarian cancer Thyroid cancer Heart disease Prostate cancer genetic susceptibility Uterine cancer Social History Smoking and tobacco/nicotine status: current every day tobacco/nicotine user cigarettes Packs smoked per day: 0.5 Years cigarettes smoked: 41 [ Other cigarette details: Started at age 16] Quit status (tobacco/nicotine): considering quitting Second hand smoke exposure: Yes Alcohol intake: current Alcohol intake frequency: holidays/special occasions only Alcohol type: hard liquor Substance/Drug Use: current Substance/Drug use frequency: daily Adopted: No Caregiver/support person: No Lives independently: Yes Household members: family Housing: Manufactured/Mobile home Marital status: Legally Marital status details: hasn't seen her for 7-8 years Number of children: 4 Number of grandchildren: 2 Highest education level completed: GED or Equivalent service: No Current occupational status: disabled Pets and animals: Yes Pets & animals: cat(s) Pets & animal details: outside cats Leisure activites: other Leisure activities details: watch movies, rock krues Sexually active: No Do you think of yourself as: Straight/Heterosexual Current gender identity: Female Esperanza/Hoahaoism: Protestant Special esperanza needs: No Agree to transfusion: Yes Pertinent Exam Findings alert, oriented x 3, operative site marked and procedure specific exam findings Please refer to office note on 11/15/2023 for detail orthopedic examination which included below: Left upper extremity exam normal C-spine ROM No pain. Negative Spurlings Negative Tinel's@ shoulder. Normal ROM Normal ROM elbow. Positive Tinel's@ elbow left Positive elbow flexion test left Left wrist: Positive median compression test. Positive Tinel's Positive Phalens Thenar and intrinsic weakness noted Recommendations Surgery/Procedure today Other Plans: Patient understands the ins and outs procedure the risk benefits complication alternatives of surgery and through shared decision-making elects to proceed with left carpal tunnel release and left cubital tunnel release with possible ulnar nerve transposition. Patient understands agrees current plan. Questions answered. Coding Level of Care Code Acute Code for [facility] Fwd
--- NOTE | 2023-12-20 08:50 | ANES.PREANE2 ---
Pre-Anesthetic Assessment Height/Weight: Height 1.57 m Weight 65.771 kg Temp Pulse Resp BP Pulse Ox O2 Del Method 97.2 F L 76 18 115/73 96 Room Air 12/20/23 07:38 12/20/23 07:38 12/20/23 07:38 12/20/23 07:38 12/20/23 07:38 12/20/23 07:49 Preop Diagnosis: Left carpal tunnel syndrome, left cubital tunnel syndrome Operation Date: 12/20/23 09:00 Proposed Procedures p Carpal Tunnel Release(Left) - Shahid Rosi, DO s Cubital Tunnel Release(Left) - Shahid Rosi, DO s Ulnar Nerve Transposition/possible(Left) - Shahid Bourbon, DO Familial anesthetic complications: None Was Beta Landon taken within 24 hours: N/A Was Clonidine taken within 24 hours: N/A Last intake: Intake Last Liquid Date 12/19/23 Last Liquid Time 23:45 Last Solid Date 12/19/23 Last Solid Time 18:00 Social Tobacco and No alcohol Exam alert, oriented x 3, clear to auscultation bilaterally and regular rate & rhythm Airway Mallampati: Class II Dentition: full Pulmonary Asthma and Chronic Obstructive Pulmonary Disease GI gastroparesis - place ETT Metabolic Hyperlipidemia and Thyroid Disease Anesthetic Plan ASA status: 3 Other: ETT for longstanding gastroparesis Risk of > 500 ml blood loss (7ml/kg in children): No Medications/Allergies Home Medications Medication Instructions Recorded Confirmed Last Taken Type ondansetron HCl 4 mg tablet 4 mg PO TID@,, PRN Nausea 11/01/20 12/19/23 12/19/23 History (Zofran) dicyclomine 20 mg tablet 20 mg PO QID@,14,,12/22/20 12/19/23 12/19/23 History omeprazole 40 mg capsule,delayed 40 mg PO DAILY@1400 12/22/20 12/19/23 12/19/23 History release baclofen 20 mg tablet 20 mg PO TID@0900,1400,2100 01/07/21 12/19/23 12/19/23 History levothyroxine 25 mcg capsule 25 mcg PO DAILY@0900 01/07/21 12/19/23 12/19/23 History simvastatin 20 mg tablet 20 mg PO DAILY@1800 01/07/21 12/19/23 12/19/23 History montelukast 10 mg tablet 10 mg PO DAILY@0900 #30 tabs 04/25/21 12/19/23 12/19/23 Rx (Singulair) albuterol sulfate 90 mcg/actuation 2 puff inhalation Q6H PRN 03/24/22 12/19/23 12/19/23 Rx aerosol inhaler (ProAir HFA) shortness of breath or wheezing #18 grams cholecalciferol (vitamin D3) 1,250 1,250 mcg PO .weekly 05/17/22 12/19/23 12/19/23 History mcg (50,000 unit) capsule olanzapine 5 mg disintegrating 5 mg PO DAILY PRN severe 02/01/23 12/19/23 12/19/23 Rx tablet (Zyprexa Zydis) anxiety/agitation #90 tabs buspirone 10 mg tablet 20 mg (2 x 10 mg) PO BID #360 tabs 07/10/23 12/19/23 12/19/23 Rx duloxetine 30 mg capsule,delayed 30 mg PO .morning #90 caps 07/10/23 12/19/23 12/19/23 Rx release (Cymbalta) duloxetine 60 mg capsule,delayed 60 mg PO .morning #90 caps 07/10/23 12/19/23 12/19/23 Rx release (Cymbalta) fluticasone propionate 110 2 puff inhalation BID #12 grams 07/10/23 12/19/23 12/19/23 Rx mcg/actuation HFA aerosol inhaler (Flovent HFA) trazodone 150 mg tablet 150 mg PO BEDTIME PRN insomnia #90 07/10/23 12/19/23 12/19/23 Rx tabs zonisamide 100 mg capsule 100 mg PO Q8H 30 days #90 caps 07/31/23 12/19/23 12/19/23 Rx acetaminophen 650 mg 650 mg PO Q8H pain 08/08/23 12/19/23 12/19/23 History tablet,extended release (Tylenol 8 Hour) tiotropium 2.5 mcg-olodaterol 2.5 2 puff inhalation DAILY #4 grams 10/12/23 12/19/23 12/19/23 Rx mcg/actuation mist for inhalation (Stiolto Respimat) azelastine 137 mcg (0.1 %) nasal 2 spray intranasal BID 11/13/23 12/19/23 12/19/23 History spray aerosol polyethylene glycol 3350 17 gram 17 g PO DAILY PRN Constipation 11/15/23 12/19/23 11/19/23 History oral powder packet (Miralax) Allergies Allergy/AdvReac Type Severity Reaction Status Date / Time budesonide [From Symbicort] Allergy Severe Swelling Verified 12/20/23 07:34 and nausea fluticasone [From Flonase] Allergy Severe ADR-Swelling Verified 11/20/23 10:20 of the Eye propranolol Allergy Severe ADR-Swelling Verified 11/20/23 10:20 of the Eye triamcinolone [From Nasacort] Allergy Severe Nausea Verified 11/20/23 10:20 naproxen Allergy Intermediate throw up Verified 11/20/23 10:20 topiramate [From Trokendi XR] Allergy Intermediate hands and Verified 11/20/23 10:20 face swell asenapine [From Saphris] Allergy Unknown Unknown Verified 11/20/23 10:20 aspirin Allergy Unknown Unknown Verified 11/20/23 10:20 benztropine Allergy Unknown Unknown Verified 11/20/23 10:20 codeine Allergy Unknown Unknown Verified 11/20/23 10:20 diphenhydramine Allergy Unknown Unknown Verified 11/20/23 10:20 [From Benadryl] ibuprofen Allergy Unknown Unknown Verified 11/20/23 10:20 lidocaine [From Lidoderm] Allergy Unknown Unknown Verified 11/20/23 10:20 meloxicam Allergy Unknown Unknown Verified 11/20/23 10:20 pregabalin [From Lyrica] Allergy Unknown Unknown Verified 11/20/23 10:20 Sulfa (Sulfonamide Allergy Unknown Unknown Verified 11/20/23 10:20 Antibiotics) tramadol [From Ultram] Allergy Unknown Unknown Verified 11/20/23 10:20 celecoxib [From Celebrex] Allergy Unknown Verified 11/20/23 10:20 chlorzoxazone Allergy unknown Verified 11/20/23 10:20 [From Parafon Forte] formoterol [From Symbicort] Allergy Unknown Verified 11/20/23 10:20 hydrocodone Allergy vomiting Verified 11/20/23 10:20 salmeterol Allergy ADR-Swelling Verified 11/20/23 10:20 [From Advair Diskus] of the Eye diazepam [From Valium] AdvReac Mild vomiting Verified 11/20/23 10:20 diclofenac [From Voltaren] AdvReac Mild vomiting Verified 11/20/23 10:20 ziprasidone [From Geodon] AdvReac Mild sores in Verified 11/20/23 10:20 mouth Current Medications Generic Name Dose Route Start Last Admin Trade Name Freq PRN Reason Stop Dose Admin Sodium Chloride 1,000 mls @ 30 mls/hr 12/20/23 07:15 12/20/23 07:52 Sodium Chloride 0.9% IV 12/21/23 07:14 30 mls/hr .Q24H TANIYA Administration PFSH Anesthesia Medical History Psychiatric care Diverticulosis Migraine headache Chronic sinusitis Chronic eustachian tube dysfunction Allergic rhinitis Postnasal drip Nasal turbinate hypertrophy Nasal septal deformity Nicotine dependence, cigarettes, with unspecified nicotine-induced disorders Vitamin D deficiency Hyperlipidemia Chronic back pain COPD (chronic obstructive pulmonary disease) Fibromyalgia Osteoporosis Fatty liver Severe sleep apnea Hypothyroid Borderline personality disorder Cannabis dependence, episodic use Medical marijuana card Generalized anxiety disorder Chronic post-traumatic stress disorder Schizoaffective disorder, depressive type Surgical History History of appendectomy H/O section Status post gastric surgery History of cholecystectomy Family History Other Diabetes Glaucoma Hypertension Thyroid disease Denies family history of Colon cancer Pancreatic cancer Ovarian cancer Thyroid cancer Heart disease Prostate cancer genetic susceptibility Uterine cancer Social History Smoking and tobacco/nicotine status: current every day tobacco/nicotine user cigarettes Packs smoked per day: 0.5 Years cigarettes smoked: 41 [ Other cigarette details: Started at age 16] Quit status (tobacco/nicotine): considering quitting Second hand smoke exposure: Yes Alcohol intake: current Alcohol intake frequency: holidays/special occasions only Alcohol type: hard liquor Substance/Drug Use: current Substance/Drug use frequency: daily Adopted: No Caregiver/support person: No Lives independently: Yes Household members: family Housing: Manufactured/Mobile home Marital status: Legally Marital status details: hasn't seen her for 7-8 years Number of children: 4 Number of grandchildren: 2 Highest education level completed: GED or Equivalent service: No Current occupational status: disabled Pets and animals: Yes Pets & animals: cat(s) Pets & animal details: outside cats Leisure activites: other Leisure activities details: watch movies, rock kruse Sexually active: No Do you think of yourself as: Straight/Heterosexual Current gender identity: Female Esperanza/Oriental Orthodox: Shinto Special esperanza needs: No Agree to transfusion: Yes Female Reproductive History Para: 4 Spontaneous abortions: No Data Anesthesia Cardiac Studies: Sestamibi Stress Test (Cardiology) 05/09/22
[2023-12-20] MEDS: ceFAZolin 2,000 MG in sodium chloride 0.9% (plus) 50 ML 100 MG IV (08:52)
--- NOTE | 2023-12-20 10:15 | W.PM.BPON ---
Date of Procedure: 12/20/2023 Surgeon: Shahid Aranda DO Cake Wringer(s): None Procedure(s) performed: Left carpal tunnel release left cubital tunnel release Findings of the procedure(s): Patient found to have left carpal tunnel syndrome left cubital tunnel syndrome underwent procedure as planned without issues or complications Estimated blood loss: 5 mL Specimen(s) removed: None Post-operative diagnosis: Left carpal tunnel syndrome, left cubital tunnel syndrome
--- NOTE | 2023-12-20 10:16 | PM.OP ---
Operative Report Date of procedure: December 20, 2023 Surgeon: Shahid Aranda DO Procedure: Preoperative diagnosis: Left carpal tunnel syndrome, left cubital tunnel syndrome postop Diagnosis: Same Procedure done: Left carpal tunnel release Left?cubital tunnel tunnel release (ulnar nerve decompression at elbow) Surgeon: Shahid Aranda DO Estimated blood loss: 5 mL Tourniquet? 13 minutes IV fluids: 1000 mL Complications: None Findings: See operative report narrative Condition: stable Disposition: same day Brief History: Patient's been seen and worked up in the outpatient setting and findings consistent with preoperative diagnosis.? Patient has Left carpal tunnel syndrome as well as Left?cubital tunnel syndrome which has been worked up in the outpatient setting has physical exam findings consistent with this as well as confirmatory nerve conduction/EMG nerve conduction study consistent with diagnosis.? Patient's failed conservative treatment.? As result through shared decision making agreed to proceed with? Left carpal tunnel and Left?cubital tunnel release we talked about treatment options as far as nonoperative and operative intervention.? Understands risk benefits complication alternatives surgical nonsurgical treatment options.? Understanding his risks he agrees to proceed with surgical intervention. Understanding these risks pt agrees to proceed with surgery.? Consent obtained in office. Procedure: Patient seen evaluate in the preoperative holding area.? Consent was reviewed and signed with patient.? Correct extremity marked.? Patient seen evaluated by anesthesia department once cleared for surgery was then taken back to the operative suite placed in supine position all bony prominences well-padded patient properly secured to bed.? Left upper extremity placed onto armboard.? Nonsterile tourniquet applied Left upper arm.? Patient then underwent anesthesia per the anesthesia department.? Patient's Left upper extremity was then prepped and draped in standard orthopedic fashion.? Final timeout performed.? Patient received appropriate preoperative antibiotics. Esmarch was used exsanguinate the Left upper extremity.? Tourniquet was insufflated to 250 mmHg. I started with the carpal tunnel release first.? I made a standard open carpal tunnel release starting with the distal most extent in the palm at the Pierson's cardinal line and the incision line was made in line with the fourth ray and ended just distal to the wrist crease.? Sharp scalpel incision was made through skin and subcutaneous tissue I then utilizing self retainer then began to dissect with dissection scissors split longitudinally the palmar fascia.? Next I then utilizing my photo studio assistant Ghislaine retractors subsequently utilizing scalpel feathered through the palmaris brevis as well as through the transverse carpal ligament distally.? Once I encountered the floor of the transverse carpal ligament and entered into the carpal tunnel I then switched to dissection scissors.? Carefully released the distal extent of the transverse carpal ligament to the palmar fat.? Care was to protect the recurrent branch and not injured this during this part of the case.? Next I then placed a Newhall underneath the transverse carpal ligament proximally to protect the nerve in the carpal tunnel contents.? And then I subsequently under loupe magnification utilize my dissection scissors to release the transverse carpal ligament into the antebrachial fascia under direct visualization with care to keep my scissors with a curved ulnarly away from the palmar cutaneous branch.? The transverse carpal was then completely decompressed proximally and a Newhall was then placed both distally and proximally throughout the carpal tunnel and had complete decompression of the nerve.? The nerve did appear to have hourglass shape as it went through the carpal tunnel.? With significant irritation noted around the nerve.? No masses were noted within the contents of the carpal tunnel.? This completed the carpal tunnel release and then I subsequently irrigated the wound bed and placed a wet Ray-Valerie into the incision for later closure. Next marked out the landmarks of the Left elbow of the medial epicondyle and olecranon and made a curvilinear incision following the course of the ulnar nerve at the medial aspect of the elbow.? Sharp scalpel incision was made through skin and subcutaneous tissue.? Next I switched to Littler dissection scissors and spread in plane of the medial antebrachial cutaneous nerve branching which was protected throughout this part of the dissection.? Then I directly came down over the fascia and identified the 2 heads of the FCU fascia and split this Left in the middle and subsequently identified my ulnar nerve distally.? This was then completely released distally under direct visualization and loupe magnification.? Once the nerve was then identified I then subsequently tracked this proximally and released this through Vann's ligament as well as complete decompression of the nerve proximally all the way past the intermuscular septum.? The nerve was completely released and decompressed both proximally and distally.? Ulnar nerve neurolysis performed and completed both proximally and distally with dissection scissors.? I then took the elbow through range of motion and there was no instability or subluxating of the ulnar nerve.? This completed?cubital tunnel release.? ?Next the wound bed was thoroughly irrigated.? Tourniquet was deflated.? Hemostasis was satisfactory at the?cubital tunnel release surgery site. I then inspected the carpal tunnel incision and this was found to have satisfactory hemostasis and all this was maintained through bipolar electrocautery.? At this point time I sequentially closed?cubital tunnel site with 3-0 Vicryl suture in a running horizontal mattress nylon stitch.? ? The carpal tunnel release surgery was then closed in standard interrupted mattress fashion.? Dressing was Xeroform 4 x 4's ABD Curlex soft roll and an Preet wrap has a bulky soft dressing. Patient was then awakened from anesthesia and taken to PACU in stable condition. Disposition: Patient taken to PACU in stable condition recovering well.? Patient will receive appropriate discharge instructions as well as pain medication postoperatively.? We will follow-up with me in the office in 2 weeks.? Patient understands agrees with current plan.? All questions answered.? He understands if any questions or concerns and contact the office for follow-up appointment..
[2023-12-20] MEDS: fentaNYL 50 mcg/mL INJ 2mL IVP ×2 (10:48→10:55)
--- NOTE | 2023-12-20 11:45 | ANE.PACU2 ---
Inpatient post-anesthesia follow up: Airway intact: Yes Vital signs: Temperature 97.0 F Pulse Rate 73 Respiratory Rate 18 Blood Pressure 147/94 Pulse Oximetry 95 Oxygen Delivery Me thod Room Air Oxygen Flow Rate Fraction of Inspir ed Oxygen Hydration adequate: Yes Nausea and vomiting: No Pain level: 1 Mental status: Baseline
== END 2023-12-20 11:50 | disposition home or self-care (01) ==
PROVIDERS: PCP Family Medicine; Visit Provider Student in an Organized Health Care Education/Training Program
PROC: (CPT 64721; principal; 2023-12-20 09:00)
PROC: (CPT 64718; 2023-12-20 09:00)
PROC: (CPT 64718; 2023-12-20 09:00)
DX: G56.02 Carpal tunnel syndrome, left upper limb (principal); G56.22 Lesion of ulnar nerve, left upper limb; J44.9 Chronic obstructive pulmonary disease, unspecified; E78.5 Hyperlipidemia, unspecified; M79.7 Fibromyalgia; E03.9 Hypothyroidism, unspecified; F17.210 Nicotine dependence, cigarettes, uncomplicated
CPT/HCPCS: 64718; 64721; J0131; J0690; J1100; J2405; J2704; J3010; J7030

== ENCOUNTER → 2024-01-03 09:28 | Outpatient (BNVA) | payer MEDICAID, SELFPAY | PROVIDERS: PCP Family Medicine; Visit Provider Anesthesiology Pain Medicine | DX: G89.29 Other chronic pain; M47.22 Other spondylosis with radiculopathy, cervical region; M50.30 Other cervical disc degeneration, unspecified cervical region; M48.02 Spinal stenosis, cervical region | CPT/HCPCS: 99214 ==

== ENCOUNTER → 2024-01-08 10:26 | Outpatient (BNVA) | payer MEDICAID, SELFPAY | PROVIDERS: PCP Family Medicine; Visit Provider Student in an Organized Health Care Education/Training Program | DX: G56.02 Carpal tunnel syndrome, left upper limb (principal); G56.22 Lesion of ulnar nerve, left upper limb | CPT/HCPCS: 99213 ==

== ENCOUNTER → 2024-01-10 14:18 | Outpatient (BNVA) | payer MEDICAID, SELFPAY | PROVIDERS: PCP Family Medicine; Visit Provider Anesthesiology Pain Medicine | DX: M54.16 Radiculopathy, lumbar region (principal); G89.29 Other chronic pain | CPT/HCPCS: 64483; 64484; J1100; J3490 ==

== ENCOUNTER → 2024-01-11 09:07 | Outpatient (BNVA) | payer MEDICAID, SELFPAY | PROVIDERS: PCP Family Medicine; Visit Provider Internal Medicine Pulmonary Disease | DX: J44.89 Other specified chronic obstructive pulmonary disease (principal); F17.210 Nicotine dependence, cigarettes, uncomplicated; F12.90 Cannabis use, unspecified, uncomplicated; R91.8 Other nonspecific abnormal finding of lung field; F41.1 Generalized anxiety disorder | CPT/HCPCS: 99214 ==

== ENCOUNTER 2024-01-21 20:00 | Outpatient (CLI) | payer MEDICAID, SELFPAY | END 2024-01-21 20:01 | disposition home or self-care (01) | LOC: SLEEP 01-22 05:45 | PROVIDERS: PCP Family Medicine; Visit Provider Specialist | DX: G47.33 Obstructive sleep apnea (adult) (pediatric) (principal) | CPT/HCPCS: 95811 ==

== ENCOUNTER → 2024-01-29 14:49 | Outpatient (BNVA) | payer MEDICAID, SELFPAY ==
[2024-01-28 07:57] VITALS: BP 130/82; BMI 27.0
== END ==
PROVIDERS: PCP Family Medicine; Visit Provider Orthopaedic Surgery
DX: M54.2 Cervicalgia (principal); M47.22 Other spondylosis with radiculopathy, cervical region
CPT/HCPCS: 36415; 72050; 80053; 81003; 85025; 99214

== ENCOUNTER 2024-03-17 08:12 | Day surgery (SDC) | payer MEDICAID, SELFPAY ==
[2024-01-28 07:57] VITALS: BP 130/82; BMI 27.0
[2024-03-17] VITALS (18 sets, daily range): BP systolic 123–166; BP diastolic 72–89; PULSE 73–91; RESP 16–20; TEMP 36.3–36.6; O2SAT 90–100; BMI 25.6
--- NOTE | 2024-03-17 | XR_ITS ---
WS: [id number] Exam: XR cervical spine 3V* [id number] Date/Time of Exam: 03/17/2024 12:00 AM Reason For Exam: STACEY PICS Intraoperative AP and lateral images of the cervical spine are submitted for evaluation. There is ant erior fusion from C5-C7 with plate and screw fixation and disc spacers. Alignment appears satisfactor y based on images presented. An ET tube is in the airway.
[2024-03-17] MEDS: sodium chloride 0.9% 1,000 ML 30 ML IV (09:00)
[2024-03-17] MEDS: albuterol 2.5 mg/3 mL Neb INHALATION (09:07)
--- NOTE | 2024-03-17 09:26 | P.ANESASSM_ITS ---
Pre-Anesthetic Assessment Height/Weight: Height 1.57 m Weight 63.503 kg Temp Pulse Resp BP Pulse Ox O2 Del Method 97.9 F 91 18 123/81 98 Room Air 03/17/24 08:52 03/17/24 08:52 03/17/24 08:52 03/17/24 08:52 03/17/24 08:52 03/17/24 08:55 Preop Diagnosis: Cervical spondylosis with radiculopathy Operation Date: 03/17/24 10:05 Proposed Procedures p Anterior Cervical Discectomy & Fusion ACDF w/Anterior Interbody Fusion w/Cage w/Instrumentation w/Allograft w/Navigation(Not Applicable) - Luther Vazquez, DO Familial anesthetic complications: Roof of mouth numb, but feeling now returning after deviated septum surgery this month Was Beta Landon taken within 24 hours: N/A Was Clonidine taken within 24 hours: N/A Last intake: Intake Last Liquid Date 03/16/24 Last Liquid Time 22:30 Last Solid Date 03/16/24 Last Solid Time 17:00 Social Tobacco and No alcohol Exam alert, oriented x 3, clear to auscultation bilaterally and regular rate & rhythm Airway Mallampati: Class II Dentition: full Pulmonary Asthma, Chronic Obstructive Pulmonary Disease and Sleep Apnea Hepatic Fatty Liver GI Gastroesophageal Reflux Disease Metabolic Hyperlipidemia and Thyroid Disease [facility] Fibromyalgia Anesthetic Plan ASA status: 3 Anesthesia: General Risk of > 500 ml blood loss (7ml/kg in children): No Medications/Allergies Home Medications Medication Instructions Recorded Confirmed Last Taken Type ondansetron HCl 4 mg tablet 4 mg PO TID@,, PRN Nausea 11/01/20 03/13/24 03/13/24 History (Zofran) dicyclomine 20 mg tablet 20 mg PO QID@,14,18,21 12/22/20 03/13/24 03/13/24 History omeprazole 40 mg capsule,delayed 40 mg PO DAILY@1400 12/22/20 03/13/24 03/13/24 History release baclofen 20 mg tablet 20 mg PO TID@0900,1400,2100 01/07/21 03/13/24 03/13/24 History levothyroxine 25 mcg capsule 25 mcg PO DAILY@0900 01/07/21 03/13/24 03/13/24 History simvastatin 20 mg tablet 20 mg PO DAILY@1800 01/07/21 03/13/24 03/12/24 History montelukast 10 mg tablet 10 mg PO DAILY@0900 #30 tabs 04/25/21 03/13/24 03/13/24 Rx (Singulair) albuterol sulfate 90 mcg/actuation 2 puff inhalation Q6H PRN 03/24/22 03/13/24 03/12/24 Rx aerosol inhaler (ProAir HFA) shortness of breath or wheezing #18 grams cholecalciferol (vitamin D3) 1,250 1,250 mcg PO .weekly 05/17/22 03/13/24 03/11/24 History mcg (50,000 unit) capsule olanzapine 5 mg disintegrating 5 mg PO DAILY PRN severe 02/01/23 03/13/24 03/12/24 Rx tablet (Zyprexa Zydis) anxiety/agitation #90 tabs fluticasone propionate 110 2 puff inhalation BID #12 grams 07/10/23 03/13/24 03/13/24 Rx mcg/actuation HFA aerosol inhaler (Flovent HFA) zonisamide 100 mg capsule 100 mg PO Q8H 30 days #90 caps 07/31/23 03/13/24 03/13/24 Rx acetaminophen 650 mg 650 mg PO Q8H pain 08/08/23 03/13/24 03/13/24 History tablet,extended release (Tylenol 8 Hour) tiotropium 2.5 mcg-olodaterol 2.5 2 puff inhalation DAILY #4 grams 10/12/23 03/13/24 03/13/24 Rx mcg/actuation mist for inhalation (Stiolto Respimat) polyethylene glycol 3350 17 gram 17 g PO DAILY PRN Constipation 11/15/23 03/13/24 03/13/24 History oral powder packet (Miralax) buspirone 10 mg tablet 20 mg (2 x 10 mg) PO BID #360 tabs 02/12/24 03/13/24 03/13/24 Rx duloxetine 30 mg capsule,delayed 30 mg PO .morning #90 caps 02/12/24 03/13/24 03/13/24 Rx release (Cymbalta) duloxetine 60 mg capsule,delayed 60 mg PO .morning #90 caps 02/12/24 03/13/2403/13/24 Rx release (Cymbalta) trazodone 150 mg tablet 150 mg PO BEDTIME PRN insomnia #90 02/12/24 03/13/24 03/12/24 Rx tabs Allergies Allergy/AdvReac Type Severity Reaction Status Date / Time budesonide [From Symbicort] Allergy Severe Swelling Verified 02/15/24 08:55 and nausea fluticasone [From Flonase] Allergy Severe ADR-Swelling Verified 02/15/24 08:55 of the Eye propranolol Allergy Severe ADR-Swelling Verified 02/15/24 08:55 of the Eye triamcinolone [From Nasacort] Allergy Severe Nausea Verified 02/15/24 08:55 naproxen Allergy Intermediate throw up Verified 02/15/24 08:55 topiramate [From Trokendi XR] Allergy Intermediate hands and Verified 02/15/24 08:55 face swell asenapine [From Saphris] Allergy Unknown Unknown Verified 02/15/24 08:55 aspirin Allergy Unknown Unknown Verified 02/15/24 08:55 benztropine Allergy Unknown Unknown Verified 02/15/24 08:55 codeine Allergy Unknown Unknown Verified 02/15/24 08:55 diphenhydramine Allergy Unknown Unknown Verified 02/15/24 08:55 [From Benadryl] ibuprofen Allergy Unknown Unknown Verified 02/15/24 08:55 lidocaine [From Lidoderm] Allergy Unknown Unknown Verified 02/15/24 08:55 meloxicam Allergy Unknown Unknown Verified 02/15/24 08:55 pregabalin [From Lyrica] Allergy Unknown Unknown Verified 02/15/24 08:55 Sulfa (Sulfonamide Allergy Unknown Unknown Verified 02/15/24 08:55 Antibiotics) tramadol [From Ultram] Allergy Unknown Unknown Verified 02/15/24 08:55 celecoxib [From Celebrex] Allergy Unknown Verified 02/15/24 08:55 chlorzoxazone Allergy unknown Verified 02/15/24 08:55 [From Parafon Forte] formoterol [From Symbicort] Allergy Unknown Verified 02/15/24 08:55 hydrocodone Allergy vomiting Verified 02/15/24 08:55 salmeterol Allergy ADR-Swelling Verified 02/15/24 08:55 [From Advair Diskus] of the Eye diazepam [From Valium] AdvReac Mild vomiting Verified 02/15/24 08:55 diclofenac [From Voltaren] AdvReac Mild vomiting Verified 02/15/24 08:55 ziprasidone [From Geodon] AdvReac Mild sores in Verified 02/15/24 08:55 mouth PFSH Anesthesia Medical History Psychiatric care Diverticulosis Migraine headache Chronic sinusitis Chronic eustachian tube dysfunction Allergic rhinitis Postnasal drip Nasal turbinate hypertrophy Nasal septal deformity Nicotine dependence, cigarettes, with unspecified nicotine-induced disorders Vitamin D deficiency Hyperlipidemia Chronic back pain COPD (chronic obstructive pulmonary disease) Fibromyalgia Osteoporosis Fatty liver Severe sleep apnea Hypothyroid Borderline personality disorder Cannabis dependence, episodic use Generalized anxiety disorder Chronic post-traumatic stress disorder Schizoaffective disorder, depressive type Surgical History History of appendectomy H/O section Status post gastric surgery History of cholecystectomy Family History Other Diabetes Glaucoma Hypertension Thyroid disease Denies family history of Colon cancer Pancreatic cancer Ovarian cancer Thyroid cancer Heart disease Prostate cancer genetic susceptibility Uterine cancer Social History Smoking and tobacco/nicotine status: current every day tobacco/nicotine user cigarettes Packs smoked per day: 0.5 Years cigarettes smoked: 41 [ Other cigarette details: Started at age 16] Quit status (tobacco/nicotine): considering quitting Second hand smoke exposure: Yes Alcohol intake: current Alcohol intake frequency: holidays/special occasions only Alcohol type: hard liquor Substance/Drug Use: current Substance/Drug use frequency: daily Adopted: No Caregiver/support person: No Lives independently: Yes Household members: family Housing: Manufactured/Mobile home Marital status: Legally Marital status details: hasn't seen her for 7-8 years Number of children: 4 Number of grandchildren: 2 Highest education level completed: GED or Equivalent service: No Current occupational status: disabled Pets and animals: Yes Pets & animals: cat(s) Pets & animal details: outside cats Leisure activites: other Leisure activities details: watch movies, rock kruse Sexually active: No Do you think of yourself as: Straight/Heterosexual Current gender identity: Female Esperanza/Protestant: Cheondoism Special esperanza needs: No Agree to transfusion: Yes Female Reproductive History Para: 4 Spontaneous abortions: No Data Anesthesia Cardiac Studies: Sestamibi Stress Test (Cardiology) 05/09
--- NOTE | 2024-03-17 10:28 | P.HP_ITS ---
Same Day Surgery H&P Indication for Procedure/HPI DATE OF PROCEDURE: March 17, 2024 CHIEF COMPLAINT/INDICATIONFOR SURGICAL PROCEDURE: Neck and arm pain PREOP DIAGNOSIS: Cervical spondylosis with radiculopathy PLANNED PROCEDURE: Operation Date: 03/17/24 10:05 Proposed Procedures p Anterior Cervical Discectomy & Fusion ACDF w/Anterior Interbody Fusion w/Cage w/Instrumentation w/Allograft w/Navigation(Not Applicable) - Luther Vazquez DO Medications/Allergies* Home Medications Medication Instructions Recorded Confirmed Type ondansetron HCl 4 mg tablet 4 mg PO TID@,, PRN Nausea 11/01/20 03/13/24 History (Zofran) dicyclomine 20 mg tablet 20 mg PO QID@,,,12/22/20 03/13/24 History omeprazole 40 mg capsule,delayed 40 mg PO DAILY@1400 12/22/20 03/13/24 History release baclofen 20 mg tablet 20 mg PO TID@0900,1400,2100 01/07/21 03/13/24 History levothyroxine 25 mcg capsule 25 mcg PO DAILY@0900 01/07/21 03/13/24 History simvastatin 20 mg tablet 20 mg PO DAILY@1800 01/07/21 03/13/24 History cholecalciferol (vitamin D3) 1,250 1,250 mcg PO .weekly 05/17/22 03/13/24 History mcg (50,000 unit) capsule acetaminophen 650 mg 650 mg PO Q8H pain 08/08/23 03/13/24 History tablet,extended release (Tylenol 8 Hour) polyethylene glycol 3350 17 gram 17 g PO DAILY PRN Constipation 11/15/23 03/13/24 History oral powder packet (Miralax) Allergies/Adverse Reactions Allergy/AdvReac Type Severity Reaction Status Date / Time budesonide [From Symbicort] Allergy Severe Swelling Verified 02/15/24 08:55 and nausea fluticasone [From Flonase] Allergy Severe ADR-Swelling Verified 02/15/24 08:55 of the Eye propranolol Allergy Severe ADR-Swelling Verified 02/15/24 08:55 of the Eye triamcinolone [From Nasacort] Allergy Severe Nausea Verified 02/15/24 08:55 naproxen Allergy Intermediate throw up Verified 02/15/24 08:55 topiramate [From Trokendi XR] Allergy Intermediate hands and Verified 02/15/24 08:55 face swell asenapine [From Saphris] Allergy Unknown Unknown Verified 02/15/24 08:55 aspirin Allergy Unknown Unknown Verified 02/15/24 08:55 benztropine Allergy Unknown Unknown Verified 02/15/24 08:55 codeine Allergy Unknown Unknown Verified 02/15/24 08:55 diphenhydramine Allergy Unknown Unknown Verified 02/15/24 08:55 [From Benadryl] ibuprofen Allergy Unknown Unknown Verified 02/15/24 08:55 lidocaine [From Lidoderm] Allergy Unknown Unknown Verified 02/15/24 08:55 meloxicam Allergy Unknown Unknown Verified 02/15/24 08:55 pregabalin [From Lyrica] Allergy Unknown Unknown Verified 02/15/24 08:55 Sulfa (Sulfonamide Allergy Unknown Unknown Verified 02/15/24 08:55 Antibiotics) tramadol [From Ultram] Allergy Unknown Unknown Verified 02/15/24 08:55 celecoxib [From Celebrex] Allergy Unknown Verified 02/15/24 08:55 chlorzoxazone Allergy unknown Verified 02/15/24 08:55 [From Parafon Forte] formoterol [From Symbicort] Allergy Unknown Verified 02/15/24 08:55 hydrocodone Allergy vomiting Verified 02/15/24 08:55 salmeterol Allergy ADR-Swelling Verified 02/15/24 08:55 [From Advair Diskus] of the Eye diazepam [From Valium] AdvReac Mild vomiting Verified 02/15/24 08:55 diclofenac [From Voltaren] AdvReac Mild vomiting Verified 02/15/24 08:55 ziprasidone [From Geodon] AdvReac Mild sores in Verified 02/15/24 08:55 mouth Pertinent History/Comorbid Conditions* Medical History (Updated 02/12/24 @ 10:59 by Emi Paul [facility]) Psychiatric care Diverticulosis Migraine headache Chronic sinusitis Chronic eustachian tube dysfunction Allergic rhinitis Postnasal drip Nasal turbinate hypertrophy Nasal septal deformity Nicotine dependence, cigarettes, with unspecified nicotine-induced disorders Vitamin D deficiency Hyperlipidemia Chronic back pain COPD (chronic obstructive pulmonary disease) Fibromyalgia Osteoporosis Fatty liver Severe sleep apnea Hypothyroid Borderline personality disorder Cannabis dependence, episodic use Generalized anxiety disorder Chronic post-traumatic stress disorder Schizoaffective disorder, depressive type Surgical History (Updated 11/18/19 @ 10:49 by Mireille Villasenor DO) History of appendectomy H/O section Status post gastric surgery History of cholecystectomy Family History (Updated 07/04/22 @ 10:29 by Mily Burgess LPN) Diabetes Glaucoma Hypertension Thyroid disease Denies family history of Colon cancer Pancreatic cancer Ovarian cancer Thyroid cancer Heart disease Prostate cancer genetic susceptibility Uterine cancer Social History Smoking and tobacco/nicotine status: current every day tobacco/nicotine user cigarettes Packs smoked per day: 0.5 Years cigarettes smoked: 41 [ Other cigarette details: Started at age 16] Quit status (tobacco/nicotine): considering quitting Second hand smoke exposure: Yes Alcohol intake: current Alcohol intake frequency: holidays/special occasions only Alcohol type: hard liquor Substance/Drug Use: current Substance/Drug use frequency: daily Adopted: No Caregiver/support person: No Lives independently: Yes Household members: family Housing: Manufactured/Mobile home Marital status: Legally Marital status details: hasn't seen her for 7-8 years Number of children: 4 Number of grandchildren: 2 Highest education level completed: GED or Equivalent service: No Current occupational status: disabled Pets and animals: Yes Pets & animals: cat(s) Pets & animal details: outside cats Leisure activites: other Leisure activities details: watch movies, rock kruse Sexually active: No Do you think of yourself as: Straight/Heterosexual Current gender identity: Female Esperanza/Islam: Anabaptist Special esperanza needs: No Agree to transfusion: Yes Pertinent Exam Findings alert, oriented x 3 and procedure specific exam findings Recommendations Surgery/Procedure today Coding Level of Care Code Acute Code for Chg Fwd
[2024-03-17] MEDS: ceFAZolin 2,000 MG in sodium chloride 0.9% (plus) 50 ML 100 MG IV (11:11)
--- NOTE | 2024-03-17 13:04 | PM.OP ---
Operative Report Date of procedure: March 17, 2024 Pre-op diagnosis: Cervical spondylosis with radiculopathy Post-op diagnosis: same Procedure done: 1. Anterior diskectomy C5/6 2. Anterior discectomy C6/7 3. Insertion of cage C5/6 4. Insertion of Cage C6/7 5. Instrumentation with anterior plate from C5-C7 6. Use of allograft Surgeon: Luther Vazquez DO Estimated blood loss (mL): 20 Procedure: 1. Anterior diskectomy C5/6 2. Anterior discectomy C6/7 3. Insertion of cage C5/6 4. Insertion of Cage C6/7 5. Instrumentation with anterior plate from C5-C7 6. Use of allograft The patient was taken to the operating room, where he underwent general endotracheal anesthesia without complications. He was then positioned supine on the operating table, and all areas of impingement were well padded. The arms were carefully padded and tucked at his sides. A roll was placed between the shoulder blades.. An x-ray was done to determine the appropriate level for the skin incision. The entire neck was then sterilely prepped and draped in the usual fashion. Neuromonitoring was attached prior to prepping. A transverse skin incision was made and carried down to the platysma muscle. This was then split in line with its fibers. Blunt dissection was carried down medial to the carotid sheath and lateral to the trachea and esophagus until the anterior cervical spine was visualized. A needle was placed into a disc and an x-ray was done to determine its location. The longus colli muscles were then elevated bilaterally with the electrocautery unit. Self-retaining retractors were placed deep to the longus colli muscle. Attention was brought to the C5/6 level that was confirmed on x-ray. A caspar pin was placed into the C5 vertebrae and the C6 vertebrae. The disk space was then distracted. The microscope was then brought in. A radical anterior discectomies were performed at C5/6. This included complete removal of the anterior annulus, nucleus, and posterior annulus. The posterior longitudinal ligament was removed as were the posterior osteophytes. Foraminotomies were then accomplished bilaterally. This was done using a high speed carlos, kerrison rongeurs and curretes Once all of this was accomplished, the curved currette was used to check for any residual compression. The central canal was wide open as were the foramen. A high-speed bur was used to remove the cartilaginous endplates above and below the interspace. Bleeding cancellous bone was exposed. The disc space were measured and appropriate size cage were placed sterilely onto the field. Allograft graft was packed into the cages. The cage was then placed and there was good juxtaposition against the bleeding decorticated surfaces and good distraction of each interspace. Attention was brought to the next interspace. The [place] pins were removed. Bone wax was used to prevent any bleeding from occurring at the pin sites. Attention was brought to the C6/7 level that was confirmed on x-ray. A caspar pin was placed into the C6 vertebrae and the C7 vertebrae. The disk space was then distracted. The microscope was then brought in. A radical anterior discectomies were performed at C6/7. This included complete removal of the anterior annulus, nucleus, and posterior annulus. The posterior longitudinal ligament was removed as were the posterior osteophytes. Foraminotomies were then accomplished bilaterally. This was done using a high speed carlos, kerrison rongeurs and curretes Once all of this was accomplished, the curved currette was used to check for any residual compression. The central canal was wide open as were the foramen. A high-speed bur was used to remove the cartilaginous endplates above and below the interspace. Bleeding cancellous bone was exposed. The disc space were measured and appropriate size cage were placed sterilely onto the field. Allograft graft was packed into the cages. The cage was then placed and there was good juxtaposition against the bleeding decorticated surfaces and good distraction of each interspace. Attention was brought to the next interspace. The [place] [address] [place] pins were removed. Bone wax was used to prevent any bleeding from occurring at the pin sites. The appropriate size anterior cervical locking plate was chosen and bent into gentle lordosis. Two screws were then placed into each of the vertebral bodies at C5, C6 and C7. There was excellent purchase. A final x-ray was done confirming good position of the hardware and Cages. The locking screws were then applied, also with excellent purchase. Following a final copious irrigation, there was good hemostasis and no dural leaks. The carotid pulse was strong. The wounds were then closed in layers using 2-0 Vicryl suture for the platysma muscle, 2-0 Vicryl suture for the subcutaneous tissue, and 4-0 monocryl suture in a subcuticular skin closure. Glue was placed followed by application of a sterile dressing. The drain was hooked to bulb suction. A soft collar was applied. The patient was then carefully returned to the supine position on his hospital bed where he was reversed and extubated and taken to the recovery room having tolerated the procedure well.
[2024-03-17] MEDS: fentaNYL 50 mcg/mL INJ 2mL IVP (13:24)
[2024-03-17] MEDS: oxyCODONE-APAP 5-325 mg Tablet 1 TAB PO (14:31)
--- NOTE | 2024-03-17 15:15 | ANE.PACU2 ---
Inpatient post-anesthesia follow up: Airway intact: Yes Vital signs: Temperature 97.5 F Pulse Rate 91 Respiratory Rate 18 Blood Pressure 142/82 Pulse Oximetry 94 Oxygen Delivery Me thod Room Air Oxygen Flow Rate 6 Fraction of Inspir ed Oxygen Hydration adequate: Yes Nausea and vomiting: No Pain level: 1 Mental status: Baseline
== END 2024-03-17 15:15 | disposition home or self-care (01) ==
PROVIDERS: PCP Family Medicine; Visit Provider Orthopaedic Surgery
PROC: 0RB30ZZ Excision of Cervical Vertebral Disc, Open Approach (ICD-10-PCS; CPT 22551; principal; 2024-03-17 09:55)
DX: M54.12 Radiculopathy, cervical region (principal); J44.9 Chronic obstructive pulmonary disease, unspecified; G47.30 Sleep apnea, unspecified; K21.9 Gastro-esophageal reflux disease without esophagitis; E78.5 Hyperlipidemia, unspecified; M79.7 Fibromyalgia; M81.0 Age-related osteoporosis without current pathological fracture; F17.210 Nicotine dependence, cigarettes, uncomplicated
CPT/HCPCS: 20930; 22551; 22552; 22845; 22853 ×2; 72040; 76000; C1713; C1763; C9359; J0131; J0330; J0690; J1100; J1170; J2001; J2405; J2704; J2710; J3010; J3490; J7030; J7613; L0172

== ENCOUNTER → 2024-04-01 08:51 | Outpatient (BNVA) | payer MEDICAID, SELFPAY ==
[2024-01-28 07:57] VITALS: BP 130/82; BMI 27.0
== END ==
PROVIDERS: PCP Family Medicine; Visit Provider Orthopaedic Surgery
DX: Z98.1 Arthrodesis status
CPT/HCPCS: 99024

== ENCOUNTER → 2024-04-08 10:15 | Outpatient (BNVA) | payer MEDICAID, SELFPAY ==
[2024-01-28 07:57] VITALS: BP 130/82; BMI 27.0
== END ==
PROVIDERS: PCP Family Medicine; Visit Provider Student in an Organized Health Care Education/Training Program
DX: M65.312 Trigger thumb, left thumb (principal)
CPT/HCPCS: 99214

== ENCOUNTER → 2024-04-15 12:53 | Outpatient (BNVA) | payer MEDICAID, SELFPAY ==
[2024-01-28 07:57] VITALS: BP 130/82; BMI 27.0
== END ==
PROVIDERS: PCP Family Medicine; Visit Provider Orthopaedic Surgery
DX: Z98.1 Arthrodesis status (principal)
CPT/HCPCS: 99024

== ENCOUNTER 2024-05-01 12:54 | Day surgery (SDC) | payer MEDICAID, SELFPAY ==
[2024-01-28 07:57] VITALS: BP 130/82; BMI 27.0
[2024-05-01] VITALS (9 sets, daily range): BP systolic 103–132; BP diastolic 69–86; PULSE 63–84; RESP 14–18; TEMP 36.4; O2SAT 92–96; BMI 24.5
[2024-05-01] MEDS: sodium chloride 0.9% 1,000 ML 30 ML IV (13:32)
[2024-05-01] MEDS: acetaminophen 1,000 MG/100 ML PIGGYBACK 400 MG IV (13:33)
--- NOTE | 2024-05-01 13:38 | W.PM.OPSUD ---
Surgery/Procedure H&P Update DATE OF PROCEDURE: May 01, 2024 DATE H&P PERFORMED: 04/08/24 H&P UPDATE INFORMATION: I have reviewed H&P completed within last 30 days, I have examined patient prior to procedure and No changes to prior documentation PREOP DIAGNOSIS: Left thumb trigger PRIMARY INDICATION FOR PROCEDURE: Left thumb trigger PLANNED PROCEDURE: Operation Date: 05/01/24 15:00 Proposed Procedures p Trigger Finger Release left thumb(Left) - Shahid Aranda DO
--- NOTE | 2024-05-01 14:39 | ANES.PREANE2 ---
Pre-Anesthetic Assessment Height/Weight: Height 1.57 m Weight 60.781 kg Temp Pulse Resp BP Pulse Ox O2 Del Method 97.6 F 84 16 128/85 95 Room Air 05/01/24 13:17 05/01/24 13:17 05/01/24 13:17 05/01/24 13:17 05/01/24 13:17 05/01/24 13:23 Preop Diagnosis: Left thumb trigger Operation Date: 05/01/24 15:00 Proposed Procedures p Trigger Finger Release left thumb(Left) - Shahid Aranda, Familial anesthetic complications: none Was Beta Landon taken within 24 hours: N/A Was Clonidine taken within 24 hours: N/A Last intake: Intake Last Liquid Date 04/30/24 Last Liquid Time 23:30 Last Solid Date 04/30/24 Last Solid Time 23:30 Social Tobacco and No alcohol Exam alert, oriented x 3, clear to auscultation bilaterally and regular rate & rhythm Airway Mallampati: Class I Dentition: full Pulmonary Asthma, Chronic Obstructive Pulmonary Disease and Sleep Apnea GI Gastroesophageal Reflux Disease (well controlled with prilosec per patient) Metabolic Hyperlipidemia and Thyroid Disease Anesthetic Plan ASA status: 3 Anesthesia: MAC Risk of > 500 ml blood loss (7ml/kg in children): No Medications/Allergies Home Medications Medication Instructions Recorded Confirmed Last Taken Type ondansetron HCl 4 mg tablet 4 mg PO TID@,, PRN Nausea 11/01/20 04/30/24 1 Day Ago History (Gabby) ~04/29/24 dicyclomine 20 mg tablet 20 mg PO QID@,14,18,21 12/22/20 04/30/24 04/29/24 History omeprazole 40 mg capsule,delayed 40 mg PO DAILY@1400 12/22/20 04/30/24 04/29/24 History release baclofen 20 mg tablet 20 mg PO TID@0900,1400,2100 01/07/21 04/30/24 04/29/24 History levothyroxine 25 mcg capsule 25 mcg PO DAILY@0900 01/07/21 04/30/24 05/01/24 History simvastatin 20 mg tablet 20 mg PO DAILY@1800 01/07/21 04/30/24 04/29/24 History montelukast 10 mg tablet 10 mg PO DAILY@0900 #30 tabs 04/25/21 04/30/24 04/29/24 Rx (Singulair) albuterol sulfate 90 mcg/actuation 2 puff inhalation Q6H PRN 03/24/22 04/30/24 2 Weeks Ago Rx aerosol inhaler (ProAir HFA) shortness of breath or wheezing ~04/16/24 #18 grams cholecalciferol (vitamin D3) 1,250 1,250 mcg PO .weekly 05/17/22 04/30/24 04/29/24 History mcg (50,000 unit) capsule olanzapine 5 mg disintegrating 5 mg PO DAILY PRN severe 02/01/23 04/30/24 2 Weeks Ago Rx tablet (Zyprexa Zydis) anxiety/agitation #90 tabs ~04/16/24 acetaminophen 650 mg 650 mg PO Q8H pain 08/08/23 04/30/24 04/29/24 History tablet,extended release (Tylenol 8 Hour) polyethylene glycol 3350 17 gram 17 g PO DAILY PRN Constipation 11/15/23 04/30/24 1 Month Ago History oral powder packet (Miralax) ~03/30/24 duloxetine 30 mg capsule,delayed 30 mg PO .morning #90 caps 02/12/24 04/30/24 04/29/24 Rx release (Cymbalta) duloxetine 60 mg capsule,delayed 60 mg PO .morning #90 caps 02/12/24 04/30/24 04/29/24 Rx release (Cymbalta) trazodone 150 mg tablet 150 mg PO BEDTIME PRN insomnia #90 02/12/24 04/30/24 04/29/24 Rx tabs oxycodone-acetaminophen 5 mg-325 1 tab PO Q4H PRN pain 7 days #42 04/21/24 04/30/24 04/29/24 Rx mg tablet tabs fluticasone propionate 110 2 puff inhalation BID #12 grams 04/28/24 04/30/24 04/29/24 Rx mcg/actuation HFA aerosol inhaler tiotropium 2.5 mcg-olodaterol 2.5 2 puff inhalation DAILY #4 grams 04/29/24 04/30/24 04/29/24 Rx mcg/actuation mist for inhalation (Stiolto Respimat) buspirone 10 mg tablet 20 mg PO BID 04/30/24 04/30/24 04/29/24 History zonisamide 100 mg capsule 100 mg PO Q8H 04/30/24 04/30/24 04/29/24 History (Zonegran) ondansetron 4 mg disintegrating 4 mg PO Q8H PRN nausea and 05/01/24 Unknown Rx tablet vomiting 3 days #9 tabs tramadol 50 mg tablet 50 mg PO Q6H PRN pain 5 days #20 05/01/24 Unknown Rx tabs Allergies Allergy/AdvReac Type Severity Reaction Status Date / Time benztropine Allergy Severe edema to Verified 04/30/24 09:02 face budesonide [From Symbicort] Allergy Severe Swelling Verified 04/30/24 09:02 and nausea fluticasone [From Flonase] Allergy Severe ADR-Swelling Verified 04/30/24 09:02 of the Eye hydrocodone Allergy Severe vomiting Verified 04/30/24 09:02 propranolol Allergy Severe ADR-Swelling Verified 04/30/24 09:02 of the Eye Sulfa (Sulfonamide Allergy Severe ALGY-Rash Verified 04/30/24 09:02 Antibiotics) triamcinolone [From Nasacort] Allergy Severe Nausea Verified 04/30/24 09:02 naproxen Allergy Intermediate throw up Verified 04/30/24 09:02 topiramate [From Trokendi XR] Allergy Intermediate hands and Verified 04/30/24 09:02 face swell oxymetazoline Allergy Mild sore throat Verified 04/30/24 09:02 [From Afrin (oxymetazoline)] asenapine [From Saphris] Allergy Unknown Unknown Verified 04/30/24 09:02 aspirin Allergy Unknown vomit Verified 04/30/24 09:02 codeine Allergy Unknown ADR-Vomitin Verified 04/30/24 09:02 g diphenhydramine Allergy Unknown palpitation Verified 04/30/24 09:02 [From Benadryl] s ibuprofen Allergy Unknown ADR-Vomitin Verified 04/30/24 09:02 g lidocaine [From Lidoderm] Allergy Unknown ADR-Vomitin Verified 04/30/24 09:02 g meloxicam Allergy Unknown ADR-Vomitin Verified 04/30/24 09:02 g pregabalin [From Lyrica] Allergy Unknown ADR-Vomitin Verified 04/30/24 09:02 g tramadol [From Ultram] Allergy Unknown ADR-Vomitin Verified 04/30/24 09:02 g celecoxib [From Celebrex] Allergy ADR-Vomitin Verified 04/30/24 09:02 g chlorzoxazone Allergy amnesia Verified 04/30/24 09:02 [From Parafon Forte] salmeterol Allergy ADR-Swelling Verified 04/30/24 09:02 [From Advair Diskus] of the Eye diazepam [From Valium] AdvReac Mild vomiting Verified 04/30/24 09:02 diclofenac [From Voltaren] AdvReac Mild vomiting Verified 04/30/24 09:02 ziprasidone [From Geodon] AdvReac Mild sores in Verified 04/30/24 09:02 mouth formoterol [From Symbicort] AdvReac sore throat Verified 04/30/24 09:02 Current Medications Generic Name Dose Route Start Last Admin Trade Name Freq PRN Reason Stop Dose Admin Sodium Chloride 1,000 mls @ 30 mls/hr 05/01/24 13:00 05/01/24 13:32 Sodium Chloride 0.9% IV 05/02/24 12:59 30 mls/hr .Q24H TANIYA Administration PFSH Anesthesia Medical History Psychiatric care Diverticulosis Migraine headache Chronic sinusitis Chronic eustachian tube dysfunction Allergic rhinitis Postnasal drip Nasal turbinate hypertrophy Nasal septal deformity Nicotine dependence, cigarettes, with unspecified nicotine-induced disorders Vitamin D deficiency Hyperlipidemia Chronic back pain COPD (chronic obstructive pulmonary disease) Fibromyalgia Osteoporosis Fatty liver Severe sleep apnea Hypothyroid Borderline personality disorder Cannabis dependence, episodic use Generalized anxiety disorder Chronic post-traumatic stress disorder Schizoaffective disorder, depressive type Surgical History History of appendectomy H/O section Status post gastric surgery History of cholecystectomy Family History Other Diabetes Glaucoma Hypertension Thyroid disease Denies family history of Colon cancer Pancreatic cancer Ovarian cancer Thyroid cancer Heart disease Prostate cancer genetic susceptibility Uterine cancer Social History Smoking and tobacco/nicotine status: current every day tobacco/nicotine user cigarettes Packs smoked per day: 0.5 Years cigarettes smoked: 41 [ Other cigarette details: Started at age 16] Quit status (tobacco/nicotine): considering quitting Second hand smoke exposure: Yes Alcohol intake: current Alcohol intake frequency: holidays/special occasions only Alcohol type: hard liquor Substance/Drug Use: current Substance/Drug use frequency: daily Adopted: No Caregiver/support person: No Lives independently: Yes Household members: family Housing: Manufactured/Mobile home Marital status: Legally Marital status details: hasn't seen her for 7-8 years Number of children: 4 Number of grandchildren: 2 Highest education level completed: GED or Equivalent service: No Current occupational status: disabled Pets and animals: Yes Pets & animals: cat(s) Pets & animal details: outside cats Leisure activites: other Leisure activities details: watch movies, rock kruse Sexually active: No Do you think of yourself as: Straight/Heterosexual Current gender identity: Female Esperanza/Baptist: Synagogue Special esperanza needs: No Agree to transfusion: Yes Female Reproductive History Para: 4 Spontaneous abortions: No Data Anesthesia Cardiac Studies: Sestamibi Stress Test (Cardiology) 05/09/22
[2024-05-01] MEDS: scopolamine 1.5 Patch 1 PATCH (14:42)
[2024-05-01] MEDS: scopolamine 1.5 Patch 1 PATCH TRANSDERMA (14:47)
[2024-05-01] MEDS: ceFAZolin 2,000 MG in sodium chloride 0.9% (plus) 50 ML 100 MG IV (14:50)
[2024-05-01] MEDS: lidocaine 1% INJ 10 mL (per mL) 5 ML INJECTION (15:12)
[2024-05-01] MEDS: ROPivacaine 0.5% SDV 30 mL 25 MG INJECTION (15:12)
--- NOTE | 2024-05-01 16:20 | ANE.PACU2 ---
Inpatient post-anesthesia follow up: Airway intact: Yes Vital signs: Temperature 97.6 F Pulse Rate 63 Respiratory Rate 18 Blood Pressure 132/86 Pulse Oximetry 96 Oxygen Delivery Me thod Room Air Oxygen Flow Rate 6 Fraction of Inspir ed Oxygen Hydration adequate: Yes Nausea and vomiting: No Pain level: 1 Mental status: Baseline
--- NOTE | 2024-05-01 18:19 | P.BOP_ITS ---
Date of Procedure: 05/01/2024 Surgeon: Shahid Aranda DO [employer] Estimator(s): None Procedure(s) performed: Left thumb trigger release Findings of the procedure(s): Patient found to have left thumb trigger. Underwent procedure as planned without issues or complications Estimated blood loss: 1 mL Specimen(s) removed: None Post-operative diagnosis: Left thumb trigger
--- NOTE | 2024-05-01 18:19 | PM.OP ---
Operative Report Date of procedure: May 01, 2024 Surgeon: Shahid Aranda DO Procedure: Preoperative diagnosis: Left thumb trigger Post-op diagnosis: Left?thumb?trigger Procedure done: Left?thumb?trigger release Surgeon: Shahid Aranda DO Estimated blood loss: 1 mL Tourniquet time: 8 minutes Anesthesia: See anesthesia record (MAC/local) IV fluids: See anesthesia record Complications: None Findings: See operative report narrative Condition: stable Disposition: same day Brief History: Patient presents to the outpatient setting with findings consistent with a Left?thumb?trigger. Patient has been worked up in the outpatient setting and is failed conservative treatment approach.? Patient has a Left?thumb?trigger that she has tried treating conservatively with recurrence of her?triggering pain.? We talked about treatment options and ultimately patient would like to proceed with a Left?thumb?trigger release. We talked about the risk benefits complications and alternatives with surgical nonsurgical treatment options.? Understanding risk of surgery patient agrees to proceed with a Left?thumb?trigger release. All questions answered. Procedure: Patient was seen evaluated in the preoperative holding area.? Consent was reviewed and signed with patient.? Correct extremity was then marked.? Patient was then seen and evaluated by the anesthesia department once cleared for surgery patient was then taken back to the operative suite patient was placed in supine position and all bony prominences well-padded the patient was properly secured to the bed.? Armboard was applied to the Left upper extremity and the Left upper extremity was then placed with a nonsterile tourniquet to the Left upper arm.? This point time the Left upper extremity was then prepped and draped in standard orthopedic fashion.? A final timeout was performed.? Patient received appropriate preoperative antibiotics. Prior to incision patient underwent local anesthesia to the left thumb for digital block under sterile aseptic technique Esmarch tourniquet was used exsanguinate the Left upper extremity and tourniquet was insufflated to 250 mmHg.? I identified patient's MP flexion crease marked appropriate incision transversely across the flexion crease within Mariaa's lines sharp scalpel incision was made only through skin.? Once this was done I switched to Littler dissection scissors this I then subsequently spread longitudinally in the planes of the digital nerves.? Once these were identified these were protected by my coding assistant with Kasdan retractors.? Next I identified directly over the A1 caitlin of the Left?thumb.? This was significantly thickened and identified to be the area of patient's?thumb?triggering.? I used sharp scalpel to incise the A1 caitlin and then utilized my coding assistant to retract the ability and under loupe magnification released the entirety of the A1 caitlin both proximally and distally up to the oblique caitlin.? This point time the tendon was then inspected and found to be healthy there was some inflammation around the tendon itself but no evidence of tearing and no need for any debridement.? The Ragnell was used to pull the tendon out of the incision and there was no mechanical?triggering I then took the patient's?thumb?through range of motion no recurrent?triggering was noted.? ?Patient was gently awakened from anesthesia and was able to flex and extend thumb with no triggering. I then let the tourniquet down identified and maintained exact hemostasis with bipolar electrocautery irrigated the wound bed and then closed the incision with interrupted nylon suture. Incision sites were then dressed with Xeroform 4 x 4's Kerlix Logan wrap and an Preet wrap.? Patient was then awakened from anesthesia and taken to PACU in stable condition. Disposition: Patient taken to PACU in stable condition recovering well.? Dressing on in place clean dry and intact.? Patient was receive appropriate discharge instruction as well as pain medication postoperatively.? Patient may be allowed weightbearing as tolerated to the Left hand and encourage range of motion once dressing come down after 72 hours.? Patient to follow-up with orthopedics in the office in 2 weeks.? Patient understands and agrees with current plan.? All questions answered.
== END 2024-05-01 16:20 | disposition home or self-care (01) ==
PROVIDERS: PCP Family Medicine; Visit Provider Student in an Organized Health Care Education/Training Program
PROC: (CPT 26055; principal; 2024-05-01 15:00)
DX: M65.312 Trigger thumb, left thumb (principal); J44.9 Chronic obstructive pulmonary disease, unspecified; G47.30 Sleep apnea, unspecified; K21.9 Gastro-esophageal reflux disease without esophagitis; E78.5 Hyperlipidemia, unspecified; E07.9 Disorder of thyroid, unspecified; M81.0 Age-related osteoporosis without current pathological fracture; F17.210 Nicotine dependence, cigarettes, uncomplicated
CPT/HCPCS: 26055; J0131; J0690; J2405; J2704; J2795; J3010; J7030

== ENCOUNTER → 2024-05-06 07:54 | Outpatient (BNVA) | payer MEDICAID, SELFPAY ==
[2024-01-28 07:57] VITALS: BP 130/82; BMI 27.0
== END ==
PROVIDERS: PCP Family Medicine; Visit Provider Orthopaedic Surgery
DX: Z98.1 Arthrodesis status (principal)
CPT/HCPCS: 72040; 99024

== ENCOUNTER → 2024-05-09 14:21 | Outpatient (BNVA) | payer MEDICAID, SELFPAY ==
[2024-01-28 07:57] VITALS: BP 130/82; BMI 27.0
== END ==
PROVIDERS: PCP Family Medicine; Visit Provider Specialist
DX: G43.019 Migraine without aura, intractable, without status migrainosus (principal); G62.9 Polyneuropathy, unspecified; F17.200 Nicotine dependence, unspecified, uncomplicated
CPT/HCPCS: 99213; 99214

== ENCOUNTER 2024-05-09 16:52 | Emergency (ER) | payer MEDICAID, SELFPAY ==
[2024-01-28 07:57] VITALS: BP 130/82; BMI 27.0
[2024-05-09 16:58] VITALS: BP 127/80; PULSE 86; RESP 18; TEMP 36.8; O2SAT 96; BMI 24.7
--- NOTE | 2024-05-09 17:12 | W.ED.WOUNDLC ---
HPI - Wound/Laceration General: Chief Complaint: Wound/Laceration Stated Complaint: left hand stitches infection Time Seen by Provider: 05/09/24 17:08 Source: patient Mode of arrival: ambulatory Limitations: no limitations History of Present Illness: Patient is a 58-year-old female presenting to the emergency department complaining of left hand infection onset today. Patient had trigger finger procedural release of the left thumb on May [address] Aranda, states that the incision is starting become infected. She notes swelling, redness, and tenderness to palpation. She is set to see him on the for suture removal. She denies any fever, nausea or vomiting, or other systemic signs of illness. She notes that the incision has also been oozing purulent drainage. Vitals are stable on arrival and she is noted to be afebrile and breathing comfortably on room air. No other symptoms or concerning historical factors reported at this time. Extremity Location: Left: hand Context: other (Postop) Associated symptoms: Reports no associated symptoms; Denies chills, fever(s), nausea or vomiting Related Data Home Medications Medication Instructions Recorded Confirmed ondansetron HCl 4 mg tablet 4 mg PO TID@,, PRN Nausea 11/01/20 05/09/24 (Zofran) dicyclomine 20 mg tablet 20 mg PO QID@09,14,18,21 12/22/20 05/09/24 omeprazole 40 mg capsule,delayed 40 mg PO DAILY@1400 12/22/20 05/09/24 release baclofen 20 mg tablet 20 mg PO TID@0900,1400,2100 01/07/21 05/09/24 levothyroxine 25 mcg capsule 25 mcg PO DAILY@0900 01/07/21 05/09/24 simvastatin 20 mg tablet 20 mg PO DAILY@1800 01/07/21 05/09/24 cholecalciferol (vitamin D3) 1,250 1,250 mcg PO .weekly 05/17/22 05/09/24 mcg (50,000 unit) capsule acetaminophen 650 mg 650 mg PO Q8H pain 08/08/23 05/09/24 tablet,extended release (Tylenol 8 Hour) polyethylene glycol 3350 17 gram 17 g PO DAILY PRN Constipation 11/15/23 05/09/24 oral powder packet (Miralax) buspirone 10 mg tablet 20 mg PO BID 04/30/24 05/09/24 ipratropium bromide 42 mcg (0.06 2 spray intranasal BID 05/09/24 05/09/24 %) nasal spray Previous Rx's Medication Instructions Recorded montelukast 10 mg tablet 10 mg PO DAILY@0900 #30 tabs 04/25/21 (Singulair) albuterol sulfate 90 mcg/actuation 2 puff inhalation Q6H PRN 03/24/22 aerosol inhaler (ProAir HFA) shortness of breath or wheezing #18 grams olanzapine 5 mg disintegrating 5 mg PO DAILY PRN severe 02/01/23 tablet (Zyprexa Zydis) anxiety/agitation #90 tabs duloxetine 30 mg capsule,delayed 30 mg PO .morning #90 caps 02/12/24 release (Cymbalta) duloxetine 60 mg capsule,delayed 60 mg PO .morning #90 caps 02/12/24 release (Cymbalta) trazodone 150 mg tablet 150 mg PO BEDTIME PRN insomnia #90 02/12/24 tabs fluticasone propionate 110 2 puff inhalation BID #12 grams 04/28/24 mcg/actuation HFA aerosol inhaler tiotropium 2.5 mcg-olodaterol 2.5 2 puff inhalation DAILY #4 grams 04/29/24 mcg/actuation mist for inhalation (Stiolto Respimat) oxycodone-acetaminophen 5 mg-325 1 tab PO Q4H PRN pain 7 days #42 05/01/24 mg tablet tabs oxycodone-acetaminophen 5 mg-325 1 tab PO Q4H PRN pain 7 days #40 05/07/24 mg tablet tabs cephalexin 500 mg capsule 500 mg PO BID 7 days #14 caps 05/09/24 varenicline 1 mg tablet (Chantix) 1 mg PO BID #60 tabs 05/09/24 zonisamide 100 mg capsule 100 mg PO Q8H #90 caps 05/09/24 (Zonegran) Allergies Allergy/AdvReac Type Severity Reaction Status Date / Time benztropine Allergy Severe edema to Verified 05/09/24 14:29 face budesonide [From Symbicort] Allergy Severe Swelling Verified 05/09/24 14:29 and nausea fluticasone [From Flonase] Allergy Severe ADR-Swelling Verified 05/09/24 14:29 of the Eye hydrocodone Allergy Severe vomiting Verified 05/09/24 14:29 propranolol Allergy Severe ADR-Swelling Verified 05/09/24 14:29 of the Eye Sulfa (Sulfonamide Allergy Severe ALGY-Rash Verified 05/09/24 14:29 Antibiotics) triamcinolone [From Nasacort] Allergy Severe Nausea Verified 05/09/24 14:29 naproxen Allergy Intermediate throw up Verified 05/09/24 14:29 topiramate [From Trokendi XR] Allergy Intermediate hands and Verified 05/09/24 14:29 face swell oxymetazoline Allergy Mild sore throat Verified 05/09/24 14:29 [From Afrin (oxymetazoline)] asenapine [From Saphris] Allergy Unknown Unknown Verified 05/09/24 14:29 aspirin Allergy Unknown vomit Verified 05/09/24 14:29 codeine Allergy Unknown ADR-Vomitin Verified 05/09/24 14:29 g diphenhydramine Allergy Unknown palpitation Verified 05/09/24 14:29 [From Benadryl] s ibuprofen Allergy Unknown ADR-Vomitin Verified 05/09/24 14:29 g lidocaine [From Lidoderm] Allergy Unknown ADR-Vomitin Verified 05/09/24 14:29 g meloxicam Allergy Unknown ADR-Vomitin Verified 05/09/24 14:29 g pregabalin [From Lyrica] Allergy Unknown ADR-Vomitin Verified 05/09/24 14:29 g tramadol [From Ultram] Allergy Unknown ADR-Vomitin Verified 05/09/24 14:29 g celecoxib [From Celebrex] Allergy ADR-Vomitin Verified 05/09/24 14:29 g chlorzoxazone Allergy amnesia Verified 05/09/24 14:29 [From Parafon Forte] salmeterol Allergy ADR-Swelling Verified 05/09/24 14:29 [From Advair Diskus] of the Eye diazepam [From Valium] AdvReac Mild vomiting Verified 05/09/24 14:29 diclofenac [From Voltaren] AdvReac Mild vomiting Verified 05/09/24 14:29 ziprasidone [From Geodon] AdvReac Mild sores in Verified 05/09/24 14:29 mouth formoterol [From Symbicort] AdvReac sore throat Verified 05/09/24 14:29 Review of Systems General: Reports: 10 or more systems reviewed and unremarkable except in HPI and below Const: Denies: fever(s) or chills Card: Denies: chest pain Resp: Denies: dyspnea GI: Denies: abdominal pain, nausea, vomiting or diarrhea Musc: Denies: extremity pain or joint pain Skin/Breast: Reports: erythema, skin pain, skin tenderness, skin swelling and changing lesions; Denies: rash or new lesions Neuro: Denies: headache(s) PFSH ED PFSH: Medical History Psychiatric care Diverticulosis Migraine headache Chronic sinusitis Chronic eustachian tube dysfunction Allergic rhinitis Postnasal drip Nasal turbinate hypertrophy Nasal septal deformity Nicotine dependence, cigarettes, with unspecified nicotine-induced disorders Vitamin D deficiency Hyperlipidemia Chronic back pain COPD (chronic obstructive pulmonary disease) Fibromyalgia Osteoporosis Fatty liver Severe sleep apnea Hypothyroid Borderline personality disorder Cannabis dependence, episodic use Generalized anxiety disorder Chronic post-traumatic stress disorder Schizoaffective disorder, depressive type Surgical History History of appendectomy H/O section Status post gastric surgery History of cholecystectomy Family History Other Diabetes Glaucoma Hypertension Thyroid disease Denies family history of Colon cancer Pancreatic cancer Ovarian cancer Thyroid cancer Heart disease Prostate cancer genetic susceptibility Uterine cancer Social History Smoking and tobacco/nicotine status: current every day tobacco/nicotine user (about 7 cigarettes a day) cigarettes Packs smoked per day: 0.5 Years cigarettes smoked: 41 [ Other cigarette details: Started at age 16] Quit status (tobacco/nicotine): considering quitting Second hand smoke exposure: Yes Alcohol intake: current Alcohol intake frequency: holidays/special occasions only Alcohol type: hard liquor Substance/Drug Use: current Substance/Drug use frequency: daily Adopted: No Caregiver/support person: No Lives independently: Yes Household members: family Housing: Manufactured/Mobile home Marital status: Legally Marital status details: hasn't seen her for 7-8 years Number of children: 4 Number of grandchildren: 2 Highest education level completed: GED or Equivalent service: No Current occupational status: disabled Pets and animals: Yes Pets & animals: cat(s) Pets & animal details: outside cats Leisure activites: other Leisure activities details: watch movies, rock kruse Sexually active: No Do you think of yourself as: Straight/Heterosexual Current gender identity: Female Esperanza/Mosque: Pentecostalism Special esperanza needs: No Agree to transfusion: Yes Female Reproductive History: Para: 4 Spontaneous abortions: No Physical Exam Const: COMMON NORMALS: no acute distress, average body habitus, patient oriented x3, no limitations, healthy appearing, alert and well nourished HENMT: COMMON NORMALS: normocephalic and atraumatic HEAD & SCALP: normocephalic and atraumatic Neck/C-Spine: COMMON NORMALS: full ROM, no lymphadenopathy, supple and no meningeal signs Resp: COMMON NORMALS: normal respiratory effort, No use of accessory muscles and clear to auscultation bilaterally AUSCULTATION: clear to auscultation bilaterally Cardio: COMMON NORMALS: regular rate and regular rhythm RATE: regular rate RHYTHM: regular rhythm Extremity: COMMON NORMALS: full ROM and capillary refill normal Neuro: COMMON NORMALS: patient oriented x3 SENSORIUM/ORIENTATION: Yes alert MENINGEAL SIGNS: Yes no meningeal signs Skin: COMMON NORMALS: no rashes or lesions noted and turgor normal NARRATIVE SKIN EXAM: Healing incision to the palmar aspect of the base of the left thumb, mild area of erythema and swelling noted. This area is tender to the touch. Distal neurovascular status intact with no issues with range of motion. Good radial pulse. No active drainage at this time. GENERAL SKIN EXAM: no rashes or lesions noted and turgor normal Course Vital Signs: Vital signs: Vital Signs Temperature 98.2 F 05/09/24 16:58 Pulse Rate 86 05/09/24 16:58 Respiratory Rate 18 05/09/24 16:58 Blood Pressure 127/80 05/09/24 16:58 Pulse Oximetry 96 05/09/24 16:58 Oxygen Delivery Me thod Room Air 05/09/24 16:58 MDM - Wound/Laceration Medical Decision Making Patient presented for evaluation of incision after having trigger finger release on the eighth of this month. Vitals were stable on arrival, noted to be afebrile. Exam did find her wound to be slightly erythematous as well as edematous, and was tender to palpation. Pictures were sent to Dr. Aranda, who performed the procedure. He recommends at this time a shot of Rocephin as well as oral Keflex, and to perform 50/50 soaks of water and hydrogen peroxide twice a day. This is relayed to the patient, she agrees with this plan and will be discharged home after receiving her shot. Return precautions are given such that if she continues to have worsening signs of infection she will return for reevaluation. Case discussed with Dr. Juárez who agrees with disposition. No radiology studies performed this visit Discharge Plan Discharge Patient Disposition: Home Clinical Impression: Postoperative wound infection Condition: Stable Prescriptions: New cephalexin 500 mg capsule 500 mg PO BID 7 Days Qty: 14 0RF No Action omeprazole 40 mg capsule,delayed release(DR/EC) 40 mg PO DAILY@1400 dicyclomine 20 mg tablet 20 mg PO QID@09,14,18,21 ondansetron HCl [Zofran] 4 mg tablet 4 mg PO TID@09,14,21 PRN (Reason: Nausea) ipratropium bromide 42 mcg (0.06 %) spray,non-aerosol 2 spray intranasal BID Rx Instructions: administer into each nostril Zonegran 100 mg capsule 100 mg PO Q8H Qty: 90 11RF varenicline [Chantix] 1 mg tablet 1 mg PO BID Qty: 60 3RF Rx Instructions: Take with meals. Start out with a half and work your way to a full twice a day cholecalciferol (vitamin D3) 1,250 mcg (50,000 unit) capsule 1,250 mcg PO .weekly olanzapine [Zyprexa Zydis] 5 mg tablet,disintegrating 5 mg PO DAILY PRN (Reason: severe anxiety/agitation) Qty: 90 2RF Rx Instructions: May take one tab daily as needed for severe anxiety/agitation acetaminophen [Tylenol 8 Hour] 650 mg tablet extended release 650 mg PO Q8H duloxetine [Cymbalta] 30 mg capsule,delayed release(DR/EC) 30 mg PO .morning Qty: 90 2RF Rx Instructions: Take with 60 mg capsule, total dose 90 mg every morning duloxetine [Cymbalta] 60 mg capsule,delayed release(DR/EC) 60 mg PO .morning Qty: 90 2RF Rx Instructions: Take one capsule every morning with 30 mg capsule, total dose 90 mg trazodone 150 mg tablet 150 mg PO BEDTIME PRN (Reason: insomnia) Qty: 90 2RF Rx Instructions: Take one tablet at bedtime as needed for sleep polyethylene glycol 3350 [Miralax] 17 gram powder in packet 17 g PO DAILY PRN (Reason: Constipation) montelukast [Singulair] 10 mg tablet 10 mg PO DAILY@0900 Qty: 30 3RF albuterol sulfate [ProAir HFA] 90 mcg/actuation HFA aerosol inhaler 2 puff INHALATION Q6H PRN (Reason: shortness of breath or wheezing) Qty: 18 5RF fluticasone propionate 110 mcg/actuation HFA aerosol inhaler 2 puff inhalation BID Qty: 12 6RF Rx Instructions: has tried previously with no reactions noted Stiolto Respimat 2.5-2.5 mcg/actuation mist 2 puff inhalation DAILY Qty: 4 5RF Rx Instructions: has tried previously with no reactions noted oxycodone-acetaminophen 5-325 mg tablet 1 tab PO Q4H PRN (Reason: pain) 7 Days Qty: 40 0RF baclofen 20 mg tablet 20 mg PO TID@0900,1400,2100 Rx Instructions: Must last 30 days simvastatin 20 mg tablet 20 mg PO DAILY@1800 levothyroxine 25 mcg capsule 25 mcg PO DAILY@0900 buspirone 10 mg tablet 20 mg PO BID Rx Instructions: Take two tablets twice per day oxycodone-acetaminophen 5-325 mg tablet 1 tab PO Q4H PRN (Reason: pain) 7 Days Qty: 42 0RF Discharge Orders: Discharge ED (Routine); Ordered 05/09/24 Ordered By: Silas Francois Referrals: Aliyah Benito DO [Primary Care Provider] - Discharge Diet: Usual diet Discharge Activity: Increase activity as tolerated Patient Instructions: Pain Management Activity Restrictions/Additional Instructions: Antibiotics as prescribed. Leave wound open to dry. Twice a day, you may soak in 50% water, 50% hydrogen peroxide. Continue follow-up with Dr. Aranda as scheduled. With any new or worsening of symptoms, please return for reevaluation. Coding Level of Care Code ED Drapery Inspector for Sariah Fox
[2024-05-09] MEDS: cefTRIAXone 1,000 MG in water for injection-sterile 2.1 ML 2.1 MG IM (18:36)
[2024-05-09 18:39] VITALS: BP 127/80; PULSE 86; RESP 18; TEMP 36.8; O2SAT 96
== END 2024-05-09 18:40 | disposition home or self-care (01) ==
PROVIDERS: Emergency Provider Physician Assistant; PCP Family Medicine
DX: T81.41XA Infection following a procedure, superficial incisional surgical site, initial encounter (principal); F17.210 Nicotine dependence, cigarettes, uncomplicated; E78.5 Hyperlipidemia, unspecified; J44.9 Chronic obstructive pulmonary disease, unspecified
CPT/HCPCS: 96372; 99284; J0696

== ENCOUNTER → 2024-05-13 13:53 | Outpatient (BNVA) | payer OTHER, SELFPAY ==
[2024-01-28 07:57] VITALS: BP 130/82; BMI 27.0
== END ==
PROVIDERS: PCP Family Medicine; Visit Provider Nurse Practitioner Psychiatric/Mental Health
DX: Z79.899 Other long term (current) drug therapy (principal)
CPT/HCPCS: 80053; 80061; 83036

== ENCOUNTER → 2024-05-15 11:00 | Outpatient (BNVA) | payer MEDICAID, SELFPAY ==
[2024-01-28 07:57] VITALS: BP 130/82; BMI 27.0
== END ==
PROVIDERS: PCP Family Medicine; Visit Provider Physician Assistant
DX: Z98.890 Other specified postprocedural states (principal)
CPT/HCPCS: 99024

== ENCOUNTER 2024-05-28 09:49 | Outpatient (CLI) | payer MEDICAID, SELFPAY ==
[2024-01-28 07:57] VITALS: BP 130/82; BMI 27.0
--- NOTE | 2024-05-28 09:51 | CT_ITS ---
WS: [id number] LDCT LUNG CANCER SCREENING TECHNIQUE: Noncontrast CT of the chest with coronal and sagittal reformatted images. CLINICAL INFORMATION: NICOTINE DEPENDENCE,CIGARETTES COMPARISON: CT 04/27/2023 DLP: 49.02 mGy.cm DIvol: Mean CTDIvol: 0.90 (mGy) All CT scans at [facility] use at least one of these dose optimization techniques: automat ed exposure control; mA and/or kV adjustment per patient size (includes targeted exams where dose is matched to clinical indication); or iterative reconstruction. FINDINGS: A few tiny subcentimeter pulmonary nodules are unchanged. Ovoid density RIGHT lower lobe pr eviously thought to represent mucous plugging with calcification has increased in size with increased soft tissue. This measures up to 2.5 cm. Recommend further evaluation with PET/CT considering increa se in size. Stable 6 mm pulmonary nodule superior segment RIGHT lower lobe Hyperinflation. Mild chronic emphysematous changes. A few calcified granulomas. Normal caliber thorac ic aorta. No mediastinal or hilar lymphadenopathy. Calcified RIGHT hilar lymph nodes. No axillary lym phadenopathy. Prior cholecystectomy. Hepatic and splenic granulomas. Normal GE junction. Adrenal glands are normal. Mild thoracic curve. Mild thoracic kyphosis. Spondylitic changes thoracic spine. CT/CT lung screening [id number] IMPRESSION: Lobulated opacity RIGHT lower lobe is increased in size measuring u p to 2.5 cm today with increased soft tissue. This is indeterminate and recomme nd further evaluation with PET/CT LUNG-RADS: 4A-Probably Suspicious FOLLOW UP: PET/CT recommended
== END 2024-05-28 09:50 | disposition home or self-care (01) ==
LOC: RAD 09:49
PROVIDERS: PCP Family Medicine; Visit Provider Family Medicine
DX: Z12.2 Encounter for screening for malignant neoplasm of respiratory organs (principal); F17.210 Nicotine dependence, cigarettes, uncomplicated; R91.8 Other nonspecific abnormal finding of lung field; J84.10 Pulmonary fibrosis, unspecified; Z90.49 Acquired absence of other specified parts of digestive tract; D73.89 Other diseases of spleen; K75.3 Granulomatous hepatitis, not elsewhere classified; M47.814 Spondylosis without myelopathy or radiculopathy, thoracic region
CPT/HCPCS: 71271

== ENCOUNTER 2024-06-10 07:57 | Outpatient (CLI) | payer MEDICAID, SELFPAY ==
[2024-01-28 07:57] VITALS: BP 130/82; BMI 27.0
--- NOTE | 2024-06-10 08:06 | PETR_ITS ---
PROCEDURE INFORMATION: Exam: PET/CT Skull Base to Mid-thigh Exam date and time: 06/10/2024 9:52 AM Age: 58 years old Clinical indication: Pulmonary nodules. Elongated opacity in the right lower lobe on lung cancer screening on 05/28/2024. LABS AND CLINICAL REPORTS: Glucose: 111 mg/dl Treatment strategy for malignancy (PET staging): Initial Staging (PI) TECHNIQUE: Imaging protocol: Following at least four-hour fasting and following the injection of radiopharmaceutical, low dose CT images were obtained. Then, PET images were obtained. Attenuation corrected images were constructed using the CT scan. Fused images of PET and CT were reviewed. The standardized uptake values (SUV) reported below are maximum values within a region of interest, expressed in gm/ml. Exam includes orbital meatal line to mid-thigh. Radiopharmaceutical: 10.55 mCi F-18 FDG (Fluorodeoxyglucose), IV. Time of imaging post radiopharmaceutical administration: 1 hour Injection site: Right antecubital vein COMPARISON: CT chest lung cancer screening 05/28/2024, PET Scan 06/03/2022 9:59 AM FINDINGS: Brain: Visualized brain has normal physiologic uptake. Pharynx: No abnormal uptake. Larynx: Increased bilateral symmetric uptake is benign. Lungs, pleura and trachea: No abnormal uptake. Stable hyperdense branching linear opacity in the right lower lobe with densely calcified upper limb and less hyperdense probably still partially calcified 2.1 x 0.9 cm lower limb compatible with benign finding. Minimal dependent ground-glass opacities in the lower lobes are atelectatic. No pleural effusion. Heart: Normal physiologic uptake. There is no cardiomegaly. No coronary artery calcification is visualized. There is no pericardial effusion. Mediastinal space: No abnormal uptake. Liver: No abnormal uptake. Stable small calcified granulomas. Gallbladder and biliary ducts: No abnormal uptake. Status post cholecystectomy. Pancreas: No abnormal uptake. Spleen: No abnormal uptake. No splenomegaly. Stable small calcified granulomas. Adrenal glands: No abnormal uptake. No nodules. Kidneys and ureters: Normal physiologic uptake. No hydronephrosis. Stomach and bowel: Long segment of increased uptake in the right colon with no corresponding CT abnormality is benign. Vasculature: No abnormal uptake. No aortic aneurysm. Lymph nodes: No abnormal uptake. No lymphadenopathy in the head, neck, chest, abdomen, pelvis, and extremities. Stable sequela of exposure to granulomatous disease with calcified granulomas in normal size right hilar and right subcarinal lymph nodes. Skeleton: No abnormal uptake in the visualized axial and appendicular skeleton. Status post C5-C7 fusion with anterior internal fixation. Soft tissues: Benign increased muscular uptake in bilateral masseter muscles and in the muscles of the upper back, arms and the proximal thighs. PET/PET skull to thigh INIT [id number] IMPRESSION: No abnormal radiotracer uptake. Non FDG avid partially calcified elongated opacity in the right lower lobe not significantly changed since the prior exam of 2021 compatible with benign finding, likely sequela of exposure to granulomatous infection.
== END 2024-06-10 07:58 | disposition home or self-care (01) ==
LOC: RAD 07:57
PROVIDERS: PCP Family Medicine; Visit Provider Family Medicine
DX: R91.8 Other nonspecific abnormal finding of lung field (principal); J84.10 Pulmonary fibrosis, unspecified; K75.3 Granulomatous hepatitis, not elsewhere classified; Z90.49 Acquired absence of other specified parts of digestive tract; M43.22 Fusion of spine, cervical region
CPT/HCPCS: 78815; A9552

== ENCOUNTER → 2024-06-17 08:04 | Outpatient (BNVA) | payer MEDICAID, SELFPAY ==
[2024-01-28 07:57] VITALS: BP 130/82; BMI 27.0
== END ==
PROVIDERS: PCP Family Medicine; Visit Provider Orthopaedic Surgery
DX: Z98.1 Arthrodesis status (principal)
CPT/HCPCS: 72040; 99024

== ENCOUNTER → 2024-07-10 09:33 | Outpatient (BNVA) | payer MEDICAID, SELFPAY ==
[2024-01-28 07:57] VITALS: BP 130/82; BMI 27.0
== END ==
PROVIDERS: PCP Family Medicine; Visit Provider Physician Assistant
DX: Z98.890 Other specified postprocedural states (principal)
CPT/HCPCS: 99024

== ENCOUNTER → 2024-09-09 08:31 | Outpatient (BNVA) | payer OTHER, SELFPAY ==
[2024-08-18 08:09] VITALS: BP 118/81; BMI 24.8
== END ==
PROVIDERS: PCP Family Medicine; Visit Provider Orthopaedic Surgery
DX: M47.816 Spondylosis without myelopathy or radiculopathy, lumbar region (principal); M54.9 Dorsalgia, unspecified; G89.29 Other chronic pain; Z98.1 Arthrodesis status
CPT/HCPCS: 36415; 72040; 72110; 80053; 81001; 85025

== ENCOUNTER → 2024-09-30 13:32 | Outpatient (BNVA) | payer MEDICAID, SELFPAY ==
[2024-08-18 08:09] VITALS: BP 118/81; BMI 24.8
== END ==
PROVIDERS: PCP Family Medicine; Visit Provider Anesthesiology Pain Medicine
DX: M48.062 Spinal stenosis, lumbar region with neurogenic claudication (principal); M47.22 Other spondylosis with radiculopathy, cervical region; M50.30 Other cervical disc degeneration, unspecified cervical region; G89.29 Other chronic pain
CPT/HCPCS: 99214

== ENCOUNTER → 2024-10-07 13:30 | Outpatient (BNVA) | payer MEDICAID, SELFPAY ==
[2024-08-18 08:09] VITALS: BP 118/81; BMI 24.8
== END ==
PROVIDERS: PCP Family Medicine; Visit Provider Anesthesiology Pain Medicine
DX: M47.812 Spondylosis without myelopathy or radiculopathy, cervical region (principal); M54.2 Cervicalgia
CPT/HCPCS: 64490; J3490

== ENCOUNTER 2024-10-17 05:31 | Day surgery (SDC) | payer MEDICAID, SELFPAY ==
[2024-08-18 08:09] VITALS: BP 118/81; BMI 24.8
[2024-10-17] VITALS (16 sets, daily range): BP systolic 117–146; BP diastolic 73–93; PULSE 69–91; RESP 10–21; TEMP 35.9–36.4; O2SAT 95–100; BMI 25.4
[2024-10-17] MEDS: sodium chloride 0.9% 1,000 ML 30 ML IV (06:18)
--- NOTE | 2024-10-17 06:37 | ANES.PREANE2 ---
Pre-Anesthetic Assessment Height/Weight: Height 1.57 m Weight 63.049 kg Temp Pulse Resp BP Pulse Ox O2 Del Method 97.5 F L 82 17 117/80 97 Room Air 10/17/24 06:10 10/17/24 06:10 10/17/24 06:10 10/17/24 06:10 10/17/24 06:10 10/17/24 06:10 Preop Diagnosis: Lumbar stenosis with neurogenic claudication Operation Date: 10/17/24 07:00 Proposed Procedures p L4-5 Lumbar Spine Decompression Lumbar Decompression(Not Applicable) - Luther Vazquez DO Familial anesthetic complications: None Was Beta Landon taken within 24 hours: N/A Was Clonidine taken within 24 hours: N/A Last intake: Intake Last Liquid Date 10/16/24 Last Liquid Time 23:30 Last Solid Date 10/16/24 Last Solid Time 22:30 Social Tobacco and No alcohol Exam alert, oriented x 3, clear to auscultation bilaterally and regular rate & rhythm Airway Mallampati: Class I Dentition: full Pulmonary Asthma, Chronic Obstructive Pulmonary Disease and Sleep Apnea GI Gastroesophageal Reflux Disease Metabolic Hyperlipidemia and Thyroid Disease Anesthetic Plan ASA status: 3 Anesthesia: General Risk of > 500 ml blood loss (7ml/kg in children): No Medications/Allergies Home Medications Medication Instructions Recorded Confirmed Last Taken Type ondansetron HCl 4 mg tablet 4 mg PO TID@,, PRN Nausea 11/01/20 10/17/24 10/16/24 History (Zofran) dicyclomine 20 mg tablet 20 mg PO QID@,14,18,21 12/22/20 10/17/24 10/16/24 History omeprazole 40 mg capsule,delayed 40 mg PO DAILY@1400 12/22/20 10/17/24 10/16/24 History release baclofen 20 mg tablet 20 mg PO TID@0900,1400,2100 01/07/21 10/17/24 10/16/24 History levothyroxine 25 mcg capsule 25 mcg PO DAILY@0900 01/07/21 10/17/24 10/16/24 History simvastatin 20 mg tablet 20 mg PO DAILY@1800 01/07/21 10/17/24 10/16/24 History montelukast 10 mg tablet 10 mg PO DAILY@0900 #30 tabs 0810/17/24 10/16/24 Rx (Singulair) albuterol sulfate 90 mcg/actuation 2 puff inhalation Q6H PRN 03/24/22 10/17/24 10/14/24 Rx aerosol inhaler (ProAir HFA) shortness of breath or wheezing #18 grams cholecalciferol (vitamin D3) 1,250 1,250 mcg PO .weekly 05/17/22 10/17/24 10/16/24 History mcg (50,000 unit) capsule olanzapine 5 mg disintegrating 5 mg PO DAILY PRN severe 02/01/23 10/17/24 10/16/24 Rx tablet (Zyprexa Zydis) anxiety/agitation #90 tabs acetaminophen 650 mg 650 mg PO Q8H pain 08/08/23 10/17/24 04/29/24 History tablet,extended release (Tylenol 8 Hour) polyethylene glycol 3350 17 gram 17 g PO DAILY PRN Constipation 11/15/23 10/17/24 1 Month Ago History oral powder packet (Miralax) ~03/30/24 fluticasone propionate 110 2 puff inhalation BID #12 grams 04/28/24 10/17/24 10/16/24 Rx mcg/actuation HFA aerosol inhaler tiotropium 2.5 mcg-olodaterol 2.5 2 puff inhalation DAILY #4 grams 04/29/24 10/17/24 10/16/24 Rx mcg/actuation mist for inhalation (Stiolto Respimat) ipratropium bromide 42 mcg (0.06 2 spray intranasal BID 05/09/24 10/17/24 10/16/24 History %) nasal spray varenicline 1 mg tablet (Chantix) 1 mg PO BID #60 tabs 05/09/24 10/17/24 10/16/24 Rx buspirone 10 mg tablet 20 mg (2 x 10 mg) PO BID #360 tabs 05/13/24 10/17/24 10/16/24 Rx olanzapine 5 mg tablet (Zyprexa) 5 mg PO BEDTIME . #90 tabs 05/13/24 10/17/24 10/16/24 Rx zonisamide 100 mg capsule See Rx Instructions .Route 05/21/24 10/17/24 10/16/24 Rx .COMPLEX #60 caps bupropion HCl 150 mg 24 hr tablet, 150 mg PO QAM #30 tabs 06/18/24 10/17/24 10/16/24 Rx extended release (Wellbutrin XL) trazodone 150 mg tablet 150 mg PO BEDTIME PRN insomnia #90 08/13/24 10/17/24 10/16/24 Rx tabs duloxetine 30 mg capsule,delayed 90 mg PO .morning 10/16/24 10/17/24 10/16/24 History release (Cymbalta) Allergies Allergy/AdvReac Type Severity Reaction Status Date / Time benztropine Allergy Severe edema to Verified 10/16/24 10:36 face budesonide [From Symbicort] Allergy Severe Swelling Verified 10/16/24 10:36 and nausea fluticasone [From Flonase] Allergy Severe ADR-Swelling Verified 10/16/24 10:36 of the Eye hydrocodone Allergy Severe vomiting Verified 10/16/24 10:36 propranolol Allergy Severe ADR-Swelling Verified 10/16/24 10:36 of the Eye Sulfa (Sulfonamide Allergy Severe ALGY-Rash Verified 10/16/24 10:36 Antibiotics) triamcinolone [From Nasacort] Allergy Severe Nausea Verified 10/16/24 10:36 naproxen Allergy Intermediate throw up Verified 10/16/24 10:36 topiramate [From Trokendi XR] Allergy Intermediate hands and Verified 10/16/24 10:36 face swell oxymetazoline Allergy Mild sore throat Verified 10/16/24 10:36 [From Afrin (oxymetazoline)] asenapine [From Saphris] Allergy Unknown Unknown Verified 10/16/24 10:36 aspirin Allergy Unknown vomit Verified 10/16/24 10:36 codeine Allergy Unknown ADR-Vomitin Verified 10/16/24 10:36 g diphenhydramine Allergy Unknown palpitation Verified 10/16/24 10:36 [From Benadryl] s ibuprofen Allergy Unknown ADR-Vomitin Verified 10/16/24 10:36 g lidocaine [From Lidoderm] Allergy Unknown ADR-Vomitin Verified 10/16/24 10:36 g meloxicam Allergy Unknown ADR-Vomitin Verified 10/16/24 10:36 g pregabalin [From Lyrica] Allergy Unknown ADR-Vomitin Verified 10/16/24 10:36 g tramadol [From Ultram] Allergy Unknown ADR-Vomitin Verified 10/16/24 10:36 g celecoxib [From Celebrex] Allergy ADR-Vomitin Verified 10/16/24 10:36 g chlorzoxazone Allergy amnesia Verified 10/16/24 10:36 [From Parafon Forte] salmeterol Allergy ADR-Swelling Verified 10/16/24 10:36 [From Advair Diskus] of the Eye diazepam [From Valium] AdvReac Mild vomiting Verified 10/16/24 10:36 diclofenac [From Voltaren] AdvReac Mild vomiting Verified 10/16/24 10:36 ziprasidone [From Geodon] AdvReac Mild sores in Verified 10/16/24 10:36 mouth formoterol [From Symbicort] AdvReac sore throat Verified 10/16/24 10:36 Current Medications Generic Name Dose Route Start Last Admin Trade Name Freq PRN Reason Stop Dose Admin Sodium Chloride 1,000 mls @ 30 mls/hr 10/17/24 06:00 10/17/24 06:18 Sodium Chloride 0.9% IV 10/18/24 05:59 30 mls/hr .Q24H TANIYA Administration PFSH Anesthesia Medical History Psychiatric care Diverticulosis Migraine headache Chronic sinusitis Chronic eustachian tube dysfunction Allergic rhinitis Postnasal drip Nasal turbinate hypertrophy Nasal septal deformity Nicotine dependence, cigarettes, with unspecified nicotine-induced disorders Vitamin D deficiency Hyperlipidemia Chronic back pain COPD (chronic obstructive pulmonary disease) Fibromyalgia Osteoporosis Fatty liver Severe sleep apnea Hypothyroid Borderline personality disorder Cannabis dependence, episodic use Generalized anxiety disorder Chronic post-traumatic stress disorder Schizoaffective disorder, depressive type Surgical History (Updated 10/16/24 @ 09:45 by Angi Pal RN) History of appendectomy H/O section Status post gastric surgery History of cholecystectomy Family History Other Diabetes Glaucoma Hypertension Thyroid disease Denies family history of Colon cancer Pancreatic cancer Ovarian cancer Thyroid cancer Heart disease Prostate cancer genetic susceptibility Uterine cancer Social History Smoking and tobacco/nicotine status: former use of tobacco/nicotine Quit status (tobacco/nicotine): considering quitting Second hand smoke exposure: Yes Alcohol intake: current Alcohol intake frequency: holidays/special occasions only Alcohol type: hard liquor Substance/Drug Use: current Substance/Drug use frequency: daily Adopted: No Caregiver/support person: No Lives independently: Yes Household members: family Housing: Manufactured/Mobile home Marital status: Legally Marital status details: hasn't seen her for 7-8 years Number of children: 4 Number of grandchildren: 2 Highest education level completed: GED or Equivalent service: No Current occupational status: disabled Pets and animals: Yes Pets & animals: cat(s) Pets & animal details: outside cats Leisure activites: other Leisure activities details: watch movies, rock kruse Sexually active: No Do you think of yourself as: Straight/Heterosexual Current gender identity: Female Esperanza/Congregation: Confucianism Special esperanza needs: No Agree to transfusion: Yes Female Reproductive History Para: 4 Spontaneous abortions: No Data Anesthesia Cardiac Studies: Sestamibi Stress Test (Cardiology) 05/09/22
--- NOTE | 2024-10-17 06:37 | W.PM.OPSUD ---
Surgery/Procedure H&P Update DATE OF PROCEDURE: October 17, 2024 DATE H&P PERFORMED: 10/08/24 H&P UPDATE INFORMATION: I have reviewed H&P completed within last 30 days, I have examined patient prior to procedure and No changes to prior documentation PREOP DIAGNOSIS: Lumbar stenosis with neurogenic claudication PLANNED PROCEDURE: Operation Date: 10/17/24 07:00 Proposed Procedures p L4-5 Lumbar Spine Decompression Lumbar Decompression(Not Applicable) - Luther Vazquez DO
[2024-10-17] MEDS: ceFAZolin 2,000 mg SDV 2000 MG IVP (07:00)
--- NOTE | 2024-10-17 08:04 | XR_ITS ---
WS: [id number] Lumbar spine, C-arm fluoroscopy views, 10/17/2024 Clinical Data: OR PICS Comparison: Lumbar spine, 09/09/2024 Findings: Dr. Vazquez performed a lumbar decompression. XR/XR lumbar spine 2-3V* [id number] Impression: Lumbar decompression.
[2024-10-17] MEDS: fentaNYL 50 mcg/mL INJ 2mL IVP ×2 (08:28→08:38)
[2024-10-17] MEDS: ondansetron 2 mg/ML SDV 2 mL 4 MG IVP (08:30)
--- NOTE | 2024-10-17 08:34 | PM.OP ---
Operative Report Date of procedure: October 17, 2024 Pre-op diagnosis: Lumbar stenosis with neurogenic claudication Post-op diagnosis: same Procedure done: L4-5 laminectomy with partial facetectomy Surgeon: Luther Vazquez DO Estimated blood loss (mL): 25 Procedure: L4-5 laminectomy with partial facetectomy Patient is brought to the operative suite. After undergoing anesthesia they are placed in the prone position. All areas of impingement are well padded. Patient is then prepped and draped in the normal sterile fashion. A skin incision is made over the L4/5 level. This is confirmed under c-arm guidance. A series of dilators are passed and the tubular retractor is docked on the L4 lamina. A bovie is used to clear the soft tissue off the lamina and the L 4/5 facet joint. A high speed carlos is then used to perform the laminectomy and take down the medial aspect of the L 4/5 facet joint. A kerrison rongeure was then used to take down the remaining lamina and smooth the edge of the laminectomy up to the point where the ligamentum flavum attaches. Attention was then brought to the medial aspect of the facet joint. The remaining medial aspect of the superior and inferior aspect of the facet joint were taken down with the kerrison from the pedicle of L4 to L 5. The facet joint had significant hypertrophy. Attention was then brought to the Ligamentum Flavum. The ligament was taken down from the lamina of L4 to L5 and out medially to the remaining facet joint. The ligament was thick. The dura was then exposed. The dura was in good repair. The L4 nerve was then traced with a curette out the L4/5 foramen and found to be adequately decompressed. The L5 nerve was traced with a curette around the L5 pedicle. The lateral recess was opened with a kerrison helping to further decompress the L5 nerve. Wound is then irrigated copiously with saline and surgiflo is used to stop any bleeding. The tubular retractor is removed and the wound is closed with vicryl and monocryl suture. Glue is then used to protect the wound. A sterile dressing is then placed. Patient was then placed in the supine position and transferred to the PACU in stable condition.
[2024-10-17] MEDS: oxyCODONE 5 mg IR Tab/Cap PO (09:18)
--- NOTE | 2024-10-17 09:45 | ANE.PACU2 ---
Inpatient post-anesthesia follow up: Airway intact: Yes Vital signs: Temperature 97.0 F Pulse Rate 81 Respiratory Rate 18 Blood Pressure 140/88 Pulse Oximetry 98 Oxygen Delivery Me thod Room Air Oxygen Flow Rate Fraction of Inspir ed Oxygen Hydration adequate: Yes Nausea and vomiting: No Pain level: 1 Mental status: Baseline
== END 2024-10-17 09:45 | disposition home or self-care (01) ==
PROVIDERS: PCP Family Medicine; Visit Provider Orthopaedic Surgery
PROC: (CPT 63005; principal; 2024-10-17 07:00)
DX: M48.062 Spinal stenosis, lumbar region with neurogenic claudication (principal); J44.9 Chronic obstructive pulmonary disease, unspecified; G47.30 Sleep apnea, unspecified; K21.9 Gastro-esophageal reflux disease without esophagitis; E78.5 Hyperlipidemia, unspecified; Z87.891 Personal history of nicotine dependence
CPT/HCPCS: 63047; 72100; 76000; J0131; J0330; J0690; J1100; J2250; J2405; J2704; J3010; J3490; J7030

== ENCOUNTER 2024-10-19 13:10 | Emergency (ER) | payer MEDICAID, SELFPAY ==
[2024-08-18 08:09] VITALS: BP 118/81; BMI 24.8
[2024-10-19 13:36] VITALS: BP 106/68; PULSE 107; RESP 16; TEMP 36.9; O2SAT 96
--- NOTE | 2024-10-19 14:31 | CTR_ITS ---
PROCEDURE INFORMATION: Exam: CT Lumbar Spine Without Contrast Exam date and time: 10/19/2024 2:38 PM Age: 58 years old Clinical indication: Low back pain; Prior surgery; Surgery date: 3-7 days post-operative; Surgery type: Low back on a nerve; Additional info: Post surgery increase pain TECHNIQUE: Imaging protocol: Computed tomography of the lumbar spine without contrast. Radiation optimization: All CT scans at this facility use at least one of these dose optimization techniques: automated exposure control; mA and/or kV adjustment per patient size (includes targeted exams where dose is matched to clinical indication); or iterative reconstruction. COMPARISON: Lumbar spine plain films dated 09/09/2024 RADIATION DOSE METRICS: Total DLP (mGy-cm): 495.84 FINDINGS: Bones/joints: The lumbar vertebral body heights are maintained. The lumbar vertebral bodies are normally aligned. Surgical changes are noted with left L4 hemilaminectomy. Small amount of air is noted in the surgical site and may be related to recent surgery. Recommend correlation with surgical history. L1-L2: No significant disc bulge or herniation. No severe spinal canal stenosis. No significant neuroforaminal narrowing. L2-L3: No significant disc bulge or herniation. No severe spinal canal stenosis. No significant neurlforaminal narrowing. L3-L4: Broad concentric disc bulge and bilateral facet arthropathy contributing to mild central canal stenosis. Mild bilateral neuroforaminal narrowing. L4-L5: Broad concentric disc bulge with moderate central canal stenosis. Spinal canal partially decompressed by left mild bilateral neuroforaminal narrowing. L5-S1: Broad concentric disc bulge and bilateral facet arthropathy contributing to central canal stenosis minimal bilateral neural narrowing. Soft tissues: Nonspecific bilateral adrenal thickening. Status post cholecystectomy. Posterior lumbar subcutaneous fluid collection is identified measuring up to 7.0 x 1.1 x 9.5 cm and may represent a postoperative seroma. Recommend clinical correlation and follow-up imaging as clinically warranted. CT/CT lumbar spine wo con* [id number] IMPRESSION: Postsurgical and degenerative changes of the lumbar spine. If symptoms persist, consider further evaluation with MRI, if there are no contraindications to obtaining a MRI scan.
--- NOTE | 2024-10-19 14:47 | W.ED.EXTPRO ---
HPI - Extremity Problem General: Chief complaint: Extremity Problem,Nontraumatic Stated complaint: left leg pain, surgery 3 days ago Time Seen by Provider: 10/19/24 14:20 History of Present Illness: 58-year-old female comes in today for complaints of lower back and left leg pain. Patient appears nontoxic. Patient appears no acute distress. Patient reportedly had surgery on the and has increased pain today. Patient reports difficulty with ambulation due to the pain and discomfort. Patient appears nontoxic. Patient appears no acute distress. Related Data Home Medications Medication Instructions Recorded Confirmed ondansetron HCl 4 mg tablet 4 mg PO TID@,, PRN Nausea 11/01/20 10/17/24 (Zofran) dicyclomine 20 mg tablet 20 mg PO QID@09,14,18,21 12/22/20 10/17/24 omeprazole 40 mg capsule,delayed 40 mg PO DAILY@1400 12/22/20 10/17/24 release baclofen 20 mg tablet 20 mg PO TID@0900,1400,2100 01/07/21 10/17/24 levothyroxine 25 mcg capsule 25 mcg PO DAILY@0900 01/07/21 10/17/24 simvastatin 20 mg tablet 20 mg PO DAILY@1800 01/07/21 10/17/24 cholecalciferol (vitamin D3) 1,250 1,250 mcg PO .weekly 05/17/22 10/17/24 mcg (50,000 unit) capsule acetaminophen 650 mg 650 mg PO Q8H pain 08/08/23 10/17/24 tablet,extended release (Tylenol 8 Hour) polyethylene glycol 3350 17 gram 17 g PO DAILY PRN Constipation 11/15/23 10/17/24 oral powder packet (Miralax) ipratropium bromide 42 mcg (0.06 2 spray intranasal BID 05/09/24 10/17/24 %) nasal spray duloxetine 30 mg capsule,delayed 90 mg PO .morning 10/16/24 10/17/24 release (Cymbalta) Previous Rx's Medication Instructions Recorded montelukast 10 mg tablet 10 mg PO DAILY@0900 #30 tabs 04/25/21 (Singulair) albuterol sulfate 90 mcg/actuation 2 puff inhalation Q6H PRN 03/24/22 aerosol inhaler (ProAir HFA) shortness of breath or wheezing #18 grams olanzapine 5 mg disintegrating 5 mg PO DAILY PRN severe 02/01/23 tablet (Zyprexa Zydis) anxiety/agitation #90 tabs fluticasone propionate 110 2 puff inhalation BID #12 grams 04/28/24 mcg/actuation HFA aerosol inhaler tiotropium 2.5 mcg-olodaterol 2.5 2 puff inhalation DAILY #4 grams 04/29/24 mcg/actuation mist for inhalation (Stiolto Respimat) varenicline 1 mg tablet (Chantix) 1 mg PO BID #60 tabs 05/09/24 buspirone 10 mg tablet 20 mg (2 x 10 mg) PO BID #360 tabs 05/13/24 olanzapine 5 mg tablet (Zyprexa) 5 mg PO BEDTIME . #90 tabs 05/13/24 zonisamide 100 mg capsule See Rx Instructions .Route 05/21/24 .COMPLEX #60 caps bupropion HCl 150 mg 24 hr tablet, 150 mg PO QAM #30 tabs 06/18/24 extended release (Wellbutrin XL) trazodone 150 mg tablet 150 mg PO BEDTIME PRN insomnia #90 08/13/24 tabs oxycodone 5 mg tablet 5 mg PO Q4H PRN pain 7 days #42 10/17/24 tabs prednisone 20 mg tablet 20 mg PO BID 5 days #10 tabs 10/19/24 Allergies Allergy/AdvReac Type Severity Reaction Status Date / Time benztropine Allergy Severe edema to Verified 10/19/24 13:36 face budesonide [From Symbicort] Allergy Severe Swelling Verified 10/19/24 13:36 and nausea fluticasone [From Flonase] Allergy Severe ADR-Swelling Verified 10/19/24 13:36 of the Eye hydrocodone Allergy Severe vomiting Verified 10/19/24 13:36 propranolol Allergy Severe ADR-Swelling Verified 10/19/24 13:36 of the Eye Sulfa (Sulfonamide Allergy Severe ALGY-Rash Verified 10/19/24 13:36 Antibiotics) triamcinolone [From Nasacort] Allergy Severe Nausea Verified 10/19/24 13:36 naproxen Allergy Intermediate throw up Verified 10/19/24 13:36 topiramate [From Trokendi XR] Allergy Intermediate hands and Verified 10/19/24 13:36 face swell oxymetazoline Allergy Mild sore throat Verified 10/19/24 13:36 [From Afrin (oxymetazoline)] asenapine [From Saphris] Allergy Unknown Unknown Verified 10/19/24 13:36 aspirin Allergy Unknown vomit Verified 10/19/24 13:36 codeine Allergy Unknown ADR-Vomitin Verified 10/19/24 13:36 g diphenhydramine Allergy Unknown palpitation Verified 10/19/24 13:36 [From Benadryl] s ibuprofen Allergy Unknown ADR-Vomitin Verified 10/19/24 13:36 g lidocaine [From Lidoderm] Allergy Unknown ADR-Vomitin Verified 10/19/24 13:36 g meloxicam Allergy Unknown ADR-Vomitin Verified 10/19/24 13:36 g pregabalin [From Lyrica] Allergy Unknown ADR-Vomitin Verified 10/19/24 13:36 g tramadol [From Ultram] Allergy Unknown ADR-Vomitin Verified 10/19/24 13:36 g celecoxib [From Celebrex] Allergy ADR-Vomitin Verified 10/19/24 13:36 g chlorzoxazone Allergy amnesia Verified 10/19/24 13:36 [From Parafon Forte] salmeterol Allergy ADR-Swelling Verified 10/19/24 13:36 [From Advair Diskus] of the Eye diazepam [From Valium] AdvReac Mild vomiting Verified 10/19/24 13:36 diclofenac [From Voltaren] AdvReac Mild vomiting Verified 10/19/24 13:36 ziprasidone [From Geodon] AdvReac Mild sores in Verified 10/19/24 13:36 mouth formoterol [From Symbicort] AdvReac sore throat Verified 10/19/24 13:36 Review of Systems General: Reports: 10 or more systems reviewed and unremarkable except in HPI and below Musc: Reports: back pain PFSH ED PFSH: Medical History (Updated 10/19/24 @ 15:57 by TARAN Holly) Psychiatric care Diverticulosis Migraine headache Chronic sinusitis Chronic eustachian tube dysfunction Allergic rhinitis Postnasal drip Nasal turbinate hypertrophy Nasal septal deformity Nicotine dependence, cigarettes, with unspecified nicotine-induced disorders Vitamin D deficiency Hyperlipidemia Chronic back pain COPD (chronic obstructive pulmonary disease) Fibromyalgia Osteoporosis Fatty liver Severe sleep apnea Hypothyroid Borderline personality disorder Cannabis dependence, episodic use Generalized anxiety disorder Chronic post-traumatic stress disorder Schizoaffective disorder, depressive type Surgical History (Updated 10/16/24 @ 09:45 by Angi Pal RN) History of appendectomy H/O section Status post gastric surgery History of cholecystectomy Family History Other Diabetes Glaucoma Hypertension Thyroid disease Denies family history of Colon cancer Pancreatic cancer Ovarian cancer Thyroid cancer Heart disease Prostate cancer genetic susceptibility Uterine cancer Social History Smoking and tobacco/nicotine status: former use of tobacco/nicotine Quit status (tobacco/nicotine): considering quitting Second hand smoke exposure: Yes Alcohol intake: current Alcohol intake frequency: holidays/special occasions only Alcohol type: hard liquor Substance/Drug Use: current Substance/Drug use frequency: daily Adopted: No Caregiver/support person: No Lives independently: Yes Household members: family Housing: Manufactured/Mobile home Marital status: Legally Marital status details: hasn't seen her for 7-8 years Number of children: 4 Number of grandchildren: 2 Highest education level completed: GED or Equivalent service: No Current occupational status: disabled Pets and animals: Yes Pets & animals: cat(s) Pets & animal details: outside cats Leisure activites: other Leisure activities details: watch movies, rock kruse Sexually active: No Do you think of yourself as: Straight/Heterosexual Current gender identity: Female Esperanza/Shinto: Congregation Special esperanza needs: No Agree to transfusion: Yes Female Reproductive History: Para: 4 Spontaneous abortions: No Physical Exam Const: COMMON NORMALS: alert HENMT: COMMON NORMALS: normocephalic HEAD & SCALP: normocephalic Neck/C-Spine: COMMON NORMALS: full ROM Resp: COMMON NORMALS: normal respiratory effort Cardio: COMMON NORMALS: regular rate RATE: regular rate Back/Pelvis: LUMBAR SPINE/LOWER BACK: Yes paraspinal muscle tenderness OTHER: Normal appearing surgical wound low back. Extremity: COMMON NORMALS: full ROM Neuro: SENSORIUM/ORIENTATION: Yes alert Skin: COMMON NORMALS: turgor normal GENERAL SKIN EXAM: turgor normal Course Vital Signs: Vital signs: Vital Signs Temperature 98.5 F 10/19/24 13:36 Pulse Rate 107 H 10/19/24 13:36 Respiratory Rate 16 10/19/24 15:40 Blood Pressure 106/68 10/19/24 13:36 Pulse Oximetry 96 10/19/24 13:36 MDM - Extremity (Nontraumatic) Medical Decision Making 58-year-old female comes in today with low back pain and difficulty with ambulation due to the pain. Patient appears nontoxic. Patient appears in no acute distress. Patient is afebrile. Patient has some muscle tenderness in the lower back. Wound appears well-approximated without any redness or surrounding swelling. Patient reports pain radiating down the left leg. Differential diagnosis includes not limited to sciatica, postsurgical seroma, malingering, postsurgical pain. CT scan noted a small seroma in the surgical site. Exam illustrates no sign of significant infection at this time. Reviewed CT with Dr. Vazquez who reported understanding and recommended steroids and continue pain medications at home. Patient reported understanding and agreed with plan. Patient was given 10 mg of dexamethasone to start steroids. Patient was also given half a milligram of Dilaudid to help with discomfort. Patient was discharged home in stable condition. Lab Data Radiology Impressions Lumbar Spine CT 10/19/24 14:31 IMPRESSION: Postsurgical and degenerative changes of the lumbar spine. If symptoms persist, consider further evaluation with MRI, if there are no contraindications to obtaining a MRI scan. All radiology interpretation(s) finalized by discharge Discharge Plan Discharge Patient Disposition: Home Clinical Impression: Post-operative pain Postoperative seroma Qualifiers: Surgical complication system/body Area: musculoskeletal system Procedure type: musculoskeletal Qualified Code(s): M96.842 - Postprocedural seroma of a musculoskeletal structure following a musculoskeletal system procedure Condition: Stable Prescriptions: New prednisone 20 mg tablet 20 mg PO BID 5 Days Qty: 10 0RF No Action omeprazole 40 mg capsule,delayed release(DR/EC) 40 mg PO DAILY@1400 dicyclomine 20 mg tablet 20 mg PO QID@09,14,18,21 ondansetron HCl [Zofran] 4 mg tablet 4 mg PO TID@09,14,21 PRN (Reason: Nausea) olanzapine [Zyprexa] 5 mg tablet 5 mg PO BEDTIME Qty: 90 2RF Rx Instructions: Take one tablet at bedtime buspirone 10 mg tablet 20 mg PO BID Qty: 360 2RF Rx Instructions: Take two tablets twice per day ipratropium bromide 42 mcg (0.06 %) spray,non-aerosol 2 spray intranasal BID Rx Instructions: administer into each nostril varenicline [Chantix] 1 mg tablet 1 mg PO BID Qty: 60 3RF Rx Instructions: Take with meals. Start out with a half and work your way to a full twice a day trazodone 150 mg tablet 150 mg PO BEDTIME PRN (Reason: insomnia) Qty: 90 2RF Rx Instructions: Take one tablet at bedtime as needed for sleep cholecalciferol (vitamin D3) 1,250 mcg (50,000 unit) capsule 1,250 mcg PO .weekly olanzapine [Zyprexa Zydis] 5 mg tablet,disintegrating 5 mg PO DAILY PRN (Reason: severe anxiety/agitation) Qty: 90 2RF Rx Instructions: May take one tab daily as needed for severe anxiety/agitation acetaminophen [Tylenol 8 Hour] 650 mg tablet extended release 650 mg PO Q8H polyethylene glycol 3350 [Miralax] 17 gram powder in packet 17 g PO DAILY PRN (Reason: Constipation) montelukast [Singulair] 10 mg tablet 10 mg PO DAILY@0900 Qty: 30 3RF albuterol sulfate [ProAir HFA] 90 mcg/actuation HFA aerosol inhaler 2 puff INHALATION Q6H PRN (Reason: shortness of breath or wheezing) Qty: 18 5RF fluticasone propionate 110 mcg/actuation HFA aerosol inhaler 2 puff inhalation BID Qty: 12 6RF Rx Instructions: has tried previously with no reactions noted Stiolto Respimat 2.5-2.5 mcg/actuation mist 2 puff inhalation DAILY Qty: 4 5RF Rx Instructions: has tried previously with no reactions noted zonisamide 100 mg capsule See Rx Instructions .ROUTE .COMPLEX Qty: 60 2RF Dose Instruction: TAKE 1 CAPSULE BY MOUTH TWICE A DAY Rx Instructions: TAKE 1 CAPSULE BY MOUTH TWICE A DAY bupropion HCl [Wellbutrin XL] 150 mg tablet extended release 24 hr 150 mg PO QAM Qty: 30 3RF baclofen 20 mg tablet 20 mg PO TID@0900,1400,2100 Rx Instructions: Must last 30 days simvastatin 20 mg tablet 20 mg PO DAILY@1800 levothyroxine 25 mcg capsule 25 mcg PO DAILY@0900 duloxetine [Cymbalta] 30 mg capsule,delayed release(DR/EC) 90 mg PO .morning Rx Instructions: Take with 60 mg capsule, total dose 90 mg every morning oxycodone 5 mg tablet 5 mg PO Q4H PRN (Reason: pain) 7 Days Qty: 42 0RF Discharge Orders: Discharge ED (Routine); Ordered 10/19/24 Ordered By: Umesh Contreras Referrals: Aliyah Benito DO [Primary Care Provider] - Discharge Diet: Usual diet Discharge Activity: Increase activity as tolerated Patient Instructions: Post Operative Pain Activity Restrictions/Additional Instructions: Follow-up with Dr. Vazquez's office for further recommendations and treatment. Coding Level of Care Code ED [employer] for Sariah Fox
[2024-10-19 15:40] VITALS: RESP 16
[2024-10-19] MEDS: HYDROmorphone 1 mg/mL INJ 1 mL 0.5 MG SUBCUT (15:40)
[2024-10-19] MEDS: dexamethasone 10 mg/mL INJ IM (16:05)
[2024-10-19 16:17] VITALS: BP 91/52; PULSE 90; O2SAT 95
== END 2024-10-19 16:19 | disposition home or self-care (01) ==
PROVIDERS: Emergency Provider Nurse Practitioner Family; PCP Family Medicine
DX: G89.18 Other acute postprocedural pain (principal); M96.842 Postprocedural seroma of a musculoskeletal structure following a musculoskeletal system procedure; Z87.891 Personal history of nicotine dependence; J44.9 Chronic obstructive pulmonary disease, unspecified
CPT/HCPCS: 72131; 96372; 99284; J1100; J1171

== ENCOUNTER → 2024-10-28 09:16 | Outpatient (BNVA) | payer MEDICAID, SELFPAY ==
[2024-08-18 08:09] VITALS: BP 118/81; BMI 24.8
== END ==
PROVIDERS: PCP Family Medicine; Visit Provider Anesthesiology Pain Medicine
DX: M48.062 Spinal stenosis, lumbar region with neurogenic claudication (principal); M47.22 Other spondylosis with radiculopathy, cervical region; M50.30 Other cervical disc degeneration, unspecified cervical region; G89.29 Other chronic pain
CPT/HCPCS: 99214

== ENCOUNTER → 2024-11-04 08:52 | Outpatient (BNVA) | payer MEDICAID, SELFPAY ==
[2024-08-18 08:09] VITALS: BP 118/81; BMI 24.8
== END ==
PROVIDERS: PCP Family Medicine; Visit Provider Orthopaedic Surgery
DX: Z98.890 Other specified postprocedural states (principal)
CPT/HCPCS: 99024

== ENCOUNTER 2024-11-14 12:49 | Outpatient (CLI) | payer MEDICAID, SELFPAY ==
[2024-08-18 08:09] VITALS: BP 118/81; BMI 24.8
--- NOTE | 2024-11-14 13:18 | XR_ITS ---
WS: [id number] Exam: XR chest 2V* [id number] Date/Time of Exam: 11/14/2024 1:18 PM Reason For Exam: copd, acute exacerbation Comparison 04/17/2021. The lungs are hyperinflated and clear. Normal cardiomediastinal silhouette. No pleural effusions. Bony structures are intact. Fusion hardware in the lower C- spine. Spondylosis of the T-spine. XR/XR chest 2V* [id number] IMPRESSION: 1. Pulmonary hyperinflation. No acute cardiopulmonary finding.
== END 2024-11-14 12:50 | disposition home or self-care (01) ==
LOC: RAD 12:52
PROVIDERS: PCP Family Medicine; Visit Provider Family Medicine
DX: J44.1 Chronic obstructive pulmonary disease with (acute) exacerbation (principal); R91.8 Other nonspecific abnormal finding of lung field; Z98.1 Arthrodesis status; M47.894 Other spondylosis, thoracic region
CPT/HCPCS: 71046

== ENCOUNTER 2024-11-17 10:54 | Outpatient (CLI) | payer MEDICAID, SELFPAY ==
[2024-08-18 08:09] VITALS: BP 118/81; BMI 24.8
--- NOTE | 2024-11-17 10:58 | MM_ITS ---
WS: [id number] SCREENING DIGITAL TOMOSYNTHESIS MAMMOGRAM WITH CAD HISTORY: SCREENING COMPARISON: 11/06/2023, 11/03/2022 Bilateral CC and MLO with tomosynthesis views submitted. Synthetic mammography reviewed. Computer aided detection analyzed. Breast composition: There are scattered areas of fibroglandular density. No suspicious masses, microcalcifications or architectural distortion. MM/MM scr BI tomosynthesis [id number] IMPRESSION: BI-RADS: 2 - Benign. FOLLOW UP: 1 Year Follow-up
== END 2024-11-17 10:55 | disposition home or self-care (01) ==
PROVIDERS: PCP Family Medicine; Visit Provider Family Medicine
DX: Z12.31 Encounter for screening mammogram for malignant neoplasm of breast (principal); R92.323 Mammographic fibroglandular density, bilateral breasts
CPT/HCPCS: 77063; 77067

== ENCOUNTER → 2024-11-20 08:15 | Outpatient (BNVA) | payer MEDICAID, SELFPAY ==
[2024-11-20 08:44] VITALS: BP 118/81; BMI 24.8
== END ==
PROVIDERS: PCP Family Medicine; Visit Provider Orthopaedic Surgery
DX: Z98.890 Other specified postprocedural states (principal)
CPT/HCPCS: 99024

== ENCOUNTER 2024-12-12 13:48 | Emergency (ER) | payer MEDICAID, SELFPAY ==
[2024-11-20 08:44] VITALS: BP 118/81; BMI 24.8
[2024-12-12 13:57] VITALS: BP 117/88; PULSE 108; RESP 18; TEMP 37.1; O2SAT 99; BMI 24.8
--- NOTE | 2024-12-12 14:20 | XRR_ITS ---
PROCEDURE INFORMATION: Exam: XR Abdomen Exam date and time: 12/12/2024 3:40 PM Age: 58 years old Clinical indication: Abdominal pain; Prior surgery; Surgery date: 1-6 months; Surgery type: Lumbar surg; Additional info: Lower abdominal pain; Constipation TECHNIQUE: Imaging protocol: Radiologic exam of the abdomen. Views: Frontal supine view of the abdomen. 1 View. Total images: 3 COMPARISON: CT abdomen pelvis wo con [id number] 06/20/2022 2:39 PM FINDINGS: Lungs: Speckled calcifications seen overlying the liver and splenic shadows consistent with granulomas as seen on prior CT. Gastrointestinal tract: There is a large amount of fecal matter seen throughout the colon consistent with constipation. Organs: Surgical clips are present in the right upper quadrant which are suggestive of prior cholecystectomy. Vasculature: Incidental phleboliths noted. Bones/joints: Unremarkable. XR/XR KUB [id number] IMPRESSION: There is a large amount of fecal matter seen throughout the colon consistent with constipation.
[2024-12-12 15:42] LABS: Basophils % 0.3 %; Eosinophils # 0.2 10^3/uL (0.0-0.8); Eosinophils % 1.3 %; Hematocrit 40.9 % (36-47); Lymphocytes # 3.3 10^3/uL (0.8-4.8); Lymphocytes % 26.1 %; Mean Corpuscular Hemoglobin 31.3 pg (27-33); Mean Corpuscular Volume 94.9 fl (85-98); Neutrophils # 8.05 10^3/uL (1.8-7.7); Nucleated Red Blood Cells % 0 %; Platelet Count 309 10^3/cmm (157-399); Red Blood Count 4.31 10^6/uL (3.85-5.65); Red Cell Distribution Width 13.7 % (12.1-15.1)
[2024-12-12 16:05] LABS: Alanine Aminotransferase 19 U/L (0-33); Albumin Level 4.3 g/dL (3.5-5.2); Alkaline Phosphatase 121 U/L (35-105); Aspartate Amino Transferase 15 U/L (0-32); Blood Urea Nitrogen 9 mg/dL (6-20); Calcium 9.7 mg/dL (8.5-10.5); Carbon Dioxide 25 mmol/L (22-29); Chloride 102 mmol/L (98-107); Creatinine Clr Calc Pharmacy 67.8042; Glomerular Filtration Rate 74.2 mL/min (90-130); Glucose 84 mg/dL (65-115); Lipase 23 U/L (13-60); Osmolality Calculated 286 mOsm/kg (285-295); Sodium 139 mmol/L (136-145); Total Bilirubin 0.3 mg/dL (0.15-1.2); Total Protein 7.3 g/dL (6.6-8.7)
[2024-12-12 18:14] VITALS: PULSE 104; O2SAT 95
[2024-12-12 19:26] LABS: Bilirubin Urine Negative (Negative); Blood Urine Negative (Negative); Glucose Urine UA Negative (Normal); Ketones Urine Negative (Negative); Leukocyte Esterase Urine 1+ (Negative); Nitrate Urine Negative (Negative); Protein Urine Negative (Negative); Specific Gravity, Urine 1.007 (1.005-1.030); Urine Appearance Clear (CLEAR); Urine Color Yellow (Yellow); Urobilinogen Urine 0.2 mg/dL (Negative)
[2024-12-12 19:31] LABS: Add Urine Microscopic? YES; Bacteria Urine None Seen /hpf; Hyaline Casts Urine 0-4 /lpf; RBC Urine 0-2 /hpf (0-2); Squamous Epithelial Cell Urine 0-5 /hpf (0-5); WBC Urine 0-5 /hpf (0-5)
[2024-12-12 19:34] LABS: Amphetamines Screen Urine Negative (Negative); Barbiturates Screen Urine Negative (Negative); Benzodiazepines Screen Urine Negative (Negative); Cocaine Screen Urine Negative (Negative); Opiate Screen Urine Negative (Negative); PCP Screen Urine Negative (Negative); THC Screen Urine Positive (Negative)
[2024-12-12 20:55] VITALS: BP 134/90; PULSE 95; O2SAT 95
--- NOTE | 2024-12-12 21:20 | ED_ITS ---
HPI - Abdominal Pain 2 General: Chief Complaint: Abdominal Pain Stated Complaint: abd pain (doc reff rolando haque) Time Seen by Provider: 12/12/24 21:01 History of Present Illness: Patient reports she started on oxycodone for pain over the last few months. She has developed constipation. She reports her last satisfactory bowel movement was about 8 days ago. She has intermittent crampy abdominal pain. She took some Metamucil which gave her some liquid stool but did not get out the bulk of her stool. She is still able to pass gas. She reports she is actually hungry. She feels a little bloated. She was asking if we could help her with any medication advice. Associated Symptoms: Reports constipation and other (Constipation. Some liquid stool only with Metamucil. Occasional nausea); Denies chills, diarrhea, dysuria, fever(s), syncope and vomiting Related Data Date of Last Menstrual Period: 01/04/21 Home Medications ?Medication ?Instructions ?Recorded ?Confirmed ondansetron HCl 4 mg tablet 4 mg PO TID@,, PRN N ausea 11/01/20 12/03/24 (Zofran) dicyclomine 20 mg tablet 20 mg PO QID@09,14,18,21 12/03/24 omeprazole 40 mg capsule,delayed 40 mg PO DAILY@1400 0 12/22/20 12/03/24 release baclofen 20 mg tablet 20 mg PO TID@0900,1400,2100 01/07/21 12/03/24 levothyroxine 25 mcg capsule 25 mcg PO DAILY@0900 04/03/1412/03/24 simvastatin 20 mg tablet 20 mg PO DAILY@1800 01/07/21 12/03/24 acetaminophen 650 mg 650 mg PO Q8H pain 08/08/23 12/03/24 tablet,extended release (Tylenol 8 Hour) polyethylene glycol 3350 17 gram 17 g PO DAILY PRN Con stipation 11/15/23 12/03/24 oral powder packet (Miralax) ipratropium bromide 42 mcg (0.06 2 spray intranasal BI D 05/09/24 12/03/24 %) nasal spray ergocalciferol (vitamin D2) 1,250 1,250 mcg PO DAILY 0 2/12/25 03/12/25 mcg (50,000 unit) capsule Previous Rx's ?Medication ?Instructions ?Recorded montelukast 10 mg tablet 10 mg PO DAILY@0900 #30 tabs 04/25/21 (Singulair) albuterol sulfate 90 mcg/actuation 2 puff inhalation Q 6H PRN 03/24/22 aerosol inhaler (ProAir HFA) shortness of breath or wh eezing #18 grams olanzapine 5 mg disintegrating 5 mg PO DAILY PRN sever e 02/01/23 tablet (Zyprexa Zydis) anxiety/agitation #90 tabs fluticasone propionate 110 2 puff inhalation BID #12 g izzy 04/28/24 mcg/actuation HFA aerosol inhaler tiotropium 2.5 mcg-olodaterol 2.5 2 puff inhalation DA GILLIAN #4 grams 04/29/24 mcg/actuation mist for inhalation (Stiolto Respimat) buspirone 10 mg tablet 20 mg (2 x 10 mg) PO BID #36 0 tabs 05/13/24 olanzapine 5 mg tablet (Zyprexa) 5 mg PO BEDTIME . #90 tabs 05/13/24 trazodone 150 mg tablet 150 mg PO BEDTIME PRN insomn ia #90 08/13/24 tabs varenicline tartrate 1 mg tablet See Rx Instructions . Route 10/29/24 .COMPLEX #56 tabs duloxetine 30 mg capsule,delayed 30 mg PO .morning #90 caps 11/05/24 release (Cymbalta) duloxetine 60 mg capsule,delayed 60 mg PO .morning #90 caps 11/05/24 release (Cymbalta) bupropion HCl 150 mg 24 hr tablet, See Rx Instructions .Route 11/14/24 extended release .COMPLEX #30 tabs divalproex 500 mg tablet,extended 500 mg PO DAILY #30 tabs 12/03/24 release 24 hr (Depakote ER) sumatriptan succinate 100 mg See Rx Instructions PO .C OMPLEX 12/03/24 tablet (Imitrex) #10 tabs zonisamide 100 mg capsule See Rx Instructions .Route 0 12/03/24 .COMPLEX #60 caps oxycodone 5 mg tablet 5 mg PO Q4H PRN pain 7 days #42 12/09/24 tabs glycerin (adult) 1 supp [place] BID PRN constipati on #25 03/21/25 ea methylnaltrexone 150 mg tablet 150 mg PO BID PRN const ipation 2 12/12/24 (Relistor) days #4 tabs sennosides 8.6 mg-docusate sodium 1 tab-cap PO BID PRN constipation 12/12/24 50 mg tablet (Colace 2-In-1) #30 tabs Allergies Allergy/AdvReac Type Severity Reaction Status Date / Time benztropine Allergy Severe edema to Verified 12/03/24 09:54 face budesonide (From Symbicort) Allergy Severe Swelling Verified 12/03/24 09:54 and nausea fluticasone (From Flonase) Allergy Severe ADR-Swelling Verified 12/03/24 09:54 of the Eye hydrocodone Allergy Severe vomiting Verified 12/03/24 09:54 propranolol Allergy Severe ADR-Swelling Verified 12/03/24 09:54 of the Eye Sulfa (Sulfonamide Allergy Severe ALGY-Rash Verified 12/03/24 09:54 Antibiotics) triamcinolone (From Nasacort) Allergy Severe Nausea Verified 12/03/24 09:54 naproxen Allergy Intermediate throw up Verified 12/03/24 09:54 topiramate (From Trokendi XR) Allergy Intermediate hands and Verified 12/03/24 09:54 face swell oxymetazoline (From Afrin Allergy Mild sore throat Verified 12/03/24 09:54 (oxymetazoline)) asenapine (From Saphris) Allergy Unknown Unknown Verified 12/03/24 09:54 aspirin Allergy Unknown vomit Verified 12/03/24 09:54 codeine Allergy Unknown ADR-Vomitin Verified 12/03/24 09:54 g diphenhydramine (From Allergy Unknown palpitation Verified 12/03/24 09:54 Benadryl) s ibuprofen Allergy Unknown ADR-Vomitin Verified 12/03/24 09:54 g lidocaine (From Lidoderm) Allergy Unknown ADR-Vomitin Verified 12/03/24 09:54 g meloxicam Allergy Unknown ADR-Vomitin Verified 12/03/24 09:54 g pregabalin (From Lyrica) Allergy Unknown ADR-Vomitin Verified 12/03/24 09:54 g tramadol (From Ultram) Allergy Unknown ADR-Vomitin Verified 12/03/24 09:54 g celecoxib (From Celebrex) Allergy ADR-Vomitin Verified 12/03/24 09:54 g chlorzoxazone (From Parafon Allergy amnesia Verified 12/03/24 09:54 Forte) salmeterol (From Advair Allergy ADR-Swelling Verified 12/03/24 09:54 Diskus) of the Eye fentanyl AdvReac Severe ADR-Confusi Verified 12/03/24 09:54 on diazepam (From Valium) AdvReac Mild vomiting Verified 12/03/24 09:54 diclofenac (From Voltaren) AdvReac Mild vomiting Verified 12/03/24 09:54 ziprasidone (From Geodon) AdvReac Mild sores in Verified 12/03/24 09:54 mouth formoterol (From Symbicort) AdvReac sore throat Verified 12/03/24 09:54 Review of Systems 2 General: Reports: 10 or more systems reviewed and unremarkable except in HPI and below Const: Denies: fever(s), chills or body aches Eyes: Denies: change in vision ENMT: Denies: throat pain Card: Denies: chest pain, edema or syncope Resp: Denies: dyspnea or productive cough GI: Reports: constipation and other (Constipation. Some liquid stool only with Metamucil. Occasional nausea); Denies: vomiting or diarrhea : Denies: flank pain, dysuria or urinary frequency Musc: Denies: neck pain, back pain, extremity pain or extremity swelling Skin/Breast: Denies: rash or erythema Neuro: Denies: headache(s), numbness in extremities, weakness in extremities, lack of coordination or difficulty walking PFSH ED 2 PFSH: Medical History Psychiatric care Diverticulosis Migraine headache Chronic sinusitis Chronic eustachian tube dysfunction Allergic rhinitis Postnasal drip Nasal turbinate hypertrophy Nasal septal deformity Nicotine dependence, cigarettes, with unspecified nicotine-induced disorders Vitamin D deficiency Hyperlipidemia Chronic back pain COPD (chronic obstructive pulmonary disease) Fibromyalgia Osteoporosis Fatty liver Severe sleep apnea Hypothyroid Borderline personality disorder Cannabis dependence, episodic use Generalized anxiety disorder Chronic post-traumatic stress disorder Schizoaffective disorder, depressive type Surgical History History of appendectomy H/O section Status post gastric surgery History of cholecystectomy Family History Other Diabetes Glaucoma Hypertension Thyroid disease Denies family history of Colon cancer Pancreatic cancer Ovarian cancer Thyroid cancer Heart disease Prostate cancer genetic susceptibility Uterine cancer Social History Smoking and tobacco/nicotine status: never used tobacco/nicotine Quit status (tobacco/nicotine): considering quitting Second hand smoke exposure: Yes Alcohol intake: current Alcohol intake frequency: holidays/special occasions only Alcohol type: hard liquor Substance/Drug Use: current Substance/Drug use frequency: daily Adopted: No Caregiver/support person: No Lives independently: Yes Household members: family Housing: Manufactured/Mobile home Marital status: Legally Marital status details: hasn't seen her for 7-8 years Number of children: 4 Number of grandchildren: 2 Highest education level completed: GED or Equivalent service: No Current occupational status: disabled Pets and animals: Yes Pets & animals: cat(s) Pets & animal details: outside cats Leisure activites: other Leisure activities details: watch [employer], [employer] Sexually active: No Do you think of yourself as: Straight/Heterosexual Current gender identity: Female Esperanza/Spiritism: Cheondoism Special esperanza needs: No Agree to transfusion: Yes Female Reproductive History: Date of last menstrual period: 01/04/21 Para: 4 Spontaneous abortions: No Physical Exam 2 Const: COMMON NORMALS: no limitations, alert and well nourished EXAM LIMITATIONS: no altered mental status HENMT: COMMON NORMALS: normocephalic, atraumatic and external ears normal H EAD & SCALP: normocephalic and atraumatic EXTERNAL EAR: Yes external ears normal MOUTH: no muffled voice Eye: COMMON NORMALS: EOMs intact bilaterally, conjunctivae normal and no scleral icterus CONJUNCTIVA: Yes conjunctivae normal Neck/C-Spine: COMMON NORMALS: no JVD GENERAL: Yes normal visual inspection and Yes trachea midline Resp: COMMON NORMALS: normal respiratory effort, No use of accessory muscles and clear to auscultation bilaterally AUSCULTATION: clear to auscultation bilaterally Cardio: COMMON NORMALS: no JVD, regular rate and regular rhythm RATE: r egular rate RHYTHM: regular rhythm GI: COMMON NORMALS: Soft to palpation INSPECTION: Yes normal to inspection, No Abdominal wall edema, No Anasarca and Yes abdominal distension (mild) P ALPATION: Yes Soft to palpation, Yes Tenderness to palpation present (GI) (mild diffuse), No Guarding due to palpation present (GI), No Rigid due to palpation, No Hernia present, No Palpable mass present, No Pulsatile mass present, No Ascites present and No Rebound tenderness present : EXTERNAL FEMALE EXAM: No Hernia present Extremity: COMMON NORMALS: normal to inspection Neuro: COMMON NORMALS: moves all extremities, no focal motor deficits and no sensory deficits noted SENSORIUM/ORIENTATION: Yes alert SPEECH: speech normal Psych: COMMON NORMALS: mental status grossly normal, Normal thought process present, cooperative, normal affect and speech normal SPEECH: Yes normal speech THOUGHT PROCESS: Normal thought process present Skin: COMMON NORMALS: no rashes or lesions noted, turgor normal and no jaundice GENERAL SKIN EXAM: no rashes or lesions noted and turgor normal Course 2 Vital Signs: Vital signs: Vital Signs Temperature 98.8 F 12/12/24 13:57 Pulse Rate 87 12/12/24 21:27 Respiratory Rate 18 12/12/24 13:57 Blood Pressure 120/84 12/12/24 21:27 Pulse Oximetry 91 12/12/24 21:27 Oxygen Delivery Me thod Room Air 12/12/24 20:55 MDM - Abdominal Pain Medical Decision Making Patient presents with what appears to be opiate induced constipation. Patient reports she has been cutting down on her opiate use but is still taking it daily. She has hypoactive bowel sounds. She has mild abdominal distention and mild diffuse tenderness without any localization or peritoneal signs. She is well-appearing and nontoxic. Low suspicion for surgical or acute abdomen. Labs and KUB were ordered as part of protocol for her symptoms. WBC was mildly elevated at 12.6. Hemoglobin normal. CMP was nonactionable. UA without any infection. Patient with polypharmacy including opiate use with slow transit constipation. I ordered Relistor here but it was not available. Patient would like to treat this at home. Plan to give a dose of Colace here. We will also give her an enema to take home. Since we do not have [facility] here I have prescribed her 150 mg to use p.o. twice daily as needed for 2 days as needed for constipation. I am also going to have her use MiraLAX. I explained to her that she could titrate MiraLAX to effect. I have also prescribed her Colace plus senna to use on an ongoing basis as needed. Lab Data 12/12/24 15:13 12/12/24 15:13 Labs/Radiology: Radiology Impressions KUB X-Ray 12/12/24 14:20 IMPRESSION: There is a large amount of fecal matter seen throughout the colon consistent with constipation. Laboratory Results WBC 12.60 10^3/uL (3.29-11.43) H 12/12/24 15:13 RBC 4.31 10^6/uL (3.85-5.65) 12/12/24 15:13 Hgb 13.50 g/dL (11.27-16.99) 12/12/24 15:13 Hct 40.9 % (36-47) 12/12/24 15:13 MCV 94.9 fl (85-98) 12/12/24 15:13 MCH 31.3 pg (27-33) 12/12/24 15:13 MCHC 33.0 g/dL (30-55) 12/12/24 15:13 RDW 13.7 % (12.1-15.1) 12/12/24 15:13 Plt Count 309 10^3/cmm (157-399) 12/12/24 15:13 MPV 11.0 fL (7.4-10.4) H 12/12/24 15:13 Neut % (Auto) 64.0 % 12/12/24 15:13 Lymph % (Auto) 26.1 % 12/12/24 15:13 [place] % (Auto) 8.0 % 12/12/24 15:13 Eos % (Auto) 1.3 % 12/12/24 15:13 Baso % (Auto) 0.3 % 12/12/24 15:13 Neut # (Auto) 8.05 10^3/uL (1.8-7.7) H 12/12/24 15:13 Lymph # (Auto) 3.3 10^3/uL (0.8-4.8) 12/12/24 15:13 [place] # (Auto) 1.0 10^3/uL (0.2-0.9) H 12/12/24 15:13 Eos # (Auto) 0.2 10^3/uL (0.0-0.8) 12/12/24 15:13 Baso # (Auto) 0.0 10^3/uL (0.0-0.1) 12/12/24 15:13 Nucleated RBC % (auto) 0 % 12/12/24 15:13 Nucleated RBCs # 0.0 /100WBC 12/12/24 15:13 Sodium 139 mmol/L (136-145) 12/12/24 15:13 Potassium 4.0 mmol/L (3.5-5.1) 12/12/24 15:13 Chloride 102 mmol/L (98-107) 12/12/24 15:13 Carbon Dioxide 25 mmol/L (22-29) 12/12/24 15:13 Anion Gap 16.0 (5-19) 12/12/24 15:13 BUN 9 mg/dL (6-20) 12/12/24 15:13 Creatinine 0.8 mg/dL (0.5-0.9) 12/12/24 15:13 GFR Calculation 74.2 mL/min (90-130) L 12/12/24 15:13 Glucose 84 mg/dL (65-115) 12/12/24 15:13 Calculated Osmolality 286 mOsm/kg (285-295) 12/12/24 15:13 Calcium 9.7 mg/dL (8.5-10.5) 12/12/24 15:13 Total Bilirubin 0.3 mg/dL (0.15-1.2) 12/12/24 15:13 AST 15 U/L (0-32) 12/12/24 15:13 ALT 19 U/L (0-33) 12/12/24 15:13 Alkaline Phosphatase 121 U/L (35-105) H 12/12/24 15:13 Total Protein 7.3 g/dL (6.6-8.7) 12/12/24 15:13 Albumin 4.3 g/dL (3.5-5.2) 12/12/24 15:13 Globulin 3.0 g/dL (1.3-4.6) 12/12/24 15:13 Lipase 23 U/L (13-60) 12/12/24 15:13 Urine Color Yellow (Yellow) 12/12/24 16:19 Urine Appearance Clear (CLEAR) 12/12/24 16:19 Urine pH 7.0 (5-7) 12/12/24 16:19 Ur Specific [place] 1.007 (1.005-1.030) 12/12/24 16:19 Urine Protein Negative (Negative) 12/12/24 16:19 Urine Glucose (UA) Negative (Normal) 12/12/24 16:19 Urine Ketones Negative (Negative) 12/12/24 16:19 Urine Blood Negative (Negative) 12/12/24 16:19 Urine Nitrate Negative (Negative) 12/12/24 16:19 Urine Bilirubin Negative (Negative) 12/12/24 16:19 Urine Urobilinogen 0.2 mg/dL (Negative) 12/12/24 16:19 Ur Leukocyte Esterase 1+ (Negative) A 12/12/24 16:19 Urine RBC 0-2 /hpf (0-2) 12/12/24 16:19 Urine WBC 0-5 /hpf (0-5) 12/12/24 16:19 Ur Squamous Epith Cells 0-5 /hpf (0-5) 12/12/24 16:19 Amorphous Sediment Not Reportable 12/12/24 16:19 Urine Bacteria None seen /hpf (NONE) 12/12/24 16:19 Hyaline Casts 0-4 /lpf H 12/12/24 16:19 Urine Opiates Screen Negative ng/mL (Negative) 12/12/24 16:19 Ur Barbiturates Screen Negative ng/mL (Negative) 12/12/24 16:19 Ur Phencyclidine Scrn Negative ng/mL (Negative) 12/12/24 16:19 Ur Amphetamines Screen Negative ng/mL (Negative) 12/12/24 16:19 U Benzodiazepines Scrn Negative ng/mL (Negative) 12/12/24 16:19 Urine Cocaine Screen Negative ng/mL (Negative) 12/12/24 16:19 U Marijuana (THC) Screen Positive ng/mL (Negative) H 12/12/24 16:19 All radiology interpretation(s) finalized by discharge ED provider radiology interpretation(s): KUB. EP interpretation. Nonobstructive bowel gas pattern. Mix of retained gas and a significant amount of stool. Discharge Plan Discharge Patient Disposition: Home Clinical Impression: Constipation due to opioid therapy Condition: Stable Prescriptions: New sennosides-docusate sodium [Colace 2-In-1] 8.6-50 mg tablet 1 tab-cap PO BID PRN (Reason: constipation) Qty: 30 0RF glycerin (adult) Suppository 1 supp [place] BID PRN (Reason: constipation) Qty: 25 0RF Relistor 150 mg tablet 150 mg PO BID PRN (Reason: constipation) 2 Days Qty: 4 0RF No Action omeprazole 40 mg capsule,delayed release(DR/EC) 40 mg PO DAILY@1400 dicyclomine 20 mg tablet 20 mg PO QID@09,14,18,21 ondansetron HCl [Zofran] 4 mg tablet 4 mg PO TID@09,14,21 PRN (Reason: Nausea) sumatriptan succinate [Imitrex] 100 mg tablet See Rx Instructions PO .COMPLEX Qty: 10 4RF Rx Instructions: 1 at onset of headache repeat in an hour if needed divalproex [Depakote ER] 500 mg tablet extended release 24 hr 500 mg PO DAILY Qty: 30 11RF zonisamide 100 mg capsule See Rx Instructions .ROUTE .COMPLEX Qty: 60 11RF Dose Instruction: TAKE 1 CAPSULE BY MOUTH TWICE A DAY Rx Instructions: TAKE 1 CAPSULE BY MOUTH TWICE A DAY olanzapine [Zyprexa] 5 mg tablet 5 mg PO BEDTIME Qty: 90 2RF Rx Instructions: Take one tablet at bedtime buspirone 10 mg tablet 20 mg PO BID Qty: 360 2RF Rx Instructions: Take two tablets twice per day ipratropium bromide 42 mcg (0.06 %) spray,non-aerosol 2 spray intranasal BID Rx Instructions: administer into each nostril trazodone 150 mg tablet 150 mg PO BEDTIME PRN (Reason: insomnia) Qty: 90 2RF Rx Instructions: Take one tablet at bedtime as needed for sleep olanzapine [Zyprexa Zydis] 5 mg tablet,disintegrating 5 mg PO DAILY PRN (Reason: severe anxiety/agitation) Qty: 90 2RF Rx Instructions: May take one tab daily as needed for severe anxiety/agitation acetaminophen [Tylenol 8 Hour] 650 mg tablet extended release 650 mg PO Q8H polyethylene glycol 3350 [Miralax] 17 gram powder in packet 17 g PO DAILY PRN (Reason: Constipation) ergocalciferol (vitamin D2) 1,250 mcg (50,000 unit) capsule 1,250 mcg PO DAILY duloxetine [Cymbalta] 60 mg capsule,delayed release(DR/EC) 60 mg PO .morning Qty: 90 2RF Rx Instructions: Take one capsule every morning with 30 mg capsule, total dose 90 mg duloxetine [Cymbalta] 30 mg capsule,delayed release(DR/EC) 30 mg PO .morning Qty: 90 2RF Rx Instructions: Take with 60 mg capsule, total dose 90 mg every morning montelukast [Singulair] 10 mg tablet 10 mg PO DAILY@0900 Qty: 30 3RF albuterol sulfate [ProAir HFA] 90 mcg/actuation HFA aerosol inhaler 2 puff INHALATION Q6H PRN (Reason: shortness of breath or wheezing) Qty: 18 5RF fluticasone propionate 110 mcg/actuation HFA aerosol inhaler 2 puff inhalation BID Qty: 12 6RF Rx Instructions: has tried previously with no reactions noted Stiolto Respimat 2.5-2.5 mcg/actuation mist 2 puff inhalation DAILY Qty: 4 5RF Rx Instructions: has tried previously with no reactions noted varenicline tartrate 1 mg tablet See Rx Instructions .ROUTE .COMPLEX Qty: 56 4RF Dose Instruction: TAKE WITH MEALS. START OUT WITH A HALF TABLET AND WORK YOUR WAY TO A FULL TABLET TWICE A DAY Rx Instructions: TAKE WITH MEALS. START OUT WITH A HALF TABLET AND WORK YOUR WAY TO A FULL TABLET TWICE A DAY bupropion HCl 150 mg tablet extended release 24 hr See Rx Instructions .ROUTE .COMPLEX Qty: 30 3RF Dose Instruction: TAKE 1 TABLET BY MOUTH EVERY DAY IN THE MORNING Rx Instructions: TAKE 1 TABLET BY MOUTH EVERY DAY IN THE MORNING oxycodone 5 mg tablet 5 mg PO Q4H MDD 6 PRN (Reason: pain) 7 Days Qty: 42 0RF baclofen 20 mg tablet 20 mg PO TID@0900,1400,2100 Rx Instructions: Must last 30 days simvastatin 20 mg tablet 20 mg PO DAILY@1800 levothyroxine 25 mcg capsule 25 mcg PO DAILY@0900 Discharge Orders: Discharge ED (Routine); Ordered 12/12/24 Ordered By: Rich Velasquez Referrals: Aliyah Benito DO [Primary Care Provider] - 12/17/24 (opiate induced constipation f/u from ER) Patient Instructions: Constipation (ED), Opioid Safety Activity Restrictions/Additional Instructions: You have opiate induced constipation. You will need to use a multimodal approach to treat this. You may take MiraLAX 17 g as needed for constipation. This medication is not absorbed into your body and therefore can be titrated based on your needs. You should combine this with docusate sodium and senna. You also need to be using enemas and/or suppositories and manual disimpaction as needed. If you are still unable to have BM or abdominal pain getting worse, then return to ER. 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
[2024-12-12] MEDS: Fleet Enema 133 mL Enema PR (21:22)
[2024-12-12] MEDS: docusate sodium 100 mg Capsule 200 MG PO (21:22)
[2024-12-12 21:27] VITALS: BP 120/84; PULSE 87; O2SAT 91
== END 2024-12-12 21:25 | disposition home or self-care (01) ==
PROVIDERS: Emergency Medicine; Physician Assistant; Emergency Provider Emergency Medicine; PCP Family Medicine
DX: K59.03 Drug induced constipation (principal); J44.9 Chronic obstructive pulmonary disease, unspecified; E78.5 Hyperlipidemia, unspecified
CPT/HCPCS: 36415; 74018; 80053; 80306; 81001; 83690; 85025; 99284; J9999

== ENCOUNTER 2024-12-16 07:52 | Outpatient (CLI) | payer MEDICAID, SELFPAY ==
[2024-11-20 08:44] VITALS: BP 118/81; BMI 24.8
--- NOTE | 2024-12-16 08:00 | CT_ITS ---
WS: [id number] CT HEAD TECHNIQUE: Noncontrast CT of the head obtained from the skullbase to the vertex. CLINICAL INFORMATION: G44.83 - Primary cough headache COMPARISON: MRI 2015 DLP: 979.[address] scans at [facility] use at least one of these dose optimization techniques: automated exposure control; mA and/or kV adjustment per patient size (includes targeted exams where dose is matched to clinical indication); or iterative reconstruction. FINDINGS: No evidence of intracranial hemorrhage or mass effect. Ventricular system and basal cisterns are patent. 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 Additional encephalomalacia LEFT anterior temporal lobe unchanged. No extra-axial fluid collections. No evidence of mass or mass effect. Paranasal sinuses and mastoid air cells are well aerated. .Normal visualized soft tissues. CT/CT head wo con* [id number] IMPRESSION: 1. No evidence of intracranial hemorrhage or mass effect. 2. Chronic encephalomalacia in the parasagittal frontal and inferior frontal l obes similar to the prior MRI in 2015. 3. Encephalomalacia LEFT anterior temporal lobe unchanged. 4. No other significant findings or interval changes 5. Mild small vessel changes in the hans. 6. No acute intracranial findings.
== END 2024-12-16 07:53 | disposition home or self-care (01) ==
LOC: RAD 07:53
PROVIDERS: PCP Family Medicine; Visit Provider Specialist
DX: G44.83 Primary cough headache (principal); G93.89 Other specified disorders of brain; R93.0 Abnormal findings on diagnostic imaging of skull and head, not elsewhere classified
CPT/HCPCS: 70450

== ENCOUNTER 2024-12-29 13:55 | Outpatient (CLI) | payer MEDICAID, SELFPAY ==
[2024-11-20 08:44] VITALS: BP 118/81; BMI 24.8
--- NOTE | 2024-12-29 14:00 | CT_ITS ---
WS: [id number] CTA HEAD TECHNIQUE: Contrast enhanced CTA of the head with coronal and sagittal reformatted images and maximum intensity projection (MIP) images. NASCET criteria utilized. CLINICAL INFORMATION: G44.83 - Primary cough headache DLP: 1604.[address] scans at [facility] use at least one of these dose optimization techniques: automated exposure control; mA and/or kV adjustment per patient size (includes targeted exams where dose is matched to clinical indication); or iterative reconstruction. FINDINGS: Chronic encephalomalacia in the parasagittal inferior frontal lobe similar to the prior examination. Encephalomalacia LEFT anterior temporal lobe unchanged. INTRACRANIAL CTA: Distal vertebral arteries are patent. Basilar artery is patent. Normal vascularity to the L[employer]ER territories bilaterally. Both ICAs are patent at the skull base. Normal vascularity to the RUDDY and MCA territories bilaterally. No evidence of proximal flow-limiting stenosis. CT/CT angio head [id number] IMPRESSION: 1. Normal intracranial CTA. No proximal flow-limiting stenosis. 2. Chronic posttraumatic encephalomalacia described above
[2024-12-29] MEDS: iohexol 350 mg/mL 500 mL Btl (per mL) IV (14:35)
== END 2024-12-29 13:56 | disposition home or self-care (01) ==
PROVIDERS: PCP Family Medicine; Visit Provider Specialist
DX: G44.83 Primary cough headache (principal); G93.89 Other specified disorders of brain
CPT/HCPCS: 70496

== ENCOUNTER → 2025-01-01 10:38 | Outpatient (BNVA) | payer MEDICAID, SELFPAY ==
[2024-11-20 08:44] VITALS: BP 118/81; BMI 24.8
== END ==
PROVIDERS: PCP Family Medicine; Visit Provider Orthopaedic Surgery
DX: Z98.890 Other specified postprocedural states (principal)
CPT/HCPCS: 99024

== ENCOUNTER → 2025-01-13 13:16 | Outpatient (BNVA) | payer MEDICAID, SELFPAY ==
[2024-11-20 08:44] VITALS: BP 118/81; BMI 24.8
== END ==
PROVIDERS: PCP Family Medicine; Visit Provider Anesthesiology Pain Medicine
DX: M47.812 Spondylosis without myelopathy or radiculopathy, cervical region (principal); M54.2 Cervicalgia
CPT/HCPCS: 64490; 64491; 64492; J3490; J9999

== ENCOUNTER → 2025-01-20 10:31 | Outpatient (BNVA) | payer MEDICAID, SELFPAY ==
[2024-11-20 08:44] VITALS: BP 118/81; BMI 24.8
== END ==
PROVIDERS: PCP Family Medicine; Visit Provider Orthopaedic Surgery
DX: M54.9 Dorsalgia, unspecified (principal); M54.2 Cervicalgia; Z98.890 Other specified postprocedural states
CPT/HCPCS: 99213

== ENCOUNTER → 2025-01-26 15:20 | Outpatient (BNVA) | payer MEDICAID, SELFPAY ==
[2025-01-26 15:37] VITALS: BP 118/81; BMI 24.8
== END ==
PROVIDERS: PCP Family Medicine; Visit Provider Anesthesiology Pain Medicine
DX: M54.2 Cervicalgia (principal); M48.062 Spinal stenosis, lumbar region with neurogenic claudication; M54.9 Dorsalgia, unspecified; G89.29 Other chronic pain; M47.22 Other spondylosis with radiculopathy, cervical region
CPT/HCPCS: 99214

== ENCOUNTER 2025-02-09 13:58 | Outpatient (CLI) | payer MEDICAID, SELFPAY ==
[2025-01-28 08:16] VITALS: BP 118/81; BMI 24.8
--- NOTE | 2025-02-09 14:30 | MR_ITS ---
WS: [id number] MRI LUMBAR SPINE NONCONTRAST HISTORY: Back pain, bilateral lower extremity pain. Prior fusion September 2024. COMPARISON: 08/22/2023 TECHNIQUE: Sagittal and axial multisequence imaging is submitted. 5 nonrib-bearing lumbar vertebral bodies. Mild increase in lumbar lordosis. Spaces and vertebral body heights are maintained. No acute fracture. Disc spaces and vertebral body heights are well-preserved. Conus terminates normally at L1-2 disc level. L1-L2: Normal. L2-L3: Mild facet and ligamentum flavum hypertrophy. No stenosis. L3-L4: Mild annular disc bulging with ligamentum flavum and facet arthritis. Disc slightly bulges to the LEFT. Minimal LEFT foraminal narrowing. L4-L5: Mild annular disc bulging with a central disc protrusion. Similar to the prior study. New LEFT hemilaminectomy defect. There is a small amount of fluid in the facet joints. LEFT facet joint cyst. Mild disc encroachment upon the traversing L5 nerve roots. Mild disc encroachment upon the foramina and the exiting L4 nerve roots. Recent postoperative changes involving the LEFT facets and facet joint at L4-5. No fluid collections. 8 mm LEFT facet joint cyst. L5-S1: Mild disc encroachment upon the S1 nerve roots, LEFT greater than RIGHT. There is a central disc protrusion. Paravertebral soft tissues are negative otherwise. MR/MR lumbar spine wo con* [id number] IMPRESSION: 1. Status post LEFT L4-5 hemilaminectomy since the prior examination. Postoper ative changes at the LEFT L4-5 facet joint and soft tissues. No fluid collectio n or complication identified. 2. L4-5: Small central disc protrusion is unchanged. Mild disc encroachment up on the exiting L4 nerve roots. 3. L5-S1: Small central disc protrusion with mild disc encroachment upon the n erve roots, LEFT greater than RIGHT. 4. L3-4: Minimal LEFT foraminal stenosis.
--- NOTE | 2025-02-09 15:15 | MR_ITS ---
WS: [id number] MRI CERVICAL SPINE NONCONTRAST HISTORY: Neck pain, bilateral arm and hand pain/numbness. COMPARISON: 04/18/2023 Technique: Multiplanar, multisequence noncontrast imaging of the cervical spine. Mild straightening of the normal cervical lordosis. Since the prior examination anterior cervical fusion from C5-C7 with interbody spacers has been performed. There is a small amount of marrow edema noted in the posterior elements from C4-C7. Signal within the cervical cord is normal. Visualized posterior fossa is unremarkable. Craniocervical junction, C1 and C2 relationship, odontoid process and soft tissues are normal. C2-C3: Normal. C3-C4: Normal. C4-C5: Mild osteophytic ridging. No stenosis. There is marrow edema in the RIGHT facets and facet joint. C5-C6: Diffuse annular disc bulging. Marrow edema bilaterally in the facets. Greater on the RIGHT. Osteophytic ridging resulting in mild central stenosis. Moderate bilateral foraminal stenosis due to disc osteophyte disease. C6-C7: Diffuse osteophytic ridging with bilateral marrow edema in the facets. Mild central with moderate to severe bilateral foraminal stenosis due to osteophyte disease does appear to have progressed since the prior MRI from 04/18/2023. C7-T1: Central disc protrusion appears new since the prior study. Mild LEFT foraminal stenosis. MR/MR cervical spin wo con* [id number] IMPRESSION: 1. Status post anterior cervical fusion from C5-C7 with interbody spacers sinc e the prior study. 2. New marrow edema in the facets and synovitis noted from C4-C7. No focal flu id collections but slightly greater facet edema and soft tissue edema on the RI GHT. 3. C6-7: Osteophytic ridging with mild central and moderate to severe bilatera l foraminal stenosis. Foraminal stenosis does appear to have progressed since t he prior exam. 4. C5-6: Mild central with moderate bilateral foraminal stenosis due to disc o steophyte disease. 5. C7-T1: Small central disc protrusion is new since the prior study. Mild LEF T foraminal stenosis.
== END 2025-02-09 13:59 | disposition home or self-care (01) ==
LOC: RAD 13:59
PROVIDERS: PCP Family Medicine; Visit Provider Orthopaedic Surgery
DX: M48.02 Spinal stenosis, cervical region (principal); M51.26 Other intervertebral disc displacement, lumbar region; Z98.1 Arthrodesis status; R60.0 Localized edema; M65.98 Unspecified synovitis and tenosynovitis, other site; M25.78 Osteophyte, vertebrae; M50.23 Other cervical disc displacement, cervicothoracic region; M48.03 Spinal stenosis, cervicothoracic region; M50.322 Other cervical disc degeneration at C5-C6 level; Z98.890 Other specified postprocedural states; M51.27 Other intervertebral disc displacement, lumbosacral region; R93.7 Abnormal findings on diagnostic imaging of other parts of musculoskeletal system; M24.28 Disorder of ligament, vertebrae; M51.369 Other intervertebral disc degeneration, lumbar region without mention of lumbar back pain or lower extremity pain; M47.896 Other spondylosis, lumbar region; M71.38 Other bursal cyst, other site; M51.379 Other intervertebral disc degeneration, lumbosacral region without mention of lumbar back pain or lower extremity pain
CPT/HCPCS: 72141; 72148

== ENCOUNTER → 2025-02-17 14:45 | Outpatient (BNVA) | payer MEDICAID, SELFPAY ==
[2025-01-28 08:16] VITALS: BP 118/81; BMI 24.8
== END ==
PROVIDERS: PCP Family Medicine; Visit Provider Orthopaedic Surgery
DX: Z01.818 Encounter for other preprocedural examination (principal); Z09 Encounter for follow-up examination after completed treatment for conditions other than malignant neoplasm
CPT/HCPCS: 36415; 80053; 81001; 85025; 99214

== ENCOUNTER 2025-03-09 05:49 | Day surgery (SDC) | payer MEDICAID, SELFPAY ==
[2025-02-23 14:50] VITALS: BP 118/81; BMI 24.8
--- NOTE | 2025-03-08 22:08 | ANES.PREANE2 ---
Pre-Anesthetic Assessment Height/Weight: Height 52 ft Preop Diagnosis: Spinal stenosis Operation Date: 03/09/25 08:00 Proposed Procedures p Lumbar Spine Decompression(Not Applicable) - Luther Vazquez, Was Beta Landon taken within 24 hours: N/A Was Clonidine taken within 24 hours: N/A Social No alcohol and No tobacco Quit smoking about 3 weeks ago Exam alert, oriented x 3 and regular rate & rhythm Airway Submandibular: within normal limits Mallampati: Class III Dentition: full Comments: Comments: Multiple missing teeth, denies any loose Anesthetic Plan ASA status: 3 Anesthesia: General Other: No prior issues with anesthesia NPO since yesterday evening Current smoker History of GERD, on chronic omeprazole Hypothyroidism on Synthroid Numerous allergies noted including lidocaine from which she states she gets severe nausea Schizoaffective disorder as well as PTSD Following previous lumbar decompression, patient arrived to the ER 2 days later with increased postop pain Labs from 02/17/2025 reviewed and acceptable for procedure Prior EKG showing sinus rhythm, negative stress test in 2021 Plan for GETA Medications/Allergies Home Medications ?Medication ?Instructions ?Recorded ?Confirmed ?Last Taken ?Type ondansetron HCl 4 mg tablet 4 mg PO TID@,, PRN Nausea 11/01/20 03/09/25 10/16/24 History (Zofran) dicyclomine 20 mg tablet 20 mg PO QID@09,14,18,21 12/22/20 03/09/25 03/08/25 21:00 History omeprazole 40 mg capsule,delayed 40 mg PO DAILY@1400 12/22/20 03/09/25 03/08/25 21:00 History release baclofen 20 mg tablet 20 mg PO TID@0900,1400,2100 01/07/21 03/09/25 03/08/25 21:00 History levothyroxine 25 mcg capsule 25 mcg PO DAILY@0900 01/07/21 03/09/25 03/08/25 21:00 History simvastatin 20 mg tablet 20 mg PO DAILY@1800 01/07/21 03/09/25 03/08/25 21:00 History montelukast 10 mg tablet 10 mg PO DAILY@0900 #30 tabs 04/25/21 03/09/25 03/08/25 21:00 Rx (Singulair) albuterol sulfate 90 mcg/actuation 2 puff inhalation Q6H PRN 03/24/22 03/09/25 10/14/24 Rx aerosol inhaler (ProAir HFA) shortness of breath or wheezing #18 grams acetaminophen 650 mg 650 mg PO Q8H pain 08/08/23 03/09/25 03/04/25 History tablet,extended release (Tylenol 8 Hour) polyethylene glycol 3350 17 gram 17 g PO DAILY PRN Constipation 11/15/23 03/09/25 03/06/25 History oral powder packet (Miralax) fluticasone propionate 110 2 puff inhalation BID #12 grams 04/28/24 03/09/25 03/08/25 21:00 Rx mcg/actuation HFA aerosol inhaler tiotropium 2.5 mcg-olodaterol 2.5 2 puff inhalation DAILY #4 grams 04/29/24 03/09/25 03/08/25 21:00 Rx mcg/actuation mist for inhalation (Stiolto Respimat) ipratropium bromide 42 mcg (0.06 2 spray intranasal BID 05/09/24 03/09/25 03/08/25 21:00 History %) nasal spray duloxetine 30 mg capsule,delayed 30 mg PO .morning #90 caps 11/05/24 03/09/25 03/08/25 21:00 Rx release (Cymbalta) duloxetine 60 mg capsule,delayed 60 mg PO .morning #90 caps 11/05/24 03/09/25 03/08/25 21:00 Rx release (Cymbalta) ergocalciferol (vitamin D2) 1,250 1,250 mcg PO .WEEKLY 11/05/24 03/09/25 03/03/25 History mcg (50,000 unit) capsule buspirone 10 mg tablet 20 mg (2 x 10 mg) PO BID #360 tabs 01/26/25 03/09/25 03/08/25 21:00 Rx olanzapine 5 mg disintegrating 5 mg PO DAILY PRN severe 01/26/25 03/09/25 Unknown Rx tablet (Zyprexa Zydis) anxiety/agitation #90 tabs olanzapine 5 mg tablet (Zyprexa) 5 mg PO BEDTIME . #90 tabs 01/26/25 03/09/25 03/08/25 21:00 Rx trazodone 150 mg tablet 150 mg PO BEDTIME PRN insomnia #90 01/26/25 03/09/25 03/08/25 21:00 Rx tabs bupropion HCl 150 mg 24 hr tablet, 150 mg PO DAILY 03/06/25 03/09/25 03/08/25 21:00 History extended release sumatriptan succinate 100 mg 100 mg PO PRN 03/06/25 03/09/25 Unknown History tablet (Imitrex) varenicline tartrate 1 mg tablet 1 mg PO DIRECTED 03/06/25 03/09/25 03/06/25 History zonisamide 100 mg capsule 100 mg PO BID 03/06/25 03/09/25 03/08/25 21:00 History Allergies Allergy/AdvReac Type Severity Reaction Status Date / Time benztropine Allergy Severe edema to Verified 03/09/25 06:12 face budesonide (From Symbicort) Allergy Severe Swelling Verified 03/09/25 06:12 and nausea fluticasone (From Flonase) Allergy Severe ADR-Swelling Verified 03/09/25 06:12 of the Eye hydrocodone Allergy Severe vomiting Verified 03/09/25 06:12 propranolol Allergy Severe ADR-Swelling Verified 03/09/25 06:12 of the Eye Sulfa (Sulfonamide Allergy Severe ALGY-Rash Verified 03/09/25 06:12 Antibiotics) triamcinolone (From Nasacort) Allergy Severe Nausea Verified 03/09/25 06:12 naproxen Allergy Intermediate throw up Verified 03/09/25 06:12 topiramate (From Trokendi XR) Allergy Intermediate hands and Verified 03/09/25 06:12 face swell oxymetazoline (From Afrin Allergy Mild sore throat Verified 03/09/25 06:12 (oxymetazoline)) asenapine (From Saphris) Allergy Unknown Unknown Verified 03/09/25 06:12 aspirin Allergy Unknown vomit Verified 03/09/25 06:12 codeine Allergy Unknown ADR-Vomitin Verified 03/09/25 06:12 g diphenhydramine (From Allergy Unknown palpitation Verified 03/09/25 06:12 Benadryl) s ibuprofen Allergy Unknown ADR-Vomitin Verified 03/09/25 06:12 g lidocaine (From Lidoderm) Allergy Unknown ADR-Vomitin Verified 03/09/25 06:12 g meloxicam Allergy Unknown ADR-Vomitin Verified 03/09/25 06:12 g pregabalin (From Lyrica) Allergy Unknown ADR-Vomitin Verified 03/09/25 06:12 g tramadol (From Ultram) Allergy Unknown ADR-Vomitin Verified 03/09/25 06:12 g celecoxib (From Celebrex) Allergy ADR-Vomitin Verified 03/09/25 06:12 g chlorzoxazone (From Parafon Allergy amnesia Verified 03/09/25 06:12 Forte) salmeterol (From Advair Allergy ADR-Swelling Verified 03/09/25 06:12 Diskus) of the Eye fentanyl AdvReac Severe ADR-Confusi Verified 03/09/25 06:12 on diazepam (From Valium) AdvReac Mild vomiting Verified 03/09/25 06:12 diclofenac (From Voltaren) AdvReac Mild vomiting Verified 03/09/25 06:12 ziprasidone (From Geodon) AdvReac Mild sores in Verified 03/09/25 06:12 mouth formoterol (From Symbicort) AdvReac sore throat Verified 03/09/25 06:12 [facility] Anesthesia Medical History Psychiatric care Diverticulosis Migraine headache Chronic sinusitis Chronic eustachian tube dysfunction Allergic rhinitis Postnasal drip Nasal turbinate hypertrophy Nasal septal deformity Nicotine dependence, cigarettes, with unspecified nicotine-induced disorders Vitamin D deficiency Hyperlipidemia Chronic back pain COPD (chronic obstructive pulmonary disease) Fibromyalgia Osteoporosis Fatty liver Severe sleep apnea Hypothyroid Borderline personality disorder Cannabis dependence, episodic use Generalized anxiety disorder Chronic post-traumatic stress disorder Schizoaffective disorder, depressive type Surgical History History of appendectomy H/O section Status post gastric surgery History of cholecystectomy Family History Other Diabetes Glaucoma Hypertension Thyroid disease Denies family history of Colon cancer Pancreatic cancer Ovarian cancer Thyroid cancer Heart disease Prostate cancer genetic susceptibility Uterine cancer Social History Smoking and tobacco/nicotine status: never used tobacco/nicotine Quit status (tobacco/nicotine): considering quitting Second hand smoke exposure: Yes Alcohol intake: current Alcohol intake frequency: holidays/special occasions only Alcohol type: hard liquor Substance/Drug Use: current Substance/Drug use frequency: daily Adopted: No Caregiver/support person: No Lives independently: Yes Household members: family Housing: Manufactured/Mobile home Marital status: Legally Marital status details: hasn't seen her for 7-8 years Number of children: 4 Number of grandchildren: 2 Highest education level completed: GED or Equivalent service: No Current occupational status: disabled Pets and animals: Yes Pets & animals: cat(s) Pets & animal details: outside cats Leisure activites: other Leisure activities details: watch movies, rock kruse Sexually active: No Do you think of yourself as: Straight/Heterosexual Current gender identity: Female Esperanza/Confucianist: Zoroastrian Special esperanza needs: No Agree to transfusion: Yes Female Reproductive History Para: 4 Spontaneous abortions: No Data Anesthesia Cardiac Studies: Sestamibi Stress Test (Cardiology) 05/09/22
[2025-03-09] VITALS (14 sets, daily range): BP systolic 112–141; BP diastolic 63–86; PULSE 79–93; RESP 15–18; TEMP 36.1–36.4; O2SAT 94–99; BMI 24.1
[2025-03-09] MEDS: sodium chloride 0.9% 1,000 ML 30 ML IV (06:25)
--- NOTE | 2025-03-09 06:36 | W.PM.OPSUD ---
Surgery/Procedure H&P Update DATE OF PROCEDURE: March 09, 2025 DATE H&P PERFORMED: 02/17/25 H&P UPDATE INFORMATION: I have reviewed H&P completed within last 30 days, I have examined patient prior to procedure and No changes to prior documentation PREOP DIAGNOSIS: Lumbar stenosis with neurogenic claudication PLANNED PROCEDURE: Operation Date: 03/09/25 07:00 Proposed Procedures p Lumbar Spine Decompression(Not Applicable) - Luther Vazquez DO
[2025-03-09] MEDS: ceFAZolin 2,000 mg SDV 2000 MG IVP (06:55)
--- NOTE | 2025-03-09 08:21 | PM.OP ---
Operative Report Date of procedure: March 09, 2025 Pre-op diagnosis: Lumbar stenosis with neurogenic claudication Post-op diagnosis: same Procedure done: L4-5 laminectomy with partial facetectomy Surgeon: Luther Vazquez DO Estimated blood loss (mL): 5 Procedure: L4-5 laminectomy partial facetectomy Patient is brought to the operative suite. After undergoing anesthesia they are placed in the prone position. All areas of impingement are well padded. Patient is then prepped and draped in the normal sterile fashion. A skin incision is made over the L4/5 level. This is confirmed under c-arm guidance. A series of dilators are passed and the tubular retractor is docked on the L4 lamina. A bovie is used to clear the soft tissue off the lamina and the L 4/5 facet joint. A high speed carlos is then used to perform the laminectomy and take down the medial aspect of the L 4/5 facet joint. A kerrison rongeure was then used to take down the remaining lamina and smooth the edge of the laminectomy up to the point where the ligamentum flavum attaches. Attention was then brought to the medial aspect of the facet joint. The remaining medial aspect of the superior and inferior aspect of the facet joint were taken down with the kerrison from the pedicle of L4 to L 5. The facet joint had significant hypertrophy. Attention was then brought to the Ligamentum Flavum. The ligament was taken down from the lamina of L4 to L5 and out medially to the remaining facet joint. The ligament was thick. The dura was then exposed. The dura was in good repair. The L4 nerve was then traced with a curette out the L4/5 foramen and found to be adequately decompressed. The L5 nerve was traced with a curette around the L5 pedicle. The lateral recess was opened with a kerrison helping to further decompress the L5 nerve. Wound is then irrigated copiously with saline and surgiflo is used to stop any bleeding. The tubular retractor is removed and the wound is closed with vicryl and monocryl suture. Glue is then used to protect the wound. A sterile dressing is then placed. Patient was then placed in the supine position and transferred to the PACU in stable condition.
[2025-03-09] MEDS: oxyCODONE 5 mg IR Tab/Cap PO (09:18)
[2025-03-09] MEDS: HYDROmorphone 0.5 MG/0.5 ML INJ IVP (09:32)
--- NOTE | 2025-03-09 10:20 | ANE.PACU2 ---
Inpatient post-anesthesia follow up: Airway intact: Yes Vital signs: Temperature 97.0 F Pulse Rate 80 Respiratory Rate 18 Blood Pressure 138/86 Pulse Oximetry 98 Oxygen Delivery Me thod Room Air Oxygen Flow Rate 6 Fraction of Inspir ed Oxygen Hydration adequate: Yes Nausea and vomiting: No Pain level: 1 Mental status: Baseline
--- NOTE | 2025-03-09 13:43 | XR_ITS ---
WS: [id number] C-ARM RADIOGRAPHS LUMBAR SPINE; 2 IMAGES HISTORY: or pic, decompression COMPARISON: None available. Lumbar spine decompression surgery. Marker overlying the RIGHT L4-5 level. XR/XR lumbar spine 1V [id number] IMPRESSION: Intraoperative imaging during lumbar decompression surgery.
== END 2025-03-09 10:20 | disposition home or self-care (01) ==
PROVIDERS: PCP Family Medicine; Visit Provider Orthopaedic Surgery
PROC: (CPT 63005; principal; 2025-03-09 07:00)
DX: M48.062 Spinal stenosis, lumbar region with neurogenic claudication (principal); K21.9 Gastro-esophageal reflux disease without esophagitis; E03.9 Hypothyroidism, unspecified; F17.210 Nicotine dependence, cigarettes, uncomplicated; E78.5 Hyperlipidemia, unspecified; J44.9 Chronic obstructive pulmonary disease, unspecified; M79.7 Fibromyalgia; G47.30 Sleep apnea, unspecified; F12.20 Cannabis dependence, uncomplicated; F41.9 Anxiety disorder, unspecified
CPT/HCPCS: 63047; 72020; 76000; J0131; J0690; J1100; J1171; J2250; J2405; J2704; J3010; J3490; J7030; J9999

== ENCOUNTER → 2025-03-10 12:01 | Outpatient (BNVA) | payer MEDICAID, SELFPAY ==
[2025-02-23 14:50] VITALS: BP 118/81; BMI 24.8
== END ==
PROVIDERS: PCP Family Medicine; Visit Provider Specialist
DX: G43.019 Migraine without aura, intractable, without status migrainosus (principal); G62.9 Polyneuropathy, unspecified; F17.200 Nicotine dependence, unspecified, uncomplicated; G44.83 Primary cough headache
CPT/HCPCS: 99214

== ENCOUNTER 2025-03-11 13:08 | Emergency (ER) | payer MEDICAID, SELFPAY ==
[2025-02-23 14:50] VITALS: BP 118/81; BMI 24.8
[2025-03-11 13:12] VITALS: BP 127/77; PULSE 109; RESP 16; TEMP 36.8; O2SAT 97
--- NOTE | 2025-03-11 15:00 | W.ED.BACK ---
HPI - Back Pain/Injury General: Chief Complaint: Back Pain/Injury Stated Complaint: 9 days post back surg, unable to walk, pain Time Seen by Provider: 03/11/25 14:49 Source: patient Mode of arrival: ambulatory Limitations: no limitations History of Present Illness: 59yo female presents with low back pain that radiates down her right leg that started in the middle of the day yesterday and has persistently worsened. Patient reports she had an L4-5 lumbar laminectomy on 03/09/[address] Vazquez. States that the pain is worse than it was prior to surgery. Reports that she was prescribed oxycodone 5 mg and took 2 of them at 0800 this morning, but has not had any improvement in the pain. She did attempt to contact Dr. Vazquez's office, but has not heard back. She denies fall, trauma, known injury, vomiting, incontinence, difficulty passing urine, any other concern at this time. Associated symptoms: Deny chills, fever(s) or vomiting Related Data Home Medications ?Medication ?Instructions ?Recorded ?Confirmed dicyclomine 20 mg tablet 20 mg PO QID@09,14,18,21 12/22/20 03/11/25 omeprazole 40 mg capsule,delayed 40 mg PO DAILY@1400 12/22/20 03/11/25 release baclofen 20 mg tablet 20 mg PO TID@0900,1400,2100 01/07/21 03/11/25 simvastatin 20 mg tablet 20 mg PO DAILY@1800 01/07/21 03/11/25 acetaminophen 650 mg 650 mg PO Q8H PRN pain 08/08/23 03/11/25 tablet,extended release (Tylenol 8 Hour) polyethylene glycol 3350 17 gram 17 g PO DAILY PRN Constipation 11/15/23 03/11/25 oral powder packet (Miralax) ipratropium bromide 42 mcg (0.06 2 spray intranasal BID 05/09/24 03/11/25 %) nasal spray ergocalciferol (vitamin D2) 1,250 1,250 mcg PO .WEEKLY 11/05/24 03/11/25 mcg (50,000 unit) capsule bupropion HCl 150 mg 24 hr tablet, 150 mg PO QAM 03/06/25 03/11/25 extended release sumatriptan succinate 100 mg 100 mg PO PRN 03/06/25 03/11/25 tablet (Imitrex) levothyroxine 25 mcg tablet 25 mcg PO QAM 03/11/25 03/11/25 olanzapine 5 mg disintegrating 5 mg PO DAILY PRN Severe 03/11/25 03/11/25 tablet anxiety/agitation ondansetron HCl 4 mg tablet 4 mg PO TID PRN Nausea 03/11/25 03/11/25 oxycodone 10 mg tablet 10 mg PO Q4H PRN Pain 03/11/25 03/11/25 sennosides 8.6 mg-docusate sodium 1 tab PO BID PRN Constipation 03/11/25 03/11/25 50 mg tablet (Senokot-S) Previous Rx's ?Medication ?Instructions ?Recorded montelukast 10 mg tablet 10 mg PO DAILY@0900 #30 tabs 04/25/21 (Singulair) fluticasone propionate 110 2 puff inhalation BID #12 grams 04/28/24 mcg/actuation HFA aerosol inhaler tiotropium 2.5 mcg-olodaterol 2.5 2 puff inhalation DAILY #4 grams 04/29/24 mcg/actuation mist for inhalation (Stiolto Respimat) duloxetine 30 mg capsule,delayed 30 mg PO .morning #90 caps 11/05/24 release (Cymbalta) duloxetine 60 mg capsule,delayed 60 mg PO .morning #90 caps 11/05/24 release (Cymbalta) buspirone 10 mg tablet 20 mg (2 x 10 mg) PO BID #360 tabs 01/26/25 olanzapine 5 mg tablet (Zyprexa) 5 mg PO BEDTIME . #90 tabs 01/26/25 trazodone 150 mg tablet 150 mg PO BEDTIME PRN insomnia #90 01/26/25 tabs oxycodone 5 mg tablet 5 mg PO QID PRN pain 7 days #42 03/09/25 tabs varenicline tartrate 1 mg tablet 1 mg PO DIRECTED #56 tabs 03/10/25 zonisamide 100 mg capsule 200 mg (2 x 100 mg) PO BID #120 03/10/25 caps prednisone 20 mg tablet See Taper PO DAILY #15 tabs 03/11/25 Allergies Allergy/AdvReac Type Severity Reaction Status Date / Time benztropine Allergy Severe edema to Verified 03/11/25 13:16 face budesonide (From Symbicort) Allergy Severe Swelling Verified 03/11/25 13:16 and nausea fluticasone (From Flonase) Allergy Severe ADR-Swelling Verified 03/11/25 13:16 of the Eye hydrocodone Allergy Severe vomiting Verified 03/11/25 13:16 propranolol Allergy Severe ADR-Swelling Verified 03/11/25 13:16 of the Eye Sulfa (Sulfonamide Allergy Severe ALGY-Rash Verified 03/11/25 13:16 Antibiotics) triamcinolone (From Nasacort) Allergy Severe Nausea Verified 03/11/25 13:16 naproxen Allergy Intermediate throw up Verified 03/11/25 13:16 topiramate (From Trokendi XR) Allergy Intermediate hands and Verified 03/11/25 13:16 face swell oxymetazoline (From Afrin Allergy Mild sore throat Verified 03/11/25 13:16 (oxymetazoline)) asenapine (From Saphris) Allergy Unknown Unknown Verified 03/11/25 13:16 aspirin Allergy Unknown vomit Verified 03/11/25 13:16 codeine Allergy Unknown ADR-Vomitin Verified 03/11/25 13:16 g diphenhydramine (From Allergy Unknown palpitation Verified 03/11/25 13:16 Benadryl) s ibuprofen Allergy Unknown ADR-Vomitin Verified 03/11/25 13:16 g lidocaine (From Lidoderm) Allergy Unknown ADR-Vomitin Verified 03/11/25 13:16 g meloxicam Allergy Unknown ADR-Vomitin Verified 03/11/25 13:16 g pregabalin (From Lyrica) Allergy Unknown ADR-Vomitin Verified 03/11/25 13:16 g tramadol (From Ultram) Allergy Unknown ADR-Vomitin Verified 03/11/25 13:16 g celecoxib (From Celebrex) Allergy ADR-Vomitin Verified 03/11/25 13:16 g chlorzoxazone (From Parafon Allergy amnesia Verified 03/11/25 13:16 Forte) salmeterol (From Advair Allergy ADR-Swelling Verified 03/11/25 13:16 Diskus) of the Eye fentanyl AdvReac Severe ADR-Confusi Verified 03/11/25 13:16 on diazepam (From Valium) AdvReac Mild vomiting Verified 03/11/25 13:16 diclofenac (From Voltaren) AdvReac Mild vomiting Verified 03/11/25 13:16 ziprasidone (From Geodon) AdvReac Mild sores in Verified 03/11/25 13:16 mouth formoterol (From Symbicort) AdvReac sore throat Verified 03/11/25 13:16 Review of Systems Const: Reports: night sweats (last night); Denies: fever(s), chills or body aches Card: Denies: chest pain Resp: Denies: dyspnea GI: Denies: vomiting : Denies: urinary incontinence Musc: Reports: back pain (low, right side radiating down rt leg) PFSH ED PFSH: Medical History Psychiatric care Diverticulosis Migraine headache Chronic sinusitis Chronic eustachian tube dysfunction Allergic rhinitis Postnasal drip Nasal turbinate hypertrophy Nasal septal deformity Nicotine dependence, cigarettes, with unspecified nicotine-induced disorders Vitamin D deficiency Hyperlipidemia Chronic back pain COPD (chronic obstructive pulmonary disease) Fibromyalgia Osteoporosis Fatty liver Severe sleep apnea Hypothyroid Borderline personality disorder Cannabis dependence, episodic use Generalized anxiety disorder Chronic post-traumatic stress disorder Schizoaffective disorder, depressive type Surgical History History of appendectomy H/O section Status post gastric surgery History of cholecystectomy Family History Other Diabetes Glaucoma Hypertension Thyroid disease Denies family history of Colon cancer Pancreatic cancer Ovarian cancer Thyroid cancer Heart disease Prostate cancer genetic susceptibility Uterine cancer Social History Smoking and tobacco/nicotine status: never used tobacco/nicotine Quit status (tobacco/nicotine): considering quitting Second hand smoke exposure: Yes Alcohol intake: current Alcohol intake frequency: holidays/special occasions only Alcohol type: hard liquor Substance/Drug Use: current Substance/Drug use frequency: daily Adopted: No Caregiver/support person: No Lives independently: Yes Household members: family Housing: Manufactured/Mobile home Marital status: Legally Marital status details: hasn't seen her for 7-8 years Number of children: 4 Number of grandchildren: 2 Highest education level completed: GED or Equivalent service: No Current occupational status: disabled Pets and animals: Yes Pets & animals: cat(s) Pets & animal details: outside cats Leisure activites: other Leisure activities details: watch movies, rock kruse Sexually active: No Do you think of yourself as: Straight/Heterosexual Current gender identity: Female Esperanza/Restoration: [employer] Special esperanza needs: No Agree to transfusion: Yes Female Reproductive History: Para: 4 Spontaneous abortions: No Physical Exam Const: COMMON NORMALS: no acute distress, patient oriented x3 and alert GENERAL APPEARANCE: cooperative and appears older than stated age HENMT: COMMON NORMALS: normocephalic and atraumatic HEAD & SCALP: normocephalic and atraumatic Chest: CHEST: Yes Symmetrical chest wall rise Resp: COMMON NORMALS: normal respiratory effort EFFORT & INSPECTION: Yes able to speak in complete sentences Neuro: COMMON NORMALS: patient oriented x3 SENSORIUM/ORIENTATION: Yes alert Course Consultations: Consultation #1: Consulted Dr. Vazquez due to patient being status post lumbar laminectomy L4-5 on 03/09/2025. He did recommend steroids to help with her pain. Advised 60 mg for 3 days, 40 mg for 2 days, 20 mg for 2 days. Time: 15:10 Vital Signs: Vital signs: Vital Signs Temperature 98.3 F 03/11/25 13:12 Pulse Rate 109 H 03/11/25 13:12 Respiratory Rate 16 03/11/25 13:12 Blood Pressure 127/77 03/11/25 13:12 Pulse Oximetry 97 03/11/25 13:12 Oxygen Delivery Me thod Room Air 03/11/25 13:12 MDM - Back Pain/Injury Medical Decision Making 59yo female presents with low back pain that radiates down her right leg that started in the middle of the day yesterday and has persistently worsened. Patient reports she had an L4-5 lumbar laminectomy on 03/09/[address] Vazquez. States that the pain is worse than it was prior to surgery. Patient denies fever, chills, bodies, fall, trauma, known injury. Patient is nontoxic in appearance. Vital signs are stable. Patient did receive ketorolac and orphenadrine while in the emergency department. Discussed with Dr. Vazquez, who recommended a steroid taper. Discussed plan with patient, who is agreeable. Prescription sent to patient's pharmacy. Recommend she continue with her previously prescribed medications. Advised following up with Dr. Quarles, call his office in the next 1 to 2 days with an update of symptoms and to discuss a recheck. Return precautions provided. Patient states understanding and has no further questions or concerns at this time. Differential Diagnosis Likely lumbar radiculopathy and sciatica Medical Records I reviewed the patient's medical records. No radiology studies performed this visit Discharge Plan Discharge Patient Disposition: Home Clinical Impression: Low back pain, Status post lumbar laminectomy Condition: Stable Prescriptions: New prednisone 20 mg tablet See Taper PO DAILY Qty: 15 0RF Taper: predniSONE 60-10 60 mg Daily for 3 Days and 0 Hour 40 mg Daily for 2 Days and 0 Hour 20 mg Daily for 2 Days and 0 Hour No Action omeprazole 40 mg capsule,delayed release(DR/EC) 40 mg PO DAILY@1400 dicyclomine 20 mg tablet 20 mg PO QID@09,14,18,21 ipratropium bromide 42 mcg (0.06 %) spray,non-aerosol 2 spray intranasal BID Rx Instructions: administer into each nostril varenicline tartrate 1 mg tablet 1 mg PO DIRECTED Qty: 56 5RF zonisamide 100 mg capsule 200 mg PO BID Qty: 120 11RF acetaminophen [Tylenol 8 Hour] 650 mg tablet extended release 650 mg PO Q8H PRN (Reason: pain) polyethylene glycol 3350 [Miralax] 17 gram powder in packet 17 g PO DAILY PRN (Reason: Constipation) ergocalciferol (vitamin D2) 1,250 mcg (50,000 unit) capsule 1,250 mcg PO .WEEKLY Rx Instructions: Tuesdays duloxetine [Cymbalta] 60 mg capsule,delayed release(DR/EC) 60 mg PO .morning Qty: 90 2RF Rx Instructions: along with 30mg to=90 mg total duloxetine [Cymbalta] 30 mg capsule,delayed release(DR/EC) 30 mg PO .morning Qty: 90 2RF Rx Instructions: along with 60mg to=90 mg total montelukast [Singulair] 10 mg tablet 10 mg PO DAILY@0900 Qty: 30 3RF fluticasone propionate 110 mcg/actuation HFA aerosol inhaler 2 puff inhalation BID Qty: 12 6RF Rx Instructions: has tried previously with no reactions noted Stiolto Respimat 2.5-2.5 mcg/actuation mist 2 puff inhalation DAILY Qty: 4 5RF Rx Instructions: has tried previously with no reactions noted olanzapine [Zyprexa] 5 mg tablet 5 mg PO BEDTIME Qty: 90 2RF buspirone 10 mg tablet 20 mg PO BID Qty: 360 2RF trazodone 150 mg tablet 150 mg PO BEDTIME PRN (Reason: insomnia) Qty: 90 2RF baclofen 20 mg tablet 20 mg PO TID@0900,1400,2100 Rx Instructions: Must last 30 days simvastatin 20 mg tablet 20 mg PO DAILY@1800 sumatriptan succinate [Imitrex] 100 mg tablet 100 mg PO PRN Rx Instructions: Take 1 tablet at onset of headache repeat in an hour if needed. bupropion HCl 150 mg tablet extended release 24 hr 150 mg PO QAM oxycodone 5 mg tablet 5 mg PO QID PRN (Reason: pain) 7 Days Qty: 42 0RF ondansetron HCl 4 mg tablet 4 mg PO TID PRN (Reason: Nausea) sennosides-docusate sodium [Senokot-S] 8.6-50 mg Tablet 1 tab PO BID PRN (Reason: Constipation) levothyroxine 25 mcg tablet 25 mcg PO QAM olanzapine 5 mg tablet,disintegrating 5 mg PO DAILY PRN (Reason: Severe anxiety/agitation) oxycodone 10 mg tablet 10 mg PO Q4H PRN (Reason: Pain) Discharge Orders: Discharge ED (Routine); Ordered 03/11/25 Ordered By: Baljit Howe Referrals: Aliyah Benito DO [Primary Care Provider, FINANCIAL REPORTING ANALYST] Discharge Diet: Usual diet Discharge Activity: Increase activity as tolerated Patient Instructions: Opioid Safety, Pain Management Activity Restrictions/Additional Instructions: A steroid taper has been sent to your pharmacy per Dr. Vazquez's recommendation Continue with your previously prescribed medications Call Dr. Vazquez's office in the next 1 to 2 days with an update of symptoms and to discuss a recheck Return to the emergency department if any rapid worsening symptoms and as needed Print Language: French Coding Level of Care Code ED Jointer Machine Operator for Sariah Fox
[2025-03-11] MEDS: orphenadrine 30 mg/mL Inj 2 mL 60 MG IM (15:33)
[2025-03-11] MEDS: ketorolac 30 mg/mL INJ IM (15:33)
[2025-03-11] MEDS: ondansetron hcl ODT 4 mg Tab PO (15:33)
[2025-03-11 16:11] VITALS: BP 127/77; PULSE 88; O2SAT 96
== END 2025-03-11 16:12 | disposition home or self-care (01) ==
PROVIDERS: Emergency Provider Nurse Practitioner; PCP Family Medicine
DX: M54.50 Low back pain, unspecified (principal); Z98.890 Other specified postprocedural states; E78.5 Hyperlipidemia, unspecified; J44.9 Chronic obstructive pulmonary disease, unspecified
CPT/HCPCS: 96372; 99284; J1885; J2360; Q0162

== ENCOUNTER → 2025-03-24 10:30 | Outpatient (BNVA) | payer MEDICAID, SELFPAY ==
[2025-02-23 14:50] VITALS: BP 118/81; BMI 24.8
== END ==
PROVIDERS: PCP Family Medicine; Visit Provider Orthopaedic Surgery
DX: Z98.890 Other specified postprocedural states (principal)
CPT/HCPCS: 99024

== ENCOUNTER → 2025-04-14 10:43 | Outpatient (BNVA) | payer MEDICAID, SELFPAY ==
[2025-02-23 14:50] VITALS: BP 118/81; BMI 24.8
== END ==
PROVIDERS: PCP Family Medicine; Visit Provider Orthopaedic Surgery
DX: Z98.890 Other specified postprocedural states (principal)
CPT/HCPCS: 99024

== ENCOUNTER → 2025-04-29 13:38 | Outpatient (BNVA) | payer OTHER, SELFPAY ==
[2025-02-23 14:50] VITALS: BP 118/81; BMI 24.8
== END ==
PROVIDERS: PCP Family Medicine; Visit Provider Nurse Practitioner Psychiatric/Mental Health
DX: Z79.899 Other long term (current) drug therapy (principal)
CPT/HCPCS: 80061; 83036

== ENCOUNTER 2025-05-01 11:36 | Outpatient (CLI) | payer OTHER, SELFPAY ==
[2025-02-23 14:50] VITALS: BP 118/81; BMI 24.8
--- NOTE | 2025-05-01 11:47 | XR_ITS ---
WS: [id number] XR ankle LT min 3V* [id number] REASON FOR EXAM: L ANKLE PAIN FINDINGS: No acute fracture. Joint spaces of the ankle are intact and well preserved. No radiopaque soft tissue foreign body. XR/XR ankle LT min 3V* [id number] IMPRESSION: No significant bone or joint abnormality.
--- NOTE | 2025-05-01 11:47 | XR_ITS ---
WS: [id number] XR hand RT min 3V* [id number] REASON FOR EXAM: R THUMB PAIN FINDINGS: Mild narrowing of the joint space with minimal subchondral sclerosis and osteophytosis in the DIP joints of the second through the fifth fingers. Similar arthropathy in the PIP joint of the fifth finger. Similar, somewhat more prominent arthropathy in the 3 joints of the thumb. XR/XR hand RT min 3V* [id number] IMPRESSION: Mild osteoarthritis of the right hand as above.
== END 2025-05-01 11:37 | disposition home or self-care (01) ==
PROVIDERS: PCP Family Medicine; Visit Provider Family Medicine
DX: M25.572 Pain in left ankle and joints of left foot (principal); M25.541 Pain in joints of right hand
CPT/HCPCS: 73130; 73610

== ENCOUNTER → 2025-05-26 10:34 | Outpatient (BNVA) | payer MEDICAID, SELFPAY ==
[2025-05-06 10:06] VITALS: BP 118/80; BMI 24.7
== END ==
PROVIDERS: PCP Family Medicine; Visit Provider Orthopaedic Surgery
DX: Z98.890 Other specified postprocedural states (principal)
CPT/HCPCS: 99024

== ENCOUNTER → 2025-06-09 08:53 | Outpatient (BNVA) | payer MEDICAID, SELFPAY ==
[2025-05-06 10:06] VITALS: BP 118/80; BMI 24.7
== END ==
PROVIDERS: PCP Family Medicine; Visit Provider Anesthesiology Pain Medicine
DX: M54.2 Cervicalgia (principal); M48.062 Spinal stenosis, lumbar region with neurogenic claudication; M54.9 Dorsalgia, unspecified; G89.29 Other chronic pain; M47.22 Other spondylosis with radiculopathy, cervical region
CPT/HCPCS: 99214

== ENCOUNTER 2025-06-23 09:14 | Outpatient (CLI) | payer MEDICAID, SELFPAY ==
[2025-05-06 10:06] VITALS: BP 118/80; BMI 24.7
--- NOTE | 2025-06-23 09:19 | CT_ITS ---
WS: [id number] CT CHEST 06/23/2025. HISTORY: Heavy smoker lung screening. TECHNIQUE: Multiple low-dose axial images were obtained without intravenous contrast enhancement. Sagittal and coronal reconstructions were obtained. COMPARISON EXAMINATION: Screening CT of the chest. L RAD 4 a FINDINGS: There are multiple calcified, partially calcified, and noncalcified 2-5 mm nodules in the right lung most of which are pleural-based. There is linear fibrotic scarring in the anterior medial most upper lobes. These findings are all unchanged. The index lesion in the right lower lobe which is an elongated irregular partially calcified lesion with a pleural tail has decreased in volume (soft tissue) measuring 17 x 4.7 mm. The remainder of the chest CT scan is unchanged compared to the previous study with no significant adenopathy and no other significant pulmonary parenchymal abnormality. CT/CT lung screening [id number] IMPRESSION: Stable examination. Index lesion has decreased in volume and was shown to be PET negative on 2 occa sions. Because of smoking history would recommend yearly follow-up.
== END 2025-06-23 09:15 | disposition home or self-care (01) ==
LOC: RAD 09:16
PROVIDERS: PCP Family Medicine; Visit Provider Family Medicine
DX: Z12.2 Encounter for screening for malignant neoplasm of respiratory organs (principal); F17.210 Nicotine dependence, cigarettes, uncomplicated; R91.8 Other nonspecific abnormal finding of lung field
CPT/HCPCS: 71271

== ENCOUNTER 2025-07-21 06:43 | Outpatient (CLI) | payer MEDICAID, SELFPAY ==
[2025-05-06 10:06] VITALS: BP 118/80; BMI 24.7
--- NOTE | 2025-07-21 06:56 | US_ITS ---
WS: [id number] Complete ABDOMINAL ULTRASOUND HISTORY: ABD MASS COMPARISON: 07/31/2022 Liver: 14.7 cm in length. Normal size liver and echogenicity. No bile duct dilatation or mass. Portal Vein: Normal hepatopetal flow with monophasic waveform. Gallbladder: Prior cholecystectomy. CBD: 0.7 cm Pancreas: Normal size and echogenicity. Right kidney: 10.4 cm x 4.9 x 4.5 cm. Cortex:1.1 cm. Normal size and echogenicity. No hydronephrosis or mass. Left kidney: 9.1 cm x 4.5 cm x 4.7 cm. Cortex: 1.0 cm. Normal size. Tiny cortical cyst measuring 0.9 cm. Spleen: 8.9 cm. Normal size with granuloma. Aorta and IVC: Atherosclerosis aorta. US/US abdomen complete* [id number] Impression: 1. Prior cholecystectomy. 2. No abdominal mass identified by ultrasound. 3. Tiny cortical cyst LEFT kidney, 0.9 cm. 4. No intrahepatic duct dilatation.
== END 2025-07-21 06:44 | disposition home or self-care (01) ==
LOC: RAD 06:45
PROVIDERS: PCP Family Medicine; Visit Provider Family Medicine
DX: R19.00 Intra-abdominal and pelvic swelling, mass and lump, unspecified site (principal); Z98.890 Other specified postprocedural states; N28.1 Cyst of kidney, acquired
CPT/HCPCS: 76700

== ENCOUNTER → 2025-07-31 10:10 | Outpatient (BNVA) | payer MEDICAID, SELFPAY ==
[2025-05-06 10:06] VITALS: BP 118/80; BMI 24.7
== END ==
PROVIDERS: PCP Family Medicine; Visit Provider Student in an Organized Health Care Education/Training Program
DX: K21.9 Gastro-esophageal reflux disease without esophagitis (principal); R03.0 Elevated blood-pressure reading, without diagnosis of hypertension
CPT/HCPCS: 99204

== ENCOUNTER 2025-08-04 08:55 | Day surgery (SDC) | payer MEDICAID, SELFPAY ==
[2025-05-06 10:06] VITALS: BP 118/80; BMI 24.7
[2025-08-04 09:19] VITALS: BMI 24.1
[2025-08-04 09:24] VITALS: BP 110/79; PULSE 89; RESP 18; TEMP 36.2; O2SAT 99
--- NOTE | 2025-08-04 09:31 | ANES.PREANE2 ---
Pre-Anesthetic Assessment Height/Weight: Height 1.57 m Weight 59.874 kg Temp Pulse Resp BP Pulse Ox O2 Del Method 97.1 F L 89 18 110/79 99 Room Air 08/04/25 09:24 08/04/25 09:24 08/04/25 09:24 08/04/25 09:24 08/04/25 09:24 08/04/25 09:24 Operation Date: 08/04/25 10:45 Proposed Procedures p EGD EGD with Biopsy [id number] R12(Not Applicable) - Geovanni Bailey MD Familial anesthetic complications: None Was Beta Landon taken within 24 hours: N/A Was Clonidine taken within 24 hours: N/A Last intake: Intake Last Liquid Date 08/03/25 Last Solid Date 08/03/25 Last Solid Time 17:00 Social No alcohol and No tobacco former smoker Exam alert, oriented x 3, clear to auscultation bilaterally and regular rate & rhythm Airway Mallampati: Class I Dentition: chipped Pulmonary Chronic Obstructive Pulmonary Disease and Sleep Apnea GI Gastroesophageal Reflux Disease Metabolic Hyperlipidemia and Thyroid Disease Anesthetic Plan ASA status: 3 Anesthesia: MAC Risk of > 500 ml blood loss (7ml/kg in children): No Medications/Allergies Home Medications ?Medication ?Instructions ?Recorded ?Confirmed ?Last Taken ?Type dicyclomine 20 mg tablet 20 mg PO QID@09,14,18,21 12/22/20 08/03/25 08/03/25 History omeprazole 40 mg capsule,delayed 40 mg PO DAILY@1400 12/22/20 08/03/25 08/03/25 History release baclofen 20 mg tablet 20 mg PO TID@0900,1400,2100 01/07/21 08/03/25 08/03/25 History simvastatin 20 mg tablet 20 mg PO DAILY@1800 01/07/21 08/03/25 08/03/25 History montelukast 10 mg tablet 10 mg PO DAILY@0900 #30 tabs 04/25/21 08/03/25 08/03/25 Rx (Singulair) acetaminophen 650 mg 1,300 mg PO Q8H PRN pain 08/08/23 08/03/25 08/03/25 History tablet,extended release (Tylenol 8 Hour) polyethylene glycol 3350 17 gram 17 g PO DAILY PRN Constipation 11/15/23 08/03/25 03/06/25 History oral powder packet (Miralax) fluticasone propionate 110 2 puff inhalation BID #12 grams 04/28/24 08/03/25 08/03/25 Rx mcg/actuation HFA aerosol inhaler tiotropium 2.5 mcg-olodaterol 2.5 2 puff inhalation DAILY #4 grams 04/29/24 08/03/25 08/03/25 Rx mcg/actuation mist for inhalation (Stiolto Respimat) ipratropium bromide 42 mcg (0.06 2 spray intranasal BID 05/09/24 08/03/25 08/03/25 History %) nasal spray ergocalciferol (vitamin D2) 1,250 1,250 mcg PO .WEEKLY 11/05/24 08/03/25 07/28/25 History mcg (50,000 unit) capsule buspirone 10 mg tablet 20 mg (2 x 10 mg) PO BID #360 tabs 01/26/25 08/03/25 08/03/25 Rx olanzapine 5 mg tablet (Zyprexa) 5 mg PO BEDTIME . #90 tabs 01/26/25 08/03/25 08/03/25 Rx trazodone 150 mg tablet 150 mg PO BEDTIME PRN insomnia #90 01/26/25 08/03/25 08/02/25 Rx tabs sumatriptan succinate 100 mg 100 mg PO PRN 03/06/25 08/03/25 08/03/25 History tablet (Imitrex) zonisamide 100 mg capsule 200 mg (2 x 100 mg) PO BID #120 03/10/25 08/03/25 08/03/25 Rx caps levothyroxine 25 mcg tablet 25 mcg PO QAM 03/11/25 08/03/25 08/03/25 History olanzapine 5 mg disintegrating 5 mg PO DAILY PRN Severe 03/11/25 08/03/25 Unknown History tablet anxiety/agitation ondansetron HCl 4 mg tablet 4 mg PO TID PRN Nausea 03/11/25 08/03/25 08/02/25 History bupropion HCl 150 mg 24 hr tablet, See Rx Instructions .Route 06/16/25 08/03/25 08/03/25 Rx extended release .COMPLEX #30 tabs duloxetine 30 mg capsule,delayed 30 mg PO .noon #90 caps 07/29/25 08/03/25 08/03/25 Rx release duloxetine 60 mg capsule,delayed 60 mg PO .noon #90 caps 07/29/25 08/03/25 08/03/25 Rx release varenicline tartrate 1 mg tablet 1 mg PO BID 08/03/25 08/03/25 08/03/25 History Allergies Allergy/AdvReac Type Severity Reaction Status Date / Time benztropine Allergy Severe edema to Verified 07/31/25 10:18 face budesonide (From Symbicort) Allergy Severe Swelling Verified 07/31/25 10:18 and nausea fluticasone (From Flonase) Allergy Severe ADR-Swelling Verified 07/31/25 10:18 of the Eye hydrocodone Allergy Severe vomiting Verified 07/31/25 10:18 propranolol Allergy Severe ADR-Swelling Verified 07/31/25 10:18 of the Eye Sulfa (Sulfonamide Allergy Severe ALGY-Rash Verified 07/31/25 10:18 Antibiotics) triamcinolone (From Nasacort) Allergy Severe Nausea Verified 07/31/25 10:18 naproxen Allergy Intermediate throw up Verified 07/31/25 10:18 topiramate (From Trokendi XR) Allergy Intermediate hands and Verified 07/31/25 10:18 face swell oxymetazoline (From Afrin Allergy Mild sore throat Verified 07/31/25 10:18 (oxymetazoline)) asenapine (From Saphris) Allergy Unknown Unknown Verified 07/31/25 10:18 aspirin Allergy Unknown vomit Verified 07/31/25 10:18 codeine Allergy Unknown ADR-Vomitin Verified 07/31/25 10:18 g diphenhydramine (From Allergy Unknown palpitation Verified 07/31/25 10:18 Benadryl) s ibuprofen Allergy Unknown ADR-Vomitin Verified 07/31/25 10:18 g lidocaine (From Lidoderm) Allergy Unknown ADR-Vomitin Verified 07/31/25 10:18 g meloxicam Allergy Unknown ADR-Vomitin Verified 07/31/25 10:18 g pregabalin (From Lyrica) Allergy Unknown ADR-Vomitin Verified 07/31/25 10:18 g tramadol (From Ultram) Allergy Unknown ADR-Vomitin Verified 07/31/25 10:18 g celecoxib (From Celebrex) Allergy ADR-Vomitin Verified 07/31/25 10:18 g chlorzoxazone (From Parafon Allergy amnesia Verified 07/31/25 10:18 Forte) salmeterol (From Advair Allergy ADR-Swelling Verified 07/31/25 10:18 Diskus) of the Eye fentanyl AdvReac Severe ADR-Confusi Verified 07/31/25 10:18 on diazepam (From Valium) AdvReac Mild vomiting Verified 07/31/25 10:18 diclofenac (From Voltaren) AdvReac Mild vomiting Verified 07/31/25 10:18 ziprasidone (From Geodon) AdvReac Mild sores in Verified 07/31/25 10:18 mouth formoterol (From Symbicort) AdvReac sore throat Verified 07/31/25 10:18 [facility] Anesthesia Medical History Psychiatric care Diverticulosis Migraine headache Chronic sinusitis Chronic eustachian tube dysfunction Allergic rhinitis Postnasal drip Nasal turbinate hypertrophy Nasal septal deformity Nicotine dependence, cigarettes, with unspecified nicotine-induced disorders Vitamin D deficiency Hyperlipidemia Chronic back pain COPD (chronic obstructive pulmonary disease) Fibromyalgia Osteoporosis Fatty liver Severe sleep apnea Hypothyroid Borderline personality disorder Cannabis dependence, episodic use Generalized anxiety disorder Chronic post-traumatic stress disorder Schizoaffective disorder, depressive type Surgical History (Updated 07/31/25 @ 10:25 by CHRISTIE Dan) History of appendectomy H/O section Status post gastric surgery History of cholecystectomy Family History Other Diabetes Glaucoma Hypertension Thyroid disease Denies family history of Colon cancer Pancreatic cancer Ovarian cancer Thyroid cancer Heart disease Prostate cancer genetic susceptibility Uterine cancer Social History (Updated 07/31/25 @ 10:34 by CHRISTIE Dan) Smoking and tobacco/nicotine status: never used tobacco/nicotine Quit status (tobacco/nicotine): has quit using Year quit tobacco: 2024 Former quit date comment: February 12 Second hand smoke exposure: Yes Alcohol intake: former Year of sobriety/quit date alcohol: 2023 Substance/Drug Use: current Substance/Drug use frequency: daily Other substance/drug use details: For pain 3 or 4 times a day Adopted: No Caregiver/support person: No Lives independently: Yes Household members: family Housing: Manufactured/Mobile home Marital status: Marital status details: not legally sepearted but hasn't seen her for 7-8 years Number of children: 4 Number of grandchildren: 2 Highest education level completed: GED or Equivalent service: No Current occupational status: disabled Current occupational exposures/hazards: No Pets and animals: Yes Pets & animals: cat(s) and dog(s) Pets & animal details: outside cats Leisure activites: clubs, reading and other Leisure activities details: watch movies, rock kruse Sexually active: No Do you think of yourself as: Straight/Heterosexual Current gender identity: Female Esperanza/Mandaeism: Yazidism Special esperanza needs: No Agree to transfusion: Yes Female Reproductive History Para: 4 Spontaneous abortions: No Data Anesthesia Cardiac Studies: Sestamibi Stress Test (Cardiology) 05/09/22
--- NOTE | 2025-08-04 10:14 | W.PM.OPSFHP ---
Same Day Surgery H&P Indication for Procedure/HPI DATE OF PROCEDURE: August 04, 2025 CHIEF COMPLAINT/INDICATIONFOR SURGICAL PROCEDURE: Epigastric pain PREOP DIAGNOSIS: Epigastric pain PLANNED PROCEDURE: Operation Date: 08/04/25 10:45 Proposed Procedures p EGD EGD with Biopsy [id number] R12(Not Applicable) - Geovanni Bailey MD Medications/Allergies* Home Medications ?Medication ?Instructions ?Recorded ?Confirmed ?Type dicyclomine 20 mg tablet 20 mg PO QID@09,14,18,21 12/22/20 08/03/25 History omeprazole 40 mg capsule,delayed 40 mg PO DAILY@1400 12/22/20 08/03/25 History release baclofen 20 mg tablet 20 mg PO TID@0900,1400,2100 01/07/21 08/03/25 History simvastatin 20 mg tablet 20 mg PO DAILY@1800 01/07/21 08/03/25 History acetaminophen 650 mg 1,300 mg PO Q8H PRN pain 08/08/23 08/03/25 History tablet,extended release (Tylenol 8 Hour) polyethylene glycol 3350 17 gram 17 g PO DAILY PRN Constipation 11/15/23 08/04/25 History oral powder packet (Miralax) ipratropium bromide 42 mcg (0.06 2 spray intranasal BID 05/09/24 08/03/25 History %) nasal spray ergocalciferol (vitamin D2) 1,250 1,250 mcg PO .WEEKLY 11/05/24 08/03/25 History mcg (50,000 unit) capsule sumatriptan succinate 100 mg 100 mg PO PRN 03/06/25 08/03/25 History tablet (Imitrex) levothyroxine 25 mcg tablet 25 mcg PO QAM 03/11/25 08/03/25 History olanzapine 5 mg disintegrating 5 mg PO DAILY PRN Severe 03/11/25 08/04/25 History tablet anxiety/agitation ondansetron HCl 4 mg tablet 4 mg PO TID PRN Nausea 03/11/25 08/03/25 History varenicline tartrate 1 mg tablet 1 mg PO BID 08/03/25 08/03/25 History Allergies/Adverse Reactions Allergy/AdvReac Type Severity Reaction Status Date / Time benztropine Allergy Severe edema to Verified 08/04/25 09:33 face budesonide (From Symbicort) Allergy Severe Swelling Verified 08/04/25 09:33 and nausea fluticasone (From Flonase) Allergy Severe ADR-Swelling Verified 08/04/25 09:33 of the Eye hydrocodone Allergy Severe vomiting Verified 08/04/25 09:33 propranolol Allergy Severe ADR-Swelling Verified 08/04/25 09:33 of the Eye Sulfa (Sulfonamide Allergy Severe ALGY-Rash Verified 08/04/25 09:33 Antibiotics) triamcinolone (From Nasacort) Allergy Severe Nausea Verified 08/04/25 09:33 naproxen Allergy Intermediate throw up Verified 08/04/25 09:33 topiramate (From Trokendi XR) Allergy Intermediate hands and Verified 08/04/25 09:33 face swell oxymetazoline (From Afrin Allergy Mild sore throat Verified 08/04/25 09:33 (oxymetazoline)) asenapine (From Saphris) Allergy Unknown Unknown Verified 08/04/25 09:33 aspirin Allergy Unknown vomit Verified 08/04/25 09:33 codeine Allergy Unknown ADR-Vomitin Verified 08/04/25 09:33 g diphenhydramine (From Allergy Unknown palpitation Verified 08/04/25 09:33 Benadryl) s ibuprofen Allergy Unknown ADR-Vomitin Verified 08/04/25 09:33 g lidocaine (From Lidoderm) Allergy Unknown ADR-Vomitin Verified 08/04/25 09:33 g meloxicam Allergy Unknown ADR-Vomitin Verified 08/04/25 09:33 g pregabalin (From Lyrica) Allergy Unknown ADR-Vomitin Verified 08/04/25 09:33 g tramadol (From Ultram) Allergy Unknown ADR-Vomitin Verified 08/04/25 09:33 g celecoxib (From Celebrex) Allergy ADR-Vomitin Verified 08/04/25 09:33 g chlorzoxazone (From Parafon Allergy amnesia Verified 08/04/25 09:33 Forte) salmeterol (From Advair Allergy ADR-Swelling Verified 08/04/25 09:33 Diskus) of the Eye fentanyl AdvReac Severe ADR-Confusi Verified 08/04/25 09:33 on diazepam (From Valium) AdvReac Mild vomiting Verified 08/04/25 09:33 diclofenac (From Voltaren) AdvReac Mild vomiting Verified 08/04/25 09:33 ziprasidone (From Geodon) AdvReac Mild sores in Verified 08/04/25 09:33 mouth formoterol (From Symbicort) AdvReac sore throat Verified 08/04/25 09:33 Current Medications: Generic Name Dose Route Start Last Admin Trade Name Freq PRN Reason Stop Dose Admin Sodium Chloride 1,000 mls @ 15 mls/hr 08/04/25 09:18 08/04/25 09:35 Sodium Chloride 0.9% IV 08/05/25 09:17 15 mls/hr .Q24H PRN Administration COLONOSCOPY FLUIDS Pertinent History/Comorbid Conditions* Medical History (Updated 04/29/25 @ 13:19 by Emi Paul [facility] [place]) Psychiatric care Diverticulosis Migraine headache Chronic sinusitis Chronic eustachian tube dysfunction Allergic rhinitis Postnasal drip Nasal turbinate hypertrophy Nasal septal deformity Nicotine dependence, cigarettes, with unspecified nicotine-induced disorders Vitamin D deficiency Hyperlipidemia Chronic back pain COPD (chronic obstructive pulmonary disease) Fibromyalgia Osteoporosis Fatty liver Severe sleep apnea Hypothyroid Borderline personality disorder Cannabis dependence, episodic use Generalized anxiety disorder Chronic post-traumatic stress disorder Schizoaffective disorder, depressive type Surgical History (Updated 03/19/25 @ 00:00 by XU Carballo) History of appendectomy H/O section Status post gastric surgery History of cholecystectomy Family History (Updated 07/04/22 @ 10:29 by Mily Burgess LPN) Diabetes Glaucoma Hypertension Thyroid disease Denies family history of Colon cancer Pancreatic cancer Ovarian cancer Thyroid cancer Heart disease Prostate cancer genetic susceptibility Uterine cancer Social History Smoking and tobacco/nicotine status: never used tobacco/nicotine Quit status (tobacco/nicotine): has quit using Year quit tobacco: 2024 Former quit date comment: February 12 Second hand smoke exposure: Yes Alcohol intake: former Year of sobriety/quit date alcohol: 2023 Substance/Drug Use: current Substance/Drug use frequency: daily Other substance/drug use details: For pain 3 or 4 times a day Adopted: No Caregiver/support person: No Lives independently: Yes Household members: family Housing: Manufactured/Mobile home Marital status: Marital status details: not legally sepearted but hasn't seen her for 7-8 years Number of children: 4 Number of grandchildren: 2 Highest education level completed: GED or Equivalent service: No Current occupational status: disabled Current occupational exposures/hazards: No Pets and animals: Yes Pets & animals: cat(s) and dog(s) Pets & animal details: outside cats Leisure activites: clubs, reading and other Leisure activities details: watch movies, rock kruse Sexually active: No Do you think of yourself as: Straight/Heterosexual Current gender identity: Female Esperanza/Nondenominational: Islam Special esperanza needs: No Agree to transfusion: Yes Pertinent Exam Findings alert, oriented x 3, clear to auscultation bilaterally, regular rate & rhythm and procedure specific exam findings Soft nontender nondistended Recommendations Risks and benefits of procedure reviewed and Patient/family agree to proceed Surgery/Procedure today Other Plans: I have explained the risks and benefits of a diagnostic EGD with biopsy and the patient agrees to proceed. Patient understands the risks include iatrogenic perforation and aspiration and still decides to proceed. Coding Level of Care Code Acute Code for Chg Fwd
[2025-08-04 10:29] VITALS: BP 96/77; PULSE 81; RESP 16; TEMP 36.5; O2SAT 99
[2025-08-04 10:52] VITALS: BP 124/84; PULSE 81; RESP 16; O2SAT 100
--- NOTE | 2025-08-04 11:00 | ANE.PACU2 ---
Inpatient post-anesthesia follow up: Airway intact: Yes Vital signs: Temperature 97.7 F Pulse Rate 81 Respiratory Rate 16 Blood Pressure 124/84 Pulse Oximetry 100 Oxygen Delivery Me thod Room Air Oxygen Flow Rate Fraction of Inspir ed Oxygen Hydration adequate: Yes Nausea and vomiting: No Pain level: 1 Mental status: Baseline
== END 2025-08-04 11:00 | disposition home or self-care (01) ==
PROVIDERS: PCP Family Medicine; Visit Provider Student in an Organized Health Care Education/Training Program
PROC: 0DJ08ZZ Inspection of Upper Intestinal Tract, Via Natural or Artificial Opening Endoscopic (ICD-10-PCS; principal; 2025-08-04 10:45)
DX: R12 Heartburn (principal); K46.9 Unspecified abdominal hernia without obstruction or gangrene; K29.70 Gastritis, unspecified, without bleeding; K21.9 Gastro-esophageal reflux disease without esophagitis; K57.30 Diverticulosis of large intestine without perforation or abscess without bleeding; E03.9 Hypothyroidism, unspecified; J44.9 Chronic obstructive pulmonary disease, unspecified; E78.5 Hyperlipidemia, unspecified; F43.12 Post-traumatic stress disorder, chronic; F41.9 Anxiety disorder, unspecified; F17.210 Nicotine dependence, cigarettes, uncomplicated; F12.90 Cannabis use, unspecified, uncomplicated; G47.30 Sleep apnea, unspecified; E07.9 Disorder of thyroid, unspecified
CPT/HCPCS: 43239; 88305; J2704; J7030

== ENCOUNTER → 2025-08-17 10:30 | Outpatient (BNVA) | payer MEDICAID, SELFPAY ==
[2025-05-06 10:06] VITALS: BP 118/80; BMI 24.7
== END ==
PROVIDERS: PCP Family Medicine; Visit Provider Student in an Organized Health Care Education/Training Program
DX: Z51.89 Encounter for other specified aftercare (principal); R03.0 Elevated blood-pressure reading, without diagnosis of hypertension
CPT/HCPCS: 99213

== ENCOUNTER → 2025-09-01 09:42 | Outpatient (BNVA) | payer MEDICAID, SELFPAY ==
[2025-05-06 10:06] VITALS: BP 118/80; BMI 24.7
== END ==
PROVIDERS: PCP Family Medicine; Visit Provider Anesthesiology Pain Medicine
DX: M48.062 Spinal stenosis, lumbar region with neurogenic claudication (principal); M47.22 Other spondylosis with radiculopathy, cervical region; G89.29 Other chronic pain
CPT/HCPCS: 99214

== ENCOUNTER → 2025-09-08 13:06 | Outpatient (BNVA) | payer MEDICAID, SELFPAY ==
[2025-05-06 10:06] VITALS: BP 118/80; BMI 24.7
== END ==
PROVIDERS: PCP Family Medicine; Visit Provider Anesthesiology Pain Medicine
DX: M79.18 Myalgia, other site (principal); M54.2 Cervicalgia; M47.22 Other spondylosis with radiculopathy, cervical region; M48.062 Spinal stenosis, lumbar region with neurogenic claudication; G89.29 Other chronic pain
CPT/HCPCS: 20553; 99214; J1010; J3490